=== PATIENT | male | born 1950 | race Caucasian/White ===

== ENCOUNTER 2023-02-19 17:15 | Inpatient (IN) | payer MEDICARE, SELFPAY ==
[2023-02-19] VITALS (22 sets, daily range): BP systolic 105–158; BP diastolic 64–80; PULSE 87–125; RESP 16–46; TEMP 36.9–37.1; O2SAT 89–94; BMI 23.9
--- NOTE | 2023-02-19 17:29 | XR_ITS ---
The [address] [address] Patient Name: VAHID CHOWDHURY MRN: [id number] date: 1950 Sex: M Assigned Patient Location: ER Current Patient Location: ER Accession/Order Number: [id number] Exam Date: 02/19/2023 17:35 Report Date: 02/19/2023 18:22 At the request of: PEARL MAURICIO Procedure: XR chest 1V EXAM: XR chest 1V HISTORY: sob COMPARISON: Chest CT 05/26/2011 TECHNIQUE: Portable chest FINDINGS: IMPRESSION: Dense consolidation within the right upper hemithorax. Poorly evaluated consolidation versus effusion within the left lower hemithorax. No visualized pneumothorax the cardiac, mediastinal and hilar contours are unremarkable. Stool is gross acute osseous abnormality. Chest CT imaging with contrast is necessary. Electronically authenticated by: CHARLIE MINOR Date: 02/19/2023 18:22
--- NOTE | 2023-02-19 17:29 | ECG_ITS ---
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
[2023-02-19] MEDS: IPRATROPIUM/ALBUTEROL SULFATE 3 ML AMPUL.NEB IH ×4 (17:36→22:59)
--- NOTE | 2023-02-19 17:40 | PC.NURSE ---
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
[2023-02-19 17:47] LABS: Hematocrit 46.1 % (42.0-54.0); Hemoglobin 15.8 g/dL (14.0-18.0); Mean Corpuscular HGB Conc 34.3 g/dL (29.9-35.2); Mean Corpuscular Hemoglobin 31.8 pg (25.9-34.0); Mean Corpuscular Volume 92.8 fL (80.0-94.0); Mean Platelet Volume 10.4 fL (9.5-13.5); Platelet Count 297 10^3/uL (150-450); Red Blood Count 4.97 10^6/uL (4.70-6.10); Red Cell Distribution Width 13.5 % (11.0-15.0); White Blood Count 27.5 10^3/uL (4.0-11.0)
[2023-02-19] MEDS: METHYLPREDNISOLONE SOD SUCC PF 125 MG/2 ML VIAL IVP (17:50)
--- NOTE | 2023-02-19 17:55 | ED_ITS ---
HPI - SOB/Dyspnea General Chief Complaint: Shortness of Breath/Dyspnea Stated Complaint: SHORTNESS OF BREATH/DIFFICULTY BREATHING/FEVER Time Seen by Provider: 02/19/23 17:22 Source: patient Mode of arrival: Wheelchair History of Present Illness HPI Narrative: 72-year-old male to the emergency department with chief complaint shortness of breath. Patient reports a history of chronic obstructive pulmonary disease not on oxygen. He reports that over the last three days he has had increasing shortness of breath with exertion. Last evening it began to affect him even at rest. Shortness of breath severe today limiting his ability to walk. He denies any chest pain. He does report fever, chills, cough. MD elicited complaint: shortness of breath and cough Pertinent past history: COPD Related Data Home oxygen amount: none Home Medications Medication Instructions Recorded Confirmed aspirin 81 mg tablet,delayed 81 mg PO DAILY 02/19/23 02/19/23 release (Adult Low Dose Aspirin) budesonide 160 mcg-glycopyr 9 2 inh inhalation BID 02/19/23 02/19/23 mcg-formot 4.8 mcg/actuation HFA inhaler (Breztri Aerosphere) simvastatin 40 mg tablet 40 mg PO QPM 02/19/23 02/19/23 Allergies Allergy/AdvReac Type Severity Reaction Status Date / Time No Known Drug Allergies Allergy Verified 02/19/23 17:23 Review of Systems ROS Status of ROS 10 or more systems reviewed and unremarkable except as noted in history and below [facility] Medical History (Updated 02/19/23 @ 18:39 by Red Jefferson MD) Exam Narrative Exam Narrative: VITALS: I have reviewed the triage vital signs. GENERAL: Well developed, well appearing adult in no acute distress. NEURO: Alert and oriented. Moves all extremities. Face is symmetric and expressive. EYES: PERRL. No scleral icterus or conjunctival injection. No discharge. HENT: Normocephalic, atraumatic. Hearing is grossly intact. Nares grossly patent and without discharge. Mucous membranes moist. NECK: No JVD. Patient moves neck without restriction. CARDIO: Rhythm regular. Normal rate. No murmur, rub, or gallop. Pulses equal bilaterally in the upper and lower extremity. No lower extremity edema. PULM: Diminished R>L. Trace wheezes. No rhonchi. Conversational dyspnea. Moderate increased work of breathing. GI/: Abdomen is soft and non-tender. Normoactive bowel sounds. EXTREMITIES: Symmetric muscle bulk. No joint swelling. No clubbing, cyanosis, or deformity. SKIN: Warm and dry. Normal turgor. No rash or lesions appreciated. PSYCH: Mood, affect, and interaction is appropriate to the setting. Constitutional Vital Signs, click to edit/add: Last Vital Signs Temp 98.7 F 02/19/23 17:24 Pulse 112 H 02/19/23 18:19 Resp 22 02/19/23 18:19 BP 118/79 02/19/23 18:15 Pulse Ox 91 L 02/19/23 18:19 O2 Del Method Nasal Cannula 02/19/23 18:19 O2 Flow Rate 2 02/19/23 18:19 Course Vital Signs Vital signs: Vital Signs Temperature 98.7 F 02/19/23 17:24 Pulse Rate 125 H 02/19/23 17:24 Respiratory Rate 26 H 02/19/23 17:24 Blood Pressure 158/78 H 02/19/23 17:24 Pulse Oximetry 89 L 02/19/23 17:24 Oxygen Delivery Method Room Air 02/19/23 17:24 Temperature 98.7 F 02/19/23 17:24 Pulse Rate 112 H 02/19/23 18:19 Respiratory Rate 22 02/19/23 18:19 Blood Pressure 118/79 02/19/23 18:15 Pulse Oximetry 91 L 02/19/23 18:19 Oxygen Delivery Method Nasal Cannula 02/19/23 18:19 Oxygen Delivery Flow Rate 2 02/19/23 18:19 MDM - SOB/Dyspnea MDM Narrative Medical decision making narrative: MDM Data External documents reviewed: Not applicable My EKG interpretation: As below My CT interpretation: Not applicable My X-ray interpretation: As below My Ultrasound interpretation: Not applicable Decision rules/scores evaluated: Not applicable Discussed with: Not applicable Treatment and Disposition ED Course: 72-year-old male with history of CVA to the emergency department she is complaining of increasing shortness of breath. He is hypoxic on room air upon arrival and placed on 2 L nasal cannula. Given nebulizers, salmeterol, magnesium ordered. Blood gas was ordered for the patient. He had modest improvement in his WoB with duoneb therapy. The patient has leukocytosis and bandemia. Chemistry without significant abnormality. CXR with Right upper lung consolidation. Rocephin and Azithromycin ordered. BCx and lactic ordered. Not in septic shock. Fluid bolus is not indicated. Remains improved after breathing treatments. Cased discussed with the hospitalist for admission. Shared decision making: As above Code status: Not addressed during this visit Lab Data Labs: Lab Results 02/19/23 02/19/23 02/19/23 Range/Units 17:30 17:40 17:46 WBC 27.5 H (4.0-11.0) 10^3/uL RBC 4.97 (4.70-6.10) 10^6/uL Hgb 15.8 (14.0-18.0) g/dL Hct 46.1 (42.0-54.0) % MCV 92.8 (80.0-94.0) fL MCH 31.8 (25.9-34.0) pg MCHC 34.3 (29.9-35.2) g/dL RDW 13.5 (11.0-15.0) % Plt Count 297 (150-450) 10^3/uL MPV 10.4 (9.5-13.5) fL Seg Neuts % (Manual) 75.0 Band Neutrophils % 7.0 H (0-5) % Lymphocytes % (Manual) 3.0 L (20.5-60.0) % Monocytes % (Manual) 14.0 H (1.7-12.0) % Eosinophils % (Manual) 1.0 (0.9-7.0) % Basophils % (Manual) 0.0 L (0.2-2.0) % Neutrophils # (Manual) 20.62 H (1.4-6.5) 10^3/uL Band Neutrophils # 1.9 H (0.0-0.3) 10^3/uL Lymphocytes # (Manual) 0.82 L (1.20-3.80) 10^3/uL Monocytes # (Manual) 3.85 H (0.30-0.80) 10^3/uL Eosinophils # (Manual) 0.27 (0.00-0.70) 10^3/uL Basophils # (Manual) 0.00 (0.00-0.10) 10^3/uL Anisocytosis 1+ PT 10.9 (9.0-11.6) sec INR 1.03 APTT 33.7 (22.3-36.2) sec Puncture Site Lr ABG pH 7.438 (7.350-7.450) ABG pCO2 36.6 (35.0-45.0) mmHg ABG pO2 55.7 L (80.0-100.0) mmHg ABG HCO3 24.7 (22.0-26.0) mmol/L ABG O2 Saturation 91.2 % ABG Base Excess 0.6 (-2.0-2.0) mmol/L Roney Test Positive (POSITIVE) O2 Liters/Min 2 Sodium 131 L (136-145) mmol/L Potassium 3.8 (3.5-5.1) mmol/L Chloride 96 L (98-107) mmol/L Carbon Dioxide 27.0 (21.0-32.0) mmol/L Anion Gap 11.8 BUN 11.0 (7.0-18.0) mg/dL Creatinine 0.99 (0.70-1.30) mg/dL Est GFR ( Amer) >60 (>=60) Est GFR (Non-Af Amer) >60 (>=60) BUN/Creatinine Ratio 11.1 Glucose 129 H (74-106) mg/dL Calcium 9.0 (8.5-10.1) mg/dL Troponin I High Sens 13.5 (4.0-76.1) pg/mL NT-Pro-B Natriuret Pep 679.0 (<=900.0) pg/mL SARS-CoV-2 Ag (CV2AG) Negative (NEGATIVE) Critical Care Time Critical Care Time Critical Care Time: Yes Total Critical Care Time: 35 Attestation: Critical Care Procedure Note Authorized and Performed by: Red Jefferson DO Total critical care time: 35 min Due to a high probability of clinically significant, life threatening deterioration, the patient required my highest level of preparedness to intervene emergently and I personally spent this critical care time directly and personally managing the patient. This critical care time included obtaining a history; examining the patient; pulse oximetry; ordering and review of studies; arranging urgent treatment with development of a management plan; evaluation of patient's response to treatment; frequent reassessment; and, discussions with other providers. This critical care time was performed to assess and manage the high probability of imminent, life-threatening deterioration that could result in multi-organ failure. It was exclusive of separately billable procedures and treating other patients and teaching time. Please see MDM section and the rest of the note for further information on patient assessment and treatment. Discharge Plan Discharge Chief Complaint: Shortness of Breath/Dyspnea Clinical Impression: Community acquired pneumonia, Asthma exacerbation in COPD, Acute hypoxemic respiratory failure Patient Disposition: Admitted As Inpatient Time of Disposition Decision: 18:38 Condition: Serious Prescriptions / Home Meds: No Action Jefei Aerosphere 160-9-4.8 mcg/actuation HFA aerosol inhaler 2 inh INHALATION BID simvastatin 40 mg tablet 40 mg PO QPM aspirin [Adult Low Dose Aspirin] 81 mg tablet,delayed release (DR/EC) 81 mg PO DAILY Referrals: Physician,Non-Staff, MD [Primary Care Provider] - 1 week
[2023-02-19 17:56] LABS: ABG PCO2 36.6 mmHg (35.0-45.0); Allen Test POSITIVE (POSITIVE); Base Excess ABG 0.6 mmol/L (-2.0-2.0); HCO3 ABG 24.7 mmol/L (22.0-26.0); Oxygen Saturation ABG 91.2 %; PO2 ABG 55.7 mmHg (80.0-100.0); pH ABG 7.438 (7.350-7.450)
[2023-02-19 17:57] LABS: Liters per Minute 2; O2 Mode ROOM AIR; Puncture Site LR
[2023-02-19] MEDS: MAGNESIUM SULFATE IN WATER 50 ML IV (18:05)
[2023-02-19 18:07] LABS: Anion Gap 11.8; BUN Creatinine Ratio 11.1; Chloride 96 mmol/L (98-107); Estimated GFR (African America >60 (>=60); Estimated GFR (Non-African Ame >60 (>=60); Glucose 129 mg/dL (74-106); Potassium 3.8 mmol/L (3.5-5.1); Sodium 131 mmol/L (136-145); Troponin I High Sensitivity 13.5 pg/mL (4.0-76.1)
[2023-02-19 18:08] LABS: Band Neutrophils Absolute 1.9 10^3/uL (0.0-0.3); Eosinophils Absolute Manual 0.27 10^3/uL (0.00-0.70); Lymphocytes Absolute Manual 0.82 10^3/uL (1.20-3.80); Monocytes Absolute Manual 3.85 10^3/uL (0.30-0.80); Segmented Neut Absolute Manual 20.62 10^3/uL (1.4-6.5)
[2023-02-19 18:09] LABS: Anisocytosis 1+
[2023-02-19 18:13] LABS: INR 1.03; Partial Thromboplastin Time 33.7 sec (22.3-36.2); Prothrombin Time 10.9 sec (9.0-11.6)
--- NOTE | 2023-02-19 18:17 | PC.NURSE ---
resp at bedside
[2023-02-19] MEDS: CEFTRIAXONE 1,000 MG in 0.9 % SODIUM CHLORIDE 50 ML 100 MG IV (18:38)
--- NOTE | 2023-02-19 18:43 | PC.NURSE ---
NC increased to 3L at this time. Pt states feeling a little better, will continue to monitor
--- NOTE | 2023-02-19 18:47 | CT_ITS ---
The [address] [place], [place] [address] Patient Name: VAHID CHOWDHURY MRN: [id number] date: 1950 Sex: M Assigned Patient Location: ED.MAIN Current Patient Location: ED.MAIN Accession/Order Number: [id number] Exam Date: 02/19/2023 19:14 Report Date: 02/19/2023 19:57 At the request of: PEARL MAURICIO Procedure: CT chest w con EXAM: CT scan of the chest using 99 mL of IV iodinated contrast. Dose reduction technique used: Automated exposure control and/or adjustment of the mA and/or kV according to patient size and/or use of iterative reconstruction technique. REASON FOR EXAM: Right upper lobe consolidation, dyspnea COMPARISON: Plain film from today FINDINGS: Moderate amount of consolidation in the right upper lobe, most prominent within the right apex. No pneumothorax. No pleural effusion. No acute fractures. No central or segmental pulmonary emboli. No aortic dissection. No lymphadenopathy in the chest. Small amount of opacities in the left upper lobe inferiorly are likely related to scarring. Emphysematous changes in both lungs. Remainder unremarkable. CT/CT chest w con IMPRESSION: Right upper lobe pneumonia. Recommend follow-up chest CT in 3 months to exclude underlying malignancy. Electronically authenticated by: AGATHA VILLANUEVA Date: 02/19/2023 19:57
[2023-02-19] MEDS: AZITHROMYCIN 500 MG in 0.9 % SODIUM CHLORIDE 250 ML 250 MG IV (19:23)
--- NOTE | 2023-02-19 22:14 | P.PN_ITS ---
Progress Note: Subjective Subjective Interval history: Pt is a 72M with PMH of COPD, AAA who presented to the ED with complaint of dyspnea on exertion which has been present for months but acutely worsened last night while he was walking to hisbathroom. He reports cough, dysphagia, and inability to clear secretions. Self-measured temp of 101-102 at home for the last two days associated with diaphoresis and chills. He denies sick contacts, recent hospitalizations, recent abx use, travel. Of note, pt is a daily beer drinker - 6/day. denies any tremors, no hx of seizures or DTs. Pt is an active tobacco smoker, 1PPD and cannot remember how long Exam Narrative Exam Narrative: Gen: NAD HEENT: NC/AT Neck: FROM CV: RRR Pulm: +soft wheezes, expiratory. +Rhonchi R-side anteriorly GI: Nondistended, no guarding Musculosk: PORTER, No edema Neuro: AAOx3 Psych: Calm, cooperative Constitutional Vital Signs, click to edit/add: Last Vital Signs Temp 98.5 F 02/19/23 21:07 Pulse 90 02/19/23 21:17 Resp 20 02/19/23 21:17 BP 117/66 02/19/23 21:07 Pulse Ox 93 L 02/19/23 21:17 O2 Del Method Nasal Cannula 02/19/23 21:17 O2 Flow Rate 3 02/19/23 21:17 Progress Note: Objective Labs Labs: Short CBC 02/19/23 Range/Units 17:30 WBC 27.5 H (4.0-11.0) 10^3/uL Hgb 15.8 (14.0-18.0) g/dL Hct 46.1 (42.0-54.0) % Plt Count 297 (150-450) 10^3/uL BMP 02/19/23 17:30 Sodium 131 L Potassium 3.8 Chloride 96 L Carbon Dioxide 27.0 BUN 11.0 Creatinine 0.99 Glucose 129 H Calcium 9.0 Progress Note: A&P Assessment and Plan (1) Community acquired pneumonia: (2) Acute hypoxemic respiratory failure: (3) COPD exacerbation: Plan Admit to medicine Rocephin/Azithromycin for CAP Obtain Ct scan given location of PNA (upper lobe) and extensive smokign history Place on solumedrol 40mg Q8 Mucinex 600mg BID Chest PT DuoNebs O2 support to goal 89-94% Monitor BP, as pt states that he has a AAA which has grown from 3.3cm to 4.2 in the last year Monitor for signs of withdrawal from EtOH. Pt states last drink was 48hrs ago. Telemedicine Attestation Telemedicine Attestation I conducted this encounter from [[place]] via secure live, [id number] video conference with the patient, located at [facility] with [nurse]. Prior to the interview, the risks and benefits of telemedicine were discussed with the patient and verbal consent was obtained.
[2023-02-19] MEDS: ENOXAPARIN SODIUM 40 MG/0.4 ML SYRINGE SUBQ (23:08)
[2023-02-19] MEDS: GUAIFENESIN 600 MG TAB.ER.12H PO (23:09)
[2023-02-20] VITALS (83 sets, daily range): BP systolic 114–137; BP diastolic 71–73; PULSE 65–98; RESP 12–40; TEMP 36.6–36.8; O2SAT 90–98
[2023-02-20] MEDS: IPRATROPIUM/ALBUTEROL SULFATE 3 ML AMPUL.NEB IH ×4 (04:32→22:00)
[2023-02-20 04:36] LABS: Mean Corpuscular HGB Conc 33.3 g/dL (29.9-35.2); Mean Corpuscular Hemoglobin 31.3 pg (25.9-34.0); Mean Platelet Volume 10.9 fL (9.5-13.5); Platelet Count 285 10^3/uL (150-450); Red Blood Count 4.47 10^6/uL (4.70-6.10); Red Cell Distribution Width 13.5 % (11.0-15.0); White Blood Count 24.4 10^3/uL (4.0-11.0)
[2023-02-20 04:50] LABS: Anion Gap 10.9; BUN Creatinine Ratio 13.8; Calcium 8.4 mg/dL (8.5-10.1); Carbon Dioxide 26.7 mmol/L (21.0-32.0); Chloride 97 mmol/L (98-107); Estimated GFR (African America >60 (>=60); Estimated GFR (Non-African Ame >60 (>=60); Glucose 178 mg/dL (74-106); Magnesium 2.7 mg/dL (1.8-2.4); Potassium 3.6 mmol/L (3.5-5.1); Sodium 131 mmol/L (136-145)
[2023-02-20 05:03] LABS: Band Neutrophils Absolute 2.7 10^3/uL (0.0-0.3); Lymphocytes Absolute Manual 0.73 10^3/uL (1.20-3.80); Monocytes Absolute Manual 0.73 10^3/uL (0.30-0.80); Segmented Neut Absolute Manual 20.25 10^3/uL (1.4-6.5)
[2023-02-20] MEDS: GUAIFENESIN 600 MG TAB.ER.12H PO ×2 (09:11→20:50)
[2023-02-20] MEDS: METHYLPREDNISOLONE SOD SUCC PF 125 MG/2 ML VIAL 60 MG IVP ×3 (09:11→20:50)
[2023-02-20] MEDS: ENOXAPARIN SODIUM 40 MG/0.4 ML SYRINGE SUBQ (09:11)
--- NOTE | 2023-02-20 10:25 | P.HP_ITS ---
H&P: HPI History of Present Illness Chief complaint: SOB Narrative: 72 y/o male with a history of COPD to ER with SOB. C/o SOB for several days and getting worse. Initially SOB with exertion but worsened. Day prior walking to bathroom and had to stop to catch breath. Chest tight and not able to take deep breath. Frequent dry cough. Developed fever 101-102 along with chills. Smokes 1 PPD and smoked for over 50 years. Increased symptoms and to ER. SpO2 low and placed on supplemental oxygen. ABG showed hypoxia with pO2 55.7 while on 2 LPM. Chest x-ray with consolidation and CT showed pneumonia. Admitted for treatment. Started zithromax and rocephin for pneumonia. Started solu-medrol and DuoNeb for COPD. Continues to feel SOB and chest tightness this am. Reports drinking at least 6 beer daily but denies every having withdrawal symptoms. Reports last drink was 3 days ago. Review of Systems ROS Constitutional Reports: fever, chills and fatigue Cardiovascular Denies: chest pain, palpitations or edema Respiratory Reports: shortness of breath, cough and wheezing Gastrointestinal Denies: abdominal pain, nausea, vomiting or diarrhea Genitourinary Denies: painful urination [facility] Medical History (Updated 02/20/23 @ 08:46 by Lenin Chavez MD) Surgical History (Updated 02/19/23 @ 20:31 by Deloris Tripp) Social History (Updated 02/19/23 @ 20:33 by Deloris Tripp) Within the past year, how often did you have a drink containing alcohol: 4 or more times a week Within the past year, how often did you have six or more drinks on one occasion: daily or almost daily Smoking status: Current every day smoker What tobacco products do you use: cigarettes Pack-years instructions: Please document either packs per day or cigarettes per day in order for pack years to calculate correctly. If using both packs per day and cigarettes per day, please make sure that they denote the same thing. If they differ, pack- years will calculate based on packs per day. Packs Per Day Cigarettes Per Day 1/4 of a pack 5 1/2 a pack 10 3/4 of a pack 15 1 pack 20 1.5 pack 30 2 packs 40 2.5 packs 50 3 packs 60 Packs per day: 1 Previous occupational history: [employer] Known occupational exposures/hazards: No Highest level of school completed/degree received: some college, no degree Are you now , , , , never or living with a partner: Feel stressed/tense/nervous/anxious/difficulty sleeping: not at all Meds Home Medications and Allergies Home Medications Medication Instructions Recorded Confirmed Type albuterol sulfate 2.5 mg/3 mL 2.5 mg inhalation Q4H PRN 02/19/23 02/19/23 History (0.083 %) solution for nebulization shortness of breath or wheezing aspirin 81 mg tablet,delayed 81 mg PO DAILY 02/19/23 02/19/23 History release (Adult Low Dose Aspirin) budesonide 160 mcg-glycopyr 9 2 inh inhalation BID 02/19/23 02/19/23 History mcg-formot 4.8 mcg/actuation HFA inhaler (Breztri Aerosphere) simvastatin 40 mg tablet 40 mg PO QPM 02/19/23 02/19/23 History Allergies Allergy/AdvReac Type Severity Reaction Status Date / Time No Known Drug Allergies Allergy Verified 02/19/23 17:23 Exam Constitutional Vital Signs, click to edit/add: Last Vital Signs Temp 97.8 F 02/20/23 08:00 Pulse 98 H 02/20/23 04:32 Resp 26 H 02/20/23 04:32 BP 117/66 02/19/23 21:07 Pulse Ox 91 L 02/20/23 04:32 O2 Del Method Nasal Cannula 02/20/23 08:00 O2 Flow Rate 3 02/20/23 08:00 Documenting provider has reviewed patient's vital signs: yes Common normals: no apparent distress, oriented x3 and alert HENMT Common normals: normocephalic Eye Common normals: PERRL and EOMs intact bilaterally Respiratory Auscultation: diminished lung sounds Cardio Common normals: regular rate, regular rhythm, no gallops, no murmurs and no rub GI Common normals: Normal to inspection, nondistended, normoactive bowel sounds present and non-tender Extremity Common normals: no pedal edema Results Labs Labs: Short CBC 02/19/23 02/20/23 Range/Units 17:30 04:07 WBC 27.5 H 24.4 H (4.0-11.0) 10^3/uL Hgb 15.8 14.0 (14.0-18.0) g/dL Hct 46.1 42.0 (42.0-54.0) % Plt Count 297 285 (150-450) 10^3/uL BMP 02/19/23 02/20/23 17:30 04:07 Sodium 131 L 131 L Potassium 3.8 3.6 Chloride 96 L 97 L Carbon Dioxide 27.0 26.7 BUN 11.0 12.0 Creatinine 0.99 0.87 Glucose 129 H 178 H Calcium 9.0 8.4 L ABG ABG results: 02/19/23 17:46 ABG pH 7.438 ABG pCO2 36.6 ABG pO2 55.7 L ABG HCO3 24.7 ABG O2 Saturation 91.2 ABG Base Excess 0.6 Attestation: I have reviewed the pertinent ABG results. Imaging CT scan - chest: Attestation: I have reviewed the pertinent imaging results. Assessment and Plan Assessment and Plan (1) Community acquired pneumonia: (2) COPD exacerbation: (3) Acute hypoxemic respiratory failure: (4) Tobacco user: (5) Alcohol abuse, continuous: Plan Continue antibiotics, steroids, and breathing treatments. Resumed home medication. Offered nicotine patch but declined. Wean O2 as tolerated and increase ambulation. Daily alcohol use and monitor for signs of withdrawal. Likely will need 2-3 days in the hospital.
--- NOTE | 2023-02-20 10:50 | CM.NOTE ---
Rounds made with Dr. Chavez, no discharge for pt today. Continue IV antibiotics.
--- NOTE | 2023-02-20 11:21 | CM.NOTE ---
Important Message From Medicare discussed with pt, pt verbalizes understanding and signs paper. Original given to pt and copy placed on pt's chart.
[2023-02-20] MEDS: ASPIRIN 81 MG TABLET.DR PO (12:11)
[2023-02-20 15:25] LABS: SARS-CoV-2 Ag NEGATIVE (NEGATIVE)
[2023-02-20] MEDS: ATORVASTATIN CALCIUM 20 MG TABLET 40 MG PO (20:50)
[2023-02-20] MEDS: CEFTRIAXONE 1,000 MG in 0.9 % SODIUM CHLORIDE 50 ML 100 MG IV (20:51)
[2023-02-20] MEDS: AZITHROMYCIN 500 MG in 0.9 % SODIUM CHLORIDE 250 ML 250 MG IV (22:47)
[2023-02-21] VITALS (19 sets, daily range): BP systolic 122–142; BP diastolic 65–76; PULSE 45–93; RESP 16–20; TEMP 36.3–37.1; O2SAT 74–96
[2023-02-21] MEDS: METHYLPREDNISOLONE SOD SUCC PF 125 MG/2 ML VIAL 60 MG IVP ×4 (02:58→20:14)
[2023-02-21] MEDS: IPRATROPIUM/ALBUTEROL SULFATE 3 ML AMPUL.NEB IH ×4 (04:37→22:28)
[2023-02-21 05:12] LABS: Basophils Absolute Auto 0.1 10^3/uL (0.0-0.1); Basophils Percent Auto 0.3 % (0.2-2.0); Eosinophils Absolute Auto 0.1 10^3/uL (0.0-0.7); Eosinophils Percent Auto 0.3 % (0.9-7.0); Hematocrit 38.3 % (42.0-54.0); Hemoglobin 12.7 g/dL (14.0-18.0); Immature Granulocytes Abs Auto 0.25 10^3/uL (0.00-0.03); Immature Granulocytes Pct Auto 1.2 % (0.0-0.5); Lymphocytes Absolute Auto 0.4 10^3/uL (1.2-3.8); Lymphocytes Percent Auto 2.1 % (20.5-60.0); Mean Corpuscular HGB Conc 33.2 g/dL (29.9-35.2); Mean Corpuscular Hemoglobin 31.2 pg (25.9-34.0); Mean Corpuscular Volume 94.1 fL (80.0-94.0); Mean Platelet Volume 11.2 fL (9.5-13.5); Monocytes Percent Auto 4.8 % (1.7-12.0); Neutrophils Absolute Auto 19.3 10^3/uL (1.4-6.5); Neutrophils Percent Auto 91.3 % (43.0-75.0); Platelet Count 303 10^3/uL (150-450); Red Blood Count 4.07 10^6/uL (4.70-6.10); Red Cell Distribution Width 13.5 % (11.0-15.0); White Blood Count 21.1 10^3/uL (4.0-11.0)
[2023-02-21 05:38] LABS: Anion Gap 11.5; BUN Creatinine Ratio 33.3; Calcium 8.7 mg/dL (8.5-10.1); Carbon Dioxide 29.3 mmol/L (21.0-32.0); Chloride 98 mmol/L (98-107); Estimated GFR (African America >60 (>=60); Estimated GFR (Non-African Ame >60 (>=60); Glucose 161 mg/dL (74-106); Potassium 3.8 mmol/L (3.5-5.1); Sodium 135 mmol/L (136-145)
[2023-02-21] MEDS: ENOXAPARIN SODIUM 40 MG/0.4 ML SYRINGE SUBQ (08:11)
[2023-02-21] MEDS: GUAIFENESIN 600 MG TAB.ER.12H PO ×2 (08:12→20:14)
[2023-02-21] MEDS: ASPIRIN 81 MG TABLET.DR PO (08:12)
--- NOTE | 2023-02-21 09:29 | PM.PN ---
Progress Note: Subjective Subjective Interval history: Patient improved this am. Still SOB with exertion but slowly improving. Remains on oxygen. Reports cough starting to become productive of thick phlegm. Afebrile. Normal appetite and no emesis or diarrhea. No chest pain or palpitations. Exam Constitutional Vital Signs, click to edit/add: Last Vital Signs Temp 98 F 02/21/23 04:00 Pulse 75 02/21/23 08:21 Resp 18 02/21/23 08:21 BP 131/76 02/21/23 08:26 Pulse Ox 96 02/21/23 08:21 O2 Del Method Nasal Cannula 02/21/23 08:21 O2 Flow Rate 2 02/21/23 08:21 Documenting provider has reviewed patient's vital signs: yes Common normals: no apparent distress, oriented x3 and alert HENMT Common normals: normocephalic Eye Common normals: PERRL and EOMs intact bilaterally Respiratory Auscultation: wheezes and diminished lung sounds Cardio Common normals: regular rate, regular rhythm, no gallops, no murmurs and no rub GI Common normals: Normal to inspection, nondistended, normoactive bowel sounds present and non-tender Extremity Common normals: no pedal edema Progress Note: Objective Labs Labs: Short CBC 02/21/23 Range/Units 04:16 WBC 21.1 H (4.0-11.0) 10^3/uL Hgb 12.7 L (14.0-18.0) g/dL Hct 38.3 L (42.0-54.0) % Plt Count 303 (150-450) 10^3/uL BMP 02/21/23 04:16 Sodium 135 L Potassium 3.8 Chloride 98 Carbon Dioxide 29.3 BUN 21.0 H Creatinine 0.63 L Glucose 161 H Calcium 8.7 Progress Note: A&P Assessment and Plan (1) Community acquired pneumonia: (2) COPD exacerbation: (3) Acute hypoxemic respiratory failure: (4) Tobacco user: (5) Alcohol abuse, continuous: Plan Patient slowly improved and continue antibiotics, steroids, and breathing treatments. Wean O2 as tolerated. Increase ambulation. Transfer to med/surg. Likely will be ready for discharge in am.
--- NOTE | 2023-02-21 09:34 | CM.NOTE ---
Rounds made with Dr. Chavez, no discharge today. Walk test to be done for possible home oxygen at discharge. Pt verbalizes understanding.
--- NOTE | 2023-02-21 11:23 | PC.NURSE ---
Pt ambulated in [place] with no o2, required frequent reminders to take slow breaths. Open mouth breathing at end of walk, [id number] feet. Once placed back on o2, required reminders to breath through nose, SPO2 raised to 92. After rest with o2 remaining between 96-94% at 2lpm. He stated at home he does get short of breath walking around, does not have o2. Requires breaks with ADL, prior to acute needs. Feels like he has needed o2 for months, hesitant to request it, per pt.
--- NOTE | 2023-02-21 13:50 | SWNOTE1 ---
SW met with pt to discuss dc needs. Pt lives at home with his . 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 Pt is on oxygen while at hospital and completed walk test with nursing test and will qualify for home 02. SW spoke with pt about the various DME companies, he is going to talk to his . He lives in [place] so it will likely be [employer] or [employer] company. Pt did inquire about the inogen and SW let him know he would have to follow up with his PCP in regards to that. VANI also addressed pt's drinking. Pt does admit to drinking daily and it is various amounts. He stated it is only beer. Pt does not want any resources for AA or counseling at this time. Pt also smokes. SW expressed the importance of not smoking with the oxygen. Pt voiced understanding. SW to check on pt tomorrow to get oxygen company.
[2023-02-21 15:28] LABS: SARS-CoV-2 NAA NOT DETECTED (NOT DETECTE)
[2023-02-21] MEDS: ATORVASTATIN CALCIUM 20 MG TABLET 40 MG PO (20:14)
[2023-02-21] MEDS: CEFTRIAXONE 1,000 MG in 0.9 % SODIUM CHLORIDE 50 ML 100 MG IV (20:15)
[2023-02-21] MEDS: AZITHROMYCIN 500 MG in 0.9 % SODIUM CHLORIDE 250 ML 250 MG IV (21:23)
[2023-02-22] MEDS: METHYLPREDNISOLONE SOD SUCC PF 125 MG/2 ML VIAL 60 MG IVP ×3 (02:06→13:00)
[2023-02-22 04:24] VITALS: PULSE 52; RESP 18; O2SAT 96
[2023-02-22] MEDS: IPRATROPIUM/ALBUTEROL SULFATE 3 ML AMPUL.NEB IH ×2 (04:24→10:52)
[2023-02-22 04:42] LABS: Basophils Absolute Auto 0.1 10^3/uL (0.0-0.1); Basophils Percent Auto 0.5 % (0.2-2.0); Hematocrit 37.8 % (42.0-54.0); Hemoglobin 12.5 g/dL (14.0-18.0); Immature Granulocytes Abs Auto 0.34 10^3/uL (0.00-0.03); Immature Granulocytes Pct Auto 1.8 % (0.0-0.5); Lymphocytes Absolute Auto 0.5 10^3/uL (1.2-3.8); Lymphocytes Percent Auto 2.7 % (20.5-60.0); Mean Corpuscular HGB Conc 33.1 g/dL (29.9-35.2); Mean Corpuscular Hemoglobin 31.5 pg (25.9-34.0); Mean Corpuscular Volume 95.2 fL (80.0-94.0); Mean Platelet Volume 10.7 fL (9.5-13.5); Monocytes Absolute Auto 0.9 10^3/uL (0.3-0.8); Monocytes Percent Auto 4.8 % (1.7-12.0); Neutrophils Absolute Auto 17.3 10^3/uL (1.4-6.5); Neutrophils Percent Auto 90.2 % (43.0-75.0); Platelet Count 306 10^3/uL (150-450); Red Blood Count 3.97 10^6/uL (4.70-6.10); Red Cell Distribution Width 13.6 % (11.0-15.0); White Blood Count 19.2 10^3/uL (4.0-11.0)
[2023-02-22 04:57] LABS: Calcium 8.6 mg/dL (8.5-10.1); Carbon Dioxide 27.3 mmol/L (21.0-32.0); Chloride 101 mmol/L (98-107); Estimated GFR (African America >60 (>=60); Estimated GFR (Non-African Ame >60 (>=60); Glucose 140 mg/dL (74-106); Potassium 4.3 mmol/L (3.5-5.1); Sodium 136 mmol/L (136-145)
--- NOTE | 2023-02-22 05:00 | XR_ITS ---
[place] [id number] Patient Name: VAHID CHOWDHURY MRN: [id number] date: 1950 Sex: M Assigned Patient Location: MS Current Patient Location: MS Accession/Order Number: [id number] Exam Date: 02/22/2023 05:50 Report Date: 02/22/2023 06:36 At the request of: CORRIE GUTIÉRREZ Procedure: XR chest 1V EXAMINATION: XR chest 1V HISTORY: Pneumonia COMPARISON: XR chest 02/19/2023 FINDINGS: LUNGS: Large dense opacity/consolidation within right lung apex. Mild stranding within right lung base. Opacities within lateral left lung base partially obscuring the costophrenic angle. VASCULATURE: No increased pulmonary vasculature. PLEURA: No pneumothorax, effusion, or pleural thickening. CARDIAC: No cardiomegaly or cardiac silhouette abnormality. MEDIASTINUM: No visible mass or adenopathy. BONES: No fracture or visible bone lesion. OTHER: Negative. XR/XR chest 1V IMPRESSION: 1. Slight decrease in large right apical pneumonia versus passive atelectasis from bronchial obstruction versus mass. Consider follow-up chest x-ray to document clearing versus CT imaging to exclude mass. 2. Slight improvement and mild-moderate left basilar infiltrates. Electronically authenticated by: KHLOE ROCK Date: 02/22/2023 06:36
[2023-02-22 05:21] VITALS: BP 116/65; PULSE 65; RESP 18; TEMP 36.4; O2SAT 92
[2023-02-22] MEDS: ENOXAPARIN SODIUM 40 MG/0.4 ML SYRINGE SUBQ (08:09)
[2023-02-22] MEDS: GUAIFENESIN 600 MG TAB.ER.12H PO (08:09)
[2023-02-22] MEDS: ASPIRIN 81 MG TABLET.DR PO (08:09)
--- NOTE | 2023-02-22 09:07 | SWNOTE1 ---
SW received message from case management and pt would like to use [facility] for his home oxygen. SW to send referral once face to face is completed by doctor.
--- NOTE | 2023-02-22 09:59 | CM.NOTE ---
Rounds made with nikhil Euceda for discharge to home today with home oxygen.
--- NOTE | 2023-02-22 10:03 | P.DS_ITS ---
DS: Providers Provider Date of admission: 02/19/23 20:30 Primary care physician: Non-Staff Physician, DS: Diagnosis Discharge Diagnosis (1) Community acquired pneumonia: (2) COPD exacerbation: (3) Acute hypoxemic respiratory failure: (4) Tobacco user: (5) Alcohol abuse, continuous: DS: Summary Hospital Course Hospital Course: Reason for admission: See H&P for details. 72 y/o male with a history of COPD to ER with SOB. C/o SOB for several days and getting worse. Initially SOB with exertion but worsened. Day prior walking to bathroom and had to stop to catch breath. Chest tight and not able to take deep breath. Frequent dry cough. Developed fever 101-102 along with chills. Smokes 1 PPD and smoked for over 50 years. Increased symptoms and to ER. SpO2 low and placed on supplemental oxygen. ABG showed hypoxia with pO2 55.7 while on 2 LPM. Chest x-ray with consolidation and CT showed pneumonia. Admitted for treatment. Hospital course: Started zithromax and rocephin for pneumonia. Started solu- medrol and DuoNeb for COPD. Continued to feel SOB and chest tightness. Attempted to wean oxygen but not able to get lower than 2 LPM. Symptoms improved. Less SOB and mild cough. Ambulating well. Nursing performed walk test and patient desaturated to 81% on room air which qualified for home O2. Arranged for home O2 with portability and discharged home in stable condition. Will take cefdinir and zithromax for pneumonia. Take prednisone tapered over 12 days. Resume home medication as directed. CT chest with large consolidation and repeat CT in 3 months is needed to document resolution and assess for underlying mass. Will follow up with PCP for repeat CT. Time Spent with Patient Time attestation: Total time spent providing and/or coordinating discharge services: Exam Constitutional Vital Signs, click to edit/add: Last Vital Signs Temp 97.5 F L 02/22/23 05:21 Pulse 65 02/22/23 05:21 Resp 18 02/22/23 05:21 BP 116/65 02/22/23 05:21 Pulse Ox 92 L 02/22/23 05:21 O2 Del Method Nasal Cannula 02/22/23 05:21 O2 Flow Rate 2 02/22/23 05:21 Documenting provider has reviewed patient's vital signs: yes Common normals: no apparent distress, oriented x3 and alert HENMT Common normals: normocephalic Eye Common normals: PERRL and EOMs intact bilaterally Respiratory Auscultation: diminished lung sounds Cardio Common normals: regular rate, regular rhythm, no gallops, no murmurs and no rub GI Common normals: Normal to inspection, nondistended, normoactive bowel sounds present and non-tender Extremity Common normals: no pedal edema DS: Data Data Completed and Pending Labs on day of discharge: Labs from last 24 hours 02/22/23 02/19/23 04:07 17:40 WBC 19.2 H RBC 3.97 L Hgb 12.5 L Hct 37.8 L MCV 95.2 H MCH 31.5 MCHC 33.1 RDW 13.6 Plt Count 306 MPV 10.7 Neut % (Auto) 90.2 H Lymph % (Auto) 2.7 L School[place] % (Auto) 4.8 Eos % (Auto) 0.0 L Baso % (Auto) 0.5 Neut # (Auto) 17.3 H Lymph # (Auto) 0.5 L [place] # (Auto) 0.9 H Eos # (Auto) 0.0 Baso # (Auto) 0.1 Abs Immat Gran (auto) 0.34 H Imm/Tot Granulo (auto) 1.8 H Sodium 136 Potassium 4.3 Chloride 101 Carbon Dioxide 27.3 Anion Gap 12.0 BUN 18.0 Creatinine 0.53 L Est GFR ( Amer) >60 Est GFR (Non-Af Amer) >60 BUN/Creatinine Ratio 34.0 Glucose 140 H Calcium 8.6 SARS-CoV-2 RNA (NORA) Not detected Preliminary micro results at discharge 02/19/23 17:40 Blood Culture Result 1 - Preliminary Blood NO GROWTH AT 36-48 HOURS. FINAL TO FOLLOW. 02/19/23 17:30 Blood Culture Result 1 - Preliminary Blood NO GROWTH AT 36-48 HOURS. FINAL TO FOLLOW. Discharge Plan Discharge Disposition: Home, Self-Care Condition: Serious Discharge Medications: New azithromycin [Zithromax] 250 mg tablet 250 mg PO DAILY 4 Days Qty: 4 0RF Rx Instructions: start on day 2 of therapy prednisone 10 mg tablets,dose pack 10 mg PO DAILY Qty: 39 0RF Rx Instructions: 6 PO daily x 3 days, then 4 PO daily x 3 days, then 2 PO daily x 3 days, then 1 PO daily x 3 days cefdinir 300 mg capsule 300 mg PO BID 10 Days Qty: 20 0RF Continued Breztri Aerosphere 160-9-4.8 mcg/actuation HFA aerosol inhaler 2 inh INHALATION BID simvastatin 40 mg tablet 40 mg PO QPM aspirin [Adult Low Dose Aspirin] 81 mg tablet,delayed release (DR/EC) 81 mg PO DAILY albuterol sulfate 2.5 mg /3 mL (0.083 %) solution for nebulization 2.5 mg inhalation Q4H PRN (Reason: shortness of breath or wheezing) Activity: resume usual activities as tolerated Diet: advance to your usual diet Forms: Portal Instructions
--- NOTE | 2023-02-22 10:21 | SWNOTE1 ---
Referral sent to [facility] for home oxygen
[2023-02-22 10:56] VITALS: O2SAT 94
--- NOTE | 2023-02-22 11:34 | SWNOTE1 ---
[facility] has received referral and will call once everything is ready.
--- NOTE | 2023-02-22 13:08 | SWNOTE1 ---
VANI called [facility] again and spoke to Yanira, she stated as far as she can see there are no issues and we can send pt home with oxygen tank. VANI provided pt and with the number for [facility] and let them know to call on way home or when home and they will deliver rest of supplies. Pt is discharging on 2 liters of oxygen.
--- NOTE | 2023-02-25 15:22 | CM.DCFOLLOWU ---
Person spoke with: patient How are you feeling?well How is your pain? no pain Did you understand your discharge instructions? yes Do you have any questions about your discharge instructions? no Were you given any prescriptions at discharge? yes Were you able to get your prescriptions filled? yes Do you understand how to take your medications as ordered? yes Do you have any questions about your follow up appointment and do you plan to keep your follow up appointment? no questions, yes keeping follow up Is there anything else that you would like to discuss? no Questions/Comments/Concerns/Other:
== END 2023-02-22 13:12 | disposition home or self-care (01) | DRG 193 ==
LOC: ER 19:18 → ICU 20:41 → MS 02-21 12:49
PROVIDERS: Internal Medicine; Student in an Organized Health Care Education/Training Program; Admitting Provider Family Medicine; Emergency Provider Internal Medicine; Visit Provider Family Medicine
DX: J18.9 Pneumonia, unspecified organism (principal); J96.01 Acute respiratory failure with hypoxia; J44.0 Chronic obstructive pulmonary disease with (acute) lower respiratory infection; J44.1 Chronic obstructive pulmonary disease with (acute) exacerbation; F17.210 Nicotine dependence, cigarettes, uncomplicated; F10.10 Alcohol abuse, uncomplicated; R91.8 Other nonspecific abnormal finding of lung field; Z20.822 Contact with and (suspected) exposure to COVID-19; Z79.82 Long term (current) use of aspirin; Z79.51 Long term (current) use of inhaled steroids; Z79.899 Other long term (current) drug therapy; Z86.73 Personal history of transient ischemic attack (TIA), and cerebral infarction without residual deficits
CPT/HCPCS: 36415; 36600; 71045; 71260; 80048; 82805; 83605; 83735; 83880; 84484; 85025; 85027; 85610; 85730; 87040; 87635; 93005; 94640; 94667; 94668; 94761; 96365; 96366; 96367; 96368; 96372; 96375; 96376; 99285; 99406; J0456; J2930; Q3014; Q9967

== ENCOUNTER 2023-05-29 08:47 | Outpatient (OUT) | payer MEDICARE, SELFPAY ==
--- NOTE | 2023-05-29 09:05 | CT_ITS ---
[address] [address] Patient Name: VAHID CHOWDHURY MRN: [id number] date: 1950 Sex: M Assigned Patient Location: CT Current Patient Location: Accession/Order Number: [id number] Exam Date: 05/29/2023 09:13 Report Date: 05/30/2023 07:12 At the request of: NON-STAFF PHYSICIAN Procedure: CT chest wo con EXAMINATION: CT chest wo con HISTORY: COPD J44.1, Community Acquired Pneumonia J18.9 ; follow-up COMPARISON: XR chest 02/19/2023 TECHNIQUE: Multi-planar CT images were obtained without and/or with IV contrast as indicated by examination type. Axial, Coronal, and Sagittal images. Dose reduction techniques were achieved by using automated exposure control and/or adjustment of mA and/or kV according to patient size and/or use of iterative reconstruction technique. FINDINGS: LUNGS: Thick dense curvilinear opacity within right lung apex at site of prior pneumonia; likely scarring. New 3.0 cm geographic shaped opacity within anterior lateral left lung base. Several tiny irregular infiltrates versus scarring within left lung. PLEURA: No mass, effusion, or pneumothorax. VASCULATURE: No abnormality. JESSI: Calcified lymph nodes suggestive chronic granulomatous disease. MEDIASTINUM: Calcified lymph nodes. CARDIAC: No enlargement, pericardial thickening, or significant calcification. AORTA: No aneurysm or dissection. CHEST WALL: No mass or axillary adenopathy. BONES: No bone lesion or fracture. LIMITED ABDOMEN: No suspicious findings Limited images of the upper abdomen. OTHER: Negative. CT/CT chest wo con IMPRESSION: 1. Right lung apex thick curvilinear opacity at site of prior pneumonia; likely scarring. 2. Lateral left lung base new 3.0 cm geographic shaped soft tissue structure; scarring versus infiltrate versus neoplasm. Several tiny irregular opacities scattered within left lung. Given the new development over the past 3 months this likely represents infiltrate or scarring. CT chest without contrast in 3 months is recommended to document stability versus clearing. If strong concern for neoplasm consider PET imaging at this time. Electronically authenticated by: KHLOE ROCK Date: 05/30/2023 07:12
== END 2023-05-29 08:48 | disposition home or self-care (01) ==
LOC: CT 08:48
DX: J44.1 Chronic obstructive pulmonary disease with (acute) exacerbation (principal); J18.9 Pneumonia, unspecified organism; Z99.81 Dependence on supplemental oxygen
CPT/HCPCS: 71250

== ENCOUNTER 2023-09-03 05:02 | Observation (INO) | payer MEDICARE, SELFPAY ==
[2023-09-03] VITALS (86 sets, daily range): BP systolic 101–126; BP diastolic 68–87; PULSE 60–108; RESP 8–42; TEMP 36.6–37.1; O2SAT 82–100; BMI 24.4
--- OUTSIDE RECORDS SUMMARY | 2023-09-03 05:15 | XMS_ITS | CCD ---
Author Name Unknown Address [address] [place] [address] Organization [facility] Care Team Providers Care Cnc Specialist Name Role Phone REQUEST, NONE LISTED Consulting Unavailable REQUEST, NONE LISTED Attending Unavailable REQUEST, NONE LISTED Admitting Unavailable Henrietta Spence DO Unavailable Henrietta Spence DO Primary Care Provider LYLY YUSUF Referring Unavailable LYLY YUSUF Primary Care Unavailable JEAN HDZ Attending Unavailable JEAN HDZ Referring Unavailable Medications Current Medications Medication Drug Class(es) Dates Sig (Normalized) Sig (Original) [id number] 200 actuat albuterol 0.09 mg/actuat metered dose inhaler (1 source) beta2-Adrenergic Agonist Start: 06-08-2022 take 2 puff(s) by inhalation every four hours for wheezing albuterol HFA 90 mcg/act inhaler Inhale 2 puffs every 4 (four) hours if needed for shortness of breath or wheezing. 0 06/08/2022 Active aspirin 81 mg delayed release oral tablet (1 source) Platelet Aggregation Inhibitor, Nonsteroidal Anti-inflammatory Drug take 1 tablet by mouth in the morning aspirin 81 MG EC tablet Take 81 mg by mouth in the morning. 0 Active 120 actuat budesonide 0.16 mg/actuat / formoterol fumarate 0.0048 mg/actuat / glycopyrrolate 0.009 mg/actuat metered dose inhaler (1 source) Corticosteroid, beta2-Adrenergic Agonist Start: 03-29-2023 take 2 puff(s) by inhalation in the morning Budeson-Glycopyrrol -Formoterol (Breztri Aerosphere) 160-9-4.8 MCG/ACT aerosol Indications: Chronic bronchitis, unspecified chronic bronchitis type (CMS/HCC) Inhale 2 puffs in the morning and 2 puffs before bedtime. 10.7 g 3 03/29/2023 Active cefdinir 300 mg oral capsule (1 source) Cephalosporin Antibacterial Start: 02-22-2023 take 1 capsule by mouth in the morning cefdinir (Omnicef) 300 MG capsule Take 300 mg by mouth in the morning and 300 mg before bedtime. 0 02/22/2023 Active predniSONE 10 mg oral tablet (1 source) Start: 02-22-2023 take 1 tablet by mouth in the morning predniSONE (Deltasone) 10 MG tablet Take 10 mg by mouth in the morning. 0 02/22/2023 Active simvastatin 40 mg oral tablet (1 source) HMG-CoA Reductase Inhibitor Start: 07-17-2023 take 1 tablet by mouth once daily simvastatin (Zocor) 40 MG tablet Indications: Mixed hyperlipidemia (CMS/HCC) Take 1 tablet by mouth once daily 90 tablet 0 07/17/2023 Active Problems Active Problems Problem Classification Problem Date Documented Da te Episodic/Chronic Aortic; peripheral; and visceral artery aneurysms (1 source) Abdominal aortic aneurysm 3.0 to 5.5 centimeters in male; Translations: [Abdominal aortic aneurysm (AAA) 3.0 cm to 5.5 cm in diameter in male] Onset: 02-07-2023 02-07-2023 Chronic Chronic obstructive pulmonary disease and bronchiectasis (1 source) Chronic obstructive lung disease; Translations: [Chronic obstructive pulmonary disease, unspecified] Onset: 02-07-2023 02-07-2023 Chronic Disorders of lipid metabolism (1 source) Mixed hyperlipidemia; Translations: [Mixed hyperlipidemia] Onset: 02-07-2023 02-07-2023 Chronic Diverticulosis and diverticulitis (1 source) Diverticulosis of large intestine; Translations: [Diverticulosis of large intestine without perforation or abscess without bleeding] Onset: 02-07-2023 02-07-2023 Chronic Peripheral and visceral atherosclerosis (2 sources) Peripheral vascular disease; Translations: [Peripheral vascular disease, unspecified] Onset: 02-07-2023 02-07-2023 Chronic Residual codes; unclassified (1 source) Pain, unspecified; Translations: [Pain, unspecified] Onset: 08-21-2023 Episodic Substance-related disorders (1 source) Moderate cigarette smoker; Translations: [Nicotine dependence, cigarettes, uncomplicated] Onset: 02-07-2023 02-07-2023 Chronic Past or Other Problems Problem Classification Problem Date Documented Da te Episodic/Chronic Diabetes mellitus without complication (1 source) Prediabetes; Translations: [Prediabetes] Onset: 02-15-2021 02-14-2023 Episodic Other and unspecified benign neoplasm (1 source) History of adenomatous polyp of colon; Translations: [Personal history of colonic polyps] Onset: 09-07-2016 02-14-2023 Episodic Residual codes; unclassified (1 source) Family history of asthma; Translations: [Family history of asthma and other chronic lower respiratory diseases] Onset: 09-03-2016 02-14-2023 Episodic Residual codes; unclassified (1 source) Family history of malignant neoplasm of lung; Translations: [Family history of malignant neoplasm of trachea, bronchus and lung] Onset: 09-03-2016 02-14-2023 Episodic Residual codes; unclassified (1 source) Family history of malignant neoplasm of pancreas; Translations: [Family history of malignant neoplasm of digestive organs] Onset: 09-03-2016 02-14-2023 Episodic Results Test Name Value Interpretation Reference Range Facil ity CT CHEST WO IV CONTRASTon CT CHEST WO IV CONTRAST ADDENDUM #1 ADDENDUM: IMPRESSION: There are chronic emphysematous changes throughout both lungs which increase the patient's risk factors for carcinoma. A low-dose chest CT screening program should be considered in 6 months depending on clinical history and presentation. There are linear scars in the right apex and left lung base unchanged since the prior study. ELECTRONICALLY SIGNED BY: Indra Castle MD EXAMINATION: CT CHEST WO IV CONTRAST, 08/13/2023 1:02 PM CLINICAL HISTORY: left lower lung nodule, smoker COMPARISON: Outside study from the 2022 TECHNIQUE: Multidetector CT was performed through the chest All CT scans at this facility use dose modulation, iterative reconstruction, and/or weight based dosing when appropriate to reduce radiation dose to as low as reasonably achievable. 3-D, sagittal and coronal reconstructions were performed. FINDINGS The thyroid gland is within normal limits. The axillary regions demonstrate no significant lymphadenopathy or solid or cystic lesions. There is no mediastinal lymphadenopathy. The heart and pericardium are within normal limits. There is no pericardial effusion. No coronary artery calcifications detected. The great vessels of the chest are normal in course and caliber. The lungs are free of focal consolidations or infiltrates. There are no pleural effusions. There are chronic emphysematous changes throughout both lungs with increase in the patient's risk for carcinoma. There are linear scars in the right apex and in the left lung base similar to the prior study. There are no suspicious pulmonary nodules. There are no acute bony abnormalities. The visualized portions of the upper abdomen are within normal limits. IMPRESSION: There are chronic vertebral changes throughout both lungs which increase the patient's risk factors for carcinoma. A low-dose chest CT screening program should be considered in 6 months depending on clinical history and presentation. There are linear scars in the right apex and left lung base unchanged since the prior study. ELECTRONICALLY SIGNED BY: Indra Castle MD Normal Not Available US Duplex Scan of Aorta, Com pleteon 01-31-2022 US Duplex Scan of Aorta, Complete FINDINGS: Proximal Aorta2.1 x 2.2 cm Mid Aorta2.4 x 2.4 cm Distal Aorta2.8 x 3.2 cm Right Common Iliac22 x 26 mm Left Common Iliac14 x 15 mm Comparison made with prior examination of August 09, 2021. Minimal change from August of this year, fusiform distal abdominal aorta, 3.2 cm maximum diameter. Peripheral mural thrombus, no lumen compromise. No neighboring fluid collections. Persistent common iliac aneurysmal dilatation, dense calcifications limit lumen assessment. IMPRESSION: 1. Minimal change, fusiform 3.2 cm distal abdominal aortic aneurysm. Report reported and signed by Thang Giles on 01/31/2022 1022 Normal [facility] Cigar Making Supervisor Encounters Encounter Date Encounter Type Care Provider Facility Start: 08-21-2023 ambulatory [facility] Start: 08-13-2023 End: 08-14-2023 ambulatory JEAN HDZ Not Available Start: 08-06-2023 Chart abstracting Jean hamm NP Work Phone: [facility] Start: 08-06-2023 End: 08-06-2023 ambulatory JEAN HDZ Not Available Start: 08-25-2020 End: 08-26-2020 Patient encounter procedure NONE LISTED REQUEST Facility:[facility] Procedures Date Procedure Procedure Detail Performing Clinician Start: 09-29-2018 Colonoscopy Jean hamm HYPERBARIC NURSE Work Phone: Plan of Treatment Date Care Activity Detail Author Start: 09-29-2028 Screening for malign ant neoplasm of colon [facility] Start: 02-15-2024 Medicare Annual Well ness (AWV) Medicare Annual Wellness (AWV) [facility] Start: 08-06-2023 End: 08-06-2023 Patient encounter procedure 08/06/2023 9:00 AM EST Office Visit [facility] [address] [place] [id number] Jean Hdz NP [address] [place] [address] [facility] Start: 1950 Screening for malign ant neoplasm of colon [facility] Immunizations Immunization Date Immunization Notes Care Provider Fa cility 04-20-2023 Influenza, High-dose Seasonal, Quadrivalent, Preservative Free eJan Hdz HYPERBARIC NURSE Work Phone: [facility] 04-20-2023 Pneumococcal Conjuga te PCV 20 Jean Hdz HYPERBARIC NURSE Work Phone: [facility] 04-11-2022 Influenza, High-dose Seasonal, Quadrivalent, Preservative Free Jean Hdz HYPERBARIC NURSE Work Phone: [facility] 04-23-2021 Influenza, High-dose Seasonal, Quadrivalent, Preservative Free Jean Hdz HYPERBARIC NURSE Work Phone: [facility] 03-18-2020 Influenza, High-dose Seasonal, Quadrivalent, Preservative Free Jean Hdz HYPERBARIC NURSE Work Phone: [facility] 04-25-2019 Influenza, High-dose Seasonal, Quadrivalent, Preservative Free Jean Hdz HYPERBARIC NURSE Work Phone: [facility] 05-30-2018 Influenza, High-dose Seasonal, Quadrivalent, Preservative Free Jean Hdz HYPERBARIC NURSE Work Phone: [facility] 08-20-2017 Influenza, High-dose Seasonal, Quadrivalent, Preservative Free Jean Hdz HYPERBARIC NURSE Work Phone: [facility] 06-28-2015 influenza, seasonal, injectable Jean Hdz HYPERBARIC NURSE Work Phone: [facility] 06-28-2015 pneumococcal conjuga te vaccine, 13 valent Jean Hdz HYPERBARIC NURSE Work Phone: [facility] 05-28-2015 pneumococcal conjuga te vaccine, 13 valent Jean Hdz HYPERBARIC NURSE Work Phone: [facility] 05-16-2014 pneumococcal polysaccharide vaccine, 23 valent Jean Hdz HYPERBARIC NURSE Work Phone: [facility] Payers Date Payer Category Payer Medicare ANTHEM MEDICARE ADVANTAGE ANTHEM MEDICARE ADVANTAGE [id number] 2021-Present [address] [place] [address] [id number] 2021 Medicare [id number] 2017 Unknown [id number] 2013 Medicare [id number] 1959 Self-pay 1950 Unknown [id number] 1950 Unknown [id number] 1950 Unknown [id number] Unknown [id number] Social History Date Type Detail Facility Start: 02-14-2023 Tobacco smoking status NYIS Smokes t obacco daily [facility] History of tobacco use Cigarette Smoker [facility] Start: 02-08-2023 End: 02-14-2023 Cigarettes smoked current (pack per day) - Reported 1 [facility] Start: 02-14-2023 Tobacco use and exposure Smoke less tobacco non-user [facility] Start: 02-26-2023 Alcohol intake Current drinke r of alcohol (finding) [facility] Start: 02-08-2023 End: 02-14-2023 Humiliation, Afraid, Rape, and Kick questionnaire [HARK] [facility] Within the last year , have you been afraid of your partner or ex-partner? No [facility] Do you belong to any clubs or organizations such as latter day groups, unions, fraternal or athletic groups, or school groups? Yes [facility] Are you now , , , , never or living with a partner? [facility] How often to you hav e a drink containing alcohol? Patient refused [facility] Do you feel stress - tense, restless, nervous, or anxious, or unable to sleep at night because your mind is troubled all the time - these days [OSQ] Not at all [facility] (I/We) worried wheth er (my/our) food would run out before (I/we) got money to buy more. Never true [facility] Start: 02-14-2023 Tobacco Comment Smokes 6-30 mi ns after waking up [facility] Start: 02-14-2023 Alcohol Comment caffeine: 2-3 cups per day [facility] Start: 1950 Sex Assigned At Not on file [facility] Summary Purpose Family History No Family History Records FoundNo Family History Records FoundNo Family History Records FoundNo Family History Records Found Advance Directives No Advanced Directives Records FoundDocuments on File Type Date Recorded Patient Childcare Center Director Expl anation Advance Directives and Living Will 02/25/2020 2019-01-09 Living Wi ll Additional Source Comments (unrecognized sect ion and content) No Status Records FoundNo Status Records FoundNo Status Records FoundNo Status Records Found INFORMATION SOURCE (unrecogn ized section and content) DATE CREATED AUTHOR 08/21/2020 [facility] DATE CREATED AUTHOR AUTHOR'S ORGANIZ ATION 02/01/2022 [facility] dical Specialist DATE CREATED AUTHOR AUTHOR'S ORGANIZ ATION 08/29/2023 [facility] DATE CREATED AUTHOR AUTHOR'S ORGANIZ ATION 08/30/2023 [facility] dical Specialists EPIC Care Teams (unrecognized sec tion and content) Cnc Specialist Relationship Specialty Start Date End Date Henrietta Spence DO [address] [place] [address] PCP - Jennifer FISHER 07/01/21 Henrietta Spence DO [address] [place] [address] PCP - General Family Medicine 11/06/22 FOR RECORDS PERTAINING TO PATIENTS WHO ARE OR HAVE BEEN ENROLLED IN A CHEMICAL DEPENDENCY/SUBSTANCEABUSE PROGRAM, SOME INFORMATION MAY BE OMITTED. This clinical summary was aggregated from multiple sources. Caution should be exercised in using it in the provision of clinical care. This summary normalizes information from multiple sources, and as a consequence, information in this document may materially change the coding, format and clinical context of patient data. In addition, data may be omitted in some cases. CLINICAL DECISIONS SHOULD BE BASED ON THE PRIMARY CLINICAL RECORDS. [email or web address] provides no warranty or guarantee of the accuracy or completeness of information in this document.
--- NOTE | 2023-09-03 05:28 | XR_ITS ---
The [address] [address] Patient Name: VAHID CHOWDHURY MRN: [id number] date: 1950 Sex: M Assigned Patient Location: ER Current Patient Location: Accession/Order Number: [id number] Exam Date: 09/03/2023 05:32 Report Date: 09/03/2023 06:51 At the request of: TAMRA MARKER Procedure: XR chest 1V EXAM: XR chest 1V HISTORY: Shortness of breath. COMPARISON: Chest radiograph dated 02/22/[address] chest dated 05/29/2023. TECHNIQUE: AP erect portable chest radiograph performed. FINDINGS: The trachea is midline. The cardiac silhouette is upper limits normal size, stable. Stable mild atheromatous calcification at the aortic arch. The hilar shadows are stable. There is elevation of the lateral aspect of the left hemidiaphragm and pleural reaction at the left lateral costophrenic angle, similar to the previous CT examination. The lingular opacity corresponds to epicardial fat on the previous CT examination. The lung barone are otherwise clear. There is no pneumothorax. The bony structures are osteopenic. XR/XR chest 1V IMPRESSION: There is no acute cardiopulmonary process. There is elevation of the lateral aspect of the left hemidiaphragm and pleural reaction at the left lateral costophrenic angle, similar to the previous CT examination. The lingular opacity corresponds to epicardial fat on the previous CT examination. Electronically authenticated by: SERGIO HASSAN Date: 09/03/2023 06:51
--- NOTE | 2023-09-03 05:30 | ED_ITS ---
Documented by User: Tamra Carcamo MD 09/06/23 00:53 HPI - SOB/Dyspnea General Chief Complaint: Shortness of Breath/Dyspnea Stated Complaint: SOB Time Seen by Provider: 09/03/23 05:28 Source: patient and family Limitations: no limitations History of Present Illness HPI Narrative: This 73-year-old male with a history of chronic obstructive pulmonary disease who uses home oxygen as needed and has been having to use it all week long is brought to the emergency department by his family for evaluation of shortness of breath. The patient states he woke up this morning and stood up to go to the bathroom and could not catch his breath. He states he felt like a tight band around his chest and could not get any air in. His states that he was pale and sweaty and too short of breath for her to get into the car so she called her son who is an RN in this ED. He states he felt like he was going to at that time. He denies any chest pain. He wears supplemental oxygen he only uses 2 L but has had to increase it to 3 and 4 L over the course of the past several days. He denies any chest pain. He denies any abdominal pain. He denies any fevers or chills. He has a dry cough. Related Data Home Medications Medication Instructions Recorded Confirmed albuterol sulfate 2.5 mg/3 mL 2.5 mg inhalation Q4H PRN 02/19/23 09/03/23 (0.083 %) solution for nebulization shortness of breath or wheezing aspirin 81 mg tablet,delayed 81 mg PO DAILY 02/19/23 09/03/23 release (Adult Low Dose Aspirin) simvastatin 40 mg tablet 40 mg PO QPM 02/19/23 09/03/23 Allergies Allergy/AdvReac Type Severity Reaction Status Date / Time No Known Drug Allergies Allergy Verified 09/03/23 05:16 Review of Systems ROS Status of ROS 10 or more systems reviewed and unremark able except as noted in history and below [facility] Medical History (Updated 09/03/23 @ 12:21 by TAMRA SORIA) Alcohol abuse, continuous ?F10.10 - Alcohol abuse, uncomplicated (ICD-10) Tobacco user ?Z72.0 - Tobacco use (ICD-10) Abdominal aortic aneurysm (AAA) ?I71.40 - Abdominal aortic aneurysm, without rupture, unspecified (ICD-10) COPD exacerbation ?J44.1 - Chronic obstructive pulmonary disease with (acute) exacerbation (ICD-10) Hypercholesteremia ?E78.00 - Pure hypercholesterolemia, unspecified (ICD-10) Acute hypoxemic respiratory failure ?J96.01 - Acute respiratory failure with hypoxia (ICD-10) Asthma exacerbation in COPD ?J44.1 - Chronic obstructive pulmonary disease with (acute) exacerbation (ICD-10) ?J45.901 - Unspecified asthma with (acute) exacerbation (ICD-10) Chronic obstructive pulmonary disease ?J44.9 - Chronic obstructive pulmonary disease, unspecified (ICD-10) Surgical History H/O hernia repair ?Z98.890 - Other specified postprocedural states (ICD-10) ?Z87.19 - Personal history of other diseases of the digestive system (ICD-10) Social History Within the past year, how often did you have a drink containing alcohol: 4 or more times a week Within the past year, how often did you have six or more drinks on one occasion: daily or almost daily Smoking status: Current every day smoker What tobacco products do you use: cigarettes Packs per day: 1 Previous occupational history: [employer] Known occupational exposures/hazards: No Highest level of school completed/degree received: high school graduate Are you now , , , , never or living with a partner: Feel stressed/tense/nervous/anxious/difficulty sleeping: not at all Exam Narrative Exam Narrative: Nurses note and vital signs reviewed; patient is tachycardic, mildly tachypnea and has a normal blood pressure, he is also hypoxic with pulse ox 92 percent on 2 L nasal cannula General: Thin elderly male, he is speaking in 3 to four word sentences with mild respiratory difficulty and audible expiratory wheezing Skin: Warm, dry, no pallor noted. There is no rash noted. Head: Normocephalic, atraumatic Eye: Normal conjunctiva, no drainage, EOMI. PERRL Ears, Nose, Mouth, and Throat: oral mucosa is slightly dry Cardiovascular: Regular Rate and Rhythm S1S2, pulses are brisk and equal bilaterally Respiratory: Mild respiratory difficulty with 3-4 word conversational dyspnea, lung sounds are diffusely diminished with expiratory wheezing, mild accessory muscle use noted Back: non-tender, no CVA tenderness bilaterally to percussion. GI: Normal bowel sounds, no tenderness to palpation, no masses appreciated. No rebound, guarding, or rigidity noted. Musculoskeletal: The patient has no evidence of calf tenderness, no pitting edema, symmetrical pulses noted bilaterally Neurological: A&O x4, normal speech Psychiatric: Cooperative Constitutional Vital Signs, click to edit/add: Last Vital Signs Temp 97.9 F 09/04/23 03:00 Pulse 86 09/04/23 16:14 Resp 18 09/04/23 08:50 BP 133/72 09/04/23 16:14 Pulse Ox 96 09/04/23 17:10 O2 Del Method Nasal Cannula 09/04/23 17:00 O2 Flow Rate 2 09/04/23 17:00 Course Course Hospital Course: Patient presented to the emergency room with increasing shortness of breath of the last 10 days. He normally just wears his oxygen at nighttime but has been wearing it more consistently in the last 10 days. 2 days prior to coming in he started having significant change in his breathing. Difficulty getting across the room. In ER felt to have acute exacerbation of COPD secondary to viral infection but further workup showed elevated high-sensitivity troponin and elevated BNP and findings consistent with acute systolic heart failure with reduced ejection fraction. Case was discussed with cardiology who agreed since this is new onset and warranted further workup. Patient be transferred for heart cath. Patient currently medically stable. Transfer to [facility]. Vital Signs Vital signs: Vital Signs Pulse Rate 105 H 09/03/23 05:07 Respiratory Rate 22 09/03/23 05:07 Blood Pressure 120/68 09/03/23 05:07 Pulse Oximetry 92 L 09/03/23 05:07 Oxygen Delivery Method Nasal Cannula 09/03/23 05:07 Oxygen Delivery Flow Rate 4 09/03/23 05:07 Temperature 97.9 F 09/04/23 03:00 Pulse Rate 86 09/04/23 16:14 Respiratory Rate 18 09/04/23 08:50 Blood Pressure 133/72 09/04/23 16:14 Pulse Oximetry 96 09/04/23 17:10 Oxygen Delivery Method Nasal Cannula 09/04/23 17:00 Oxygen Delivery Flow Rate 2 09/04/23 17:00 MDM - SOB/Dyspnea MDM Narrative Medical decision making narrative: 73-year-old male, smoker with history of chronic obstructive pulmonary disease is brought to the emergency department by his family for evaluation of shortness of breath. The patient has been having increasing shortness of breath for the past 8 days. 8 days ago had an episode where he could barely breathe and since that time he has been wearing his oxygen more frequently. This morning he got up to use the bathroom and states she could not take a breath at all. His states that he became pale and diaphoretic. She called her son who is an RN to bring him to the emergency department. Upon arrival he was seen and evaluated in room 7. He is dyspneic. He denies any chest pain. He was feeling somewhat better after arriving. His lungs are diffusely diminished with expiratory wheezing. An IV was placed and he was given IV Solu-Medrol, IV magnesium and a DuoNeb treatment. EKG done upon arrival is a sinus rhythm with an indeterminate access which is limited by patient movement but does not show any acute findings. Labs are reviewed. He has a normal white count and hemoglobin. He has an elevated troponin At 119 and elevated lactic acid of 2.2. Chest x-ray does not show any acute infiltrate that show a left lower lobe effusion which appears to be larger than the last time he had a chest x-ray at this facility. He will be signed out to the incoming physician at 7 AM. Due to the history of diaphoresis, pallor with shortness of breath and inability to take a breath with elevated troponin he was given 324 mg a baby aspirin in addition to his respiratory treatments. Sign-Out Note: Repeat troponin performed and essentially flat. Repeat ECG without findings. Remains stable Hemodynamically and from her history standpoint on [address] Discuss[address] case [address] Dr[address] Kim who accepts to the ICU for further treatment. Red Jefferson DO, FAAEM Differential Diagnosis Differential diagnosis: Likely acute exacerbation of chronic obstructive airways disease, congestive heart failure and community acquired pneumonia Lab Data Labs: Lab Results 09/03/23 09/03/23 09/03/23 Range/Units 05:18 05:58 07:26 WBC 9.9 (4.0-11.0) 10^3/uL RBC 5.19 (4.70-6.10) 10^6/uL Hgb 15.7 (14.0-18.0) g/dL Hct 48.1 (42.0-54.0) % MCV 92.7 (80.0-94.0) fL MCH 30.3 (25.9-34.0) pg MCHC 32.6 (29.9-35.2) g/dL RDW 13.4 (11.0-15.0) % Plt Count 397 (150-450) 10^3/uL MPV 10.5 (9.5-13.5) fL Neut % (Auto) 69.9 (43.0-75.0) % Lymph % (Auto) 15.8 L (20.5-60.0) % [place] % (Auto) 8.7 (1.7-12.0) % Eos % (Auto) 2.2 (0.9-7.0) % Baso % (Auto) 0.6 (0.2-2.0) % Neut # (Auto) 6.9 H (1.4-6.5) 10^3/uL Lymph # (Auto) 1.6 (1.2-3.8) 10^3/uL [place] # (Auto) 0.9 H (0.3-0.8) 10^3/uL Eos # (Auto) 0.2 (0.0-0.7) 10^3/uL Baso # (Auto) 0.1 (0.0-0.1) 10^3/uL Abs Immat Gran (auto) 0.28 H (0.00-0.03) 10^3/uL Imm/Tot Granulo (auto) 2.8 H (0.0-0.5) % Puncture Site L radial ABG pH 7.357 (7.350-7.450) ABG pCO2 46.8 H (35.0-45.0) mmHg ABG pO2 91.3 (80.0-100.0) mmHg ABG HCO3 26.2 H (22.0-26.0) mmol/L ABG O2 Saturation 96.2 % ABG Base Excess 0.7 (-2.0-2.0) mmol/L Roney Test Positive (POSITIVE) O2 Liters/Min 4 Sodium 136 (136-145) mmol/L Potassium 4.3 (3.5-5.1) mmol/L Chloride 102 (98-107) mmol/L Carbon Dioxide 26.8 (21.0-32.0) mmol/L Anion Gap 11.5 BUN 6.0 L (7.0-18.0) mg/dL Creatinine 0.83 (0.70-1.30) mg/dL Est GFR ( Amer) >60 (>=60) Est GFR (Non-Af Amer) >60 (>=60) BUN/Creatinine Ratio 7.2 Glucose 172 H (74-106) mg/dL Lactate 2.2 H* 1.0 (0.4-2.0) mmol/L Calcium 8.9 (8.5-10.1) mg/dL Total Bilirubin 0.4 (0.2-1.0) mg/dL AST 24 (15-37) U/L ALT 25 (16-63) U/L Alkaline Phosphatase 54 (46-116) U/L Troponin I High Sens 119.7 H* 143.9 H* (4.0-76.1) pg/mL NT-Pro-B Natriuret Pep (<=1800.0) pg/mL Total Protein 7.6 (6.4-8.2) g/dL Albumin 3.3 L (3.4-5.0) g/dL Globulin 4.3 g/dL Albumin/Globulin Ratio 0.8 09/03/23 Range/Units 08:47 WBC (4.0-11.0) 10^3/uL RBC (4.70-6.10) 10^6/uL Hgb (14.0-18.0) g/dL Hct (42.0-54.0) % MCV (80.0-94.0) fL MCH (25.9-34.0) pg MCHC (29.9-35.2) g/dL RDW (11.0-15.0) % Plt Count (150-450) 10^3/uL MPV (9.5-13.5) fL Neut % (Auto) (43.0-75.0) % Lymph % (Auto) (20.5-60.0) % [place] % (Auto) (1.7-12.0) % Eos % (Auto) (0.9-7.0) % Baso % (Auto) (0.2-2.0) % Neut # (Auto) (1.4-6.5) 10^3/uL Lymph # (Auto) (1.2-3.8) 10^3/uL [place] # (Auto) (0.3-0.8) 10^3/uL Eos # (Auto) (0.0-0.7) 10^3/uL Baso # (Auto) (0.0-0.1) 10^3/uL Abs Immat Gran (auto) (0.00-0.03) 10^3/uL Imm/Tot Granulo (auto) (0.0-0.5) % Puncture Site ABG pH (7.350-7.450) ABG pCO2 (35.0-45.0) mmHg ABG pO2 (80.0-100.0) mmHg ABG HCO3 (22.0-26.0) mmol/L ABG O2 Saturation % ABG Base Excess (-2.0-2.0) mmol/L Roney Test (POSITIVE) O2 Liters/Min Sodium (136-145) mmol/L Potassium (3.5-5.1) mmol/L Chloride (98-107) mmol/L Carbon Dioxide (21.0-32.0) mmol/L Anion Gap BUN (7.0-18.0) mg/dL Creatinine (0.70-1.30) mg/dL Est GFR ( Amer) (>=60) Est GFR (Non-Af Amer) (>=60) BUN/Creatinine Ratio Glucose (74-106) mg/dL Lactate (0.4-2.0) mmol/L Calcium (8.5-10.1) mg/dL Total Bilirubin (0.2-1.0) mg/dL AST (15-37) U/L ALT (16-63) U/L Alkaline Phosphatase (46-116) U/L Troponin I High Sens 127.4 H* (4.0-76.1) pg/mL NT-Pro-B Natriuret Pep 3325.0 H* (<=1800.0) pg/mL Total Protein (6.4-8.2) g/dL Albumin (3.4-5.0) g/dL Globulin g/dL Albumin/Globulin Ratio ECG Data Attestation: I personally reviewed and interpreted this ECG as follows: (Sinus rhythm at 97 bpm, indeterminate axis, interpretation limited by patient movement, no acute ST segment elevation or T-wave inversion) Discharge Plan Discharge Chief Complaint: Shortness of Breath/Dyspnea Clinical Impression: Elevated troponin, COPD exacerbation Patient Disposition: Admitted As Inpatient Discharge Date/Time: 09/03/23 09:37 Documented by User: Red Jefferson MD 09/03/23 08:32 HPI - SOB/Dyspnea General Chief Complaint: Shortness of Breath/Dyspnea Stated Complaint: SOB Time Seen by Provider: 09/03/23 05:28 Related Data Home Medications Medication Instructions Recorded Confirmed albuterol sulfate 2.5 mg/3 mL 2.5 mg inhalation Q4H PRN 02/19/23 09/03/23 (0.083 %) solution for nebulization shortness of breath or wheezing aspirin 81 mg tablet,delayed 81 mg PO DAILY 02/19/23 09/03/23 release (Adult Low Dose Aspirin) simvastatin 40 mg tablet 40 mg PO QPM 02/19/23 09/03/23 Allergies Allergy/AdvReac Type Severity Reaction Status Date / Time No Known Drug Allergies Allergy Verified 09/03/23 05:16 [facility] Medical History (Updated 09/03/23 @ 12:21 by TAMRA SORIA) Alcohol abuse, continuous ?F10.10 - Alcohol abuse, uncomplicated (ICD-10) Tobacco user ?Z72.0 - Tobacco use (ICD-10) Abdominal aortic aneurysm (AAA) ?I71.40 - Abdominal aortic aneurysm, without rupture, unspecified (ICD-10) COPD exacerbation ?J44.1 - Chronic obstructive pulmonary disease with (acute) exacerbation (ICD-10) Hypercholesteremia ?E78.00 - Pure hypercholesterolemia, unspecified (ICD-10) Acute hypoxemic respiratory failure ?J96.01 - Acute respiratory failure with hypoxia (ICD-10) Asthma exacerbation in COPD ?J44.1 - Chronic obstructive pulmonary disease with (acute) exacerbation (ICD-10) ?J45.901 - Unspecified asthma with (acute) exacerbation (ICD-10) Chronic obstructive pulmonary disease ?J44.9 - Chronic obstructive pulmonary disease, unspecified (ICD-10) Surgical History H/O hernia repair ?Z98.890 - Other specified postprocedural states (ICD-10) ?Z87.19 - Personal history of other diseases of the digestive system (ICD-10) Social History Within the past year, how often did you have a drink containing alcohol: 4 or more times a week Within the past year, how often did you have six or more drinks on one occasion: daily or almost daily Smoking status: Current every day smoker What tobacco products do you use: cigarettes Packs per day: 1 Previous occupational history: [employer] Known occupational exposures/hazards: No Highest level of school completed/degree received: high school graduate Are you now , , , , never or living with a partner: Feel stressed/tense/nervous/anxious/difficulty sleeping: not at all Exam Constitutional Vital Signs, click to edit/add: Last Vital Signs Temp 97.9 F 09/04/23 03:00 Pulse 86 09/04/23 16:14 Resp 18 09/04/23 08:50 BP 133/72 09/04/23 16:14 Pulse Ox 96 09/04/23 17:10 O2 Del Method Nasal Cannula 09/04/23 17:00 O2 Flow Rate 2 09/04/23 17:00 Course Course Hospital Course: Patient presented to the emergency room with increasing shortness of breath of the last 10 days. He normally just wears his oxygen at nighttime but has been wearing it more consistently in the last 10 days. 2 days prior to coming in he started having significant change in his breathing. Difficulty getting across the room. In ER felt to have acute exacerbation of COPD secondary to viral infection but further workup showed elevated high-sensitivity troponin and elevated BNP and findings consistent with acute systolic heart failure with reduced ejection fraction. Case was discussed with cardiology who agreed since this is new onset and warranted further workup. Patient be transferred for heart cath. Patient currently medically stable. Transfer to [facility]. Vital Signs Vital signs: Vital Signs Pulse Rate 105 H 09/03/23 05:07 Respiratory Rate 22 09/03/23 05:07 Blood Pressure 120/68 09/03/23 05:07 Pulse Oximetry 92 L 09/03/23 05:07 Oxygen Delivery Method Nasal Cannula 09/03/23 05:07 Oxygen Delivery Flow Rate 4 09/03/23 05:07 Temperature 97.9 F 09/04/23 03:00 Pulse Rate 86 09/04/23 16:14 Respiratory Rate 18 09/04/23 08:50 Blood Pressure 133/72 09/04/23 16:14 Pulse Oximetry 96 09/04/23 17:10 Oxygen Delivery Method Nasal Cannula 09/04/23 17:00 Oxygen Delivery Flow Rate 2 09/04/23 17:00 MDM - SOB/Dyspnea MDM Narrative Medical decision making narrative: 3-year-old male, smoker with history of chronic obstructive pulmonary disease is brought to the emergency department by his family for evaluation of shortness of breath. The patient has been having increasing shortness of breath for the past 8 days. 8 days ago had an episode where he could barely breathe and since that time he has been wearing his oxygen more frequently. This morning he got up to use the bathroom and states she could not take a breath at all. His states that he became pale and diaphoretic. She called her son who is an RN to bring him to the emergency department. Upon arrival he was seen and evaluated in room 7. He is dyspneic. He denies any chest pain. He was feeling somewhat better after arriving. His lungs are diffusely diminished with expiratory wheezing. An IV was placed and he was given IV Solu-Medrol, IV magnesium and a DuoNeb treatment. EKG done upon arrival is a sinus rhythm with an indeterminate access which is limited by patient movement but does not show any acute findings. Labs are reviewed. He has a normal white count and hemoglobin. He has an elevated troponin At 119 and elevated lactic acid of 2.2. Chest x-ray does not show any acute infiltrate that show a left lower lobe effusion which appears to be larger than the last time he had a chest x-ray at this facility. He will be signed out to the incoming physician at 7 AM. Due to the history of diaphoresis, pallor with shortness of breath and inability to take a breath with elevated troponin he was given 324 mg a baby aspirin in addition to his respiratory treatments. Sign-Out Note: Repeat troponin performed and essentially flat. Repeat ECG without findings. Remains stable Hemodynamically and from her history standpoint on [address] L[address] Discussed case with Dr. Kim who accepts to the ICU for further treatment. Red Jefferson DO, [facility] Medical Records Attestation: I reviewed the patient's medical records. Lab Data Attestation: I reviewed the patient's lab results. Labs: Lab Results 09/03/23 09/03/23 09/03/23 Range/Units 05:18 05:58 07:26 WBC 9.9 (4.0-11.0) 10^3/uL RBC 5.19 (4.70-6.10) 10^6/uL Hgb 15.7 (14.0-18.0) g/dL Hct 48.1 (42.0-54.0) % MCV 92.7 (80.0-94.0) fL MCH 30.3 (25.9-34.0) pg MCHC 32.6 (29.9-35.2) g/dL RDW 13.4 (11.0-15.0) % Plt Count 397 (150-450) 10^3/uL MPV 10.5 (9.5-13.5) fL Neut % (Auto) 69.9 (43.0-75.0) % Lymph % (Auto) 15.8 L (20.5-60.0) % [place] % (Auto) 8.7 (1.7-12.0) % Eos % (Auto) 2.2 (0.9-7.0) % Baso % (Auto) 0.6 (0.2-2.0) % Neut # (Auto) 6.9 H (1.4-6.5) 10^3/uL Lymph # (Auto) 1.6 (1.2-3.8) 10^3/uL [place] # (Auto) 0.9 H (0.3-0.8) 10^3/uL Eos # (Auto) 0.2 (0.0-0.7) 10^3/uL Baso # (Auto) 0.1 (0.0-0.1) 10^3/uL Abs Immat Gran (auto) 0.28 H (0.00-0.03) 10^3/uL Imm/Tot Granulo (auto) 2.8 H (0.0-0.5) % Puncture Site L radial ABG pH 7.357 (7.350-7.450) ABG pCO2 46.8 H (35.0-45.0) mmHg ABG pO2 91.3 (80.0-100.0) mmHg ABG HCO3 26.2 H (22.0-26.0) mmol/L ABG O2 Saturation 96.2 % ABG Base Excess 0.7 (-2.0-2.0) mmol/L Roney Test Positive (POSITIVE) O2 Liters/Min 4 Sodium 136 (136-145) mmol/L Potassium 4.3 (3.5-5.1) mmol/L Chloride 102 (98-107) mmol/L Carbon Dioxide 26.8 (21.0-32.0) mmol/L Anion Gap 11.5 BUN 6.0 L (7.0-18.0) mg/dL Creatinine 0.83 (0.70-1.30) mg/dL Est GFR ( Amer) >60 (>=60) Est GFR (Non-Af Amer) >60 (>=60) BUN/Creatinine Ratio 7.2 Glucose 172 H (74-106) mg/dL Lactate 2.2 H* 1.0 (0.4-2.0) mmol/L Calcium 8.9 (8.5-10.1) mg/dL Total Bilirubin 0.4 (0.2-1.0) mg/dL AST 24 (15-37) U/L ALT 25 (16-63) U/L Alkaline Phosphatase 54 (46-116) U/L Troponin I High Sens 119.7 H* 143.9 H* (4.0-76.1) pg/mL NT-Pro-B Natriuret Pep (<=1800.0) pg/mL Total Protein 7.6 (6.4-8.2) g/dL Albumin 3.3 L (3.4-5.0) g/dL Globulin 4.3 g/dL Albumin/Globulin Ratio 0.8 /11/21 Range/Units 08:47 WBC (4.0-11.0) 10^3/uL RBC (4.70-6.10) 10^6/uL Hgb (14.0-18.0) g/dL Hct (42.0-54.0) % MCV (80.0-94.0) fL MCH (25.9-34.0) pg MCHC (29.9-35.2) g/dL RDW (11.0-15.0) % Plt Count (150-450) 10^3/uL MPV (9.5-13.5) fL Neut % (Auto) (43.0-75.0) % Lymph % (Auto) (20.5-60.0) % [place] % (Auto) (1.7-12.0) % Eos % (Auto) (0.9-7.0) % Baso % (Auto) (0.2-2.0) % Neut # (Auto) (1.4-6.5) 10^3/uL Lymph # (Auto) (1.2-3.8) 10^3/uL [place] # (Auto) (0.3-0.8) 10^3/uL Eos # (Auto) (0.0-0.7) 10^3/uL Baso # (Auto) (0.0-0.1) 10^3/uL Abs Immat Gran (auto) (0.00-0.03) 10^3/uL Imm/Tot Granulo (auto) (0.0-0.5) % Puncture Site ABG pH (7.350-7.450) ABG pCO2 (35.0-45.0) mmHg ABG pO2 (80.0-100.0) mmHg ABG HCO3 (22.0-26.0) mmol/L ABG O2 Saturation % ABG Base Excess (-2.0-2.0) mmol/L Roney Test (POSITIVE) O2 Liters/Min Sodium (136-145) mmol/L Potassium (3.5-5.1) mmol/L Chloride (98-107) mmol/L Carbon Dioxide (21.0-32.0) mmol/L Anion Gap BUN (7.0-18.0) mg/dL Creatinine (0.70-1.30) mg/dL Est GFR ( Amer) (>=60) Est GFR (Non-Af Amer) (>=60) BUN/Creatinine Ratio Glucose (74-106) mg/dL Lactate (0.4-2.0) mmol/L Calcium (8.5-10.1) mg/dL Total Bilirubin (0.2-1.0) mg/dL AST (15-37) U/L ALT (16-63) U/L Alkaline Phosphatase (46-116) U/L Troponin I High Sens 127.4 H* (4.0-76.1) pg/mL NT-Pro-B Natriuret Pep 3325.0 H* (<=1800.0) pg/mL Total Protein (6.4-8.2) g/dL Albumin (3.4-5.0) g/dL Globulin g/dL Albumin/Globulin Ratio Critical Care Time Critical Care Time Critical Care Time: Yes Total Critical Care Time: 32 Attestation: Critical Care Procedure Note Authorized and Performed by: Red Jefferson DO Total critical care time: 32 min Due to a high probability of clinically significant, life threatening deterioration, the patient required my highest level of preparedness to intervene emergently and I personally spent this critical care time directly and personally managing the patient. This critical care time included obtaining a history; examining the patient; pulse oximetry; ordering and review of studies; arranging urgent treatment with development of a management plan; evaluation of patient's response to treatment; frequent reassessment; and, discussions with other providers. This critical care time was performed to assess and manage the high probability of imminent, life-threatening deterioration that could result in multi-organ failure. It was exclusive of separately billable procedures and treating other patients and teaching time. Please see MDM section and the rest of the note for further information on patient assessment and treatment. Discharge Plan Discharge Chief Complaint: Shortness of Breath/Dyspnea Clinical Impression: Elevated troponin, COPD exacerbation Patient Disposition: Admitted As Inpatient Discharge Date/Time: 09/03/23 09:37
--- NOTE | 2023-09-03 05:35 | ECG_ITS ---
[facility] Test Date: 2023-09-03 Pat Name: VAHID CHOWDHURY Department: Room: - Gender: Male Director Clinical Research: : 1950 Requested By: [id number] Order Number: [id number] Reading MD: BETTY KAPADIA Measurements Intervals [place] Rate: 97 P: 70 IN: 180 QRS: -55 QRSD: 84 T: 100 QT: 326 QTc: 380 Interpretive Statements 1100 Sinus rhythm 7300 Indeterminate axis 7500 Abnormal QRS-T angle 9130 borderline ECG Compared to ECG 02/19/2023 17:27:19 Sinus tachycardia no longer present Left posterior fascicular block no longer present Electronically Signed On 09-03-2023 6:42:15 EST by BETTY KAPADIA
[2023-09-03 05:40] LABS: Basophils Absolute Auto 0.1 10^3/uL (0.0-0.1); Basophils Percent Auto 0.6 % (0.2-2.0); Eosinophils Absolute Auto 0.2 10^3/uL (0.0-0.7); Eosinophils Percent Auto 2.2 % (0.9-7.0); Hematocrit 48.1 % (42.0-54.0); Hemoglobin 15.7 g/dL (14.0-18.0); Immature Granulocytes Abs Auto 0.28 10^3/uL (0.00-0.03); Immature Granulocytes Pct Auto 2.8 % (0.0-0.5); Lymphocytes Absolute Auto 1.6 10^3/uL (1.2-3.8); Lymphocytes Percent Auto 15.8 % (20.5-60.0); Mean Corpuscular HGB Conc 32.6 g/dL (29.9-35.2); Mean Corpuscular Hemoglobin 30.3 pg (25.9-34.0); Mean Corpuscular Volume 92.7 fL (80.0-94.0); Mean Platelet Volume 10.5 fL (9.5-13.5); Monocytes Absolute Auto 0.9 10^3/uL (0.3-0.8); Monocytes Percent Auto 8.7 % (1.7-12.0); Neutrophils Absolute Auto 6.9 10^3/uL (1.4-6.5); Neutrophils Percent Auto 69.9 % (43.0-75.0); Platelet Count 397 10^3/uL (150-450); Red Blood Count 5.19 10^6/uL (4.70-6.10); Red Cell Distribution Width 13.4 % (11.0-15.0); White Blood Count 9.9 10^3/uL (4.0-11.0)
[2023-09-03] MEDS: METHYLPREDNISOLONE SOD SUCC PF 125 MG/2 ML VIAL IVP ×4 (05:41→23:13)
[2023-09-03] MEDS: IPRATROPIUM/ALBUTEROL SULFATE 3 ML AMPUL.NEB IH ×4 (05:44→23:14)
[2023-09-03 06:03] LABS: Alanine Aminotransferase 25 U/L (16-63); Albumin Globulin Ratio 0.8; Albumin Level 3.3 g/dL (3.4-5.0); Alkaline Phosphatase 54 U/L (46-116); Anion Gap 11.5; Aspartate Amino Transferase 24 U/L (15-37); BUN Creatinine Ratio 7.2; Bilirubin Total 0.4 mg/dL (0.2-1.0); Calcium 8.9 mg/dL (8.5-10.1); Carbon Dioxide 26.8 mmol/L (21.0-32.0); Chloride 102 mmol/L (98-107); Estimated GFR (African America >60 (>=60); Estimated GFR (Non-African Ame >60 (>=60); Globulin 4.3 g/dL; Glucose 172 mg/dL (74-106); Potassium 4.3 mmol/L (3.5-5.1); Sodium 136 mmol/L (136-145); Total Protein 7.6 g/dL (6.4-8.2)
[2023-09-03] MEDS: MAGNESIUM SULFATE IN WATER 2 GM/50 ML PREMIX IV (06:04)
[2023-09-03 06:07] LABS: ABG PCO2 46.8 mmHg (35.0-45.0); Allen Test POSITIVE (POSITIVE); Base Excess ABG 0.7 mmol/L (-2.0-2.0); HCO3 ABG 26.2 mmol/L (22.0-26.0); Liters per Minute 4; O2 Mode NASAL CANNULA; Oxygen Saturation ABG 96.2 %; PO2 ABG 91.3 mmHg (80.0-100.0); pH ABG 7.357 (7.350-7.450)
[2023-09-03 06:08] LABS: Puncture Site L RADIAL
[2023-09-03 06:14] LABS: Troponin I High Sensitivity 119.7 pg/mL (4.0-76.1)
[2023-09-03 06:15] LABS: Lactate/Lactic Acid 2.2 mmol/L (0.4-2.0)
[2023-09-03] MEDS: ASPIRIN 81 MG TAB.CHEW 324 MG PO (07:00)
[2023-09-03 08:02] LABS: Troponin I High Sensitivity 143.9 pg/mL (4.0-76.1)
--- NOTE | 2023-09-03 08:02 | ECG_ITS ---
[facility] Test Date: 2023-09-03 Pat Name: VAHID CHOWDHURY Department: Room: - Gender: Male C[employer] Quantitative Geneticist: : 1950 Requested By: [id number] Order Number: [id number] Reading MD: ABEBE GALLARDO Measurements Intervals [place] Rate: 69 P: 73 PA: 184 QRS: -66 QRSD: 86 T: 103 QT: 386 QTc: 404 Interpretive Statements 1100 Sinus rhythm 4068 Nonspecific [place] abnormality 7300 Indeterminate axis 9130 borderline ECG Compared to ECG 09/03/2023 05:12:33 No significant changes Electronically Signed On 09-05-2023 6:06:04 EST by ABEBE GALLARDO
--- NOTE | 2023-09-03 09:26 | CA_ITS ---
Patient Name: VAHID CHOWDHURY MR#: [id number] : 1950 Exam Date: 09/03/2023 Ordering Doctor: DR ABEBE GALLARDO . ECHOCARDIOGRAM REPORT PROCEDURE: CA ECHO DOPPLER COMPLETE INDICATIONS: Dyspnea - elevated troponin, COPD, alcohol abuse, smoker COMPARISON: None. DESCRIPTION: COMPLETE ECHOCARDIOGRAM Real-time transthoracic echocardiography with 2D, M-mode, spectral and color flow Doppler performed. QUALITY: Technical quality was good. 67 , 156#, BSA 1.82 m2 LEFT VENTRICLE: Normal chamber size. Mild concentric left ventricular hypertrophy. Left ventricular systolic function is difficult to assess but appears moderately reduced. There is evidence of hypokinesis of the mid and distal and apical segments of the ventricle. LV EF: Estimated left ventricular ejection fraction is 35 to 40%. DIASTOLIC: Normal diastolic function. ATRIAL SEPTUM: LEFT ATRIUM: Normal chamber size. RIGHT ATRIUM: Normal chamber size. RIGHT VENTRICLE: Normal chamber size. Normal right ventricular systolic function. TRICUSPID VALVE: Normal mobility and thickness. No stenosis with no regurgitation. Unable to assess right-sided pressures due to lack of measurable tricuspid regurgitation. MITRAL VALVE: Normal mobility and thickness. No evidence of mitral valve stenosis. There is no mitral annular calcification. Trivial mitral regurgitation. AORTIC VALVE: Normal trileaflet appearance. No visible sclerosis. Normal leaflet mobility. No evidence of aortic valve stenosis. No aortic regurgitation. AORTIC ROOT: Normal diameter and appearance. PULMONIC VALVE: Normal thickness and mobility. No stenosis. No regurgitation. PERICARDIUM: No evidence of pericardial effusion. IVC: Collapses with inspirations. IVC is normal in size. PLEURA: CONCLUSION: 1. Left ventricular systolic function is difficult to assess but appears moderately reduced. Estimated LVEF is 35 to 40%. There is hypokinesis of the mid and distal and apical segments of the ventricle. 2. Normal right ventricular size and systolic function. 3. No significant valvular dysfunction. 4. Unable to assess right-sided pressures due to lack of measurable tricuspid regurgitation. Adult Echocardiography Procedure Report Left Ventricle LVEDD (3.7 - 5.6 cm): 4.40 cm LVESD (2.2 - 4.0 cm): 2.76 cm LVIVS thickness (0.6 - 1.2 cm): 1.23 cm LVPW thickness (0.5 - 1.0 cm): 1.15 cm LVOT Max Gradient: 6 mm[Hg] Peak Velocity (LVOT): 124.00 cm/s Mean Velocity (LVOT): 70.10 cm/s LVOT Diameter 2.20 cm Left Ventricular Ejection Fraction: 35-40 % Left Atrium LA Volume Index (2D A2C): 75189 mm3 Left Atrium Systolic Dimension: 3.70 cm Mitral Valve MV E to A Ratio: 0.90 Mitral Valve A-Wave Peak Velocity: 89.80 cm/s Mitral Valve E-Wave Peak Velocity: 81.90 cm/s Cardiovascular Orifice Area: 4.49 cm2 Right Ventricle Aorta AO Root Diam: 3.90 cm Aortic Valve AoV Area (Peak Bennie): 2.89 cm2 AoV Area (VTI): 2.59 cm2 Peak Velocity(Antegrade Flow): 163.00 cm/s Peak Gradient(Antegrade Flow): 11 mm[Hg] Mean Velocity(Antegrade Flow): 106.00 cm/s Mean Gradient(Antegrade Flow): 5 mm[Hg] Velocity Time Integral: 29.00 cm Tricuspid Valve Peak Velocity: 69.60 cm/s Pulmonic Valve Peak Velocity: 115.00 cm/s, 93.00 cm/s Peak Gradient: 4 mm[Hg] Right Atrium Dictated by: Samir Jackson M.D. on 09/03/2023 at 16:08 Approved by: Samir Jackson M.D. on 09/03/2023 at 16:15
--- OUTSIDE RECORDS SUMMARY | 2023-09-03 09:32 | XMS_ITS | CCD ---
Author Name Unknown Address [address] [place] [address] Organization [facility] Care Team Providers Care Food Mixer Repairer Name Role Phone REQUEST, NONE LISTED Consulting Unavailable REQUEST, NONE LISTED Attending Unavailable REQUEST, NONE LISTED Admitting Unavailable Henrietta Spence DO Unavailable Henrietta Spence DO Primary Care Provider [phone] LYLY YUSUF Referring Unavailable LYLY YUSUF Primary Care Unavailable JEAN HDZ Attending Unavailable JEAN HDZ Referring Unavailable Medications Current Medications Medication Drug Class(es) Dates Sig (Normalized) Sig (Original) [id number] 200 actuat albuterol 0.09 mg/actuat metered dose [...] by Thang Giles on 01/31/2022 1022 Normal [facility] Tech Encounters Encounter Date Encounter Type Care Provider Facility Start: 08-21-2023 ambulatory [facility] Start: 08-13-2023 End: 08-14-2023 ambulatory JEAN HDZ Not Available Start: 08-06-2023 Chart abstracting Jean hamm NP Work Phone: [facility] Start: 08-06-2023 End: 08-06-2023 ambulatory EJAN HDZ Not Available Start: 08-25-2020 End: 08-26-2020 Patient encounter procedure NONE LISTED REQUEST Facility:[facility]1 Procedures Date Procedure Procedure Detail Performing Clinician Start: 09-29-2018 Colonoscopy Jean hamm [employer] Work Phone: Plan of Treatment Date Care Activity Detail Author Start: 09-29-2028 Screening for malign ant neoplasm of colon [facility] Start: 02-15-2024 Medicare Annual Well ness (AWV) Medicare Annual Wellness (AWV) [facility] Start: 08-06-2023 End: 08-06-2023 Patient encounter procedure 08/06/2023 9:00 AM EST Office Visit [facility] [address] [place] [id number] Jean Hdz NP [address] [place] [address] [facility] Start: 1950 Screening for malign ant neoplasm of colon [facility] Immunizations Immunization Date Immunization Notes Care Provider Fa cility 04-20-2023 Influenza, High-dose Seasonal, Quadrivalent, Preservative Free Jean Hdz [employer] Work Phone: [facility] 04-20-2023 Pneumococcal Conjuga te PCV 20 Jean Hdz [employer] Work Phone: [facility] 04-11-2022 Influenza, High-dose Seasonal, Quadrivalent, Preservative Free Jean Hdz [employer] Work Phone: [facility] 04-23-2021 Influenza, High-dose Seasonal, Quadrivalent, Preservative Free Jean Hdz [employer] Work Phone: [facility] 03-18-2020 Influenza, High-dose Seasonal, Quadrivalent, Preservative Free Jean Hdz [employer] Work Phone: [facility] 04-25-2019 Influenza, High-dose Seasonal, Quadrivalent, Preservative Free Jean Hdz [employer] Work Phone: [facility] 05-30-2018 Influenza, High-dose Seasonal, Quadrivalent, Preservative Free Jean Hdz [employer] Work Phone: [facility] 08-20-2017 Influenza, High-dose Seasonal, Quadrivalent, Preservative Free Jean Hdz [employer] Work Phone: [facility] 06-28-2015 influenza, seasonal, injectable Jean Hdz [employer] Work Phone: [facility] 06-28-2015 pneumococcal conjuga te vaccine, 13 valent Jean Hdz [employer] Work Phone: [facility] 05-28-2015 pneumococcal conjuga te vaccine, 13 valent Jean Hdz [employer] Work Phone: [facility] 05-16-2014 pneumococcal polysaccharide vaccine, 23 valent Jean Hdz [employer] Work Phone: [facility] Payers Date Payer Category Payer Medicare ANTHEM MEDICARE ADVANTAGE ANTHEM MEDICARE ADVANTAGE [id number] 2021-Present [address] [place] [address] [id number] 2021 Medicare [id number] 2017 Unknown [id number] 2013 Medicare [id number] 1959 Self-pay 1950 Unknown [id number] 1950 Unknown [id number] 1950 Unknown [id number] Unknown [id number] Social History Date Type Detail Facility Start: 02-14-2023 Tobacco smoking status NVIS Smokes t obacco daily [facility] History of tobacco use Cigarette Smoker [facility] Start: 02-08-2023 End: 02-14-2023 Cigarettes smoked current (pack per day) - Reported 1 [facility] Start: 02-14-2023 Tobacco use and exposure Smoke less tobacco non-user [facility] Start: 02-26-2023 Alcohol intake Current drinke r of alcohol (finding) [facility] Start: 02-08-2023 End: 02-14-2023 Humiliation, Afraid, Rape, and Kick questionnaire [HARK] [facility] Within the last year , have you been afraid of your partner or ex-partner? No [facility] Do you belong to any clubs or organizations such as caodaism groups, unions, fraternal or athletic groups, or [...] Alcohol Comment caffeine: 2-3 cups per day [facility] Start: 1950 Sex Assigned At Not on file [facility] Summary Purpose Family History No Family History Records FoundNo Family History Records FoundNo Family History Records FoundNo Family History Records Found Advance Directives No Advanced Directives Records FoundDocuments on File Type Date Recorded Patient Public Affairs Director Expl anation Advance Directives and Living Will 02/25/2020 2019-01-09 Living Wi ll Additional Source Comments (unrecognized sect ion and content) No Status Records FoundNo Status Records FoundNo Status Records FoundNo Status Records Found INFORMATION SOURCE (unrecogn ized section and content) DATE CREATED AUTHOR 08/21/2020 [facility] DATE CREATED AUTHOR AUTHOR'S ORGANIZ ATION 02/01/2022 [facility] DATE CREATED AUTHOR AUTHOR'S ORGANIZ ATION 08/29/2023 [facility] DATE CREATED AUTHOR AUTHOR'S ORGANIZ ATION 08/30/2023 [facility] Specialists EPIC Care Teams (unrecognized sec tion and content) Food Mixer Repairer Relationship Specialty Start Date End Date Henrietta Spence DO [address] [place] [address] PCP - Jennifer FISHER 07/01/21 Henrietta Spence DO [address] [place] [address] PCP - General Family Medicine 11/06/22 FOR [...] BE BASED ON THE PRIMARY CLINICAL RECORDS. [employer] provides no warranty or guarantee of the accuracy or completeness of information in this document.
--- NOTE | 2023-09-03 09:33 | P.HP_ITS ---
H&P: HPI History of Present Illness Chief complaint: COPD EXACERBATION/ELEVATED TROPONIN Narrative: Presented to the emergency room with about a weeklong history of increasing shortness of breath. In ER felt to be acute exacerbation of COPD. Had COVID test as an outpatient, not had any other flu testing here yet. With the persisting hypoxia patient will be admitted to the intensive care unit secondary to the elevated troponins as well. When I saw patient in the emergency room. He was resting comfortably, no conversational dyspnea. Review of Systems ROS Status of ROS 10 or more systems reviewed and unremark able except as noted in history and below [facility] Medical History (Updated 09/03/23 @ 12:21 by TAMRA SORIA) Alcohol abuse, continuous ?F10.10 - Alcohol abuse, uncomplicated (ICD-10) Tobacco user ?Z72.0 - Tobacco use (ICD-10) Abdominal aortic aneurysm (AAA) ?I71.40 - Abdominal aortic aneurysm, without rupture, unspecified (ICD-10) COPD exacerbation ?J44.1 - Chronic obstructive pulmonary disease with (acute) exacerbation (ICD-10) Hypercholesteremia ?E78.00 - Pure hypercholesterolemia, unspecified (ICD-10) Acute hypoxemic respiratory failure ?J96.01 - Acute respiratory failure with hypoxia (ICD-10) Asthma exacerbation in COPD ?J44.1 - Chronic obstructive pulmonary disease with (acute) exacerbation (ICD-10) ?J45.901 - Unspecified asthma with (acute) exacerbation (ICD-10) Chronic obstructive pulmonary disease ?J44.9 - Chronic obstructive pulmonary disease, unspecified (ICD-10) Surgical History H/O hernia repair ?Z98.890 - Other specified postprocedural states (ICD-10) ?Z87.19 - Personal history of other diseases of the digestive system (ICD-10) Social History Within the past year, how often did you have a drink containing alcohol: 4 or more times a week Within the past year, how often did you have six or more drinks on one occasion: daily or almost daily Smoking status: Current every day smoker What tobacco products do you use: cigarettes Packs per day: 1 Previous occupational history: [employer] Known occupational exposures/hazards: No Highest level of school completed/degree received: high school graduate Are you now , , , , never or living with a partner: Feel stressed/tense/nervous/anxious/difficulty sleeping: not at all Meds Home Medications and Allergies Home Medications Medication Instructions Recorded Confirmed Type albuterol sulfate 2.5 mg/3 mL 2.5 mg inhalation Q4H PRN 02/19/23 09/03/23 History (0.083 %) solution for nebulization shortness of breath or wheezing aspirin 81 mg tablet,delayed 81 mg PO DAILY 02/19/23 09/03/23 History release (Adult Low Dose Aspirin) simvastatin 40 mg tablet 40 mg PO QPM 02/19/23 09/03/23 History Allergies Allergy/AdvReac Type Severity Reaction Status Date / Time No Known Drug Allergies Allergy Verified 09/03/23 05:16 Exam Constitutional Vital Signs, click to edit/add: Last Vital Signs Pulse 64 09/03/23 09:18 Resp 22 09/03/23 09:18 BP 123/68 09/03/23 09:18 Pulse Ox 95 09/03/23 09:18 O2 Del Method Nasal Cannula 09/03/23 05:55 O2 Flow Rate 4 09/03/23 05:55 Documenting provider has reviewed patient's vital signs: yes Common normals: no apparent distress Chest Common normals: inspection of chest normal and palpation of chest normal Respiratory Common normals: normal respiratory effort and no retractions Auscultation: rhonchi Cardio Common normals: regular rate, regular rhythm and no murmurs Extremity Common normals: normal to inspection and full ROM Results Labs Labs: Short CBC 09/03/23 Range/Units 05:18 WBC 9.9 (4.0-11.0) 10^3/uL Hgb 15.7 (14.0-18.0) g/dL Hct 48.1 (42.0-54.0) % Plt Count 397 (150-450) 10^3/uL BMP 09/03/23 05:18 Sodium 136 Potassium 4.3 Chloride 102 Carbon Dioxide 26.8 BUN 6.0 L Creatinine 0.83 Glucose 172 H Calcium 8.9 Liver Function 09/03/23 Range/Units 05:18 Total Bilirubin 0.4 (0.2-1.0) mg/dL AST 24 (15-37) U/L ALT 25 (16-63) U/L Alkaline Phosphatase 54 (46-116) U/L Albumin 3.3 L (3.4-5.0) g/dL ABG ABG results: 09/03/23 05:58 ABG pH 7.357 ABG pCO2 46.8 H ABG pO2 91.3 ABG HCO3 26.2 H ABG O2 Saturation 96.2 ABG Base Excess 0.7 Assessment and Plan Assessment and Plan (1) Elevated brain natriuretic peptide (BNP) level: (2) COPD exacerbation: (3) Elevated troponin: Plan Acute shortness of breath and increasing hypoxia at home, normally does not wear oxygen but the last week he has been wearing it continuously-positive lactate in the ER also-to possible acute exacerbation of COPD. Will treat with IV antibiotics and aerosol treatments. And steroids. Acute elevation in high-sensitivity troponin and BNP-check echocardiogram, 1 dose of IV Bumex consult to cardiology Due to the intensity of the treatments with frequent aerosols, IV antibiotics, IV diuretics, patient unlikely to improve in the first 24 hours, high p robability he is medically necessary treatment will span [address] patient inpatient status
[2023-09-03 10:05] LABS: Adenovirus NOT DETECTED (NOT DETECTE); Bordetella parapertussis NOT DETECTED (NOT DETECTE); Coronavirus 229E NOT DETECTED (NOT DETECTE); Coronavirus HKU1 NOT DETECTED (NOT DETECTE); Coronavirus NL63 NOT DETECTED (NOT DETECTE); Human Metapneumovirus NOT DETECTED (NOT DETECTE); Human Rhinovirus/Enterovirus NOT DETECTED (NOT DETECTE); Influenza A NOT DETECTED (NOT DETECTE); Influenza B NOT DETECTED (NOT DETECTE); Mycoplasma pneumoniae NOT DETECTED (NOT DETECTE); Parainfluenza Virus 1 NOT DETECTED (NOT DETECTE); Parainfluenza Virus 2 NOT DETECTED (NOT DETECTE); Parainfluenza Virus 3 NOT DETECTED (NOT DETECTE); Parainfluenza Virus 4 NOT DETECTED (NOT DETECTE); Respiratory Syncytial Virus NOT DETECTED (NOT DETECTE); SARS-CoV-2 NOT DETECTED (NOT DETECTE)
[2023-09-03 10:26] LABS: Magnesium 2.7 mg/dL (1.8-2.4)
[2023-09-03] MEDS: CEFTRIAXONE 1,000 MG in 0.9 % SODIUM CHLORIDE 50 ML 100 MG IV (10:36)
[2023-09-03 10:56] LABS: Troponin I High Sensitivity 127.4 pg/mL (4.0-76.1)
[2023-09-03] MEDS: LEVOFLOXACIN IN DEXTROSE 5 % 750 MG/150 ML IV.SOLN 100 MG IV (11:10)
--- NOTE | 2023-09-03 11:10 | RESP.RT ---
titrated down to 3L
--- NOTE | 2023-09-03 11:13 | RESP.RT ---
titrated down to 3L
[2023-09-03 11:26] LABS: Coronavirus OC43 DETECTED (NOT DETECTE)
--- NOTE | 2023-09-03 11:41 | SWNOTE1 ---
VANI called [facility] and they do provide home oxygen to pt, 2 liters continuous.
--- NOTE | 2023-09-03 11:58 | P.CN_ITS ---
Consult Note: HPI Data of Consult Patient: new to practice Consult date: 09/03/23 Requesting Physician: Kendell Kim MD Primary Care Provider: Non-Staff Physician, Consult Narrative Reason for consult: Elevated Troponin Narrative: 73-year-old male with a history of chronic obstructive pulmonary disease who uses home oxygen as needed. States he has needed to use oxygen all week long and was brought to the emergency department by his family for worsening shortness of breath. The patient states he woke up, stood up to go to the bathroom and could not catch his breath. He states he felt like a tight band around his chest and could not get any air in. His states that he was pale and sweaty and too short of breath for her to get into the car so she called her son who is an RN in this ED. He states he felt like he was going to at that time. He denies any chest pain. He wears supplemental oxygen he only uses 2 L but has had to increase it to 3 and 4 L over the course of the past several days. Currently denied chest pain and denied having any chest pain over the last week. Admits SOB with exertion and + orthopnea- HOB raised about 30 degrees, but states SOB is much better than yesterday. Remains on oxygen via [place]. Awaiting echocardiogram. Denied any personal history of heart disease, or having heart cath or heart surgery in the past. Denied early [place]/sudden in his family. cc:: CC: Kendell Kim MD Review of Systems ROS Status of ROS 10 or more systems reviewed and unremark able except as noted in history and below Respiratory Reports: shortness of breath and wheezing [facility] Medical History (Updated 09/03/23 @ 12:21 by TAMRA SORIA) Alcohol abuse, continuous ?F10.10 - Alcohol abuse, uncomplicated (ICD-10) Tobacco user ?Z72.0 - Tobacco use (ICD-10) Abdominal aortic aneurysm (AAA) ?I71.40 - Abdominal aortic aneurysm, without rupture, unspecified (ICD-10) COPD exacerbation ?J44.1 - Chronic obstructive pulmonary disease with (acute) exacerbation (ICD-10) Hypercholesteremia ?E78.00 - Pure hypercholesterolemia, unspecified (ICD-10) Acute hypoxemic respiratory failure ?J96.01 - Acute respiratory failure with hypoxia (ICD-10) Asthma exacerbation in COPD ?J44.1 - Chronic obstructive pulmonary disease with (acute) exacerbation (ICD-10) ?J45.901 - Unspecified asthma with (acute) exacerbation (ICD-10) Chronic obstructive pulmonary disease ?J44.9 - Chronic obstructive pulmonary disease, unspecified (ICD-10) Surgical History H/O hernia repair ?Z98.890 - Other specified postprocedural states (ICD-10) ?Z87.19 - Personal history of other diseases of the digestive system (ICD-10) Social History Within the past year, how often did you have a drink containing alcohol: 4 or more times a week Within the past year, how often did you have six or more drinks on one occasion: daily or almost daily Smoking status: Current every day smoker What tobacco products do you use: cigarettes Packs per day: 1 Previous occupational history: [employer] Known occupational exposures/hazards: No Highest level of school completed/degree received: high school graduate Are you now , , , , never or living with a partner: Feel stressed/tense/nervous/anxious/difficulty sleeping: not at all Meds Home Medications and Allergies Home Medications Medication Instructions Recorded Confirmed Type albuterol sulfate 2.5 mg/3 mL 2.5 mg inhalation Q4H PRN 02/19/23 09/03/23 History (0.083 %) solution for nebulization shortness of breath or wheezing aspirin 81 mg tablet,delayed 81 mg PO DAILY 02/19/23 09/03/23 History release (Adult Low Dose Aspirin) simvastatin 40 mg tablet 40 mg PO QPM 02/19/23 09/03/23 History Allergies Allergy/AdvReac Type Severity Reaction Status Date / Time No Known Drug Allergies Allergy Verified 09/03/23 05:16 Exam Constitutional Vital Signs, click to edit/add: Last Vital Signs Temp 97.8 F 09/03/23 09:24 Pulse 60 09/03/23 11:11 Resp 16 09/03/23 11:11 BP 123/68 09/03/23 09:24 Pulse Ox 99 09/03/23 11:11 O2 Del Method Nasal Cannula 09/03/23 11:11 O2 Flow Rate 4 09/03/23 11:11 Common normals: oriented x3, alert and well nourished General appearance: cooperative and comfortable Nutritional appearance: obese Respiratory Effort & inspection: able to speak in complete sentences Auscultation: wheezes (scattered wheezes and coarse lung sounds throughout) scattered wheezes Cardio Common normals: no JVD, regular rate, regular rhythm, S1 normal heart sound, S2 normal heart sound, no gallops, no clicks, no murmurs and no rub Peripheral pulses: radial pulses present, posterior tibial pulses present and dorsalis pedis pulses present Extremity Common normals: normal capillary refill and no clubbing, cyanosis or edema Neuro Common normals: oriented x3, CN's II-XII intact bilaterally and moves all extremities Psych Common normals: thought process normal and cooperative Results Labs Labs: Short CBC 09/03/23 Range/Units 05:18 WBC 9.9 (4.0-11.0) 10^3/uL Hgb 15.7 (14.0-18.0) g/dL Hct 48.1 (42.0-54.0) % Plt Count 397 (150-450) 10^3/uL BMP 09/03/23 05:18 Sodium 136 Potassium 4.3 Chloride 102 Carbon Dioxide 26.8 BUN 6.0 L Creatinine 0.83 Glucose 172 H Calcium 8.9 Liver Function 09/03/23 Range/Units 05:18 Total Bilirubin 0.4 (0.2-1.0) mg/dL AST 24 (15-37) U/L ALT 25 (16-63) U/L Alkaline Phosphatase 54 (46-116) U/L Albumin 3.3 L (3.4-5.0) g/dL Collected Result ? Units Range Specimen 09/03/23 08:47- troponin decreasing 127.4?H* 09/03/23 07:26 143.9?H* 09/03/23 05:18 119.7?H* 02/19/23 17:30 13.5 BNP- 09/03/23 08:47 3325.0?H* ABG ABG results: 09/03/23 05:58 ABG pH 7.357 ABG pCO2 46.8 H ABG pO2 91.3 ABG HCO3 26.2 H ABG O2 Saturation 96.2 ABG Base Excess 0.7 ECG Attestation: ?I have reviewed the pertinent ECG results. ECG interpretation date: 09/03/23 Interpretation: Sinus rhythm, indeterminate axis- borderline ECG Imaging Chest x-ray: Attestation: I have reviewed the pertinent imaging results. Radiologist's impression: FINDINGS: The trachea is midline. The cardiac silhouette is upper limits normal size, stable. Stable mild atheromatous calcification at the aortic arch. The hilar shadows are stable. There is elevation of the lateral aspect of the left hemidiaphragm and pleural reaction at the left lateral costophrenic angle, similar to the previous CT examination. The lingular opacity corresponds to epicardial fat on the previous CT examination. The lung barone are otherwise clear. There is no pneumothorax. The bony structures are osteopenic. XR/XR chest 1V IMPRESSION: There is no acute cardiopulmonary process. There is elevation of the lateral aspect of the left hemidiaphragm and pleural reaction at the left lateral costophrenic angle, similar to the previous CT examination. The lingular opacity corresponds to epicardial fat on the previous CT examination. Electronically authenticated by: SERGIO HASSAN Date: 09/03/2023 06:51 echocardiogram: My impression: Awaiting echocardiogram Assessment and Plan Assessment and Plan (1) COPD exacerbation: Assessment and Plan: Managed by primary service (2) Elevated troponin: Assessment and Plan: Troponin is trending down, denied any chest pain, and elevated 2/2 demand ischemia from exacerbation of COPD and respiratory failure. EKG without acute changes Treat acute respiratory process, awaiting echocardiogram to assess cardiac function and valvular function (3) Tobacco user: Assessment and Plan: Recommended smoking cessation (4) Hypercholesteremia: Assessment and Plan: Continue statin (5) Alcohol abuse, continuous: Assessment and Plan: managed by primary service (6) Elevated brain natriuretic peptide (BNP) level: Assessment and Plan: Elevated BNP on labs, currently on assessment pt is euvolemic without fluid overload. Renal function normal, awaiting echocardiogram today to assess right sided pressures, RV size and function, LV function Plan As above
[2023-09-03] MEDS: BUMETANIDE 1 MG/4 ML VIAL 2 MG IVP (13:07)
[2023-09-03 13:16] LABS: Troponin I High Sensitivity 97.5 pg/mL (4.0-76.1)
--- NOTE | 2023-09-03 14:53 | SWNOTE1 ---
SW met with pt to discuss dc needs. Pt lives at home with his . He has home oxygen from [facility]. Pt does not use any DME at home. He voices he is still active and goes to the grocery store with his . Pt voices his only complaint right now is his shortness of breath. He has not been feeling well for about a week. Pt voices he does not have any discharge needs at this time. SW to follow as needed.
--- NOTE | 2023-09-03 17:32 | RESP.RT ---
titrated down to 2L. Pt wears 2L at home
--- NOTE | 2023-09-03 21:09 | PC.NURSE ---
placed on 3 lts d/t pt flushed and SOB
[2023-09-03] MEDS: ATORVASTATIN CALCIUM 20 MG TABLET PO (22:22)
[2023-09-04] VITALS (72 sets, daily range): BP systolic 127–146; BP diastolic 70–81; PULSE 73–104; RESP 18–28; TEMP 36.6; O2SAT 74–98
[2023-09-04] MEDS: NICOTINE 21 MG PATCH.TD24 TD (00:09)
[2023-09-04 03:32] LABS: Basophils Percent Auto 0.1 % (0.2-2.0); Hemoglobin 13.9 g/dL (14.0-18.0); Immature Granulocytes Abs Auto 0.14 10^3/uL (0.00-0.03); Immature Granulocytes Pct Auto 1.2 % (0.0-0.5); Lymphocytes Absolute Auto 0.6 10^3/uL (1.2-3.8); Lymphocytes Percent Auto 5.4 % (20.5-60.0); Mean Corpuscular HGB Conc 33.1 g/dL (29.9-35.2); Mean Corpuscular Hemoglobin 30.4 pg (25.9-34.0); Mean Corpuscular Volume 91.9 fL (80.0-94.0); Mean Platelet Volume 10.1 fL (9.5-13.5); Monocytes Absolute Auto 0.3 10^3/uL (0.3-0.8); Monocytes Percent Auto 2.2 % (1.7-12.0); Neutrophils Absolute Auto 10.4 10^3/uL (1.4-6.5); Neutrophils Percent Auto 91.1 % (43.0-75.0); Platelet Count 370 10^3/uL (150-450); Red Blood Count 4.57 10^6/uL (4.70-6.10); Red Cell Distribution Width 13.4 % (11.0-15.0); White Blood Count 11.4 10^3/uL (4.0-11.0)
[2023-09-04 03:57] LABS: Alanine Aminotransferase 25 U/L (16-63); Albumin Globulin Ratio 0.8; Albumin Level 3.2 g/dL (3.4-5.0); Alkaline Phosphatase 49 U/L (46-116); Aspartate Amino Transferase 24 U/L (15-37); BUN Creatinine Ratio 15.2; Bilirubin Total 0.2 mg/dL (0.2-1.0); Calcium 8.8 mg/dL (8.5-10.1); Carbon Dioxide 29.6 mmol/L (21.0-32.0); Chloride 99 mmol/L (98-107); Estimated GFR (African America >60 (>=60); Estimated GFR (Non-African Ame >60 (>=60); Globulin 3.9 g/dL; Glucose 167 mg/dL (74-106); Magnesium 2.3 mg/dL (1.8-2.4); Potassium 4.6 mmol/L (3.5-5.1); Sodium 132 mmol/L (136-145); Total Protein 7.1 g/dL (6.4-8.2); Troponin I High Sensitivity 53.7 pg/mL (4.0-76.1)
[2023-09-04] MEDS: IPRATROPIUM/ALBUTEROL SULFATE 3 ML AMPUL.NEB IH ×2 (05:09→10:40)
[2023-09-04] MEDS: METHYLPREDNISOLONE SOD SUCC PF 125 MG/2 ML VIAL IVP (06:30)
[2023-09-04] MEDS: ASPIRIN 81 MG TABLET.DR PO (08:20)
--- NOTE | 2023-09-04 08:55 | PM.PN ---
Exam Constitutional Vital Signs, click to edit/add: Last Vital Signs Temp 97.9 F 09/04/23 03:00 Pulse 88 09/04/23 08:00 Resp 28 H 09/04/23 07:40 BP 140/81 09/04/23 07:16 Pulse Ox 96 09/04/23 07:50 O2 Del Method Nasal Cannula 09/04/23 07:54 O2 Flow Rate 2 09/04/23 07:54 Progress Note: Objective Labs Labs: Short CBC 09/04/23 Range/Units 03:18 WBC 11.4 H (4.0-11.0) 10^3/uL Hgb 13.9 L (14.0-18.0) g/dL Hct 42.0 (42.0-54.0) % Plt Count 370 (150-450) 10^3/uL BMP 09/04/23 03:18 Sodium 132 L Potassium 4.6 Chloride 99 Carbon Dioxide 29.6 BUN 12.0 Creatinine 0.79 Glucose 167 H Calcium 8.8 Liver Function 09/04/23 Range/Units 03:18 Total Bilirubin 0.2 (0.2-1.0) mg/dL AST 24 (15-37) U/L ALT 25 (16-63) U/L Alkaline Phosphatase 49 (46-116) U/L Albumin 3.2 L (3.4-5.0) g/dL Progress Note: A&P Assessment and Plan (1) Elevated brain natriuretic peptide (BNP) level: (2) COPD exacerbation: (3) Elevated troponin:
--- OUTSIDE RECORDS SUMMARY | 2023-09-04 09:00 | XMS_ITS | CCD ---
Author Name Unknown Address [address] [place] [address] Organization [facility] Care Team Providers Care Cafe Attendant Name Role Phone REQUEST, NONE LISTED Consulting Unavailable REQUEST, NONE LISTED Attending Unavailable REQUEST, NONE LISTED Admitting Unavailable Henrietta Spence DO Unavailable Henrietta Spence DO Primary Care Provider LYLY YUSUF Referring Unavailable LYLY YUSUF Primary Care Unavailable JEAN HDZ Attending Unavailable JEAN HDZ Referring Unavailable Medications Current Medications Medication Drug Class(es) Dates Sig (Normalized) Sig (Original) [id number] 200 actuat albuterol 0.09 mg/actuat metered dose [...] by Thang Giles on 01/31/2022 1022 Normal [facility] 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 Encounters Encounter Date Encounter Type Care Provider Facility Start: 08-21-2023 ambulatory [facility] Start: 08-13-2023 End: 08-14-2023 ambulatory JEAN HDZ Not Available Start: 08-06-2023 Chart abstracting Jean hamm NP Work Phone: [facility] Start: 08-06-2023 End: 08-06-2023 ambulatory JEAN HDZ Not Available Start: 08-25-2020 End: 08-26-2020 Patient encounter procedure NONE LISTED REQUEST Facility:H1 Procedures Date Procedure Procedure Detail Performing Clinician Start: 09-29-2018 Colonoscopy Jean hamm LABORER YARD Work Phone: Plan of Treatment Date Care Activity Detail Author Start: 09-29-2028 Screening for malign ant neoplasm of colon [facility] Start: 02-15-2024 Medicare Annual Well ness (AWV) Medicare Annual Wellness (AWV) [facility] Start: 08-06-2023 End: 08-06-2023 Patient encounter procedure 08/06/2023 9:00 AM EST Office Visit [facility] [address] [place] [id number] Jean Hdz NP [address] [place] [address] [facility] Start: 1950 Screening for malign ant neoplasm of colon [facility] Immunizations Immunization Date Immunization Notes Care Provider Fa cility 04-20-2023 Influenza, High-dose Seasonal, Quadrivalent, Preservative Free Jean Hdz LABORER YARD Work Phone: [facility] 04-20-2023 Pneumococcal Conjuga te PCV 20 Jean Hdz LABORER YARD Work Phone: [facility] 04-11-2022 Influenza, High-dose Seasonal, Quadrivalent, Preservative Free Jean Hdz LABORER YARD Work Phone: [facility] 04-23-2021 Influenza, High-dose Seasonal, Quadrivalent, Preservative Free Jean Hdz LABORER YARD Work Phone: [facility] 03-18-2020 Influenza, High-dose Seasonal, Quadrivalent, Preservative Free Jean Hdz LABORER YARD Work Phone: [facility] 04-25-2019 Influenza, High-dose Seasonal, Quadrivalent, Preservative Free Jean Hdz LABORER YARD Work Phone: [facility] 05-30-2018 Influenza, High-dose Seasonal, Quadrivalent, Preservative Free Jean Hdz LABORER YARD Work Phone: [facility] 08-20-2017 Influenza, High-dose Seasonal, Quadrivalent, Preservative Free Jean Hdz LABORER YARD Work Phone: [facility] 06-28-2015 influenza, seasonal, injectable Jean Hdz LABORER YARD Work Phone: [facility] 06-28-2015 pneumococcal conjuga te vaccine, 13 valent Jean Hdz LABORER YARD Work Phone: [facility] 05-28-2015 pneumococcal conjuga te vaccine, 13 valent Jean Hdz LABORER YARD Work Phone: [facility] 05-16-2014 pneumococcal polysaccharide vaccine, 23 valent Jean Hdz LABORER YARD Work Phone: [facility] Healthcare Payers Date Payer Category Payer Medicare ANTHEM MEDICARE ADVANTAGE ANTHEM MEDICARE ADVANTAGE [id number] 2021-Present [address] [place] [address] [id number] 2021 Medicare [id number] 2017 Unknown [id number] 2013 Medicare [id number] 1959 Self-pay 1950 Unknown [id number] 1948 Unknown [id number] 1948 Unknown [id number] Unknown [id number] Social History Date Type Detail Facility Start: 02-14-2023 Tobacco smoking status NYIS Smokes t obacco daily [facility] History of tobacco use Cigarette Smoker [facility] Start: 02-08-2023 End: 02-14-2023 Cigarettes smoked current (pack per day) - Reported 1 [facility] Start: 02-14-2023 Tobacco use and exposure Smoke less tobacco non-user [facility] Start: 02-26-2023 Alcohol intake Current drinke r of alcohol (finding) [facility] Start: 02-08-2023 End: 02-14-2023 Humiliation, Afraid, Rape, and Kick questionnaire [HARK] [facility] Within the last year , have you been afraid of your partner or ex-partner? 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 Advance Directives and Living Will 02/25/2020 2019-01-09 Living Wi ll Additional Source Comments (unrecognized sect ion and content) No Status Records FoundNo Status Records FoundNo Status Records FoundNo Status Records Found INFORMATION SOURCE (unrecogn ized section and content) DATE CREATED AUTHOR 08/21/2020 [facility] DATE CREATED AUTHOR AUTHOR'S ORGANIZ ATION 02/01/2022 [facility] dical Specialist DATE CREATED AUTHOR AUTHOR'S ORGANIZ ATION 08/29/2023 [facility] DATE CREATED AUTHOR AUTHOR'S ORGANIZ ATION 08/30/2023 [facility] dical Specialists [employer] Care Teams (unrecognized sec tion and content) Cafe Attendant Relationship Specialty Start Date End Date Henrietta Spence DO [address] [place] [address] PCP - Jennifer FISHER 07/01/21 Henrietta Spence DO [address] [place] [address] PCP - General Family Medicine 11/06/22 FOR [...] BE BASED ON THE PRIMARY CLINICAL RECORDS. [employer] provides no warranty or guarantee of the accuracy or completeness of information in this document.
--- NOTE | 2023-09-04 10:07 | CM.NOTE ---
Important Message from Medicare reviewed and signed with Mr. Smith. Verbalizes understanding.
--- NOTE | 2023-09-04 10:08 | CM.NOTE ---
Rounds made with Dr. Kim. Dr. Kim reviewed plan of care and medication adjustments. No plan for discharge today.
[2023-09-04] MEDS: ALPRAZOLAM 0.25 MG TABLET PO (10:25)
[2023-09-04] MEDS: CEFTRIAXONE 1,000 MG in 0.9 % SODIUM CHLORIDE 50 ML 100 MG IV (10:25)
[2023-09-04] MEDS: LEVOFLOXACIN IN DEXTROSE 5 % 750 MG/150 ML IV.SOLN 100 MG IV (11:01)
[2023-09-04] MEDS: METHYLPREDNISOLONE SOD SUCC PF 125 MG/2 ML VIAL 60 MG IVP (11:01)
--- NOTE | 2023-09-04 17:28 | PC.NURSE ---
bedside report given to superior transportation staff. Called report to vanda at [facility] [phone].
--- NOTE | 2023-09-04 18:00 | P.DS_ITS ---
DS: Providers Provider Date of admission: 09/03/23 09:12 Primary care physician: Non-Staff Physician, Consults: 09/03/23 09:27 Consult to Cardiology Routine Reason for consultation: elevated trop Has provider been notified: No DS: Diagnosis Discharge Diagnosis (1) Elevated brain natriuretic peptide (BNP) level: (2) COPD exacerbation: (3) Elevated troponin: Plan Leukocytosis, acute shortness of breath and increasing hypoxia at home, normally does not wear oxygen but the last week he has been wearing it continuously- positive lactate in the ER also-to possible acute exacerbation of COPD. Acute elevation in high-sensitivity troponin and BNP with acute systolic heart failure with reduced ejection fraction Hypermagnesemia-monitor daily Hyponatremia? DS: Summary Hospital Course Hospital Course: Patient presented to the emergency room with increasing shortness of breath of the last 10 days. He normally just wears his oxygen at nighttime but has been wearing it more consistently in the last 10 days. 2 days prior to coming in he started having significant change in his breathing. Difficulty getting across the room. In ER felt to have acute exacerbation of COPD secondary to viral infection but further workup showed elevated high-sensitivity troponin and elevated BNP and findings consistent with acute systolic heart failure with reduced ejection fraction. Case was discussed with cardiology who agreed since this is new onset and warranted further workup. Patient be transferred for heart cath. Patient currently medically stable. Transfer to [facility]. Time Spent with Patient Time attestation: Total time spent providing and/or coordinating discharge services: Exam Constitutional Vital Signs, click to edit/add: Last Vital Signs Temp 97.9 F 09/04/23 03:00 Pulse 86 09/04/23 16:14 Resp 18 09/04/23 08:50 BP 133/72 09/04/23 16:14 Pulse Ox 96 09/04/23 17:10 O2 Del Method Nasal Cannula 09/04/23 17:00 O2 Flow Rate 2 09/04/23 17:00 Documenting provider has reviewed patient's vital signs: yes Common normals: no apparent distress Chest Common normals: inspection of chest normal and palpation of chest normal Respiratory Common normals: normal respiratory effort and no retractions Auscultation: rhonchi Cardio Common normals: regular rate, regular rhythm and no murmurs Extremity Common normals: normal to inspection and full ROM DS: Data Data Completed and Pending Labs on day of discharge: Labs from last 24 hours 09/04/23 03:18 WBC 11.4 H RBC 4.57 L Hgb 13.9 L Hct 42.0 MCV 91.9 MCH 30.4 MCHC 33.1 RDW 13.4 Plt Count 370 MPV 10.1 Neut % (Auto) 91.1 H Lymph % (Auto) 5.4 L Bradford % (Auto) 2.2 Eos % (Auto) 0.0 L Baso % (Auto) 0.1 L Neut # (Auto) 10.4 H Lymph # (Auto) 0.6 L Bradford # (Auto) 0.3 Eos # (Auto) 0.0 Baso # (Auto) 0.0 Abs Immat Gran (auto) 0.14 H Imm/Tot Granulo (auto) 1.2 H Sodium 132 L Potassium 4.6 Chloride 99 Carbon Dioxide 29.6 Anion Gap 8.0 BUN 12.0 Creatinine 0.79 Est GFR ( Amer) >60 Est GFR (Non-Af Amer) >60 BUN/Creatinine Ratio 15.2 Glucose 167 H Calcium 8.8 Magnesium 2.3 Total Bilirubin 0.2 AST 24 ALT 25 Alkaline Phosphatase 49 Troponin I High Sens 53.7 NT-Pro-B Natriuret Pep 2075.0 H* Total Protein 7.1 Albumin 3.2 L Globulin 3.9 Albumin/Globulin Ratio 0.8 Discharge Plan Discharge Disposition: [facility] Discharge Date/Time: 09/04/23 17:25 Discharge location: [facility]
--- OUTSIDE RECORDS SUMMARY | 2023-09-05 10:55 | XMS_ITS | CCD ---
Author Name Unknown Address [address] [place] [address] Organization [facility] Care Team Providers Care Greaser Helper Name Role Phone REQUEST, NONE LISTED Consulting Unavailable REQUEST, NONE LISTED Attending Unavailable REQUEST, NONE LISTED Admitting Unavailable Henrietta Spence DO Unavailable Henrietta Spence DO Primary Care Provider LYLY YUSUF Referring Unavailable LYLY YUSUF Primary Care Unavailable JEAN HDZ Attending Unavailable JEAN HDZ Referring Unavailable Medications Current Medications Medication Drug Class(es) Dates Sig (Normalized) Sig (Original) [id number] 200 actuat albuterol 0.09 mg/actuat metered dose [...] by Thang Giles on 01/31/2022 1022 Normal [facility] Gate Manager Encounters Encounter Date Encounter Type Care Provider Facility Start: 08-21-2023 ambulatory [facility] Start: 08-13-2023 End: 08-14-2023 ambulatory JEAN HDZ Not Available Start: 08-06-2023 Chart abstracting Jean hamm NP Work Phone: [facility] Start: 08-06-2023 End: 08-06-2023 ambulatory JEAN HDZ Not Available Start: 08-25-2020 End: 08-26-2020 Patient encounter procedure NONE LISTED REQUEST Facility:H1 Procedures Date Procedure Procedure Detail Performing Clinician Start: 09-29-2018 Colonoscopy Jean hamm BRICKMASON Work Phone: Plan of Treatment Date Care Activity Detail Author Start: 09-29-2028 Screening for malign ant neoplasm of colon [facility] Healthcare Start: 02-15-2024 Medicare Annual Well ness (AWV) Medicare Annual Wellness (AWV) [facility] Start: 08-06-2023 End: 08-06-2023 Patient encounter procedure 08/06/2023 9:00 AM EST Office Visit [facility] [address] [place] [id number] Jean Hdz NP [address] [place] [address] [facility] Start: 1950 Screening for malign ant neoplasm of colon [facility] Immunizations Immunization Date Immunization Notes Care Provider Fa cility 04-20-2023 Influenza, High-dose Seasonal, Quadrivalent, Preservative Free Jean Hdz BRICKMASON Work Phone: [facility] 04-20-2023 Pneumococcal Conjuga te PCV 20 Jean Hdz BRICKMASON Work Phone: [facility] 04-11-2022 Influenza, High-dose Seasonal, Quadrivalent, Preservative Free Jean Hdz BRICKMASON Work Phone: [facility] 04-23-2021 Influenza, High-dose Seasonal, Quadrivalent, Preservative Free Jean Hdz BRICKMASON Work Phone: [facility] 03-18-2020 Influenza, High-dose Seasonal, Quadrivalent, Preservative Free Jean Hdz BRICKMASON Work Phone: [facility] 04-25-2019 Influenza, High-dose Seasonal, Quadrivalent, Preservative Free Jean Hdz BRICKMASON Work Phone: [facility] 05-30-2018 Influenza, High-dose Seasonal, Quadrivalent, Preservative Free Jean Hdz BRICKMASON Work Phone: [facility] 08-20-2017 Influenza, High-dose Seasonal, Quadrivalent, Preservative Free Jean Hdz BRICKMASON Work Phone: [facility] 06-28-2015 influenza, seasonal, injectable Jean Hdz BRICKMASON Work Phone: [facility] 06-28-2015 pneumococcal conjuga te vaccine, 13 valent Jean Hdz BRICKMASON Work Phone: [facility] 05-28-2015 pneumococcal conjuga te vaccine, 13 valent Jean Hdz BRICKMASON Work Phone: [facility] 05-16-2014 pneumococcal polysaccharide vaccine, 23 valent Jean Hdz BRICKMASON Work Phone: [facility] Healthcare Payers Date Payer Category Payer Medicare ANTHEM MEDICARE ADVANTAGE ANTHEM MEDICARE ADVANTAGE [id number] 2021-Present [address] [place] [address] [id number] 2021 Medicare [id number] 2017 Unknown [id number] 2013 Medicare [id number] 1959 Self-pay 1950 Unknown [id number] 1948 Unknown [id number] 1948 Unknown [id number] Unknown [id number] Social History Date Type Detail Facility Start: 02-14-2023 Tobacco smoking status KYIS Smokes t obacco daily [facility] History of tobacco use Cigarette Smoker [facility] Start: 02-08-2023 End: 02-14-2023 Cigarettes smoked current (pack per day) - Reported 1 [facility] Start: 02-14-2023 Tobacco use and exposure Smoke less tobacco non-user [facility] Start: 02-26-2023 Alcohol intake Current drinke r of alcohol (finding) [facility] Start: 02-08-2023 End: 02-14-2023 Humiliation, Afraid, Rape, and Kick questionnaire [HARK] [facility] Within the last year , have you been afraid of your partner or ex-partner? No [facility] Do you belong to any clubs or organizations such as druze groups, unions, fraternal or athletic groups, or [...] Alcohol Comment caffeine: 2-[address] 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 Advance Directives and Living Will 02/25/2020 2019-01-09 Living Wi ll Additional Source Comments (unrecognized sect ion and content) No Status Records FoundNo Status Records FoundNo Status Records FoundNo Status Records Found INFORMATION SOURCE (unrecogn ized section and content) DATE CREATED AUTHOR 08/21/2020 [facility] DATE CREATED AUTHOR AUTHOR'S ORGANIZ ATION 02/01/2022 [facility] dical Specialist DATE CREATED AUTHOR AUTHOR'S ORGANIZ ATION 08/29/2023 [facility] DATE CREATED AUTHOR AUTHOR'S ORGANIZ ATION 08/30/2023 [facility] dical Specialists EP[employer] Care Teams (unrecognized sec tion and content) Greaser Helper Relationship Specialty Start Date End Date Henrietta Spence DO [address] [place] [address] PCP - Jennifer FISHER 07/01/21 Henrietta Spence DO [address] [place] [address] PCP - General Family Medicine 11/06/22 FOR [...] BE BASED ON THE PRIMARY CLINICAL RECORDS. [employer] provides no warranty or guarantee of the accuracy or completeness of information in this document.
--- OUTSIDE RECORDS SUMMARY | 2023-09-05 10:56 | XMS_ITS | CCD ---
Author Name Unknown Address [address] [place] [address] Organization [facility] Care Team Providers Care Fire Management Specialist Name Role Phone REQUEST, NONE LISTED Consulting Unavailable REQUEST, NONE LISTED Attending Unavailable REQUEST, NONE LISTED Admitting Unavailable Henrietta Spence DO Unavailable Henrietta Spence DO Primary Care Provider [phone] LYLY YUSUF Referring Unavailable LYLY YUSUF Primary Care Unavailable JEAN HDZ Attending Unavailable JEAN HDZ Referring Unavailable Medications Current Medications Medication Drug Class(es) Dates Sig (Normalized) Sig (Original) [id number] 200 actuat albuterol 0.09 mg/actuat metered dose [...] by Thang Giles on 01/31/2022 1022 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 Encounters Encounter Date Encounter Type Care Provider Facility Start: 08-21-2023 ambulatory [facility] Start: 08-13-2023 End: 08-14-2023 ambulatory JEAN HDZ Not Available Start: 08-06-2023 Chart abstracting Jean hamm NP Work Phone: [facility] Start: 08-06-2023 End: 08-06-2023 ambulatory JEAN HDZ Not Available Start: 08-25-2020 End: 08-26-2020 Patient encounter procedure NONE LISTED REQUEST Facility:H1 Procedures Date Procedure Procedure Detail Performing Clinician Start: 09-29-2018 Colonoscopy Jean hamm VASCULAR SONOGRAPHER Work Phone: Plan of Treatment Date Care Activity Detail Author Start: 09-29-2028 Screening for malign ant neoplasm of colon [facility] Start: 02-15-2024 Medicare Annual Well ness (AWV) Medicare Annual Wellness (AWV) [facility] Start: 08-06-2023 End: 08-06-2023 Patient encounter procedure 08/06/2023 9:00 AM EST Office Visit [facility] [address] [place] [phone] Jean Hdz NP [address] [place] [address] [facility] Start: 1950 Screening for malign ant neoplasm of colon [facility] Immunizations Immunization Date Immunization Notes Care Provider Fa cility 04-20-2023 Influenza, High-dose Seasonal, Quadrivalent, Preservative Free Jean Hdz VASCULAR SONOGRAPHER Work Phone: [facility] 04-20-2023 Pneumococcal Conjuga te PCV 20 Jean Hdz VASCULAR SONOGRAPHER Work Phone: [facility] 04-11-2022 Influenza, High-dose Seasonal, Quadrivalent, Preservative Free Jean Hdz VASCULAR SONOGRAPHER Work Phone: [facility] 04-23-2021 Influenza, High-dose Seasonal, Quadrivalent, Preservative Free Jean Hdz VASCULAR SONOGRAPHER Work Phone: [facility] 03-18-2020 Influenza, High-dose Seasonal, Quadrivalent, Preservative Free Jean Hdz VASCULAR SONOGRAPHER Work Phone: [facility] 04-25-2019 Influenza, High-dose Seasonal, Quadrivalent, Preservative Free Jean Hdz VASCULAR SONOGRAPHER Work Phone: [facility] 05-30-2018 Influenza, High-dose Seasonal, Quadrivalent, Preservative Free Jean Hdz VASCULAR SONOGRAPHER Work Phone: [facility] 08-20-2017 Influenza, High-dose Seasonal, Quadrivalent, Preservative Free Jean Hdz VASCULAR SONOGRAPHER Work Phone: [facility] 06-28-2015 influenza, seasonal, injectable Jean Hdz VASCULAR SONOGRAPHER Work Phone: [facility] 06-28-2015 pneumococcal conjuga te vaccine, 13 valent Jean Hdz VASCULAR SONOGRAPHER Work Phone: [facility] 05-28-2015 pneumococcal conjuga te vaccine, 13 valent Jean Hdz VASCULAR SONOGRAPHER Work Phone: [facility] 05-16-2014 pneumococcal polysaccharide vaccine, 23 valent Jean Hdz VASCULAR SONOGRAPHER Work Phone: [facility] Healthcare Payers Date Payer Category Payer Medicare ANTHEM MEDICARE ADVANTAGE ANTHEM MEDICARE ADVANTAGE [id number] 2021-Present [address] [place] [address] [id number] 2021 Medicare [id number] 2017 Unknown [id number] 2013 Medicare [id number] 1961 Self-pay 1950 Unknown [id number] 1948 Unknown [id number] 1948 Unknown [id number] Unknown [id number] Social History Date Type Detail Facility Start: 02-14-2023 Tobacco smoking status NDIS Smokes t obacco daily [facility] History of tobacco use Cigarette Smoker [facility] Start: 02-08-2023 End: 02-14-2023 Cigarettes smoked current (pack per day) - Reported 1 [facility] Start: 02-14-2023 Tobacco use and exposure Smoke less tobacco non-user [facility] Start: 02-26-2023 Alcohol intake Current drinke r of alcohol (finding) [facility] Start: 02-08-2023 End: 02-14-2023 Humiliation, Afraid, Rape, and Kick questionnaire [HARK] [facility] Within the last year , have you been afraid of your partner or ex-partner? No [facility] Do you belong to any clubs or organizations such as restoration groups, unions, fraternal or athletic groups, or [...] Alcohol Comment caffeine: 2-3 cups per day [facility] Start: 1950 Sex Assigned At Not on file [facility] Summary Purpose Family History No Family History Records FoundNo Family History Records FoundNo Family History Records FoundNo Family History Records Found Advance Directives No Advanced Directives Records FoundDocuments on File Type Date Recorded Patient Studio Assistant Expl anation Advance Directives and Living Will 02/25/2020 2019-01-09 Living Wi ll Additional Source Comments (unrecognized sect ion and content) No Status Records FoundNo Status Records FoundNo Status Records FoundNo Status Records Found INFORMATION SOURCE (unrecogn ized section and content) DATE CREATED AUTHOR 08/21/2020 [facility] DATE CREATED AUTHOR AUTHOR'S ORGANIZ ATION 02/01/2022 [facility] dical Specialist DATE CREATED AUTHOR AUTHOR'S ORGANIZ ATION 08/29/2023 [facility] DATE CREATED AUTHOR AUTHOR'S ORGANIZ ATION 08/30/2023 [facility] dical Specialists [employer] Care Teams (unrecognized sec tion and content) Fire Management Specialist Relationship Specialty Start Date End Date Henrietta Spence DO [address] [place] [address] PCP - Jennifer FISHER 07/01/21 Henrietta Spence DO [address] [place] [address] PCP - General Family Medicine 11/06/22 FOR [...] BE BASED ON THE PRIMARY CLINICAL RECORDS. [employer] provides no warranty or guarantee of the accuracy or completeness of information in this document.
== END 2023-09-04 17:25 | disposition short-term general hospital (02) | DRG 292 ==
LOC: ER 08:32 → ICU 09-12 16:33
PROVIDERS: Emergency Medicine; Admitting Provider Family Medicine; Emergency Provider Student in an Organized Health Care Education/Training Program; Visit Provider Family Medicine
DX: I50.21 Acute systolic (congestive) heart failure (principal); J44.1 Chronic obstructive pulmonary disease with (acute) exacerbation; E87.1 Hypo-osmolality and hyponatremia; F10.10 Alcohol abuse, uncomplicated; F17.210 Nicotine dependence, cigarettes, uncomplicated; E78.00 Pure hypercholesterolemia, unspecified; I71.40 Abdominal aortic aneurysm, without rupture, unspecified; Z99.81 Dependence on supplemental oxygen; Z79.82 Long term (current) use of aspirin; R09.02 Hypoxemia; E83.41 Hypermagnesemia; R06.02 Shortness of breath
CPT/HCPCS: 0202U; 36415; 36600; 71045; 80053; 81001; 82805; 83605; 83735; 83880; 84484; 85025; 87070; 87086; 93005; 93306; 94640; 94667; 94668; 94761; 96365; 96366; 96368; 96375; 99285; G0378; J2930

== ENCOUNTER 2023-10-03 09:25 | Outpatient (OUT) | payer MEDICARE, SELFPAY ==
--- OUTSIDE RECORDS SUMMARY | 2023-10-03 09:45 | XMS_ITS | CCD ---
Author Organization [facility] Care Team Providers Care Drop Wire Hanger Name Role Phone REQUEST, NONE LISTED Consulting Unavailable REQUEST, NONE LISTED Attending Unavailable REQUEST, NONE LISTED Admitting Unavailable Henrietta Spence DO Unavailable Henrietta Spence DO Primary Care Provider LYLY YUSUF Referring Unavailable LYLY YUSUF Primary Care Unavailable JEAN HDZ Attending Unavailable JEAN HDZ Referring Unavailable MARK JAY Attending Unavailable MARIO ALBERTO LAN Referring Unavailable HORMARIO ALBERTO PANDEY Referring Unavailable DOUG, TAB Admitting Unavailable ELTABOBBY, EHAB Referring Unavailable HORANITANKAR Attending Unavailable TAMRA SORIA Attending Unavailable HORANI, MARIO ALBERTO Referring Unavailable MAEGAN BRYANT Attending Unavailable MAEGAN BRYANT Referring Unavailable LYLY YUSUF Primary Care Unavailable Allergies Allergy Classification Reported Allergen(s) Allergy Type Date of Onset Reaction(s) Facility (1 source) ALLERGIES NOT ON FILE; Translations: [ALLERGIES NOT ON FILE] Propensity to adverse reactions (disorder) [facility] Repository Medications Current Medications Medication Drug Class(es) Dates Sig (Normalized) Sig (Original) [id number] 200 actuat albuterol 0.09 mg/actuat metered dose [...] pulmonary disease, unspecified] Onset: 02-07-2023 02-07-2023 Chronic Congestive heart failure; nonhypertensive (4 sources) Chronic systolic (congestive) heart failure; Translations: [Heart failure, unspecified] Onset: 09-04-2023 Chronic Disorders of lipid metabolism (1 source) Mixed hyperlipidemia; Translations: [Mixed hyperlipidemia] Onset: 02-07-2023 02-07-2023 Chronic Diverticulosis and diverticulitis (1 source) Diverticulosis of large intestine; Translations: [Diverticulosis of large intestine without perforation or abscess without bleeding] Onset: 02-07-2023 02-07-2023 Chronic Other lower respiratory disease (1 source) Shortness of breath; Translations: [Shortness of breath] Onset: 09-18-2023 Episodic Peripheral and visceral atherosclerosis (2 sources) Peripheral vascular disease; Translations: [Peripheral vascular disease, unspecified] Onset: 02-07-2023 02-07-2023 Chronic Residual codes; unclassified (1 source) Pain, unspecified; Translations: [Pain, unspecified] Onset: 08-21-2023 Episodic Respiratory failure; insufficiency; arrest (adult) (2 sources) Acute and chronic respiratory failure with hypoxia; Translations: [Acute and chronic respiratory failure with hypoxia] Onset: 09-04-2023 Chronic Substance-related disorders (3 sources) Moderate cigarette smoker; Translations: [Nicotine dependence, cigarettes, [...] Results Test Name Value Interpretation Reference Range Facility 37on 09-13-2023 37 Stop valsartan when you get entresto- Entresto is 1 tab twice a day Have labs drawn in about 1 week after starting entresto. *Continue heart healthy diet and low sodium diet. *Monitor daily weights, fluid restriction 1.5-2Liters/day, lab work to check kidney/renal function and electrolytes *Call office for weight gain of 2 pounds in 1 day or 5 pounds in 1 week, increased leg swelling, shortness of breath or shortness of breath at night and having to sleep sitting up taller/more pillows than normal or in recliner. Normal [facility] Follow-Upon 09-13-2023 Follow-Up [id number] Naren Chowdhury 1950 M Date Provider Department Center 09/13/2023 120-TAMRA SORIA [facility] No family history on file Level of Service:73465 OR OFFICE/OUTPATIENT ESTABLISHED MOD MDM 30 MIN Reason for Visit and Comments: Follow-up [595471] - Congestive Heart failure/COPD No cardio symptoms per pt Has hard time breathing but is on oxygen States fatigued [facility] Orders Onlyon 09-13-2023 Orders Only [id number] Naren Chowdhury 1950 M Date Provider Department Center 09/13/2023 Iban5GLORIA AQUINO [facility]ICA [facility] No family history on file [facility] 36on 09-09-2023 36 Discharge date: Call date: 09/09/23 Spoke with: patient and spouse HF Follow-up date: 09/13/23 Med reconciliation completed: yes Questions/Concerns: Home meds reviewed with pt's . Follow up switched to Cardiology clinic on the same day for pt and family's convenience. Pt stated he is doing well. Per , pt is monitoring daily weights and BP as well as limiting fluid and sodium intake. [facility] Documentationon 09-09-2023 Documentation [id number] Naren Chowdhury 1950 M Date Provider Department Center 09/09/2023 [id number] WRIGHT [facility] VASC [facility] No family history on file Reason for Visit and Comments: HF inpatient satisfaction survey sent. [Other] [facility] Telephoneon 09-09-2023 Telephone [id number] Naren Chowdhury 1950 M Date Provider Department [place] 09/09/2023 [id number], MANDY [facility] CARD IN [facility] No family history on file Reason for Visit and Comments: HF post discharge call. [Other] Normal [facility] 30on 09-06-2023 30 The patient is Moderately Stable - Low risk of patient condition declining or worsening The patient's goals for the shift include comfort, rest The clinical goals for the shift include stable vs, comfort Over the shift, the patient did make progress toward the following goals. Problem: Pain - Adult Goal: Verbalizes/displays adequate comfort level or baseline comfort level Outcome: Progressing Problem: Safety - Adult Goal: Free from fall injury Outcome: Progressing Flowsheets (Taken 09/06/2023799) Free from fall injury: Assess patient frequently for physical needs Identify cognitive and physical deficits and behaviors that affect risk of falls [place] fall precautions as indicated by assessment Educate patient/family on patient safety, including physical limitations Instruct patient to call for assistance with activity based on assessment Problem: Discharge Planning Goal: Discharge to home or other facility with appropriate resources Outcome: Progressing Flowsheets (Taken 09/06/2023 08) Discharge to home or other facility with appropriate resources: Identify barriers to discharge with patient and caregiver Arrange for needed discharge resources and transportation as appropriate Identify discharge learning needs (meds, wound care, etc) Arrange for interpreters to assist at discharge as needed Refer to discharge planning if patient needs post-hospital services based on physician order or complex needs related to functional status, cognitive ability or social support system Normal [facility] 30 The patient is Moderately Stable - Low risk of patient condition declining or worsening The patient's goals for the shift include comfort, rest The clinical goals for the shift include Stable VS, comfort Normal [facility] BASIC METABOLIC PANELon Anion gap [Moles/Vol] 10 mmol/L Normal 7-20 [facility] Comment on above: Performed By: #### L [id number] #### [facility] ([facility]) [address] [place] [address] Calcium [Mass/Vol] 8.7 mg/dL Normal 8.6-10.3 [facility] Comment on above: Performed By: #### L [id number] #### [facility] ([facility]) [address] [place] [address] Chloride [Moles/Vol] 99 mmol/L Normal 98-107 [facility] Comment on above: Performed By: #### L [id number] #### [facility] ([facility] [address] [place] [address] CO2 [Moles/Vol] 30 mmol/L Normal 21-31 [facility] Comment on above: Performed By: #### L [id number] #### [facility] ([facility] [address] [place] [address] Creatinine [Mass/Vol] 0.74 mg/dL Normal 0.70-1.30 [facility] Comment on above: Performed By: #### L [id number] #### [facility] ([facility]) [address] [place] [address] GLOMERULAR FILTRATION RATE ML/MIN/1.73 SQ M.PREDICTED 94.5 mL/min/1.73m*2 Normal >60.0 [facility] Comment on above: Result Comment: The [facility]???s estimated glomerular filtration rate (eGFR) will no longer include consideration of race in its calculation. The National Kidney Foundation???s eGFR Task Force developed new recommendations for the estimation of the glomerular filtration rate in the [place] They recommend immediate implementation of the new equation refit without the race variable in all laboratories because the calculation does not include race. In addition to not including race in the calculation and reporting, it included diversity in its development, and has acceptable performance characteristics and potential consequences that do not disproportionately affect any one group of individuals. Performed By: #### L [id number] #### [facility] ([facility] [address] [place] [address] Glucose [Mass/Vol] 88 mg/dL Normal 70-100 [facility] Comment on above: Performed By: #### L [id number] #### [facility] ([facility] [address] [place] [address] Potassium [Moles/Vol] 4.0 mmol/L Normal 3.5-5.1 [facility] Comment on above: Performed By: #### L [id number] #### [facility] ([facility] [address] [place] [address] Sodium [Moles/Vol] 135 mmol/L Low 136-145 [facility] Comment on above: Performed By: #### L [id number] #### [facility] ([facility] [address] [place] [address] Urea nitrogen [Mass/Vol] 31 mg/dL High 7-25 [facility] Comment on above: Performed By: #### L [id number] #### [facility] ([facility]) [address] [place] [address] UREA NITROGEN/CREATININE (MASS RATIO) IN SER/PLAS 41.9 Normal [facility] Comment on above: Performed By: #### L [id number] #### [facility] ([facility]) [address] [place] [address] CBCon 09-06-2023 Erythrocyte distribution width (RBC) [Ratio] 14.1 % Normal 11.5-15.0 [facility] Comment on above: Performed By: #### L [id number] #### [facility] ([facility] [address] [place] [address] ERYTHROCYTE MEAN CORPUSCULAR HEMOGLOBIN CONCENTRATION (G/DL) BY AUTOMATED 33.3 g/dL Normal 32.0-35.0 [facility] Comment on above: Performed By: #### L [id number] #### [facility] [address] [place] [address] Hematocrit (Bld) [Volume fraction] 45.4 % Normal 39.0-55.0 [facility] Comment on above: Performed By: #### L [id number] #### [facility] [address] [place] [address] Hemoglobin (Bld) [Mass/Vol] 15.1 g/dL Normal 13.0-17.0 [facility] Comment on above: Performed By: #### L [id number] #### [facility] ([facility]) [address] [place] [address] MCH (RBC) [Entitic mass] 30.7 pg Normal 27.0-33.0 [facility] Comment on above: Performed By: #### L [id number] #### [facility] ([facility]) [address] [place] [address] MCV (RBC) [Entitic vol] 92.3 fL Normal 82.0-98.0 [facility] Comment on above: Performed By: #### L [id number] #### [facility] ([facility]) [address] [place] [address] PLATELETS (10*3/UL) IN BLOOD AUTOMATED COUNT 405 10*3/uL High 150-400 [facility] Comment on above: Performed By: #### L [id number] #### [facility] ([facility]) [address] [place] [address] RBC (Bld) [#/Vol] 4.92 10*6/uL Normal 4.20-5.70 [facility] Comment on above: Performed By: #### L [id number] #### [facility] ([facility]) [address] [place] [address] WBC (Bld) [#/Vol] 14.91 10*3/uL High 4.00-10.60 [facility] Comment on above: Performed By: #### L [id number] #### [facility] ([facility]) [address] [place] [address] CONSULTon 09-06-2023 CONSULT Clinical Nutrition Assessment Name: Vahid Chowdhury Date: 1950 Date of Visit: 09/06/23 Reason for assessment: MD referral HF Information obtained from: patient, medical record, and nursing Medical History No chief complaint on file. History reviewed. No pertinent past medical history. History reviewed. No pertinent surgical history. Current Outpatient Medications Medication Instructions albuterol 90 mcg/actuation inhaler 2 puffs, inhalation, Every 6 hours PRN albuterol 2.5 mg, nebulization, Every 6 hours PRN aspirin 81 mg, oral, Daily yzdmydftdy-gwzlvaxm-xtw moterol (Breztri Aerosphere) 160-9-4.8 mcg/actuation HFA aerosol inhaler inhalation simvastatin (ZOCOR) 40 mg, oral, Nightly Not on File Nutrition Problems: Mouth: missing teeth Appetite: good states was poor on admission, but has since improved. Geriatric feeding skills: Ability to feed oneself Skin Integrity: intact Results from last 7 days Lab Units 09/06/23 0349 09/05/23 0756 09/04/23 1955 GLUCOSE mg/dL 88 123* 117* BUN mg/dL 31* 20 17 CREATININE mg/dL 0.74 0.71 0.74 SODIUM mmol/L 135* 134* 129* POTASSIUM mmol/L 4.0 4.9 4.6 MAGNESIUM mg/dL 2.6 -- 2.3 HEMOGLOBIN g/dL 15.1 -- 14.5 WBC AUTO 10*3/uL 14.91* -- 19.92* I/O: Intake/Output Summary (Last 24 hours) at 09/06/2023 1134 Last data filed at 09/06/2023 0500 Gross per 24 hour Intake 1225 ml Output 1775 ml Net -550 ml Current Medications: aspirin, 81 mg, oral, Daily atorvastatin, 40 mg, oral, Nightly cefTRIAXone, 1 g, intravenous, q24h dapagliflozin propanediol, 10 mg, oral, Daily enoxaparin, 40 mg, subcutaneous, q24h MARTINA ipratropium-albuteroL, 3 mL, nebulization, q6h metoprolol succinate XL, 12.5 mg, oral, Daily nicotine, 1 patch, transdermal, Daily predniSONE, 40 mg, oral, Daily spironolactone, 12.5 mg, oral, Daily valsartan, 80 mg, oral, Daily Anthropometrics: Height: 165.1 cm (5' 5 ) Weight: 66.4 kg (146 lb 6.2 oz) Body mass index is 24.36 kg/m???. Wt Readings from Last 7 Encounters: 09/06/23 66.4 kg (146 lb 6.2 oz) IBW: 61.8 kg Nutrition Assessment: Diet History: Lives at home with . Reports little take out or fast [place]. Does add salt to most foods while cooking. Also reports eating a lot of processed meats like deli meats, dove, sausage, etc. Reports drinking 4-6 diet sodas per day Dietary Orders (From admission, onward) Start Ordered 09/06/23 0757 Special Kitchen Request Once Comments: Omlette with brazilian cheese, peppers, onions, mushrooms Wheat toast (butter and jelly) Blueberry muffin Coffee (2 cream 2 sugar) 09/06/23 0758 09/05/23 1623 Special Kitchen Request Once Comments: Roast beef sandwich 09/05/23 1623 09/05/23 1139 Regular Diet Heart Healthy/HTN, CABG,Stroke, (2gNA, low fat, low cholesterol) Diet effective now Question Answer Comment Room Service? Yes Fat restriction: Heart Healthy/HTN, CABG,Stroke, (2gNA, low fat, low cholesterol) 09/05/23 1138 Percent Meals Eaten (%): 100 (09/05/23 1700 : Lilia Aceves RN) Meal Intakes: pt states had omelette, wheat toast, blueberry muffin and coffee for breakfast 100% Nutrition Risk: Low Nutrition Recommendations: Continue HH diet Reviewed HF diet education Good intakes at this time Monitor nutritional status. Goals: Nutrition Goals: intake > 75% meals and compliance w/ MNT Mikhail Birch RD (Please reach out with questions and contact the dietitian via [employer] chat 8A-4P Saturday-Saturday. Or call the dietitian's office at extension [phone]. For weekends/holidays, the dietitian's can be reached by paging [phone] from 9A-3P. Unable to be reached via [employer] chat on Saturday & s.) Normal [facility] MAGNESIUMon 09-06-2023 Magnesium [Mass/Vol] 2.6 mg/dL Normal 1.9-2.7 [facility] Comment on above: Performed By: #### L [id number] #### [facility] (BEAKER) [address] [place] [address] TROPONIN Ion 09-06-2023 Troponin I.cardiac [Mass/Vol] 0.04 ng/mL Normal 0.00-0.04 [facility] Comment on above: Performed By: #### L [id number] #### [facility] (BEAKER) [address] [place] [address] Troponin I.cardiac [Mass/Vol] 0.04 ng/mL Normal 0.00-0.04 [facility] Comment on above: Performed By: #### L [id number] #### [facility] (BEAKER) [address] [place] [address] Troponin I.cardiac [Mass/Vol] 0.05 ng/mL High 0.00-0.04 [facility] Comment on above: Performed By: #### L [id number] #### [facility] ([facility]) [address] [place] [address] 30on 09-05-2023 30 Daily Case Managemen t Update Multidisciplinary rounds have been completed. Barriers to Discharge: Pending clinical course and improvement in clinical condition. Patient underwent cardiac catheterization today; await final recommendations. Diet: Dietary Orders (From admission, onward) Start Ordered 09/05/23 1139 Regular Diet Heart Healthy/HTN, CABG,Stroke, (2gNA, low fat, low cholesterol) Diet effective now Question Answer Comment Room Service? Yes Fat restriction: Heart Healthy/HTN, CABG,Stroke, (2gNA, low fat, low cholesterol) 09/05/23 1138 Physician Expected Discharge Date: 09/09/2023 Discharge Delays: PT Six Click Score: 24 OT Six Click Score: PT Recommendations: OT Recommendations: New Consults: Ancillary Consults (From admission, onward) Start Ordered 09/05/23 0830 Inpatient consult to Social Work Once Provider: (Not yet assigned) Question Answer Comment Select all services needed for the patient [facility] (30 day convalescent stay) Select all services needed for the patient Home Health Types of Home Health Service needed Physical Therapy Types of Home Health Service needed Occupational Therapy Please indicate your approval for this care by adding your name here: MARIO ALBERTO BERNABE 09/05/23 0829 09/05/23 0830 Consult to Nutrition Services Once Provider: (Not yet assigned) Question: Reason for Consult? Answer: CHF 09/05/23 0829 Normal [facility] 30 The patient is Moderately Stable - Low risk of patient condition declining or worsening The patient's goals for the shift include breathe easier The clinical goals for the shift include stable vs Over the shift, the patient did make progress toward the following goals. Problem: Pain - Adult Goal: Verbalizes/displays adequate comfort level or baseline comfort level Outcome: Progressing Problem: Safety - Adult Goal: Free from fall injury Outcome: Progressing Flowsheets (Taken 09/05/2023899) Free from fall injury: Assess patient frequently for physical needs Identify cognitive and physical deficits and behaviors that affect risk of falls Instruct patient to call for assistance with activity based on assessment [place] fall precautions as indicated by assessment Educate patient/family on patient safety, including physical limitations Modify environment to reduce risk of injury Consider OT/PT consult to assist with strengthening/mobility Problem: Discharge Planning Goal: Discharge to home or other facility with appropriate resources Outcome: Progressing Problem: Chronic Conditions and Co-morbidities Goal: Patient's chronic conditions and co-morbidity symptoms are monitored and maintained or improved Outcome: Progressing Flowsheets (Taken 09/05/2023799) Care Plan - Patient's Chronic Conditions and Co-Morbidity Symptoms are Monitored and Maintained or Improved: Monitor and assess patient's chronic conditions and comorbid symptoms for stability, deterioration, or improvement Collaborate with multidisciplinary team to address chronic and comorbid conditions and prevent exacerbation or deterioration Update acute care plan with appropriate goals if chronic or comorbid symptoms are exacerbated and prevent overall improvement and discharge Problem: Respiratory - Adult Goal: Achieves optimal ventilation and oxygenation Outcome: Progressing Problem: Cardiovascular - Adult Goal: Maintains optimal cardiac output and hemodynamic stability Outcome: Progressing Flowsheets (Taken 09/05/2023799) Maintains optimal cardiac output and hemodynamic stability: Monitor blood pressure and heart rate Monitor urine output and notify Licensed Independent Practitioner for values outside of normal range Assess for signs of decreased cardiac output Administer fluid and/or volume expanders as ordered Administer vasoactive medications as ordered Goal: Absence of cardiac dysrhythmias or at baseline Outcome: Progressing Flowsheets (Taken 09/05/2023799) Absence of cardiac dysrhythmias or at baseline: Assess for signs of decreased cardiac output Administer antiarrhythmia medication and electrolyte replacement as ordered Monitor cardiac rate and rhythm Problem: Skin/Tissue Integrity - Adult Goal: Skin integrity remains intact Outcome: Progressing Flowsheets (Taken 09/05/2023799) Skin integrity remains intact: Monitor for areas of redness and/or skin breakdown Assess vascular access sites hourly Change oxygen saturation probe site as needed If on nasal continuous positive airway pressure, respiratory therapy assesses nares and determine need for appliance change or resting period as needed Goal: Incisions, wounds, or drain sites healing without S/S of infection Outcome: Progressing Flowsheets (Taken 09/05/2023799) Incisions, wounds, or drain sites healing without sign and symptoms of infection: TWICE DAILY: Assess and document skin integrity ADMISSION and DAILY: Assess and document risk factors for pressure ulcer development TWICE DAILY: Assess and document dressing/incision, wound bed, drain sites and surrounding tissue Goal: Oral mucous membranes remain intact Outcome: Progressing Flowsheets (Taken 09/05/2023799) Oral mucous membranes remain intact: Assess oral mucosa and hygiene practices Implement preventative oral hygiene regimen Implement oral medicated treatments as ordered Problem: Hematologic - Adult Goal: Maintains hematologic stability Outcome: Progressing Flowsheets (Taken 09/05/2023799) Maintains hematologic stability: Assess for signs and symptoms of bleeding or hemorrhage Monitor labs for bleeding or clotting disorders Administer blood products/factors as ordered Normal [facility] 30 The patient is Moderately Unstable - Medium risk of patient condition declining or worsening The patient's goals for the shift include The clinical goals for the shift include stable vs Over the shift, the patient did not make progress toward the following goals. Problem: Respiratory - Adult Goal: Achieves optimal ventilation and oxygenation Outcome: Not Progressing Normal [facility] BASIC METABOLIC PANELon 03-0 Anion gap [Moles/Vol] 11 mmol/L Normal -20 [facility] Comment on above: Performed By: #### L [id number] ####[facility] (BEAKER)[address] [place] [address] Calcium [Mass/Vol] 9.0 mg/dL Normal 8.6-10.3 [facility] Comment on above: Performed By: #### L [id number] ####[facility] (BEAKER)[address] [place] [address] Chloride [Moles/Vol] 97 mmol/L Low 98-107 [facility] Comment on above: Performed By: #### L [id number] ####[facility] (BEAKER)[address] [place] [address] CO2 [Moles/Vol] 31 mmol/L Normal 21-31 [facility] Comment on above: Performed By: #### L [id number] ####[facility] [place] [address] Creatinine [Mass/Vol] 0.71 mg/dL Normal 0.70-1.30 [facility] [facility] Comment on above: Performed By: #### L [id number] ####[facility] ([facility] [place] [address] GLOMERULAR FILTRATION RATE ML/MIN/1.73 SQ M.PREDICTED 95.7 mL/min/1.73m*2 Normal >60.0 [facility] Comment on above: Result Comment: The [facility]???s estimated glomerular filtration rate (eGFR) will no longer include consideration of race in its calculation. The National Kidney Foundation???s eGFR Task Force developed new recommendations for the estimation of the glomerular filtration rate in the [place] They recommend immediate implementation of the new equation refit without the race variable in all laboratories because the calculation does not include race. In addition to not including race in the calculation and reporting, it included diversity in its development, and has acceptable performance characteristics and potential consequences that do not disproportionately affect any one group of individuals. Performed By: #### L [id number] ####[facility] ([facility] [place] [address] Glucose [Mass/Vol] 123 mg/dL High 70-100 [facility] Comment on above: Performed By: #### L [id number] ####[facility] ([facility] [place] [address] Potassium [Moles/Vol] 4.9 mmol/L Normal 3.5-5.1 [facility] Comment on above: Performed By: #### L [id number] ####[facility] ([facility] [place] [address] Sodium [Moles/Vol] 134 mmol/L Low 136-145 [facility] Comment on above: Performed By: #### L [id number] ####[facility] (BEAKER)[address] [place] [address] Urea nitrogen [Mass/Vol] 20 mg/dL Normal 7-25 [facility] Comment on above: Performed By: #### L [id number] ####[facility] ([facility])[address] [place] [address] UREA NITROGEN/CREATININE (MASS RATIO) IN SER/PLAS 28.2 Normal [facility] Comment on above: Performed By: #### L [id number] ####[facility] ([facility])[address] [place] [address] CONSULTon 09-05-2023 CONSULT --- Attestation signed by Warren Alex MD at 09/06/2023 8:42 PM By using the attestations below, the signing clinician agrees that I have read and verify that the documentation has been personally reviewed by me and ensure that the documentation accurately reflects the encounter. GC: I personally saw this patient on the day of the encounter, performed the morgan portion(s) of the service and participated in the management and confirm the resident's documentation. Please note there may be an additional personal documentation from me. Cardiology Consult Note Reason for Consult: Low ejection fraction, positive high-sensitivity troponin HPI: Vahid Chowdhury is a 73 y.o. male with past medical history of heavy smoking, suspected COPD with a plan to do PFT, chronic hypoxic respiratory failure on 2 L nasal cannula, dyslipidemia presented to the outside hospital with worsening shortness of breath, and was treated and received extubation, BNP and high sensitive troponin were elevated, echo was done and showed 35 to 40% which is a new drop, so Dr. Parker was contacted and accepted the patient to be transferred for cardiac cath to evaluate the new onset heart failure with elevated troponin. Cardiology ROS: GENERAL: Denies fever, chills, night sweats, weight loss. CARDIOVASCULAR: Denies chest pain, exertional dyspnea, orthopnea/PND, lower extremity edema, palpitations, lightheadedness/dizzine ss, syncope. RESPIRATORY: SOB, coughing, wheezing GI: Denies abdominal pain, nausea/vomiting. PSYCH: Denies anxiety. Past Medical History He has no past medical history on file. Surgical History He has no past surgical history on file. Social History He reports that he has been smoking cigarettes. He has been smoking an average of 1 pack per day. He has never used smokeless tobacco. No history on file for alcohol use and drug use. Family History No family history on file. Allergies Patient has no allergy information on record. Medications Medications Prior to Admission Medication Sig Dispense Refill Last Dose albuterol 2.5 mg /3 mL (0.083 %) nebulizer solution Take 2.5 mg by nebulization every 6 (six) hours if needed for wheezing. albuterol 90 mcg/actuation inhaler Inhale 2 puffs every 6 (six) hours if needed for wheezing. aspirin 81 mg EC tablet Take 81 mg by mouth in the morning. cpwqjutphq-tfzemkbf-akg moterol (Breztri Aerosphere) 160-9-4.8 mcg/actuation HFA aerosol inhaler Inhale. simvastatin (Zocor) 40 mg tablet Take 40 mg by mouth at bedtime. Last Recorded Vitals Patient Vitals for the past 24 hrs: BP Temp Temp src Pulse Resp SpO2 Height Weight 09/05/23 1116 126/70 -- -- 63 23 91 % -- -- 09/05/23 1100 133/62 -- -- 65 21 -- -- -- 09/05/23 1019 117/72 -- -- 71 20 96 % -- -- 09/05/23 0906 -- -- -- -- -- 96 % -- -- 09/05/23 0905 148/73 -- -- 63 20 96 % -- -- 09/05/23 0800 141/68 -- -- 66 25 98 % -- -- 09/05/23 0758 -- -- -- 67 20 97 % -- -- 09/05/23 0519 -- -- -- -- -- -- -- 68.4 kg (150 lb 12.8 oz) 09/05/23 0400 110/60 36.8 ???C (98.2 ???F) Temporal 71 21 94 % -- -- 09/05/23 0308 -- -- -- 80 24 95 % -- -- 09/05/23 0000 123/74 36.8 ???C (98.2 ???F) Temporal 77 25 98 % -- -- 09/04/239 -- -- -- -- -- -- 1.651 m (5' 5 ) 67.5 kg (148 lb 13 oz) 09/04/232133 -- -- -- 66 22 99 % -- -- 09/04/232006 117/85 36.8 ???C (98.2 ???F) Temporal 73 26 97 % -- -- Physical Examination: GENERAL: AOx3, in no acute distress. HEAD: Atraumatic, normocephalic. EYES: PREM, EOMI. NECK: No JVD present. CARDIAC: RRR. No murmur, rubs, or gallops. RESPIRATORY: CTAB, no increased effort of breathing. ABDOMEN: Soft, nontender, nondistended. EXTREMITIES: No lower extremity edema, peripheral pulses are 2+ bilaterally. NEURO: No focal deficits Relevant Lab Results @LABRESULTS@ Encounter Date: 09/04/23 ECG 12 lead Result Value Ventricular Rate 62 Atrial Rate 62 OR Interval 168 QRS DURATION 86 QT Interval 426 QTC CALCULATION(BAZETT) 432 P [place] 79 R-[place] -62 T Wave [place] 31 Impression Normal sinus rhythm Left axis deviation Abnormal ECG No previous ECGs available Lab Results Component Value Date TROPONINI 0.05 (H) 09/05/2023 No echocardiogram results found for the past 12 months No nuclear medicine results found for the past 12 months Relevant Imaging Results XR chest 1 view Narrative: XR CHEST 1 VIEW 09/04/2023 8:10 PM CLINICAL INDICATIONS: Pulmonary edema COMPARISON: None FINDINGS: Portable AP upright view of the chest was performed. Cardiac silhouette is within normal limits. Left basilar airspace disease consistent with atelectasis versus car. Tenting of the left hemidiaphragm favors scar. No significant pleural effusion or pneumothorax. No overt vascular congestion. Impression: Likely left bas (more content not included)... Normal [facility] HPon 09-05-2023 --- Attestation signed by Sylvie Avitia MD at 09/05/2023 9:34 AM H and P reviewed. No significant changes. Patient presenting with heart failure. Plan to proceed with cath. Procedure was explained to patient at length and in detail. Risks, benefits, and alternatives were discussed. Patient is informed that risks of this invasive procedure include, but are not limited to, bleeding, hematoma, kidney injury, CVA, arrythmia requiring defibrillation, need for emergent open heart surgery, and . Patient understands these risks and wishes to proceed. Sylvie Avitia MD H&P reviewed. The patient was examined and there are no changes to the H&P. 73 year old male who presented with worsening shortness of breathe, was transferred from [facility]. On 09/02 night woke up around 4 AM to go to the bathroom, on his way start having worsening shortness of breath, chest tightness, his his saw him pale and diaphoretic, was brought to [facility]. It seems that he has dropped in EF and his troponin has been mildly elevated and hence plan is to do RHC/LHC to evaluate filling pressures and look for coronary anatomy and any CAD. I explained the risks and benefits of the procedure. He would like to proceed. Normal [facility] TROPONIN Ion 09-05-2023 Troponin I.cardiac [Mass/Vol] 0.04 ng/mL Normal 0.00-0.04 [facility] Comment on above: Performed By: #### L [id number] #### [facility] ([facility]) [address] [place] [address] Troponin I.cardiac [Mass/Vol] 0.05 ng/mL High 0.00-0.04 [facility] Comment on above: Performed By: #### L [id number] #### [facility] ([facility]) [address] [place] [address] Troponin I.cardiac [Mass/Vol] 0.05 ng/mL High 0.00-0.04 [facility] Comment on above: Performed By: #### L [id number] ####[facility] ([facility])[address] [facility] [place] [address] Troponin I.cardiac [Mass/Vol] 0.05 ng/mL High 0.00-0.04 [facility] Comment on above: Performed By: #### L [id number] #### [facility] ([facility]) [address] [place] [address] Troponin I.cardiac [Mass/Vol] 0.05 ng/mL High 0.00-0.04 [facility] Comment on above: Performed By: #### L [id number] ####[facility] ([facility])[address] [facility] [place] [address] Troponin I.cardiac [Mass/Vol] 0.06 ng/mL High 0.00-0.04 [facility] Comment on above: Performed By: #### L [id number] #### [facility] ([facility]) [address] [place] [address] B-TYPE NATRIURETIC PEPTIDEon 09-04-2023 Natriuretic peptide B (Bld) [Mass/Vol] 136 pg/mL High 0-100 [facility] Comment on above: Performed By: #### L [id number] #### [facility] ([facility]) [address] [place] [address] CBC WITH AUTO DIFFERENTIALon 09-04-2023 Basophils (Bld) [#/Vol] 0.04 10*3/uL Normal 0.00-0.20 [facility] Comment on above: Performed By: #### L [id number] ####[facility] ([facility])[address] [place] [address] Basophils/100 WBC (Bld) 0.2 % Normal 0.0-1.0 [facility] Comment on above: Performed By: #### L [id number] ####[facility] ([facility])[address] [place] [address] Eosinophils (Bld) [#/Vol] 0.09 10*3/uL Normal 0.00-0.50 [facility] Comment on above: Performed By: #### L [id number] ####[facility] ([facility] [place] [address] Eosinophils/100 WBC (Bld) 0.5 % Normal 0.0-6.0 [facility] Comment on above: Performed By: #### L [id number] ####[facility] ([facility])[address] [place] [address] Erythrocyte distribution width (RBC) [Ratio] 13.9 % Normal 11.5-15.0 [facility] Comment on above: Performed By: #### L [id number] ####[facility] ([facility])[address] [place] [address] ERYTHROCYTE MEAN CORPUSCULAR HEMOGLOBIN CONCENTRATION (G/DL) BY AUTOMATED 34.6 g/dL Normal 32.0-35.0 [facility] Comment on above: Performed By: #### L [id number] ####[facility] (BEAKER)[address] [place] [address] Hematocrit (Bld) [Volume fraction] 41.9 % Normal 39.0-55.0 [facility] Comment on above: Performed By: #### L [id number] ####[facility] ([facility]ER)[address] [place] [address] Hemoglobin (Bld) [Mass/Vol] 14.5 g/dL Normal 13.0-17.0 [facility] Comment on above: Performed By: #### L [id number] ####[facility] ([facility]ER)[address] [place] [address] Immature granulocytes (Bld) [#/Vol] 0.35 10*3/uL High 0.00-0.20 [facility] Comment on above: Performed By: #### L [id number] ####[facility] ([facility])[address] [place] [address] Immature granulocytes/100 WBC (Bld) 1.8 % High 0.0-1.0 [facility] Comment on above: Performed By: #### L [id number] ####[facility] ([facility])[address] [place] [address] Lymphocytes (Bld) [#/Vol] 0.56 10*3/uL Low 1.20-4.00 [facility] Comment on above: Performed By: #### L [id number] ####[facility] ([facility])[address] [place] [address] Lymphocytes/100 WBC (Bld) 2.8 % Low 20.0-45.0 [facility] Comment on above: Performed By: #### L [id number] ####[facility] ([facility])[address] [place] [address] MCH (RBC) [Entitic mass] 31.0 pg Normal 27.0-33.0 [facility] Comment on above: Performed By: #### L [id number] ####[facility] ([facility])[address] [place] [address] MCV (RBC) [Entitic vol] 89.7 fL Normal 82.0-98.0 [facility] Comment on above: Performed By: #### L [id number] ####[facility] ([facility])[address] [place] [address] Monocytes (Bld) [#/Vol] 1.35 10*3/uL High 0.10-1.00 [facility] Comment on above: Performed By: #### L [id number] ####[facility] ([facility])[address] [place], [place] [address] Monocytes/100 WBC (Bld) 6.8 % Normal 5.0-12.0 [facility] Comment on above: Performed By: #### L [id number] ####[facility] ([facility]ER)[address] [place], [place] [address] Neutrophils (Bld) [#/Vol] 17.53 10*3/uL High 1.60-7.60 [facility] Comment on above: Performed By: #### L [id number] ####[facility] ([facility]ER)[address] [place], [place] [address] Neutrophils/100 WBC (Bld) 87.9 % High 40.0-72.0 [facility] Comment on above: Performed By: #### L [id number] ####[facility] ([facility]ER)[address] [place] [address] NRBC (PER 100 WBCS) BY AUTOMATED COUNT 0.0 % Normal 0 [facility] Comment on above: Performed By: #### L [id number] ####[facility] ([facility]ER)[address] [place] [address] PLATELETS (10*3/UL) IN BLOOD AUTOMATED COUNT 424 10*3/uL High 150-400 [facility] Comment on above: Performed By: #### L [id number] ####[facility] ([facility]ER)[address] [place], [place] [address] RBC (Bld) [#/Vol] 4.67 10*6/uL Normal 4.20-5.70 [facility] Comment on above: Performed By: #### L [id number] ####[facility] (BE[facility]ER)[address] [place] [address] WBC (Bld) [#/Vol] 19.92 10*3/uL High 4.00-10.60 [facility] Comment on above: Performed By: #### L [id number] ####[facility] ([facility])[address] [place] [address] COMPREHENSIVE METABOLIC PANE Jesús 09-04-2023 Albumin [Mass/Vol] 4.3 g/dL Normal 3.5-5.7 [facility] Comment on above: Performed By: #### L [id number] #### [facility] ([facility]) [address] [place] [address] ALP [Catalytic activity/Vol] 43 U/L Normal 34-104 [facility] Comment on above: Performed By: #### L [id number] #### [facility] ([facility]) [address] [place] [address] ALT [Catalytic activity/Vol] 23 U/L Normal 7-52 [facility] Comment on above: Performed By: #### L [id number] #### [facility] ([facility]) [address] [place] [address] Anion gap [Moles/Vol] 14 mmol/L Normal 7-20 [facility] Comment on above: Performed By: #### L [id number] #### [facility] ([facility]) [address] [place] [address] AST [Catalytic activity/Vol] 31 U/L Normal 13-39 [facility] Comment on above: Performed By: #### L [id number] #### [facility] ([facility]) [address] [place] [address] Bilirubin [Mass/Vol] 0.3 mg/dL Normal 0.3-1.0 [facility] Comment on above: Performed By: #### L [id number] #### [facility] ([facility]) [address] [place] [address] Calcium [Mass/Vol] 9.0 mg/dL Normal 8.6-10.3 [facility] Comment on above: Performed By: #### L [id number] #### [facility] ([facility]) [address] [place] [address] Chloride [Moles/Vol] 94 mmol/L Low 98-107 [facility] Comment on above: Performed By: #### L [id number] #### [facility] ([facility]) [address] [place] [address] CO2 [Moles/Vol] 26 mmol/L Normal 21-31 [facility] Comment on above: Performed By: #### L [id number] #### [facility] ([facility]) [address] [place] [address] Creatinine [Mass/Vol] 0.74 mg/dL Normal 0.70-1.30 [facility] Comment on above: Performed By: #### L [id number] #### [facility] ([facility]) [address] [place] [address] GLOMERULAR FILTRATION RATE ML/MIN/1.73 SQ M.PREDICTED 94.5 mL/min/1.73m*2 Normal >60.0 [facility] Comment on above: Result Comment: The [facility]???s estimated glomerular filtration rate (eGFR) will no longer include consideration of race in its calculation. The National Kidney Foundation???s eGFR Task Force developed new recommendations for the estimation of the glomerular filtration rate in the [place] They recommend immediate implementation of the new equation refit without the race variable in all laboratories because the calculation does not include race. In addition to not including race in the calculation and reporting, it included diversity in its development, and has acceptable performance characteristics and potential consequences that do not disproportionately affect any one group of individuals. Performed By: #### L [id number] #### [facility] ([facility]) [address] [place] [address] Glucose [Mass/Vol] 117 mg/dL High 70-100 [facility] Comment on above: Performed By: #### L [id number] #### [facility] ([facility]) [address] [place] [address] Potassium [Moles/Vol] 4.6 mmol/L Normal 3.5-5.1 [facility] Comment on above: Performed By: #### L [id number] #### [facility] [address] [place] [address] Protein [Mass/Vol] 7.2 g/dL Normal 6.0-8.3 [facility] Comment on above: Performed By: #### L [id number] #### [facility] ([facility]) [address] [place] [address] Sodium [Moles/Vol] 129 mmol/L Low 136-145 [facility] Comment on above: Performed By: #### L [id number] #### [facility] ([facility]) [address] [place] [address] Urea nitrogen [Mass/Vol] 17 mg/dL Normal 7-25 [facility] Comment on above: Performed By: #### L [id number] #### [facility] ([facility]) [address] [place] [address] UREA NITROGEN/CREATININE (MASS RATIO) IN SER/PLAS 23.0 Normal [facility] Comment on above: Performed By: #### L [id number] #### [facility] ([facility]) [address] [place] [address] LACTIC ACID WITH 4 HOUR REFL EXon 09-04-2023 LACTATE (MMOL/L) IN SER/PLAS 1.0 mmol/L Normal 0.5-2.2 [facility] Comment on above: Performed By: #### L [id number] #### [facility] ([facility]) [address] [place] [address] MAGNESIUMon 09-04-2023 Magnesium [Mass/Vol] 2.3 mg/dL Normal 1.9-2.7 [facility] Comment on above: Performed By: #### L [id number] #### [facility] ([facility] [address] [place] [address] PHOSPHORUSon 09-04-2023 Magnesium [Mass/Vol] 3.1 mg/dL Normal 2.5-5.0 [facility] Comment on above: Performed By: #### L [id number] #### [facility] ([facility]ER) [address] [place] [address] TROPONIN Ion 09-04-2023 Troponin I.cardiac [Mass/Vol] 0.05 ng/mL High 0.00-0.04 [facility] Comment on above: Performed By: #### L [id number] #### [facility] ([facility]) [address] [place] [address] CT CHEST WO IV CONTRASTon CT CHEST [...] Available US Duplex Scan of Aorta, Com liyateon 01-31-2022 US Duplex Scan of Aorta, Complete [...] by Thang Giles on 01/31/2022 1022 Normal [facility] Encounters Encounter Date Encounter Type Care Provider Facility Start: 09-18-2023 End: 09-19-2023 ambulatory MAEGAN M [facility] Start: 09-13-2023 End: 09-13-2023 ambulatory TAMRA [facility] Start: 09-12-2023 End: 09-12-2023 ambulatory MARK JAY Not Available Start: 09-05-2023 Evaluation and management of inpatient [facility] Start: 09-04-2023 Evaluation and management of inpatient [facility] Start: 09-04-2023 End: 09-06-2023 Evaluation and management of inpatient [facility] Start: 08-21-2023 ambulatory LYLY YUSUF [facility] Start: 08-13-2023 End: 08-14-2023 ambulatory JEAN HDZ Not Available Start: 08-06-2023 Chart abstracting Jean hamm NP Work Phone: [facility] Start: 08-06-2023 End: 08-06-2023 ambulatory JEAN HDZ Not Available Start: 08-25-2020 End: 08-26-2020 Patient encounter procedure NONE LISTED REQUEST Facility: Procedures Date Procedure Procedure Detail Performing Clinician Start: 09-29-2018 Colonoscopy Jean hamm NP Work Phone: Plan of Treatment Date Care Activity Detail Author Start: 09-29-2028 Screening for malign ant neoplasm of colon [facility] Start: 02-15-2024 Medicare Annual Well ness (AWV) Medicare Annual Wellness (AWV) [facility] Start: 08-06-2023 End: 08-06-2023 Patient encounter procedure 08/06/2023 9:00 AM EST Office Visit [facility] [address] [place] [address] Jean Hdz NP [address] [place] [address] [facility] Start: 1950 Screening for malign ant neoplasm of colon [facility] Immunizations Immunization Date Immunization Notes Care Provider Fa cility 04-20-2023 Influenza, High-dose Seasonal, Quadrivalent, Preservative Free Jean Hdz LEGAL TRANSCRIPTIONIST Work Phone: [facility] 04-20-2023 Pneumococcal Conjuga te PCV 20 Jean Hdz NP Work Phone: [facility] 04-11-2022 Influenza, High-dose Seasonal, Quadrivalent, Preservative Free Jean Hdz LEGAL TRANSCRIPTIONIST Work Phone: [facility] 04-23-2021 Influenza, High-dose Seasonal, Quadrivalent, Preservative Free Jean Hdz LEGAL TRANSCRIPTIONIST Work Phone: [facility] 03-18-2020 Influenza, High-dose Seasonal, Quadrivalent, Preservative Free Jean Hdz LEGAL TRANSCRIPTIONIST Work Phone: [facility] 04-25-2019 Influenza, High-dose Seasonal, Quadrivalent, Preservative Free Jean Hdz LEGAL TRANSCRIPTIONIST Work Phone: [facility] 05-30-2018 Influenza, High-dose Seasonal, Quadrivalent, Preservative Free Jean Hassanman LEGAL TRANSCRIPTIONIST Work Phone: [facility] 08-20-2017 Influenza, High-dose Seasonal, Quadrivalent, Preservative Free Jean Hdz LEGAL TRANSCRIPTIONIST Work Phone: [facility] 06-28-2015 influenza, seasonal, injectable Jean Hdz LEGAL TRANSCRIPTIONIST Work Phone: [facility] 06-28-2015 pneumococcal conjuga te vaccine, 13 valent Jean Hdz LEGAL TRANSCRIPTIONIST Work Phone: [facility] 05-28-2015 pneumococcal conjuga te vaccine, 13 valent Jean Hdz LEGAL TRANSCRIPTIONIST Work Phone: [facility] 05-16-2014 pneumococcal polysaccharide vaccine, 23 valent Jeangonzález Hdz LEGAL TRANSCRIPTIONIST Work Phone: [facility] Payers Date Payer Category Payer Medicare ANTHEM MEDICARE ADVANTAGE ANTHEM MEDICARE ADVANTAGE [id number] 2021-Present [address] [place] [address] [id number] 2021 Medicare [id number] 2017 Unknown [id number] 2013 Medicare [id number] 1959 Self-pay 1950 Unknown [id number] 1948 Unknown [id number] 1948 Unknown [id number] 1948 Unknown [id number] 1948 Unknown [id number] Unknown [id number] Social History Date Type Detail Facility Start: 02-14-2023 Tobacco smoking status NHIS Smokes t obacco daily [facility] History of tobacco use Cigarette Smoker [facility] Start: 02-08-2023 End: 02-14-2023 Cigarettes smoked current (pack per day) - Reported 1 [facility] Start: 02-14-2023 Tobacco use and exposure Smoke less tobacco non-user [facility] Start: 02-26-2023 Alcohol intake Current drinke r of alcohol (finding) [facility] Start: 02-08-2023 End: 02-14-2023 Humiliation, Afraid, Rape, and Kick questionnaire [HARK] [facility] Within the last year , have you been afraid of your partner or ex-partner? No [facility] Do you belong to any clubs or organizations such as christianity groups, unions, fraternal or athletic groups, or [...] Alcohol Comment caffeine: 2-3 cups per day [facility] Start: 1950 Sex Assigned At Not on file [facility] Clinical Notes 09-04-2023 to 09-13-2023 Note Date & Type Note Facility 09-13-2023 [facility] Currently using tyrone peter patches and has remained non smoking since DC from [facility] 09-13-2023 Note Coronary artery dise ase is stable Continue GDMT- ASA lipitor and toprol continue risk factor modifications- heart healthy diet, regular exercise as tolerated and continue all medications. [facility] 09-13-2023 Note Will send pt for PFT and referral to pulmonary [facility] 09-13-2023 Note Continue lipitor LFT and lipid in 2-3 months [facility] 09-13-2023 Note [facility] CARDIOLOGY PROGR ESS NOTE HPI: Vahid Chowdhury is a 73 y.o. male here for ED F/U HPI 73 yo male presents to clinic for known HFrEF 35%, resp failure- COPD, HTN, HPL, smoker Currently states that since DC from hospital he remains fatigued and SOB that limits his activity- states he is able to walk to the bathroom and back- can't go any farther. Denied chest pain, orthopnea, but is needing oxygen 24/ since being in the hospital. States weight has remained stable at home without any weight gain. Has not resumed smoking and is wearing nicotine patch. Has also not drank any beer so far. 09/06/23 [facility] DC summary Discharge Summary Final Discharge Diagnosis: COPD exacerbation Admission Diagnosis: Decompensated heart failure (CMS/[facility]) [I50.9] Hospital course: 73 y.o. male who came from home with worsening shortness of breath. Patient is heavy smoker, never officially diagnosed with COPD or had a PFT, was scheduled to get a PFT this week, and see Dr. Bryant (road grader operator) on September,January 2023 had severe pneumonia and he was discharged home on 2 L nasal cannula, the past few weeks has been having worsening cough, and shortness of breath, on 09/02 night woke up around 4 AM to go to the bathroom, on his way start having worsening shortness of breath, chest tightness, his his saw him pale and diaphoretic, was brought to [facility]. Over there patient was treated for presumably COPD exacerbation, troponin was high and thought to be demand ischemia per the notes never started on heparin drip, BNP was elevated patient was treated with Bumex. Ejection fraction 35 to 40%, reportedly no EKG changes, due to drop in ejection fraction case was discussed with Dr. Parker who accepted the transfer for heart cath. Workup from [facility] revealed chest x-ray showed no acute cardiopulmonary process, troponin elevated to 127.4 (normal range 4-76), BNP elevated to 3325 (normal reference less than 1800), lactic 2.2. At time of my evaluation, patient was sitting in the chair, and son in the room, reporting that his breathing is getting better but still short walk to bathroom get him winded. On 4 L nasal cannula. DC summary [facility] ED Review of Systems Constitutional: Positive for fatigue. Respiratory: Positive for shortness of breath. Cardiovascular: Negative for chest pain, palpitations and leg swelling. Neurological: Negative. Visit Vitals BP 102/66 (BP Location: Right arm, Patient Position: Sitting, BP Cuff Size: Adult) Pulse 62 Resp 14 Ht 1.702 m (5' 7 ) Wt 72.2 kg (159 lb 3.2 oz) SpO2 97% BMI 24.93 kg/m??? Smoking Status Former BSA 1.85 m??? No Known Allergies Medications: Current Outpatient Medications on File Prior to Visit Medication Sig Dispense Refill albuterol 2.5 mg /3 mL (0.083 %) nebulizer solution Take 2.5 mg by nebulization every 6 (six) hours if needed for wheezing. albuterol 90 mcg/actuation inhaler Inhale 2 puffs every 6 (six) hours if needed for wheezing. atorvastatin (Lipitor) 40 mg tablet Take 1 tablet (40 mg) by mouth at bedtime for 30 doses. 30 tablet 0 bwxuxbsbwe-wradmjmu-nalahqjxgz (Breztri Aerosphere) 160-9-4.8 mcg/actuation HFA aerosol inhaler Inhale. dapagliflozin propanediol (Farxiga) 10 mg Take 1 tablet (10 mg) by mouth in the morning for 30 doses. Do not start before September 07, 2023. 30 tablet 0 metoprolol succinate XL (Toprol-XL) 25 mg 24 hr tablet Take 0.5 tablets (12.5 mg) by mouth in the morning. Do not crush or chew. Do not start before September 07, 2023. 15 tablet 0 nicotine (Nicoderm CQ) 21 mg/[address] 1 patch on the skin in the morning. Do not start before September 07, 2023. 30 patch 0 spironolactone (Aldactone) 25 mg tablet Take 0.5 tablets (12.5 mg) by mouth in the morning for 30 doses. Do not start before September 07, 2023. 15 tablet 0 [DISCONTINUED] aspirin 81 mg EC tablet Take 81 mg by mouth in the morning. [DISCONTINUED] azithromycin (Zithromax) 250 mg tablet Take 2 tabs (500 mg) by mouth today, than 1 daily for 4 days. 6 tablet 0 [DISCONTINUED] predniSONE (Deltasone) 20 mg tablet Take 2 tablets (40 mg) by mouth in the morning for 4 doses. Do not start before September 07, 2023. 8 tablet 0 [DISCONTINUED] valsartan (Diovan) 80 mg tablet Take 1 tablet (80 mg) by mouth in the morning. Do not start before September 07, 2023. 30 tablet 0 No current facility-administered medications on file prior to visit. Physical Exam: Constitutional: Appearance: Normal appearance. Without apparent distress, chronically ill HENT: Head: Normocephalic and atraumatic. Nose: Nose normal. Mouth/Throat: Mouth: Mucous membranes are moist. Eyes: Extraocular Movements: Extraocular movements intact. Conjunctiva/sclera: Conjunctivae normal. Neck: Vascular: No JVD. Cardiovascular: Rate and Rhythm: Normal rate and regular rhythm. Pulses: Dorsalis pedis pulses are 3 on the right side and 3on the left side. Posterior tib (more content not included)... [facility] 09-13-2023 Note ROS No cardio symptoms per pt Has hard time breathing but is on oxygen States fatigued [facility] 09-13-2023 Note [facility] III Remains euv olemic without exacerbation Continue GDMT- AsA, lipitor, toprol, aldactone and DC valsartan and start entresto. Diuretic therapy- [facility] Monitor daily weights, I&O, fluid restriction 1.5-2L/day, renal function and electrolytes- [facility] 09-11-2023 Note Pt's left at Cardiac Rehab (CR) to schedule an appointment for initial evaluation per AVS instructions following his recent hospitalization. Pt's was informed he does not qualify for CR therapy with HF diagnosis per CMS eligibility criteria and verbalized understanding. JOSUE WashingtonN beer runner Outpatient Coordinator Cardiopulmonary Rehab [facility] 09-06-2023 Note Occupational Therapy Name: Vahid Chowdhury Date of : 1950 Today's Date: 09/06/23 Pt is unable to be seen for therapy at this time secondary to d/c home per nsg . Check No Charge Time attempted: 1337 [facility] 09-06-2023 Note Hospital Medicine Discharge Summary Final Discharge Diagnosis: COPD exacerbation Admission Diagnosis: Decompensated heart failure (CMS/[facility]) [I50.9] Hospital course: 73 y.o. male who came from home with worsening shortness of breath. Patient is heavy smoker, never officially diagnosed with COPD or had a PFT, was scheduled to get a PFT this week, and see Dr. Bryant (road grader operator) on September,January 2023 had severe pneumonia and he was discharged home on 2 L nasal cannula, the past few weeks has been having worsening cough, and shortness of breath, on 09/02 night woke up around 4 AM to go to the bathroom, on his way start having worsening shortness of breath, chest tightness, his his saw him pale and diaphoretic, was brought to [facility]. Over there patient was treated for presumably COPD exacerbation, troponin was high and thought to be demand ischemia per the notes never started on heparin drip, BNP was elevated patient was treated with Bumex. Ejection fraction 35 to 40%, reportedly no EKG changes, due to drop in ejection fraction case was discussed with Dr. Parker who accepted the transfer [facility] showed no acute cardiopulmonary process, troponin elevated to 127.4 (normal range 4-76), BNP elevated to 3325 (normal reference less than 1800), lactic 2.2. At time of my evaluation, patient was sitting in the chair, and son in the room, reporting that his breathing is getting better but still short walk to bathroom get him winded. On 4 L nasal cannula. # Acute on chronic hypoxic respiratory failure, improved: # COPD exacerbation, on 2 liters home oxygen: - Dioscharged on oral prednisone for 5 days and Zpak. # New onset heart failure with reduced ejection fraction, NYHA II-III, ejection fraction 35 to 40% on echo 09/04/2023 outside hospital: - Left heart cath this admission showed mild obstruction disease. Right heart cath showed wedge of 15. - Discharged on aspirin, Lipitor, Toprol, valsartan, spironolactone and Farxiga. # Tobacco use: - Counseled. Dear Dr. Ollie MD, Vahid is advised to follow up with you within 1-2 weeks. Follow-up with: Cardiology Scheduled appointments: Future Appointments Date Time Provider Department Center 09/13/2023 9:30 AM Jeannie Thao NP [facility] Your medication list START taking these medications Instructions Last Dose Given Next Dose Due atorvastatin 40 mg tablet Commonly known as: Lipitor Take 1 tablet (40 mg) by mouth at bedtime for 30 doses. azithromycin 250 mg tablet Commonly known as: Zithromax Take 2 tabs (500 mg) by mouth today, than 1 daily for 4 days. dapagliflozin propanediol 10 mg Commonly known as: Farxiga Start taking on: September 07, 2023 Take 1 tablet (10 mg) by mouth in the morning for 30 doses. Do not start before September 07, 2023. metoprolol succinate XL 25 mg 24 hr tablet Commonly known as: Toprol-XL Start taking on: September 07, 2023 Take 0.5 tablets (12.5 mg) by mouth in the morning. Do not crush or chew. Do not start before September 07, 2023. nicotine 21 mg/24 hr patch Commonly known as: Nicoderm CQ Start taking on: September 07, 2023 Place 1 patch on the skin in the morning. Do not start before September 07, 2023. predniSONE 20 mg tablet Commonly known as: Deltasone Start taking on: September 07, 2023 Take 2 tablets (40 mg) by mouth in the morning for 4 doses. Do not start before September 07, 2023. spironolactone 25 mg tablet Commonly known as: Aldactone Start taking on: September 07, 2023 Take 0.5 tablets (12.5 mg) by mouth in the morning for 30 doses. Do not start before September 07, 2023. valsartan 80 mg tablet Commonly known as: Diovan Start taking on: September 07, 2023 Take 1 tablet (80 mg) by mouth in the morning. Do not start before September 07, 2023. CONTINUE taking these medications Instructions Last Dose Given Next Dose Due albuterol 90 mcg/actuation inhaler albuterol 2.5 mg /3 mL (0.083 %) nebulizer solution aspirin 81 mg EC tablet Breztri Aerosphere 160-9-4.8 mcg/actuation HFA aerosol inhaler Generic drug: imglgoidgz-zdksvpvp-zwglcimeue STOP taking these medications simvastatin 40 mg tablet Commonly known as: Zocor Where to Get Your Medications These medications were sent to [facility] [address] [place] [address] [address] [place] [address] [address] atorvastatin 40 mg tablet azithromycin 250 mg tablet dapagliflozin propanediol 10 mg metoprolol succinate XL 25 mg 24 hr tablet nicotine 21 mg/24 hr patch predniSONE 20 mg tablet spironolactone 25 mg tablet valsartan 80 mg tablet Vahid has no allergies on file. Disposition: Home or Self Care () Discharge Condition: Stable Code Status: Full Code Diagnostic Results Hematology: Results from last 7 days Lab Units 09/06/23 0349 09/04/231954 WBC AUTO 10*3/uL 14.91* 19.92* HEMOGLOBIN g/dL 15.1 14 (more content not included)... [facility] 09-06-2023 Note Physical Therapy Physical Therapy Evaluation Patient Name: Vahid Chowdhury : 1950 Today's Date: 09/06/2023 Patient is a 73 y/o male who presents 09/04/2023 from OSH with new onset HF. Presented to OSH with chest tightness/SOB. Admitted here for planned heart cath as well as management of acute hypoxia and COPD exacerbation Patient reports breathing feels better today. Families primary concern about discharge to home is that they do not have enough O2 tubing to reach the bathroom at home. 94% saturation on 2L O2 at rest, dropped to 86% upon return from 85 ft ambulatory distance on 2L O2, recovered to 92% following 3 minute seated rest. Discharge: Home PT to sign off at this time General Subjective: RN approved PT session and OOB activity this date PT Diagnosis: Impaired activity tolerance Patient Active Problem List Diagnosis Acute on chronic hypoxic respiratory failure (CMS/HCC) Current smoker Decompensated heart failure (CMS/HCC) History reviewed. No pertinent past medical history. History reviewed. No pertinent surgical history. Precautions Precautions Medical Precautions: telemetry, oxygen (2L O2) Pain Pain Assessment Pain Assessment: No/denies pain Pain Score: 0 - No pain Cognition Cognition Overall Cognitive Status: Within Functional Limits Arousal/Alertness: Appropriate responses to stimuli Orientation Level: Oriented X4 Following Commands: Follows all commands and directions without difficulty Safety Judgment: Good awareness of safety precautions General Assessment General Assessment Hearing: Intact Hand Dominance: Right Home Living Home Living Type of Home: House Lives With: Spouse Home Adaptive Equipment: Walker rolling Home Layout: One level Home Access: Stairs to enter with rails Entrance Stairs-Rails: Both Entrance Stairs-Number of Steps: 3 Bathroom Shower/Tub: Walk-in shower Bathroom Equipment: Grab bars in shower, Grab bars around toilet Prior Level of Function Prior Function Level of Meyers Chuck: Independent with ADLs and functional transfers, Independent with homemaking with ambulation Prior Functional Mobility: Independent without device ADL Assistance: Independent Homemaking Assistance: Independent Vision Basic Assessment Activity Tolerance Activity Tolerance Endurance: Stage III Activity Tolerance Comments: 2L O2 - SOB with mild activity. General Assessments Activity Tolerance Endurance: Stage III Activity Tolerance Comments: 2L O2 - SOB with mild activity. Sensation Light Touch: No apparent deficits Coordination Movements are Fluid and Coordinated: Yes Postural Control Postural Control: Within Functional Limits Static Sitting Balance Static Sitting-Balance Support: Feet supported Static Sitting-Level of Assistance: Independent Dynamic Sitting Balance Dynamic Sitting-Balance Support: Right upper extremity supported, Left upper extremity supported, Feet supported Dynamic Sitting-Balance: Forward lean Dynamic Sitting Balance-Level of Assistance: Independent Static Standing Balance Static Standing-Balance Support: Right upper extremity supported (IV pole management) Static Standing-Level of Assistance: Independent Dynamic Standing Balance Dynamic Standing-Balance Support: Right upper extremity supported (Management of IV pole) Dynamic Standing Balance-Level of Assistance: Independent Functional Assessments Bed Mobility Bed Mobility: No (Patient reports as independent) Transfers Transfer: Yes Transfer 1 Technique 1: Sit to stand, Stand to sit Transfer Device 1: none Transfer Level of Assistance 1: Independent Ambulation Ambulation: Yes Ambulation 1 Surface 1: Level tile Device 1: No device Assistance 1: Independent Quality of Gait 1: Short step length with slow pace though steady without instability or LOB Comments/Distance (ft) 1: 85 ft Extremity Assessments RUE Assessment RUE Assessment: Within Functional Limits LUE Assessment LUE Assessment: Within Functional Limits RLE Assessment RLE Assessment: Within Functional Limits LLE Assessment LLE Assessment: Within Functional Limits Therapeutic Exercise Outcome Assessments 6 Clicks (Mobility) Help from another person turning from your back to your side while in a flat bed without using bedrails: None Help from another person moving from lying on your back to sitting on the side of a flat bed without using bedrails: None Help from another person moving to and from a bed to a chair (including a wheelchair): None Help from another person standing up from a chair using your arms (e.g. wheelchair or bedside chair): None Help from another person to walk in hospital room: None Help from another person climbing 3-5 steps with a railing: None Mobility 6 Clicks T-Score: 24 Assessment/Plan PT Assessment PT Assessment: Patient is a 73 y/o male who presents with i (more content not included)... [facility] 09-06-2023 Note -------- Attestation signed by Warren Alex MD at 09/06/2023 8:45 PM By using the attestations below, the signing clinician agrees that I have read and verify that the documentation has been personally reviewed by me and ensure that the documentation accurately reflects the encounter. GC: I personally saw this patient on the day of the encounter, performed the morgan portion(s) of the service and participated in the management and confirm the resident's documentation. Please note there may be an additional personal documentation from me. -------- Cardiology Progress Note Subjective Subjective: Vahid Chowdhury is a 73 y.o. male with past medical history significant for heavy smoking, suspected COPD admitted to hospital due to acute on chronic hypoxic respiratory failure. Echo was done and showed new reduced ejection fraction 35 to 40% and BNP was high, so cardiology was consulted for newly heart failure and suspected cardiac ischemia workup. The patient was seen and examined at bedside, he is tolerating GDMT, he denied any lightheadedness/dizziness, palpitation, shortness of breath, or chest pain. No acute event overnight. Objective Objective: Patient Vitals for the past 24 hrs: BP Temp Temp src Pulse Resp SpO2 Weight 09/06/23 0800 109/86 36.7 ???C (98.1 ???F) Temporal 53 16 95 % -- 09/06/23 0742 -- -- -- -- -- 98 % -- 09/06/23 0400 113/66 36.6 ???C (97.9 ???F) Temporal (!) 49 20 99 % 66.4 kg (146 lb 6.2 oz) 09/06/23 0318 -- -- -- 58 21 94 % -- 09/06/23 0000 102/58 36.2 ???C (97.2 ???F) Temporal (!) 42 17 95 % -- 09/05/231 -- -- -- 57 26 93 % -- 09/05/23 1936 124/76 36.5 ???C (97.7 ???F) Temporal 59 22 92 % -- 09/05/23 1700 100/79 -- -- 56 20 93 % -- 09/05/23 1600 114/62 36.6 ???C (97.9 ???F) Temporal 53 26 92 % -- 09/05/23 1542 152/68 -- -- 60 20 92 % -- 09/05/23 1400 113/64 -- -- 57 22 96 % -- 09/05/23 1330 118/67 -- -- 53 24 91 % -- 09/05/23 1230 114/75 -- -- 54 14 96 % -- 09/05/23 1217 122/73 -- -- 61 17 94 % -- 09/05/23 1116 126/70 -- -- 63 23 91 % -- 09/05/23 1100 133/62 -- -- 65 21 -- -- Physical Examination: GENERAL: AOx3, in no acute distress. HEAD: Atraumatic, normocephalic. EYES: PREM, EOMI. NECK: No JVD present. CARDIAC: RRR. No murmur, rubs, or gallops. RESPIRATORY: Decreased breath sounds bilaterally, no increased effort of breathing. ABDOMEN: Soft, nontender, nondistended. EXTREMITIES: No lower extremity edema, peripheral pulses are 2+ bilaterally. NEURO: No focal deficits Relevant Lab Results Encounter Date: 09/04/23 ECG 12 lead Result Value Ventricular Rate 62 Atrial Rate 62 OR Interval 168 QRS DURATION 86 QT Interval 426 QTC CALCULATION(BAZETT) 432 P [place] 79 R-[place] -62 T Wave [place] 31 Impression Normal sinus rhythm Left axis deviation Abnormal ECG No previous ECGs available Confirmed by Светлана MARCOS, L.S. (2) on 09/05/2023 3:56:36 PM Lab Results Component Value Date TROPONINI 0.04 09/06/2023 Complete Echo (TTE) w/wo Imaging Agent, Strain, 3D, Bubble Study Result Date: 09/05/2023 1 1 [facility] Heart Station [address] [place] [address] [phone] (fax) Echocardiogram-[facility] Name: VAHID CHOWDHURY Study Date: 09/05/2023 02:37 PM B/P: 118 mmHg/67 mmHg HR: 50 bpm Date of : 1950 Location: [facility] Height: 65 in. Age: 73 year(s) Patient Room: 3133 Weight: 150 lb. Gender: Male Patient Status: InPt BSA: 1.75 m2 Indication: Congestive Heart Failure Examination: Echocardiogram (Complete), Lumason Contrast Image Quality: Fair Patient Consent: Procedure explained to patient Exam Details Contrast: I.V. dose of Lumason Conclusions Left Ventricle: The left ventricle is normal size. Global left ventricular systolic function is moderately reduced. EF range is estimated at 35 % -40 %. Left ventricular wall thickness is normal. Diffuse global hypokinesis. Grade 1, mild diastolic dysfunction (abnormal relaxation). Right Ventricle: The right ventricle is normal in size. Right ventricular systolic function appears normal. Left Atrium: The left atrium is normal in size. Overall Conclusions: Due to suboptimal imaging Lumason contrast was administered for opacification and better delineation of endocardial borders. No significant valvular abnormalities Measurements Left Ventricle Label Value Normal Value LVOTd 2 cm (19cm - 21cm) LVOT VTI 21.7 cm (18cm - 22cm) LVOT PGmax 4 mmHg LVDd, 2D 5.34 cm (4.2cm - 5.9cm) LVDs, 2D 3.99 cm (2.1cm - 4cm) IVSd, 2D 0.95 cm (0.6cm - 1.1cm) LVPWd, 2D 0.87 cm (0.6cm - 1cm) LV Mass, 2D ASE 179.3 g LV Mass Index, 2D ASE 102.5 g/m?? (50g/m?? - 102.4g/m??) RWT, MM 0.33 (0 - 0.42) LVSVI, 2D 38.9 ml/m2 LVOT PGmean 2 mmHg LVSV_LVOT 68 ml Right Ventricle Label Value Normal Value R (more content not included)... [facility] 09-05-2023 Note Hospital Medicine Daily Progress Note - 09/05/2023 2:43 PM; Room: [address] [place] [address] Admission: 09/04/2023 6:56 PM; Length of stay: 1 days THE HOSPITALIST TEAM PREFERS TO USE [employer] CHAT FOR COMMUNICATION 7AM-7PM. IF I DO NOT RESPOND WITHIN 15 MINUTES, PLEASE PAGE ME/CALL THROUGH THE [employer]. FROM 7PM-7AM, PLEASE PAGE [phone](COVR) Code Status: Full Code Barriers to Discharge: Pending clinical improvement Expected Discharge Date: 09/05 Discharge Destination: home Overview Patient is seen for evaluation and management of acute hypoxia and COPD exac. Subjective Patient reports improvement in his SOB. He is saturating well on his baseline oxygen at 2 liters. Physical Exam Visit Vitals BP 118/67 Pulse 53 Temp 36.8 ???C (98.2 ???F) (Temporal) Resp 24 Intake/Output Summary (Last 24 hours) at 09/05/2023 1443 Last data filed at 09/05/2023 1330 Gross per 24 hour Intake 675.78 ml Output 2360 ml Net -1684.22 ml Physical Exam Constitutional: Appearance: Normal appearance. Cardiovascular: Rate and Rhythm: Normal rate and regular rhythm. Pulmonary: Effort: Pulmonary effort is normal. Breath sounds: Normal breath sounds. Comments: Diminished breath sounds Abdominal: General: Abdomen is flat. Palpations: Abdomen is soft. Neurological: General: No focal deficit present. Mental Status: He is alert and oriented to person, place, and time. Estimated body mass index is 25.09 kg/m??? as calculated from the following: Height as of this encounter: 1.651 m (5' 5 ). Weight as of this encounter: 68.4 kg (150 lb 12.8 oz). Active Inpatient Problems Active Problems: Acute on chronic hypoxic respiratory failure (CMS/HCC) Current smoker Assessment and Plan # Acute on chronic hypoxic respiratory failure, improving: # COPD exacerbation, on 2 liters home oxygen: - Continue bronchodilators, ceftriaxone and prednisone. - Wean off oxygen. # New onset heart failure with reduced ejection fraction, NYHA II-III, ejection fraction 35 to 40% on echo 09/04/2023 outside hospital: - Left heart cath this admission showed mild obstruction disease. Right heart cath showed wedge of 15. - Started on aspirin, Lipitor, Toprol, valsartan, spironolactone and Farxiga. # Tobacco use: - Counseled. Nutrition Screen Malnutrition Attestation: I attest to the following: I have personally seen this patient. The patient has been assessed for malnutrition as documentation above, and based on the criteria set by the Academy of [employer] and Dietetics and the [place] [employer]al [employer] Parenteral [employer], meets the diagnosis for malnutrition. A care plan has been established for this patient. VTE Prophylaxis: Lovenox Scheduled Meds aspirin, 81 mg, oral, Daily atorvastatin, 40 mg, oral, Nightly cefTRIAXone, 1 g, intravenous, q24h [START ON 09/06/2023] dapagliflozin propanediol, 10 mg, oral, Daily enoxaparin, 40 mg, subcutaneous, q24h MARTINA ipratropium-albuteroL, 3 mL, nebulization, q6h methylPREDNISolone sod suc (PF), 40 mg, intravenous, q8h metoprolol succinate XL, 25 mg, oral, Daily spironolactone, 12.5 mg, oral, Daily valsartan, 80 mg, oral, Daily Oxygen Therapy, Pertinent Investigations Hematology: Results from last 7 days Lab Units 09/04/231954 WBC AUTO 10*3/uL 19.92* HEMOGLOBIN g/dL 14.5 HEMATOCRIT % 41.9 MCV fL 89.7 PLATELETS AUTO 10*3/uL 424* Chemistry: Results from last 7 days Lab Units 09/05/236 09/04/231954 SODIUM mmol/L 134* 129* POTASSIUM mmol/L 4.9 4.6 CHLORIDE mmol/L 97* 94* CO2 mmol/L 31 26 BUN mg/dL 20 17 CREATININE mg/dL 0.71 0.74 GLUCOSE mg/dL 123* 117* MAGNESIUM mg/dL -- 2.3 CALCIUM mg/dL 9.0 9.0 PHOSPHORUS mg/dL -- 3.1 Results from last 7 days Lab Units 09/04/231954 AST U/L 31 ALT U/L 23 ALK PHOS U/L 43 BILIRUBIN TOTAL mg/dL 0.3 Historical Values: (Includes values prior to this admission) No results found for: PREALBUMIN , TSH , T3FREE , FREET4 , CORTISOL , FEV1 , LPJ1AMO , DLCO , RVSP , HDL , LDL No results found for: HGTNJWQW09 , IRON , TIBC , C3 , C4 , MALINDA , CANCA , ASO , PSA , CEA , CA125 , CA199 , AFP , CA153 Imaging XR chest 1 view Narrative: XR CHEST 1 VIEW 09/04/2023 8:10 PM CLINICAL INDICATIONS: Pulmonary edema COMPARISON: None FINDINGS: Portable AP upright view of the chest was performed. Cardiac silhouette is within normal limits. Left basilar airspace disease consistent with atelectasis versus car. Tenting of the left hemidiaphragm favors scar. No significant pleural effusion or pneumothorax. No overt vascular congestion. Impression: Likely left basilar scarring with no acute abnormality. Electronically signed: Prasad Christianson. Discharge Planning Signed Mario Alberto Lan MD Hospital Medicine 09/05/2023 2:43 PM [facility] 09-05-2023 Note Patient: Vahid Chowdhury Procedure Information Date/Time: 09/05/23 1230 Procedures: Coronary angiography Right heart cath Location: [facility] TOBACCO ROLLER 3 / [facility] HV VASCULAR LAB (Cath) Providers: Sylvie Avitia MD Clinical information reviewed: Tobacco Allergies Meds Problems Med Hx Surg Hx Fam Hx Soc Hx Physical Exam Airway Mallampati: III Cardiovascular Rhythm: regular Rate: normal Dental Pulmonary - normal exam Abdominal - normal exam Anesthesia Plan ASA 3 other (Conscious sedation) intravenous induction Anesthetic plan and risks discussed with patient. Use of blood products discussed with patient who consented to blood products. Plan discussed with attending. Additional Equipment Requests [facility] 09-04-2023 Note Hospital Medicine History and Physical 09/04/2023 8:17 PM THE HOSPITALIST TEAM PREFERS TO USE [employer] CHAT FOR COMMUNICATION 7AM-7PM. IF I DO NOT RESPOND WITHIN 15 MINUTES, PLEASE PAGE ME/CALL THROUGH THE ICE GR[employer]. FROM 7PM-7AM, PLEASE PAGE [phone](COVR) Chief Complaint Worsening shortness of breath History of Present Illness Vahid Chowdhury is an 73 y.o. male who came from home with worsening shortness of breath. Patient is heavy smoker, never officially diagnosed with COPD or had a PFT, was scheduled to get a PFT this week, and see Dr. Bryant (road grader operator) on September,January 2023 had severe pneumonia and he was discharged home on 2 L nasal cannula, the past few weeks has been having worsening cough, and shortness of breath, on 09/02 night woke up around 4 AM to go to the bathroom, on his way start having worsening shortness of breath, chest tightness, his his saw him pale and diaphoretic, was brought to [facility]. Over there patient was treated for presumably COPD exacerbation, troponin was high and thought to be demand ischemia per the notes never started on heparin drip, BNP was elevated patient was treated with Bumex. Ejection fraction 35 to 40%, reportedly no EKG changes, due to drop in ejection fraction case was discussed with Dr. Parker who accepted the transfer [facility] showed no acute cardiopulmonary process, troponin elevated to 127.4 (normal range 4-76), BNP elevated to 3325 (normal reference less than 1800), lactic 2.2. At time of my evaluation, patient was sitting in the chair, and son in the room, reporting that his breathing is getting better but still short walk to bathroom get him winded. On 4 L nasal cannula. Review of System and Physical Exam Temp: [36.8 ???C (98.2 ???F)] 36.8 ???C (98.2 ???F) Heart Rate: [73] 73 Resp: [26] 26 BP: (117)/(85) 117/85 Physical Exam Vitals and nursing note reviewed. Cardiovascular: Rate and Rhythm: Normal rate and regular rhythm. Pulses: Normal pulses. Pulmonary: Effort: Pulmonary effort is normal. Comments: Severely diminished breath sounds bilaterally Abdominal: General: Abdomen is flat. Bowel sounds are normal. There is no distension. Palpations: Abdomen is soft. There is no mass. Musculoskeletal: General: Normal range of motion. Right lower leg: No edema. Left lower leg: No edema. Skin: General: Skin is warm and dry. Neurological: General: No focal deficit present. Mental Status: He is oriented to person, place, and time. Review of Systems All other systems reviewed and are negative. Problem List Patient Active Problem List Diagnosis Date Noted Acute on chronic hypoxic respiratory failure ([facility]) 09/04/2023 Current smoker 09/04/2023 Assessment and Plan # Acute on chronic hypoxic respiratory failure -Clinical suspicion for COPD exacerbation -Currently on 4 L nasal cannula - Check sputum culture, respiratory panel -Will order chest x-ray -Will continue with Solu-Medrol, ceftriaxone azithromycin -Continue with scheduled DuoNebs -Titrate oxygen for pulse ox 88 to 92%, baseline at 2 L nasal cannula # Low ejection fraction on echo - Reportedly no EKG changes at [facility] - Consult cardiology for possible left heart cath, will keep the patient n.p.o. after midnight -Order troponin, BNP. VTE Prophylaxis: Heparin subcutaneous ----- Focus of this inpatient stay will remain on problems that need acute care setting for care. We will review available studies and will order additional labs, imaging and other studies as appropriate. As needed medicines are ordered as appropriate. VTE Prophylaxis will be ordered as appropriate. Please see above for management plan for individual hospital problems. Home medications are reviewed and will be continued as appropriate. Patient will be continued to be followed during this hospital stay by a member of [facility]. Past Medical History No past medical history on file. Past Surgical History No past surgical history on file. Social History Social History Socioeconomic History Marital status: Not on file Spouse name: Not on file Number of children: Not on file Years of education: Not on file Highest education level: Not on file Occupational History Not on file Tobacco Use Smoking status: Not on file Smokeless tobacco: Not on file Substance and Sexual Activity Alcohol use: Not on file Drug use: Not on file Sexual activity: Not on file Other Topics Concern Not on file Social History Narrative Not on file Social Determinants of Health Financial Resource Strain: Not on file Food Insecurity: Not on file Transportation Needs: Not on file Physical Activity: Not on file Stress: Not on file Social Connections: Not on file Intimate Partner Violence: Unknown (09/04/2023) [place] Safety & Environment Fear of Current (more content not included)... [facility] Summary Purpose Family History No Family History Records FoundNo Family History Records FoundNo Family History Records FoundNo Family History Records FoundNo Family History Records FoundNo Family History Records Found Advance Directives No Advanced Directives Records FoundDocuments on File Type Date Recorded Patient Fingerer Expl anation Advance Directives and Living Will 02/25/2020 2019-01-09 Living Wi ll Additional Source Comments (unrecognized sect ion and content) No Status Records FoundNo Status Records FoundNo Status Records FoundNo Status Records FoundNo Status Records FoundNo Status Records Found INFORMATION SOURCE (unrecogn ized section and content) DATE CREATED AUTHOR 08/21/2020 [facility] DATE CREATED AUTHOR AUTHOR'S ORGANIZ ATION 02/01/2022 [facility] dical Specialist DATE CREATED AUTHOR AUTHOR'S ORGANIZ ATION 08/29/2023 [facility] DATE CREATED AUTHOR AUTHOR'S ORGANIZ ATION 09/13/2023 [facility] dical Specialists EPIC DATE CREATED AUTHOR AUTHOR'S ORGANIZ ATION 09/15/2023 [facility] DATE CREATED AUTHOR AUTHOR'S ORGANIZ ATION 09/19/2023 [facility] Care Teams (unrecognized sec tion and content) 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 [employer] [facility]. provides no warranty or guarantee of the accuracy or completeness of information in this document.
[2023-10-03 10:33] LABS: Anion Gap 12.4; BUN Creatinine Ratio 14.1; Calcium 9.3 mg/dL (8.5-10.1); Carbon Dioxide 29.9 mmol/L (21.0-32.0); Chloride 103 mmol/L (98-107); Estimated GFR (African America >60 (>=60); Estimated GFR (Non-African Ame >60 (>=60); Glucose 100 mg/dL (74-106); Potassium 4.3 mmol/L (3.5-5.1); Sodium 141 mmol/L (136-145)
== END 2023-10-03 09:26 | disposition home or self-care (01) ==
LOC: LAB 09:26
PROVIDERS: Visit Provider Nurse Practitioner
DX: I50.22 Chronic systolic (congestive) heart failure (principal)
CPT/HCPCS: 36415; 80048

== ENCOUNTER 2023-11-04 08:45 | Outpatient (OUT) | payer MEDICARE, SELFPAY ==
--- OUTSIDE RECORDS SUMMARY | 2023-11-04 09:10 | XMS_ITS | CCD ---
Author Organization [facility] Care Team Providers Care Electronic Intelligence Officer Name Role Phone REQUEST, NONE LISTED Consulting Unavailable REQUEST, NONE LISTED Attending Unavailable REQUEST, NONE LISTED Admitting Unavailable Henrietta Spence DO Unavailable Henrietta Spence DO Primary Care Provider [phone] MAEGAN BRYANT Attending Unavailable MAEGAN BRYANT Referring Unavailable PARAMJIT, LYLY F Primary Care Unavailable VEGA COLIN Attending Unavailable VEGA COLIN Referring Unavailable MARK JAY Primary Care Unavailable ELTAHAWLuz, EHAB Referring Unavailable HORANITANKAR Attending Unavailable DOUG, TAB Admitting Unavailable ESTELLA, TAMRA Attending Unavailable ESTELLATAMRA Attending Unavailable HORANI, MARIO ALBERTO Referring Unavailable HORANI, MARIO ALBERTO Referring Unavailable HORANI, MARIO ALBERTO Referring Unavailable JEAN HDZ Attending Unavailable JEAN HDZ Referring Unavailable WONDERLY, MARK B Attending Unavailable WONDERLY, MARK B Attending Unavailable MAEGAN BRYANT Attending Unavailable JEAN HDZ Referring Unavailable PARAMJIT, LYLY Karin Primary Care Unavailable OMAR FARFAN Attending Unavailable PARAMJIT, LYLY F Referring Unavailable PIERRE, MARK B Primary Care Unavailable PARAMJIT, LYLY F Referring Unavailable PARAMJIT, LYLY F Primary Care Unavailable Allergies Allergy Classification Reported Allergen(s) Allergy Type Date of Onset Reaction(s) Facility (1 source) ALLERGIES NOT ON FILE; Translations: [ALLERGIES NOT ON FILE] Propensity to adverse reactions (disorder) [facility] Repository Medications Current Medications Medication Drug Class(es) Dates Sig (Normalized) Sig (Original) [id number] 200 actuat albuterol 0.09 mg/actuat metered dose [...] Active Problems Problem Classification Problem Date Documented Date Episodic/Chronic Aortic; peripheral; and visceral artery aneurysms (3 sources) Abdominal aortic aneurysm 3.0 to 5.5 centimeters in male; Translations: [Abdominal aortic aneurysm (AAA) 3.0 cm to 5.5 cm in diameter in male] Onset: 02-07-2023 02-07-2023 Chronic Chronic obstructive pulmonary disease and bronchiectasis (2 sources) Chronic obstructive lung disease; Translations: [Chronic obstructive pulmonary disease, unspecified] Onset: 02-07-2023 02-07-2023 Chronic Congestive heart failure; nonhypertensive (4 sources) Chronic systolic (congestive) heart failure; Translations: [Heart failure, unspecified] Onset: 09-04-2023 Chronic Coronary atherosclerosis and other heart disease (2 sources) Atherosclerotic heart disease of [place] coronary artery without angina pectoris; Translations: [Atherosclerotic heart disease of [place] coronary artery without angina pectoris] Onset: 09-13-2023 Chronic Disorders of lipid metabolism (3 sources) Mixed hyperlipidemia; Translations: [Mixed hyperlipidemia] Onset: 02-07-2023 02-07-2023 Chronic Diverticulosis and diverticulitis (1 source) Diverticulosis of large intestine; Translations: [Diverticulosis of large intestine without perforation or abscess without bleeding] Onset: 02-07-2023 02-07-2023 Chronic Other lower respiratory disease (1 source) Shortness of breath; Translations: [Shortness of breath] Onset: 09-18-2023 Episodic Other lower respiratory disease (1 source) Solitary pulmonary nodule; Translations: [Solitary pulmonary nodule] Onset: 10-03-2023 Episodic Other lower respiratory disease (1 source) Cough Onset: 10-03-2023 Episodic Other lower respiratory disease (1 source) Wheezing Onset: 10-03-2023 Episodic Other lower respiratory disease (1 source) Shortness of breath Onset: 10-03-2023 Episodic Other screening for suspected conditions (not mental disorders or infectious disease) (1 source) Abnormal findings on diagnostic imaging of other specified body structures; Translations: [Abnormal findings on diagnostic imaging of other specified body structures] Onset: 10-03-2023 Chronic Peripheral and visceral atherosclerosis (6 sources) Peripheral vascular disease; Translations: [Peripheral vascular disease, unspecified] Onset: 02-07-2023 02-07-2023 Chronic Residual codes; unclassified (1 source) Family history of malignant neoplasm of trachea, bronchus and lung; Translations: [Family history of malignant neoplasm of trachea, bronchus and lung] Onset: 10-03-2023 Episodic Residual codes; unclassified (1 source) Pain, unspecified; Translations: [Pain, unspecified] Onset: 08-21-2023 Episodic Respiratory failure; insufficiency; arrest (adult) (3 sources) Acute and chronic respiratory failure with hypoxia; Translations: [Chronic respiratory failure with hypoxia] Onset: 09-04-2023 Chronic Screening and history of mental health and substance abuse codes (1 source) Personal history of nicotine dependence; Translations: [Personal history of nicotine dependence] Onset: 10-03-2023 Episodic Substance-related disorders (3 sources) Moderate cigarette smoker; Translations: [Nicotine dependence, cigarettes, uncomplicated] Onset: 02-07-2023 02-07-2023 Chronic Unclassified (2 sources) Abdominal aortic aneurysm, without rupture, unspecified; Translations: [Abdominal aortic aneurysm, without rupture, unspecified] Onset: 10-10-2023 Unclassified (2 sources) Infrarenal abdominal aortic aneurysm, without rupture; Translations: [Infrarenal abdominal aortic aneurysm, without rupture] Onset: 04-08-2023 Unclassified (1 source) New Patient Onset: 10-03-2023 Unclassified (1 source) Oxygen Onset: 10-03-2023 Past or Other Problems Problem Classification Problem [...] Name Value Interpretation Reference Range Facility 37on 10-11-2023 37 Start lasix 20 mg 1 tab daily- if you start to feel too dry can hold this and resume with weight gain and fluid retention. Have labs drawn in about 2-4 weeks Normal [facility] Office Visiton 10-11-2023 Follow-up visit [id number] Naren Chowdhury 1950 M Date Provider Department Center 10/11/2023 TAMRA PATEL [facility] No family history on file Level of Service:22477 ND OFFICE/OUTPATIENT ESTABLISHED MOD MDM 30 MIN [facility] 37on 09-13-2023 37 Stop valsartan when you [...] taller/more pillows than normal or in recliner. [facility] Follow-Upon 09-13-2023 Follow-Up [id number] Naren Chowdhury 1950 M Date Provider Department Center 09/13/2023 TAMRA PATEL ANGELICA [facility] No family history on file Level of Service:01944 ND OFFICE/OUTPATIENT ESTABLISHED MOD MDM 30 MIN Reason for Visit and Comments: Follow-up [226080] - Congestive Heart failure/COPD No cardio symptoms per pt Has hard time breathing but is on oxygen States fatigued [facility] Orders Onlyon 09-13-2023 Orders Only [id number] Naren Chowdhury 1950 Date Provider Department Center 09/13/2023 GLORIA TANG ANGELICA [facility] No family history on file [facility] 36on 09-09-2023 36 Discharge date: Call [...] well as limiting fluid and sodium intake. Normal [facility] Documentationon 09-09-2023 Documentation [id number] Naren Chowdhury dilcia 1950 M Date Provider Department Center 09/09/202315548-OVYPKXBRANCHO PIERCE [facility] No family history on file Reason for Visit and Comments: HF inpatient satisfaction survey sent. [Other] Normal [facility] Telephoneon 09-09-2023 Telephone [id number] Naren Chowdhury dilcia 1950 M Date Provider Department Center 09/09/202305129-BTRDEHBRANCHO ANN [facility] No family history on file Reason for Visit and Comments: HF post discharge call. [Other] [facility] 30on 09-06-2023 30 The patient is [...] and behaviors that affect risk of falls [place] fall precautions as indicated by assessment Educate patient/family on patient safety, including physical limitations Instruct patient to call for assistance with activity based on assessment Problem: Discharge Planning Goal: Discharge to home or other facility with appropriate resources Outcome: Progressing Flowsheets (Taken 09/06/2023799) Discharge to home or other facility with [...] status, cognitive ability or social support system [facility] 30 The patient is Moderately Stable - Low risk of patient condition declining or worsening The patient's goals for the shift include comfort, rest The clinical goals for the shift include Stable VS, comfort [facility] BASIC METABOLIC PANELon 03-0 Anion gap [Moles/Vol] 10 mmol/L Normal 7-20 [facility] Comment on above: Performed By: #### L [id number] #### [facility] ([facility]) [address] [place] [address] Calcium [Mass/Vol] 8.7 mg/dL Normal 8.6-10.3 [facility] Comment on above: Performed By: #### L [id number] #### [facility] ([facility]) [address] [place] [address] Chloride [Moles/Vol] 99 mmol/L Normal 98-107 [facility] Comment on above: Performed By: #### L [id number] #### [facility] ([facility]) [address] [place] [address] CO2 [Moles/Vol] 30 mmol/L Normal 21-31 [facility] Comment on above: Performed By: #### L [id number] #### [facility] ([facility]) [address] [place] [address] Creatinine [Mass/Vol] 0.74 mg/dL Normal 0.70-1.30 [facility] Comment on above: Performed By: #### L [id number] #### [facility] ([facility]) [address] [place] [address] GLOMERULAR FILTRATION RATE ML/MIN/1.73 SQ M.PREDICTED 94.5 mL/min/1.73m*2 Normal >60.0 [facility] Comment on above: Result Comment: [facility]???s estimated glomerular filtration rate (eGFR) will [...] group of individuals. Performed By: #### L [id number] #### [facility] ([facility]) [address] [place] [address] Glucose [Mass/Vol] 88 mg/dL Normal 70-100 [facility] Comment on above: Performed By: #### L [id number] #### [facility] ([facility]) [address] [place] [address] Potassium [Moles/Vol] 4.0 mmol/L Normal 3.5-5.1 [facility] Comment on above: Performed By: #### L [id number] #### [facility] ([facility]) [address] [place] [address] Sodium [Moles/Vol] 135 mmol/L Low 136-145 [facility] Comment on above: Performed By: #### L [id number] #### [facility] ([facility]) [address] [place] [address] Urea nitrogen [Mass/Vol] 31 mg/dL High 7-25 [facility] Comment on above: Performed By: #### L [id number] #### [facility] ([facility]) [address] [place] [address] UREA NITROGEN/CREATININE (MASS RATIO) IN SER/PLAS 41.9 Normal [facility] Comment on above: Performed By: #### L [id number] #### [facility] ([facility]) [address] [place] [address] CBCon 09-06-2023 Erythrocyte distribution width (RBC) [Ratio] 14.1 % Normal 11.5-15.0 [facility] Comment on above: Performed By: #### L [id number] #### [facility] ([facility]) [address] [place] [address] ERYTHROCYTE MEAN CORPUSCULAR HEMOGLOBIN CONCENTRATION (G/DL) BY AUTOMATED 33.3 g/dL Normal 32.0-35.0 [facility] Comment on above: Performed By: #### L [id number] #### [facility] ([facility]) [address] [place] [address] Hematocrit (Bld) [Volume fraction] 45.4 % Normal 39.0-55.0 [facility] Comment on above: Performed By: #### L [id number] #### [facility] ([facility]) [address] [place] [address] Hemoglobin (Bld) [Mass/Vol] 15.1 g/dL Normal 13.0-17.0 [facility] Comment on above: Performed By: #### L [id number] #### [facility] ([facility]) [address] [place] [address] MCH (RBC) [Entitic mass] 30.7 pg Normal 27.0-33.0 [facility] Comment on above: Performed By: #### L [id number] #### [facility] ([facility]) [address] [place] [address] MCV (RBC) [Entitic vol] 92.3 fL Normal 82.0-98.0 [facility] Comment on above: Performed By: #### L [id number] #### [facility] ([facility]) [address] [place] [address] PLATELETS (10*3/UL) IN BLOOD AUTOMATED COUNT 405 10*3/uL High 150-400 [facility] Comment on above: Performed By: #### L [id number] #### [facility] ([facility]) [address] [place] [address] RBC (Bld) [#/Vol] 4.92 10*6/uL Normal 4.20-5.70 [facility] Comment on above: Performed By: #### L [id number] #### [facility] ([facility]) [address] [place] [address] WBC (Bld) [#/Vol] 14.91 10*3/uL High 4.00-10.60 [facility] Comment on above: Performed By: #### L [id number] #### [facility] ([facility]) [address] [place] [address] CONSULTon 09-06-2023 CONSULT Clinical Nutrition Assessment Name: [...] hours PRN aspirin 81 mg, oral, Daily bjdogvzazx-xxbokhtw-zox moterol (Breztri Aerosphere) 160-9-4.8 mcg/actuation HFA aerosol [...] Special Kitchen Request Once Comments: Omlette with afghan cheese, peppers, onions, mushrooms Wheat toast (butter [...] with questions and contact the dietitian via [employer] chat 8A-4P Saturday-Saturday. Or call the dietitian's office at extension [phone]. For weekends/holidays, the dietitian's can be reached by paging [phone] from 9A-3P. Unable to be reached via epic chat on Saturday & hol.) Normal [facility] MAGNESIUMon 09-06-2023 Magnesium [Mass/Vol] 2.6 mg/dL Normal 1.9-2.7 [facility] Comment on above: Performed By: #### L [id number] #### [facility] ([facility]) [address] [place] [address] TROPONIN Ion 09-06-2023 Troponin I.cardiac [Mass/Vol] 0.04 ng/mL Normal 0.00-0.04 [facility] Comment on above: Performed By: #### L [id number] #### [facility] ([facility]) [address] [place] [address] Troponin I.cardiac [Mass/Vol] 0.04 ng/mL Normal 0.00-0.04 [facility] Comment on above: Performed By: #### L [id number] #### [facility] ([facility]) [address] [place] [address] Troponin I.cardiac [Mass/Vol] 0.05 ng/mL High 0.00-0.04 [facility] Comment on above: Performed By: #### L [id number] ####[facility] ([facility])[address] [place] [address] 30on 09-05-2023 30 Daily Case Managemen t [...] Ancillary Consults (From admission, onward) Start Ordered 03/07/24 0830 Inpatient consult to Social Work Once Provider: (Not yet assigned) Question Answer Comment Select all services needed for the patient Residential Facility (30 day convalescent stay) Select all services needed for the patient Home Health Types of Home Health Service needed Physical Therapy Types of Home Health Service needed Occupational Therapy Please indicate your approval for this care by adding your name here: MARIO ALBERTO BERNABE 09/05/2382809/05/23829 Consult to Nutrition Services Once Provider: (Not yet assigned) Question: Reason for Consult? Answer: CHF 09/05/23828 Normal [facility] 30 The patient is Moderately Stable [...] for assistance with activity based on assessment [place] fall precautions as indicated by assessment Educate [...] disorders Administer blood products/factors as ordered Normal [facility] 30 The patient is Moderately Unstable - Medium risk of patient condition declining or worsening The patient's goals for the shift include The clinical goals for the shift include stable vs Over the shift, the patient did not make progress toward the following goals. Problem: Respiratory - Adult Goal: Achieves optimal ventilation and oxygenation Outcome: Not Progressing Normal [facility] BASIC METABOLIC PANELon 03-0 Anion gap [Moles/Vol] 11 mmol/L Normal 7-20 [facility] Comment on above: Performed By: #### L [id number] #### [facility] ([facility]) [address] [place] [address] Calcium [Mass/Vol] 9.0 mg/dL Normal 8.6-10.3 [facility] Comment on above: Performed By: #### L [id number] #### [facility] ([facility]) [address] [place] [address] Chloride [Moles/Vol] 97 mmol/L Low 98-107 [facility] Comment on above: Performed By: #### L [id number] #### [facility] ([facility]) [address] [place] [address] CO2 [Moles/Vol] 31 mmol/L Normal 21-31 [facility] Comment on above: Performed By: #### L [id number] #### [facility] ([facility]) [address] [place] [address] Creatinine [Mass/Vol] 0.71 mg/dL Normal 0.70-1.30 [facility] Comment on above: Performed By: #### L [id number] #### [facility] ([facility]) [address] [place] [address] GLOMERULAR FILTRATION RATE ML/MIN/1.73 SQ M.PREDICTED 95.7 mL/min/1.73m*2 Normal >60.0 [facility] Comment on above: Result Comment: [facility]???s estimated glomerular filtration rate (eGFR) will [...] of individuals. Performed By: #### L [id number] #### [facility] ([facility]) [address] [place] [address] Glucose [Mass/Vol] 123 mg/dL High 70-100 [facility] Comment on above: Performed By: #### L [id number] #### [facility] ([facility]) [address] [place] [address] Potassium [Moles/Vol] 4.9 mmol/L Normal 3.5-5.1 [facility] Comment on above: Performed By: #### L [id number] #### [facility] ([facility]) [address] [place] [address] Sodium [Moles/Vol] 134 mmol/L Low 136-145 [facility] Comment on above: Performed By: #### L [id number] #### [facility] ([facility]) [address] [place] [address] Urea nitrogen [Mass/Vol] 20 mg/dL Normal 7-25 [facility] Comment on above: Performed By: #### L [id number] #### [facility] ([facility]) [address] [place] [address] UREA NITROGEN/CREATININE (MASS RATIO) IN SER/PLAS 28.2 Normal [facility] Comment on above: Performed By: #### L [id number] #### [facility] ([facility]) [address] [place] [address] CONSULTon 09-05-2023 CONSULT --- Attestation signed by [...] 81 mg by mouth in the morning. rcnsamqnsr-kyxekxcp-exb moterol (Breztri Aerosphere) 160-9-4.8 mcg/actuation HFA aerosol [...] Temporal 77 25 98 % -- -- 09/04/23 2259 -- -- -- -- -- -- 1.651 m (5' 5 ) 67.5 kg (148 lb 13 oz) 09/04/23 2134 -- -- -- 66 22 99 % [...] Value Ventricular Rate 62 Atrial Rate 62 ND Interval 168 QRS DURATION 86 QT Interval 426 QTC CALCULATION(BAZETT) 432 P [place] 79 R-[place] -62 T Wave [place] 31 Impression Normal sinus rhythm Left axis [...] left bas (more content not included)... Normal [facility] HPon 09-05-2023 --- Attestation signed by [...] worsening shortness of breathe, was transferred from [facility]. On 09/02 night woke up around 4 AM to go to the bathroom, on his way start having worsening shortness of breath, chest tightness, his his saw him pale and diaphoretic, was brought to [facility]. It seems that he has dropped in EF and his troponin has been mildly elevated and hence plan is to do RHC/LHC to evaluate filling pressures and look for coronary anatomy and any CAD. I explained the risks and benefits of the procedure. He would like to proceed. Normal [facility] TROPONIN Ion 09-05-2023 Troponin I.cardiac [Mass/Vol] 0.04 ng/mL Normal 0.00-0.04 [facility] Comment on above: Performed By: #### L [id number] #### [facility] ([facility]) [address] [place] [address] Troponin I.cardiac [Mass/Vol] 0.05 ng/mL High 0.00-0.04 [facility] Comment on above: Performed By: #### L [id number] #### [facility] ([facility]) [address] [place] [address] Troponin I.cardiac [Mass/Vol] 0.05 ng/mL High 0.00-0.04 [facility] Comment on above: Performed By: #### L [id number] ####[facility] ([facility])[address] [place] [address] Troponin I.cardiac [Mass/Vol] 0.05 ng/mL High 0.00-0.04 [facility] Comment on above: Performed By: #### L [id number] #### [facility] ([facility]) [address] [place] [address] Troponin I.cardiac [Mass/Vol] 0.05 ng/mL High 0.00-0.04 [facility] Comment on above: Performed By: #### L [id number] ####[facility] ([facility])[address] [place] [address] Troponin I.cardiac [Mass/Vol] 0.06 ng/mL High 0.00-0.04 [facility] Comment on above: Performed By: #### L [id number] #### [facility] ([facility]) [address] [place] [address] B-TYPE NATRIURETIC PEPTIDEon 09-04-2023 Natriuretic peptide B (Bld) [Mass/Vol] 136 pg/mL High 0-100 [facility] Comment on above: Performed By: #### L [id number] #### [facility] ([facility]) [address] [place] [address] CBC WITH AUTO DIFFERENTIALon 09-04-2023 Basophils (Bld) [#/Vol] 0.04 10*3/uL Normal 0.00-0.20 [facility] Comment on above: Performed By: #### L [id number] #### [facility] ([facility]) [address] [place] [address] Basophils/100 WBC (Bld) 0.2 % Normal 0.0-1.0 [facility] Comment on above: Performed By: #### L [id number] #### [facility] ([facility]) [address] [place] [address] Eosinophils (Bld) [#/Vol] 0.09 10*3/uL Normal 0.00-0.50 [facility] Comment on above: Performed By: #### L [id number] #### [facility] ([facility]) [address] [place] [address] Eosinophils/100 WBC (Bld) 0.5 % Normal 0.0-6.0 [facility] Comment on above: Performed By: #### L [id number] #### [facility] ([facility]) [address] [place] [address] Erythrocyte distribution width (RBC) [Ratio] 13.9 % Normal 11.5-15.0 [facility] Comment on above: Performed By: #### L [id number] #### [facility] ([facility]) [address] [place] [address] ERYTHROCYTE MEAN CORPUSCULAR HEMOGLOBIN CONCENTRATION (G/DL) BY AUTOMATED 34.6 g/dL Normal 32.0-35.0 [facility] Comment on above: Performed By: #### L [id number] #### [facility] ([facility]) [address] [place] [address] Hematocrit (Bld) [Volume fraction] 41.9 % Normal 39.0-55.0 [facility] Comment on above: Performed By: #### L [id number] #### [facility] ([facility]) [address] [place] [address] Hemoglobin (Bld) [Mass/Vol] 14.5 g/dL Normal 13.0-17.0 [facility] Comment on above: Performed By: #### L [id number] #### [facility] ([facility]) [address] [place] [address] Immature granulocytes (Bld) [#/Vol] 0.35 10*3/uL High 0.00-0.20 [facility] Comment on above: Performed By: #### L [id number] #### [facility] ([facility]) [address] [place] [address] Immature granulocytes/100 WBC (Bld) 1.8 % High 0.0-1.0 [facility] Comment on above: Performed By: #### L [id number] #### [facility] ([facility]) [address] [place] [address] Lymphocytes (Bld) [#/Vol] 0.56 10*3/uL Low 1.20-4.00 [facility] Comment on above: Performed By: #### L [id number] #### [facility] ([facility]) [address] [place] [address] Lymphocytes/100 WBC (Bld) 2.8 % Low 20.0-45.0 [facility] Comment on above: Performed By: #### L [id number] #### [facility] ([facility]) [address] [place] [address] MCH (RBC) [Entitic mass] 31.0 pg Normal 27.0-33.0 [facility] Comment on above: Performed By: #### L [id number] #### [facility] ([facility]) [address] [place] [address] MCV (RBC) [Entitic vol] 89.7 fL Normal 82.0-98.0 [facility] Comment on above: Performed By: #### L [id number] #### [facility] ([facility]) [address] [place] [address] Monocytes (Bld) [#/Vol] 1.35 10*3/uL High 0.10-1.00 [facility] Comment on above: Performed By: #### L [id number] #### [facility] ([facility]) [address] [place] [address] Monocytes/100 WBC (Bld) 6.8 % Normal 5.0-12.0 [facility] Comment on above: Performed By: #### L [id number] #### [facility] ([facility]) [address] [place] [address] Neutrophils (Bld) [#/Vol] 17.53 10*3/uL High 1.60-7.60 [facility] Comment on above: Performed By: #### L [id number] #### [facility] ([facility]) [address] [place] [address] Neutrophils/100 WBC (Bld) 87.9 % High 40.0-72.0 [facility] Comment on above: Performed By: #### L [id number] #### [facility] ([facility]) [address] [place] [address] NRBC (PER 100 WBCS) BY AUTOMATED COUNT 0.0 % Normal 0 [facility] Comment on above: Performed By: #### L [id number] #### [facility] ([facility]) [address] [place] [address] PLATELETS (10*3/UL) IN BLOOD AUTOMATED COUNT 424 10*3/uL High 150-400 [facility] Comment on above: Performed By: #### L [id number] #### [facility] ([facility]) [address] [place] [address] RBC (Bld) [#/Vol] 4.67 10*6/uL Normal 4.20-5.70 [facility] Comment on above: Performed By: #### L [id number] #### [facility] ([facility]) [address] [place] [address] WBC (Bld) [#/Vol] 19.92 10*3/uL High 4.00-10.60 [facility] Comment on above: Performed By: #### L [id number] #### [facility] ([facility]) [address] [place] [address] COMPREHENSIVE METABOLIC PANE Jesús 09-04-2023 Albumin [Mass/Vol] 4.3 g/dL Normal 3.5-5.7 [facility] Comment on above: Performed By: #### L [id number] #### [facility] ([facility]) [address] [place] [address] ALP [Catalytic activity/Vol] 43 U/L Normal 34-104 [facility] Comment on above: Performed By: #### L [id number] #### [facility] ([facility]) [address] [place] [address] ALT [Catalytic activity/Vol] 23 U/L Normal 7-52 [facility] Comment on above: Performed By: #### L [id number] #### [facility] ([facility]) [address] [place] [address] Anion gap [Moles/Vol] 14 mmol/L Normal 7-20 [facility] Comment on above: Performed By: #### L [id number] #### [facility] ([facility]) [address] [place] [address] AST [Catalytic activity/Vol] 31 U/L Normal 13-39 [facility] Comment on above: Performed By: #### L [id number] #### [facility] ([facility]) [address] [place] [address] Bilirubin [Mass/Vol] 0.3 mg/dL Normal 0.3-1.0 [facility] Comment on above: Performed By: #### L [id number] #### [facility] ([facility]) [address] [place] [address] Calcium [Mass/Vol] 9.0 mg/dL Normal 8.6-10.3 [facility] Comment on above: Performed By: #### L [id number] #### [facility] ([facility]) [address] [place] [address] Chloride [Moles/Vol] 94 mmol/L Low 98-107 [facility] Comment on above: Performed By: #### L [id number] #### [facility] ([facility]) [address] [place] [address] CO2 [Moles/Vol] 26 mmol/L Normal 21-31 [facility] Comment on above: Performed By: #### L [id number] #### [facility] ([facility]) [address] [place] [address] Creatinine [Mass/Vol] 0.74 mg/dL Normal 0.70-1.30 [facility] Comment on above: Performed By: #### L [id number] #### [facility] ([facility]) [address] [place] [address] GLOMERULAR FILTRATION RATE ML/MIN/1.73 SQ M.PREDICTED 94.5 mL/min/1.73m*2 Normal >60.0 [facility] Comment on above: Result Comment: [facility]???s estimated glomerular filtration rate (eGFR) will [...] group of individuals. Performed By: #### L [id number] #### [facility] ([facility]) [address] [place] [address] Glucose [Mass/Vol] 117 mg/dL High 70-100 [facility] Comment on above: Performed By: #### L [id number] #### [facility] ([facility]) [address] [place] [address] Potassium [Moles/Vol] 4.6 mmol/L Normal 3.5-5.1 [facility] Comment on above: Performed By: #### L [id number] #### [facility] ([facility]) [address] [place] [address] Protein [Mass/Vol] 7.2 g/dL Normal 6.0-8.3 [facility] Comment on above: Performed By: #### L [id number] #### [facility] ([facility]) [address] [place] [address] Sodium [Moles/Vol] 129 mmol/L Low 136-145 [facility] Comment on above: Performed By: #### L [id number] #### [facility] ([facility]) [address] [place] [address] Urea nitrogen [Mass/Vol] 17 mg/dL Normal 7-25 [facility] Comment on above: Performed By: #### L [id number] #### [facility] ([facility]) [address] [place] [address] UREA NITROGEN/CREATININE (MASS RATIO) IN SER/PLAS 23.0 Normal [facility] Comment on above: Performed By: #### L [id number] #### [facility] ([facility]) [address] [place] [address] LACTIC ACID WITH 4 HOUR REFL EXon 09-04-2023 LACTATE (MMOL/L) IN SER/PLAS 1.0 mmol/L Normal 0.5-2.2 [facility] Comment on above: Performed By: #### L [id number] #### [facility] ([facility]) [address] [facility] [place] [place] [address] MAGNESIUMon 09-04-2023 Magnesium [Mass/Vol] 2.3 mg/dL Normal 1.9-2.7 [facility] Comment on above: Performed By: #### L [id number] ####[facility] ([facility])[address] [place] [address] PHOSPHORUSon 09-04-2023 Magnesium [Mass/Vol] 3.1 mg/dL Normal 2.5-5.0 [facility] Comment on above: Performed By: #### L [id number] #### [facility] ([facility]) [address] [place] [address] TROPONIN Ion 09-04-2023 Troponin I.cardiac [Mass/Vol] 0.05 ng/mL High 0.00-0.04 [facility] Comment on above: Performed By: #### L [id number] #### [facility] ([facility]) [address] [place] [address] CT CHEST WO IV CONTRASTon CT CHEST [...] Available [facility] Duplex Scan of Aorta, Complete [...] by Thang Giles on 01/31/2022 1022 Normal [facility] [employer] Specialist Encounters Encounter Date Encounter Type Care Provider Facility Start: 10-28-2023 End: 10-28-2023 ambulatory OMAR [facility] Start: 10-15-2023 End: 10-15-2023 ambulatory MARK Negron WONDERLY Not Available Start: 10-11-2023 End: 10-11-2023 ambulatory [facility] Start: 10-10-2023 End: 10-11-2023 ambulatory VEGA COLIN [facility] Start: 10-03-2023 End: 10-03-2023 ambulatory [facility] Start: 09-18-2023 End: 09-19-2023 ambulatory [facility] Start: 09-13-2023 End: 09-13-2023 ambulatory [facility] Start: 09-12-2023 End: 09-12-2023 ambulatory MARK JAY Not Available Start: 09-05-2023 Evaluation and management of inpatient [facility] Start: 09-04-2023 Evaluation and management of inpatient [facility] Start: 09-04-2023 End: 09-06-2023 Evaluation and management of inpatient [facility] Start: 08-21-2023 ambulatory LYLY YUSUF [facility] Start: 08-13-2023 End: 08-14-2023 ambulatory JEAN HDZ Not Available Start: 08-06-2023 Chart abstracting Jean hamm NP Work Phone: [facility] Start: 08-06-2023 End: 08-06-2023 ambulatory JEAN HDZ Not Available Start: 08-25-2020 End: 08-26-2020 Patient encounter procedure NONE LISTED REQUEST Facility: Procedures Date Procedure Procedure Detail Performing Clinician Start: 10-28-2023 Follow-up visit Follow-up OMAR FARFAN Start: 09-29-2018 Colonoscopy Jean hamm NP Work Phone: Plan of Treatment Date Care Activity Detail Author Start: 09-29-2028 Screening for malign ant neoplasm of colon [facility] Start: 02-15-2024 Medicare Annual Well ness (AWV) Medicare Annual Wellness (AWV) [facility] Start: 08-06-2023 End: 08-06-2023 Patient encounter procedure 08/06/2023 9:00 AM EST Office Visit [facility] [address] [place] [address] Jean Hdz [employer] [address] [place] [address] [facility] Start: 1950 Screening for malign ant neoplasm of colon [facility] Immunizations Immunization Date Immunization Notes Care Provider Fa cility 04-20-2023 Influenza, High-dose Seasonal, Quadrivalent, Preservative Free Jean Hdz [employer] Work Phone: [facility] 04-20-2023 Pneumococcal Conjuga te PCV 20 Jean Nancie [employer] Work Phone: [facility] 04-11-2022 Influenza, High-dose Seasonal, Quadrivalent, Preservative Free Jean Hdz [employer] Work Phone: [facility] 04-23-2021 Influenza, High-dose Seasonal, Quadrivalent, Preservative Free Jean Hdz [employer] Work Phone: [facility] 03-18-2020 Influenza, High-dose Seasonal, Quadrivalent, Preservative Free Jean Hdz [employer] Work Phone: [facility] 04-25-2019 Influenza, High-dose Seasonal, Quadrivalent, Preservative Free Jean Hdz [employer] Work Phone: [facility] 05-30-2018 Influenza, High-dose Seasonal, Quadrivalent, Preservative Free Jean Hdz [employer] Work Phone: [facility] 08-20-2017 Influenza, High-dose Seasonal, Quadrivalent, Preservative Free Jean Hdz [employer] Work Phone: [facility] 06-28-2015 influenza, seasonal, injectable Jean Nancie [employer] Work Phone: [facility] 06-28-2015 pneumococcal conjuga te vaccine, 13 valent Jean Nancie [employer] Work Phone: [facility] 05-28-2015 pneumococcal conjuga te vaccine, 13 valent Jean Nancie [employer] Work Phone: [facility] 05-16-2014 pneumococcal polysaccharide vaccine, 23 valent Jean Hdz NP Work Phone: [facility] Payers Date Payer Category Payer Medicare [employer] MEDICARE ADVANTAGE [facility] MEDICARE ADVANTAGE [id number] 2021-Present [address] [place] [address] [id number] 2021 Medicare [id number] 2017 Unknown [id number] 2013 Medicare [id number] 1959 Self-pay 1950 Unknown [id number] 1948 Unknown [id number] 1948 Unknown [id number] 1948 Unknown [id number] 1948 Unknown [id number] 1948 Unknown [id number] 1948 Unknown [id number] [id number] 1948 Unknown [id number] 1948 Unknown [id number] 1948 Unknown [id number] Unknown [id number] Social History Date Type Detail Facility Start: 02-14-2023 Tobacco smoking status NHIS Smokes t obacco daily [facility] History of tobacco use Cigarette Smoker N [facility] Start: 02-08-2023 End: 02-14-2023 Cigarettes smoked current (pack per day) - Reported 1 [facility] Start: 02-14-2023 Tobacco use and exposure Smoke less tobacco non-user [facility] Start: 02-26-2023 Alcohol intake Current drinke r of alcohol (finding) [facility] Start: 02-08-2023 End: 02-14-2023 Humiliation, Afraid, Rape, and Kick questionnaire [HARK] [facility] Within the last year , have you been afraid of your partner or ex-partner? No [facility] Do you belong to any clubs or organizations such as shinto groups, unions, fraternal or athletic groups, or school groups? Yes [facility] Are you now , , , , never or living with a partner? [facility] How often to you hav e a drink containing alcohol? Patient refused [facility] Do you feel stress - tense, restless, nervous, or anxious, or unable to sleep at night because your mind is troubled all the time - these days [OSQ] Not at all [facility] (I/We) worried wheth er (my/our) food would run out before (I/we) got money to buy more. Never true [facility] Start: 02-14-2023 Tobacco Comment Smokes 6-30 mi ns after waking up [facility] Start: 02-14-2023 Alcohol Comment caffeine: 2-3 cups per day [facility] Start: 1950 Sex Assigned At Not on file N [facility] Clinical Notes 09-04-2023 to 10-11-2023 Note Date & Type Note Facility 10-11-2023 Note [facility] II-III, current ly appear fluid overloaded therefore will start lasix 20 mg daily Continue GDMT- toprol, lipitor, farxiga, entresto and aldactone. Diuretic therapy- lasix 20 mg daily- may need to be titrated up- or down depending upon fluid status Currently renal function and K+ are normal since initiation of entresto- b/p stable although pt admits occasional lightheadedness/dizziness which may be r/t labile b/p or hypoxia with exertion. Repeat BMP 2-4 weeks to check renal function and electrolytes Monitor daily weights, I&O, fluid restriction 1.5-2L/day, renal function and electrolytes- [facility] 10-11-2023 Note Coronary artery dise ase is stable Continue GDMT- Lipitor, toprol and entresto continue risk factor modifications- heart healthy diet, regular exercise as tolerated and continue all medications. [facility] 10-11-2023 Note Lipid abnormalities are managed with lipitor 40 mg [facility] 10-11-2023 Note [facility] CARDIOLOGY PROGR ESS NOTE HPI: Vahid Chowdhury is a 73 y.o. male here for routine F/U HPI 73 yo male presents to clinic for known HFrEF 35%, resp failure- COPD, HTN, HPL, smoker Pt was started on entresto at last visit with repeat BMP- renal function and K+ are normal and stable Patient here for 1 mo follow up chronic systolic heart failure and CAD. He was switched from valsartan to Entresto last month. Says he feels the same since med change. Denies chest pain, palpitations, leg swelling- but admits weight gain of about 5 pounds since last month. Admits shortness of breath with exertion and + orthopnea. Remains on oxygen most all the time and recently f/U with pulmonary at [facility]. Admits occasional lightheadedness/dizziness without syncope Review of Systems Cardiovascular: Positive for dyspnea on exertion. Respiratory: Positive for shortness of breath. Neurological: Positive for light-headedness (1 episode since last visit). All other systems reviewed and are negative Visit Vitals BP 122/80 (BP Location: Right arm, Patient Position: Sitting) Pulse 60 Ht 1.702 m (5' 7 ) Wt 74.8 kg (165 lb) SpO2 97% Comment: on 2L O2 BMI 25.84 kg/m??? Smoking Status Former BSA 1.88 m??? No Known Allergies Medications: Current Outpatient [...] 1 tablet (40 mg) by mouth at bedtime. 90 tablet 3 rhqjjwtrnm-gkcftbiy-xszwaarmvc (Breztri Aerosphere) 160-9-4.8 mcg/actuation HFA aerosol inhaler Inhale. dapagliflozin propanediol (Farxiga) 10 mg Take 1 tablet (10 mg) by mouth in the morning. 90 tablet 3 metoprolol succinate XL (Toprol-XL) 25 mg 24 hr tablet Take 0.5 tablets (12.5 mg) by mouth in the morning. Do not crush or chew. 45 tablet 3 nicotine (Nicoderm CQ) 21 mg/[address] 1 patch on the skin in the morning. Do not start before September 07, 2023. 30 patch 0 sacubitril-valsartan (Entresto) 24-26 mg tablet Take 1 tablet by mouth in the morning and at bedtime. 180 tablet 3 spironolactone (Aldactone) 25 mg tablet Take 0.5 tablets (12.5 mg) by mouth in the morning. 45 tablet 3 No current facility-administered medications on file prior to visit. Physical Exam: Constitutional: Appearance: Normal appearance. Without apparent distress, chronically ill HENT: Head: Normocephalic and atraumatic. Nose: Nose normal. Mouth/Throat: Mouth: Mucous membranes are moist. Eyes: Extraocular Movements: Extraocular movements intact. Conjunctiva/sclera: Conjunctivae normal. Neck: Vascular: No JVD. Cardiovascular: Rate and Rhythm: Normal rate and regular rhythm. Pulses: Dorsalis pedis pulses are 2 on the right side and 2on the left side. Posterior tibial pulses are 2 on the right side and 2 on the left side. Heart sounds: Normal heart sounds, S1 normal and S2 normal. Pulmonary: Effort: Pulmonary effort is normal. Breath sounds: scattered wheezes throughout Abdominal: General: Bowel sounds are normal. Palpations: Abdomen is soft. Musculoskeletal: General: Normal range of motion. Cervical back: Normal range of motion. Right lower leg: No edema. Left lower leg: No edema. Skin: General: Skin is warm and dry. Capillary Refill: Capillary refill takes less than 2 seconds. Neurological: General: No focal deficit present. Mental Status: he is alert and oriented to person, place, and time. Psychiatric: Mood and Affect: Mood normal. Behavior: Behavior normal. Thought Content: Thought content normal. Judgment: Judgment normal. Labs: 10/03/23 Renal function normal K+ normal Last lab values have been reviewed CV Testin09/05/23 Cardiac cath Conclusion Cardiac Cath Report 09/05/2023 Performing Physicians: -Sylvie Avitia MD Assistants: Dr Dina Khan. Procedures Performed: -Bilateral selective coronary angiography -Right heart catheterization -Ultrasound guided vascular access -Conscious sedation Final Impressions: -Non obstructive CAD -Mildly elevated right sided pressures due to left sided heart disease Recommendations: -Aspirin 81 mg daily and high intensity statin therapy -Diuresis as per primary and cardiology consult teams -Optimization of medical management -Aggressive risk factor modification -Further recommendations as per inpatient cardiology consult service 09/05/23 ECHO Conclusions Left Ventricle: The left ventricle is normal size. Global left ventricular systolic function is moderately reduced. EF range is estimated at 35 % -40 %. Left ventricular wall thickness is normal. Diffuse global hypokinesis. Grade 1, mild diastolic dysfunction (abnormal relaxation). Right Ventricle: The ri (more content not included)... [facility] 10-11-2023 Note Patient here for 1 m o follow up chronic systolic heart failure and CAD. He was switched from valsartan to Entresto last month. Says he feels the same since med change. Denies chest pain. Review of Systems Cardiovascular: Positive for dyspnea on exertion. Respiratory: Positive for shortness of breath. Neurological: Positive for light-headedness (1 episode since last visit). All other systems reviewed and are negative. [facility] 09-13-2023 Note [facility] Currently using tyrone peter patches and has remained non smoking since DC from hospital [facility] 09-13-2023 Note Coronary artery dise ase is stable Continue GDMT- ASA lipitor and toprol continue risk factor modifications- heart healthy diet, regular exercise as tolerated and continue all medications. [facility] 09-13-2023 Note Will send pt for PFT and referral to pulmonary [facility] 09-13-2023 Note Continue lipitor LFT and lipid in 2-3 months [facility] 09-13-2023 Note [facility]TP CARDIOLOGY PROGR ESS [...] chest pain, orthopnea, but is needing oxygen / since being in the hospital. States weight has remained stable at home without any weight gain. Has not resumed smoking and is wearing nicotine patch. Has also not drank any beer so far. 09/06/23 [facility] DC summary Discharge Summary Final Discharge Diagnosis: COPD exacerbation Admission Diagnosis: Decompensated heart failure (CMS/[facility]) [I50.9] Hospital course: 73 y.o. male who came from home with worsening shortness of breath. Patient is heavy smoker, never officially diagnosed with COPD or had a PFT, was scheduled to get a PFT this week, and see Dr. Bryant (procurement cost coordinator) on September,January 2023 had severe pneumonia and he was discharged home on 2 L nasal cannula, the past few weeks has been having worsening cough, and shortness of breath, on 09/02 night woke up around 4 AM to go to the bathroom, on his way start having worsening shortness of breath, chest tightness, his his saw him pale and diaphoretic, was brought to [facility]. Over there patient was treated [...] the transfer for heart cath. Workup from [facility] revealed chest x-ray showed no acute cardiopulmonary [...] On 4 L nasal cannula. DC summary [facility] ED Review of Systems Constitutional: Positive [...] bedtime for 30 doses. 30 tablet 0 zxpebflkis-xoqsgawa-nawihqgvhh (Breztri Aerosphere) 160-9-4.8 mcg/actuation HFA aerosol inhaler [...] side. Posterior tib (more content not included)... [facility] 09-13-2023 Note ROS No cardio symptoms per pt Has hard time breathing but is on oxygen States fatigued [facility] 09-13-2023 Note [facility] Remains euv olemic without exacerbation Continue GDMT- AsA, lipitor, toprol, aldactone and DC valsartan and start entresto. Diuretic therapy- [facility] Monitor daily weights, I&O, fluid restriction 1.5-2L/day, renal function and electrolytes- [facility] 09-11-2023 Note Pt's left at [facility] ([facility]) to schedule an appointment for initial evaluation per AVS instructions following his recent hospitalization. Pt's was informed he does not qualify for [facility] therapy with HF diagnosis per CMS eligibility criteria and verbalized understanding. WIL[place] [employer] maker Outpatient Coordinator Cardiopulmonary Rehab [facility] 09-06-2023 Note Occupational Therapy Name: Vahid Chowdhury Date of : 1950 Today's Date: 09/06/23 Pt is unable to be seen for therapy at this time secondary to d/c home per nsg . Check No Charge Time attempted: 4477 [facility] 09-06-2023 Note Hospital Medicine Discharge Summary Final Discharge Diagnosis: COPD exacerbation Admission Diagnosis: Decompensated heart failure ([facility]) [I50.9] Hospital course: 73 y.o. male who came from home with worsening shortness of breath. Patient is heavy smoker, never officially diagnosed with COPD or had a PFT, was scheduled to get a PFT this week, and see Dr. Bryant (procurement cost coordinator) on September,January 2023 had severe pneumonia and he was discharged home on 2 L nasal cannula, the past few weeks has been having worsening cough, and shortness of breath, on 09/02 night woke up around 4 AM to go to the bathroom, on his way start having worsening shortness of breath, chest tightness, his his saw him pale and diaphoretic, was brought to [facility]. Over there patient was treated [...] [facility]. [facility] [...] # Tobacco use: - Counseled. Dear Dr. Pierre MD, Vahid is advised to follow up with you within 1-2 weeks. Follow-up with: Cardiology Scheduled appointments: Future Appointments Date Time Provider Department Center 09/13/2023 9:30 AM Jeannie Thao NP [facility] Your medication list [...] 160-9-4.8 mcg/actuation HFA aerosol inhaler Generic drug: gtvitkktcs-mmjaihov-mfoxequklh STOP taking these medications simvastatin 40 mg tablet Commonly known as: Zocor Where to Get Your Medications These medications were sent to [facility] [address] [place] [address] [address] [facility] [address] [address] atorvastatin 40 mg tablet azithromycin 250 mg [...] Results from last 7 days Lab Units 09/06/2334809/04/231954 WBC AUTO 10*3/uL 14.91* 19.92* HEMOGLOBIN g/dL 15.1 14 (more content not included)... [facility] 09-06-2023 Note Physical Therapy Physical Therapy [...] Level of Function Prior Function Level of [place]: Independent with ADLs and functional transfers, Independent [...] presents with i (more content not included)... [facility] 09-06-2023 Note ------ Attestation signed by Warren Alex MD at [...] be an additional personal documentation from me. ------ Cardiology Progress Note Subjective Subjective: Vahid Chowdhury [...] Value Ventricular Rate 62 Atrial Rate 62 ND Interval 168 QRS DURATION 86 QT Interval 426 QTC CALCULATION(BAZETT) 432 P [place] 79 R-[place] -62 T Wave [place] 31 Impression Normal sinus rhythm Left axis deviation Abnormal ECG No previous ECGs available Confirmed by Светлана MARCOS, L.S. (2) on 09/05/2023 3:56:36 PM Lab Results Component Value Date TROPONINI 0.04 09/06/2023 Complete Echo (TTE) w/wo Imaging Agent, Strain, 3D, Bubble Study Result Date: 09/05/2023 1 1 [facility] Heart Station [address] [place] [address] [phone] (fax) Echocardiogram-[facility] Name: VAHID CHOWDHURY Study Date: 09/05/2023 02:37 PM B/P: 118 mmHg/67 mmHg HR: 50 bpm Date of : 1950 Location: [facility] Height: 65 in. Age: [...] Normal Value R (more content not included)... [facility] 09-05-2023 Note Hospital Medicine Daily Progress Note - 09/05/2023 2:43 PM; Room: [address] [place] [address] Admission: 09/04/2023 6:56 PM; Length of stay: 1 days THE HOSPITALIST TEAM PREFERS TO USE [employer] CHAT FOR COMMUNICATION 7AM-7PM. IF I DO NOT RESPOND WITHIN 15 MINUTES, PLEASE PAGE ME/CALL THROUGH THE HOUSE MOVING SUPERVISOR. FROM 7PM-7AM, PLEASE PAGE [phone](COVR) Code Status: Full Code Barriers to Discharge: [...] Academy of Nutrition and Dietetics and the [employer] [place] Society of Enteral and Parenteral Nutrition, meets [...] Results from last 7 days Lab Units 09/05/23 0756 09/04/231954 SODIUM mmol/L 134* 129* POTASSIUM mmol/L [...] , FREET4 , CORTISOL , FEV1 , DBT6XQU , DLCO , RVSP , HDL , LDL No results found for: [id number] , IRON , TIBC , C3 , [...] Prasad Christianson. Discharge Planning Signed Mario Alberto Lim MD Hospital Medicine 09/05/2023 2:43 PM [facility] 09-05-2023 Note Patient: Vahid Chowdhury Procedure Information Date/Time: 09/05/23 1230 Procedures: Coronary angiography Right heart cath Location: [facility] LOOM MECHANIC 3 / [facility] (Cath) Providers: Sylvie Avitia MD [...] Plan discussed with attending. Additional Equipment Requests [facility] 09-04-2023 Note Hospital Medicine History and Physical 09/04/2023 8:17 PM THE HOSPITALIST TEAM PREFERS TO USE [employer] CHAT FOR COMMUNICATION 7AM-7PM. IF I DO NOT RESPOND WITHIN 15 MINUTES, PLEASE PAGE ME/CALL THROUGH THE HOUSE MOVING SUPERVISOR. FROM 7PM-7AM, PLEASE PAGE [phone](COVR) Chief Complaint Worsening shortness of breath History of Present Illness Vahid Chowdhury is an 73 y.o. male who came from home with worsening shortness of breath. Patient is heavy smoker, never officially diagnosed with COPD or had a PFT, was scheduled to get a PFT this week, and see Dr. Bryant (procurement cost coordinator) on September, January 2023 had severe pneumonia and he was discharged home on 2 L nasal cannula, the past few weeks has been having worsening cough, and shortness of breath, on 09/02 night woke up around 4 AM to go to the bathroom, on his way start having worsening shortness of breath, chest tightness, his his saw him pale and diaphoretic, was brought to [facility]. Over there patient was treated [...] [facility]. [facility] showed no acute cardiopulmonary [...] Noted Acute on chronic hypoxic respiratory failure ([facility]) 09/04/2023 Current smoker 09/04/2023 Assessment and Plan [...] echo - Reportedly no EKG changes at [facility] - Consult cardiology for possible left heart [...] this hospital stay by a member of [facility]. Past Medical History No [...] Fear of Current (more content not included)... 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 Advance Directives and Living Will 02/25/2020 2019-01-09 Living Wi ll Additional Source Comments (unrecognized sect ion and content) No Status Records FoundNo Status Records FoundNo Status Records FoundNo Status Records FoundNo Status Records FoundNo Status Records Found INFORMATION SOURCE (unrecogn ized section and content) DATE CREATED AUTHOR 08/21/2020 [facility] DATE CREATED AUTHOR AUTHOR'S ORGANIZ ATION 02/01/2022 [facility] dical Specialist DATE CREATED AUTHOR AUTHOR'S ORGANIZ ATION 10/11/2023 [facility] DATE CREATED AUTHOR AUTHOR'S ORGANIZ ATION 10/12/2023 [facility] DATE CREATED AUTHOR AUTHOR'S ORGANIZ ATION 10/16/2023 [facility] dical Specialists [facility] DATE CREATED AUTHOR AUTHOR'S ORGANIZ ATION 10/29/2023 [facility] Care Teams (unrecognized sec tion and content) Electronic Intelligence Officer Relationship Specialty Start Date End Date Henrietta Spence DO [address] [place] [address] PCP - Jennifer FISHER 07/01/21 Henrietta Spence DO [address] [place] [address] PCP - General Family Medicine 11/06/22 FOR [...] BE BASED ON THE PRIMARY CLINICAL RECORDS. [facility] [employer] [facility]. provides no warranty or guarantee of the accuracy or completeness of information in this document.
== END 2023-11-04 08:46 | disposition home or self-care (01) ==
LOC: LAB 08:46
PROVIDERS: PCP Family Medicine; Visit Provider Nurse Practitioner
DX: I50.22 Chronic systolic (congestive) heart failure (principal)
CPT/HCPCS: 80048

== ENCOUNTER 2023-11-04 08:48 | Outpatient (OUT) | payer MEDICARE, SELFPAY ==
[2023-11-04 09:41] LABS: Estimated Average Glucose 120 mg/dL; Glycohemoglobin A1C 5.8 % (4.5-6.2)
[2023-11-04 09:42] LABS: Alanine Aminotransferase 33 U/L (16-63); Albumin Level 3.6 g/dL (3.4-5.0); Alkaline Phosphatase 50 U/L (46-116); Anion Gap 11.3; Aspartate Amino Transferase 23 U/L (15-37); BUN Creatinine Ratio 16.7; Bilirubin Total 0.6 mg/dL (0.2-1.0); Calcium 9.3 mg/dL (8.5-10.1); Carbon Dioxide 30.2 mmol/L (21.0-32.0); Chloride 102 mmol/L (98-107); Chol HDL Ratio 2.9; Cholesterol 188 mg/dL (<=200); Estimated GFR (African America >60 (>=60); Estimated GFR (Non-African Ame >60 (>=60); Globulin 3.6 g/dL; Glucose 117 mg/dL (74-106); HDL Cholesterol 65 mg/dL (40-60); Potassium 4.5 mmol/L (3.5-5.1); Sodium 139 mmol/L (136-145); Total Protein 7.2 g/dL (6.4-8.2); Triglycerides 95 mg/dL (<=150)
== END 2023-11-04 08:49 | disposition home or self-care (01) ==
LOC: LAB 08:49
PROVIDERS: PCP Family Medicine; Visit Provider Family Medicine
DX: I50.9 Heart failure, unspecified (principal); E78.2 Mixed hyperlipidemia; R73.03 Prediabetes
CPT/HCPCS: 36415; 80053; 80061; 83036

== ENCOUNTER 2023-12-24 08:52 | Outpatient (OUT) | payer MEDICARE, SELFPAY ==
--- NOTE | 2023-12-24 09:00 | CA_ITS ---
Patient Name: VAHID CHOWDHURY MR#: [id number] : 1950 Exam Date: 12/24/2023 Ordering Doctor: TAMRA SORIA ECHOCARDIOGRAM REPORT PROCEDURE: CA ECHO DOPPLER COMPLETE INDICATIONS: Heart failure with reduced ejection fraction, COPD COMPARISON: None. DESCRIPTION: COMPLETE ECHOCARDIOGRAM Real-time transthoracic echocardiography with 2D, M-mode, spectral and color flow Doppler performed. QUALITY: Technical quality was good. LEFT VENTRICLE: Normal chamber size. Normal left ventricular wall thickness. Normal systolic function. LV EF: Normal left ventricular ejection fraction, (55%). DIASTOLIC: Diastolic function is indeterminate. ATRIAL SEPTUM: Visually appears intact. LEFT ATRIUM: Normal chamber size. RIGHT ATRIUM: Mild chamber dilatation. RIGHT VENTRICLE: Mild chamber dilatation. Normal right ventricular systolic function. TRICUSPID VALVE: Normal mobility and thickness. No stenosis with trivial regurgitation. Doppler studies reveal moderately (45-60) elevated right sided pressures. RVSP 46 mmHg MITRAL VALVE: Normal mobility and thickness. No evidence of mitral valve stenosis. There is no mitral annular calcification. Trivial mitral regurgitation. AORTIC VALVE: Normal trileaflet appearance. No visible sclerosis. Normal leaflet mobility. No evidence of aortic valve stenosis. No aortic regurgitation. AORTIC ROOT: Normal diameter and appearance. PULMONIC VALVE: Not well visualized. No regurgitation. PERICARDIUM: No evidence of pericardial effusion. IVC: Collapses with inspirations. IVC is normal in size. PLEURA: CONCLUSION: 1. Normal left ventricular size and systolic function. LVEF is 55%. 2. Mildly dilated right ventricle with normal systolic function. 3. Mild right atrial dilatation. 4. No significant valvular dysfunction. 5. Moderately elevated right-sided pressures. RVSP is 46 mmHg. Adult Echocardiography Procedure Report Left Ventricle LVEDD (3.7 - 5.6 cm): 4.15 cm LVESD (2.2 - 4.0 cm): 3.11 cm LVIVS thickness (0.6 - 1.2 cm): 0.92 cm LVPW thickness (0.5 - 1.0 cm): 0.92 cm e': 0.10 m/s E - e': 7.65 LVOT Max Gradient: 5.47 mm[Hg] LVOT Area (cm2): 1.17 m/s Peak Velocity (LVOT): 1.17 m/s Mean Velocity (LVOT): 0.67 m/s LVOT Diameter 2.18 cm Left Atrium LA Volume Index (2D A2C): 28.17 ml/m2 Left Atrium Systolic Dimension: 3.26 cm Mitral Valve MV E to A Ratio: 1.01 Mitral Valve A-Wave Peak Velocity: 0.78 m/s Mitral Valve E-Wave Peak Velocity: 0.79 m/s Right Ventricle Aorta AO Root Diam: 3.44 cm Aortic Valve AoV Area (Peak Bennie): 2.97 cm2, 2.97 cm2 AoV Area (VTI): 2.66 cm2, 2.66 cm2 Peak Velocity(Antegrade Flow): 1.47 m/s Peak Gradient(Antegrade Flow): 8.67 mm[Hg] Mean Velocity(Antegrade Flow): 0.95 m/s Mean Gradient(Antegrade Flow): 4.20 mm[Hg] Velocity Time Integral: 32.04 cm Tricuspid Valve Peak Velocity (Regurgitant Flow): 3.28 m/s Pulmonic Valve Peak Velocity: 0.90 m/s Peak Gradient: 3.22 mm[Hg] Right Atrium Right Atrium Systolic Pressure: 43.97 ml, 43.97 ml Dictated by: Samir Jackson M.D. on 12/24/2023 at 18:09 Approved by: Samir Jackson M.D. on 12/24/2023 at 18:12
--- OUTSIDE RECORDS SUMMARY | 2023-12-24 09:05 | XMS_ITS | CCD ---
Author Organization [facility] Care Team Providers Care Equipment Installation Professional Name Role Phone REQUEST, NONE LISTED Consulting Unavailable REQUEST, NONE LISTED Attending Unavailable REQUEST, NONE LISTED Admitting Unavailable Henrietta Spence DO Unavailable Henrietta Spence DO Primary Care Provider [phone] MAEGAN BRYANT Attending Unavailable MAEGAN BRYANT Referring Unavailable LYLY YUSUF Primary Care Unavailable VEGA COLIN Attending Unavailable VEGA COLIN Referring Unavailable MARK JAY Primary Care Unavailable ELTABOBBY, EHAB Referring Unavailable HORANITANKAR Attending Unavailable DOUG, TAB Admitting Unavailable ESTELLA, TAMRA Attending Unavailable ESTELLA, TAMRA Attending Unavailable HORANI, MARIO ALBERTO Referring Unavailable HORANI, MARIO ALBERTO Referring Unavailable HORANI, MARIO ALBERTO Referring Unavailable MAEGAN BRYANT Attending Unavailable JEAN HDZ Referring Unavailable PARAMJIT, LYLY F Primary Care Unavailable OMAR FARFAN Attending Unavailable PARAMJIT, LYLY F Referring Unavailable WONDERLY, MARK B Primary Care Unavailable PARAMJIT, LYLY F Referring Unavailable PARAMJIT, LYLY F Primary Care Unavailable JEAN HDZ Attending Unavailable JEAN HDZ Referring Unavailable WONDERLY, MARK B Attending Unavailable WONDERLY, MARK B Attending Unavailable WONDERLY, MARK B Attending Unavailable Allergies Allergy Classification Reported Allergen(s) Allergy Type Date of Onset Reaction(s) Facility (1 source) ALLERGIES NOT ON FILE; Translations: [ALLERGIES NOT ON FILE] Propensity to adverse reactions (disorder) [facility] Repository Medications Current Medications Medication Drug Class(es) Dates Sig (Normalized) Sig (Original) [id number] 200 actuat albuterol 0.09 mg/actuat metered dose [...] disease (2 sources) Atherosclerotic heart disease of [place] coronary artery without angina pectoris; Translations: [Atherosclerotic heart disease of [place] coronary artery without angina pectoris] Onset: 09-13-2023 [...] Have labs drawn in about 2-4 weeks [facility] Office Visiton 10-11-2023 Follow-up visit [id number] Naren Chowdhury 1950 M Date Provider Department Center 10/11/2023 TAMRA PATEL [facility]GEL[facility] No family history on file Level of Service:20345 NC OFFICE/OUTPATIENT ESTABLISHED MOD MDM 30 MIN [facility] 37on 09-13-2023 37 Stop valsartan when [...] taller/more pillows than normal or in recliner. [facility] Follow-Upon 09-13-2023 Follow-Up [id number] Naren Chowdhury 1950 M Date Provider Department Center 09/13/2023 TAMRA PATEL ANGELICA [facility] No family history on file Level of Service:88486 [place] OFFICE/OUTPATIENT ESTABLISHED MOD MDM 30 MIN Reason for Visit and Comments: Follow-up [189711] - Congestive Heart failure/COPD No cardio symptoms per pt Has hard time breathing but is on oxygen States fatigued [facility] Orders Onlyon 09-13-2023 Orders Only [id number] Naren Chowdhury 1950 M Date Provider Department Center 09/13/2023 GLORIA TANG ANGELICA [facility] No family history on file [facility] 36on 09-09-2023 36 Discharge date: Call [...] well as limiting fluid and sodium intake. [facility] Documentationon 09-09-2023 Documentation [id number] Naren Chowdhury dilcia 1950 M Date Provider Department Center 09/09/2023 26552-OQLMMAMRANCHO VORA VASC [facility] No family history on file Reason for Visit and Comments: HF inpatient satisfaction survey sent. [Other] Normal [facility] Telephoneon 09-09-2023 Telephone [id number] Naren Chowdhury dilcia 1950 M Date Provider Department Center 09/09/2023 [id number], MANDY HVC CARD [facility] No family history on file Reason for Visit and Comments: HF post discharge call. [Other] [facility] 30on 09-06-2023 30 The patient is [...] and behaviors that affect risk of falls Pioneer fall precautions as indicated by assessment Educate [...] status, cognitive ability or social support system [facility] 30 The patient is Moderately Stable - Low risk of patient condition declining or worsening The patient's goals for the shift include comfort, rest The clinical goals for the shift include Stable VS, comfort Normal [facility] BASIC METABOLIC PANELon 03-0 Anion gap [Moles/Vol] 10 mmol/L Normal 7-20 [facility] Comment on above: Performed By: #### L [id number] #### [facility] (BEAKER) [address] [place] [address] Calcium [Mass/Vol] 8.7 mg/dL Normal 8.6-10.3 [facility] Comment on above: Performed By: #### L [id number] #### [facility] ([facility] [address] [place] [address] Chloride [Moles/Vol] 99 mmol/L Normal 98-107 [facility] Comment on above: Performed By: #### L [id number] #### [facility] ([facility] [address] [place] [address] CO2 [Moles/Vol] 30 mmol/L Normal 21-31 [facility] Comment on above: Performed By: #### L [id number] #### [facility] (BEAKER) [address] [place] [address] Creatinine [Mass/Vol] 0.74 mg/dL Normal 0.70-1.30 [facility] Comment on above: Performed By: #### L [id number] #### [facility] ([facility] [address] [place] [address] GLOMERULAR FILTRATION RATE ML/MIN/1.73 SQ M.PREDICTED 94.5 mL/min/1.73m*2 Normal >60.0 [facility] Comment on above: Result Comment: The [facility]???s estimated glomerular filtration rate (eGFR) will no [...] individuals. Performed By: #### L [id number] #### [facility] ([facility]) [address] [place] [address] Glucose [Mass/Vol] 88 mg/dL Normal 70-100 [facility] Comment on above: Performed By: #### L [id number] #### [facility] ([facility]) [address] [place] [address] Potassium [Moles/Vol] 4.0 mmol/L Normal 3.5-5.1 [facility] Comment on above: Performed By: #### L [id number] #### [facility] ([facility]) [address] [place] [address] Sodium [Moles/Vol] 135 mmol/L Low 136-145 [facility] Comment on above: Performed By: #### L [id number] #### [facility] ([facility]) [address] [address] Urea nitrogen [Mass/Vol] 31 mg/dL High 7-25 [facility] Comment on above: Performed By: #### L [id number] #### [facility] ([facility]) [address] [place] [address] UREA NITROGEN/CREATININE (MASS RATIO) IN SER/PLAS 41.9 Normal [facility] Comment on above: Performed By: #### L [id number] #### [facility] ([facility]) [address] [place] [address] CBCon 09-06-2023 Erythrocyte distribution width (RBC) [Ratio] 14.1 % Normal 11.5-15.0 [facility] Comment on above: Performed By: #### L [id number] #### [facility] ([facility]) [address] [place] [address] ERYTHROCYTE MEAN CORPUSCULAR HEMOGLOBIN CONCENTRATION (G/DL) BY AUTOMATED 33.3 g/dL Normal 32.0-35.0 [facility] Comment on above: Performed By: #### L [id number] #### [facility] ([facility]) [address] [place] [address] Hematocrit (Bld) [Volume fraction] 45.4 % Normal 39.0-55.0 [facility] Comment on above: Performed By: #### L [id number] #### [facility] ([facility]) [address] [place] [address] Hemoglobin (Bld) [Mass/Vol] 15.1 g/dL Normal 13.0-17.0 [facility] Comment on above: Performed By: #### L [id number] #### [facility] ([facility]) [address] [place] [address] MCH (RBC) [Entitic mass] 30.7 pg Normal 27.0-33.0 [facility] Comment on above: Performed By: #### L [id number] #### [facility] ([facility]) [address] [place] [address] MCV (RBC) [Entitic vol] 92.3 fL Normal 82.0-98.0 [facility] Comment on above: Performed By: #### L [id number] #### [facility] ([facility]) [address] [place] [address] PLATELETS (10*3/UL) IN BLOOD AUTOMATED COUNT 405 10*3/uL High 150-400 [facility] Comment on above: Performed By: #### L [id number] #### [facility] ([facility]) [address] [place] [address] RBC (Bld) [#/Vol] 4.92 10*6/uL Normal 4.20-5.70 [facility] Comment on above: Performed By: #### L [id number] #### [facility] ([facility]) [address] [place] [address] WBC (Bld) [#/Vol] 14.91 10*3/uL High 4.00-10.60 [facility] Comment on above: Performed By: #### L [id number] #### [facility] (BEAKER) [address] [place] [address] CONSULTon 09-06-2023 CONSULT Clinical Nutrition Assessment Name: [...] hours PRN aspirin 81 mg, oral, Daily aflxhhqzvi-jrvsfeuz-cjo moterol (Breztri Aerosphere) 160-9-4.8 mcg/actuation HFA aerosol [...] Special Kitchen Request Once Comments: [place] with [place] cheese, peppers, onions, mushrooms Wheat toast (butter [...] with questions and contact the dietitian via [employer] chat 8A-4P Saturday-Saturday. Or call the dietitian's office at extension [phone]. For weekends/holidays, the dietitian's can be reached by paging [phone] from -. Unable to be reached via epic chat on Saturday & .) Normal [facility] MAGNESIUMon 09-06-2023 Magnesium [Mass/Vol] 2.6 mg/dL Normal 1.9-2.7 [facility] Comment on above: Performed By: #### L [id number] #### [facility] ([facility]) [address] [place] [address] TROPONIN Ion 09-06-2023 Troponin I.cardiac [Mass/Vol] 0.04 ng/mL Normal 0.00-0.04 [facility] Comment on above: Performed By: #### L [id number] #### [facility] ([facility]) [address] [place] [address] Troponin I.cardiac [Mass/Vol] 0.04 ng/mL Normal 0.00-0.04 [facility] Comment on above: Performed By: #### L [id number] #### [facility] ([facility]) [address] [place] [address] Troponin I.cardiac [Mass/Vol] 0.05 ng/mL High 0.00-0.04 [facility] Comment on above: Performed By: #### L [id number] ####[facility] ([facility])[address] [place] [address] 30on 09-05-2023 30 Daily Case Managemen t [...] Ancillary Consults (From admission, onward) Start Ordered 09/05/23829 Inpatient consult to Social Work Once Provider: [...] name here: MARIO ALBERTO BERNABE 09/05/23 0829 09/05/23829 Consult to Nutrition Services Once Provider: (Not yet assigned) Question: Reason for Consult? Answer: CHF 09/05/23828 Normal [facility] 30 The patient is Moderately Stable - [...] for assistance with activity based on assessment Pioneer fall precautions as indicated by assessment Educate [...] disorders Administer blood products/factors as ordered Normal [facility] 30 The patient is Moderately Unstable - Medium risk of patient condition declining or worsening The patient's goals for the shift include The clinical goals for the shift include stable vs Over the shift, the patient did not make progress toward the following goals. Problem: Respiratory - Adult Goal: Achieves optimal ventilation and oxygenation Outcome: Not Progressing Normal [facility] BASIC METABOLIC PANELon 03-0 Anion gap [Moles/Vol] 11 mmol/L Normal - [facility] Comment on above: Performed By: #### L [id number] #### [facility] (BEAKER) [address] [place] [address] Calcium [Mass/Vol] 9.0 mg/dL Normal 8.6-10.3 [facility] Comment on above: Performed By: #### L [id number] #### [facility] (BEAKER) [address] [place] [address] Chloride [Moles/Vol] 97 mmol/L Low 98-107 [facility] Comment on above: Performed By: #### L [id number] #### [facility] ([facility] [address] [place] [address] CO2 [Moles/Vol] 31 mmol/L Normal 21-31 [facility] Comment on above: Performed By: #### L [id number] #### [facility] ([facility] [address] [place] [address] Creatinine [Mass/Vol] 0.71 mg/dL Normal 0.70-1.30 [facility] Comment on above: Performed By: #### L [id number] #### [facility] ([facility]) [address] [place] [address] GLOMERULAR FILTRATION RATE ML/MIN/1.73 SQ M.PREDICTED 95.7 mL/min/1.73m*2 Normal >60.0 [facility] Comment on above: Result Comment: The [facility]???s estimated glomerular filtration rate (eGFR) will no [...] individuals. Performed By: #### L [id number] #### [facility] ([facility] [address] [place] [address] Glucose [Mass/Vol] 123 mg/dL High 70-100 [facility] Comment on above: Performed By: #### L [id number] #### [facility] ([facility]) [address] [place] [address] Potassium [Moles/Vol] 4.9 mmol/L Normal 3.5-5.1 [facility] Comment on above: Performed By: #### L [id number] #### [facility] ([facility]) [address] [place] [address] Sodium [Moles/Vol] 134 mmol/L Low 136-145 [facility] Comment on above: Performed By: #### L [id number] #### [facility] ([facility]) [address] [place] [address] Urea nitrogen [Mass/Vol] 20 mg/dL Normal 7-25 [facility] Comment on above: Performed By: #### L [id number] #### [facility] ([facility]) [address] [place] [address] UREA NITROGEN/CREATININE (MASS RATIO) IN SER/PLAS 28.2 Normal [facility] Comment on above: Performed By: #### L [id number] #### [facility] ([facility]) [address] [place] [address] CONSULTon 09-05-2023 CONSULT --- Attestation signed by [...] 81 mg by mouth in the morning. xlytbccazl-thwbiahf-xzs moterol (Breztri Aerosphere) 160-9-4.8 mcg/actuation HFA aerosol [...] ) 67.5 kg (148 lb 13 oz) 09/04/234 -- -- -- 66 22 99 % [...] Value Ventricular Rate 62 Atrial Rate 62 NC Interval 168 QRS DURATION 86 QT Interval 426 QTC CALCULATION(BAZETT) 432 P [place] 79 R-[place] -62 T Wave [place] 31 Impression Normal sinus rhythm Left axis [...] left bas (more content not included)... Normal [facility] HPon 09-05-2023 HP --- Attestation signed by Sylvie Avitia MD [...] understands these risks and wishes to proceed. Sylvei Avitia MD H&P reviewed. The patient was examined and there are no changes to the H&P. 73 year old male who presented with worsening shortness of breathe, was transferred from [facility]. On 09/02 night woke up around 4 AM to go to the bathroom, on his way start having worsening shortness of breath, chest tightness, his his saw him pale and diaphoretic, was brought to [facility]. It seems that he has dropped in EF and his troponin has been mildly elevated and hence plan is to do RHC/LHC to evaluate filling pressures and look for coronary anatomy and any CAD. I explained the risks and benefits of the procedure. He would like to proceed. Normal [facility] TROPONIN Ion 09-05-2023 Troponin I.cardiac [Mass/Vol] 0.04 ng/mL Normal 0.00-0.04 [facility] Comment on above: Performed By: #### L [id number] #### [facility] ([facility]) [address] [place] [address] Troponin I.cardiac [Mass/Vol] 0.05 ng/mL High 0.00-0.04 [facility] Comment on above: Performed By: #### L [id number] #### [facility] ([facility]) [address] [place] [address] Troponin I.cardiac [Mass/Vol] 0.05 ng/mL High 0.00-0.04 [facility] Comment on above: Performed By: #### L [id number] ####[facility] ([facility])[address] [place] [address] Troponin I.cardiac [Mass/Vol] 0.05 ng/mL High 0.00-0.04 [facility] Comment on above: Performed By: #### L [id number] #### [facility] ([facility]) [address] [place] [address] Troponin I.cardiac [Mass/Vol] 0.05 ng/mL High 0.00-0.04 [facility] Comment on above: Performed By: #### L [id number] ####[facility] ([facility])[address] [place] [address] Troponin I.cardiac [Mass/Vol] 0.06 ng/mL High 0.00-0.04 [facility] Comment on above: Performed By: #### L [id number] #### [facility] ([facility]) [address] [address] B-TYPE NATRIURETIC PEPTIDEon 09-04-2023 Natriuretic peptide B (Bld) [Mass/Vol] 136 pg/mL High 0-100 [facility] Comment on above: Performed By: #### L [id number] #### [facility] ([facility]) [address] [place] [address] CBC WITH AUTO DIFFERENTIALon 09-04-2023 Basophils (Bld) [#/Vol] 0.04 10*3/uL Normal 0.00-0.20 [facility] Comment on above: Performed By: #### L [id number] #### [facility] ([facility]) [address] [place] [address] Basophils/100 WBC (Bld) 0.2 % Normal 0.0-1.0 [facility] Comment on above: Performed By: #### L [id number] #### [facility] ([facility]) [address] [place] [address] Eosinophils (Bld) [#/Vol] 0.09 10*3/uL Normal 0.00-0.50 [facility] Comment on above: Performed By: #### L [id number] #### [facility] ([facility]) [address] [place] [address] Eosinophils/100 WBC (Bld) 0.5 % Normal 0.0-6.0 [facility] Comment on above: Performed By: #### L [id number] #### [facility] ([facility]) [address] [place] [address] Erythrocyte distribution width (RBC) [Ratio] 13.9 % Normal 11.5-15.0 [facility] Comment on above: Performed By: #### L [id number] #### [facility] ([facility] [address] [place] [address] ERYTHROCYTE MEAN CORPUSCULAR HEMOGLOBIN CONCENTRATION (G/DL) BY AUTOMATED 34.6 g/dL Normal 32.0-35.0 [facility] Comment on above: Performed By: #### L [id number] #### [facility] ([facility]) [address] [place] [address] Hematocrit (Bld) [Volume fraction] 41.9 % Normal 39.0-55.0 [facility] Comment on above: Performed By: #### L [id number] #### [facility] ([facility]) [address] [place] [address] Hemoglobin (Bld) [Mass/Vol] 14.5 g/dL Normal 13.0-17.0 [facility] Comment on above: Performed By: #### L [id number] #### [facility] (BEAKER) [address] [place] [address] Immature granulocytes (Bld) [#/Vol] 0.35 10*3/uL High 0.00-0.20 [facility] Comment on above: Performed By: #### L [id number] #### [facility] (BEAKER) [address] [place] [address] Immature granulocytes/100 WBC (Bld) 1.8 % High 0.0-1.0 [facility] Comment on above: Performed By: #### L [id number] #### [facility] ([facility]) [address] [place] [address] Lymphocytes (Bld) [#/Vol] 0.56 10*3/uL Low 1.20-4.00 [facility] Comment on above: Performed By: #### L [id number] #### [facility] ([facility]ER) [address] [place] [address] Lymphocytes/100 WBC (Bld) 2.8 % Low 20.0-45.0 [facility] Comment on above: Performed By: #### L [id number] #### [facility] ([facility]) [address] [place] [address] MCH (RBC) [Entitic mass] 31.0 pg Normal 27.0-33.0 [facility] Comment on above: Performed By: #### L [id number] #### [facility] ([facility]) [address] [place] [address] MCV (RBC) [Entitic vol] 89.7 fL Normal 82.0-98.0 [facility] Comment on above: Performed By: #### L [id number] #### [facility] ([facility]) [address] [place] [address] Monocytes (Bld) [#/Vol] 1.35 10*3/uL High 0.10-1.00 [facility] Comment on above: Performed By: #### L [id number] #### [facility] ([facility]) [address] [place] [address] Monocytes/100 WBC (Bld) 6.8 % Normal 5.0-12.0 [facility] Comment on above: Performed By: #### L [id number] #### [facility] ([facility]) [address] [place] [address] Neutrophils (Bld) [#/Vol] 17.53 10*3/uL High 1.60-7.60 [facility] Comment on above: Performed By: #### L [id number] #### [facility] ([facility]) [address] [place] [address] Neutrophils/100 WBC (Bld) 87.9 % High 40.0-72.0 [facility] Comment on above: Performed By: #### L [id number] #### [facility] ([facility] [address] [place] [address] NRBC (PER 100 WBCS) BY AUTOMATED COUNT 0.0 % Normal 0 [facility] Comment on above: Performed By: #### L [id number] #### [facility] ([facility]) [address] [place] [address] PLATELETS (10*3/UL) IN BLOOD AUTOMATED COUNT 424 10*3/uL High 150-400 [facility] Comment on above: Performed By: #### L [id number] #### [facility] ([facility]) [address] [place] [address] RBC (Bld) [#/Vol] 4.67 10*6/uL Normal 4.20-5.70 [facility] Comment on above: Performed By: #### L [id number] #### [facility] ([facility]) [address] [place] [address] WBC (Bld) [#/Vol] 19.92 10*3/uL High 4.00-10.60 [facility] Comment on above: Performed By: #### L [id number] #### [facility] ([facility]) [address] [place] [address] COMPREHENSIVE METABOLIC PANE Jesús 09-04-2023 Albumin [Mass/Vol] 4.3 g/dL Normal 3.5-5.7 [facility] Comment on above: Performed By: #### L [id number] #### [facility] ([facility]) [address] [place] [address] ALP [Catalytic activity/Vol] 43 U/L Normal 34-104 [facility] Comment on above: Performed By: #### L [id number] #### [facility] ([facility]) [address] [place] [address] ALT [Catalytic activity/Vol] 23 U/L Normal 7-52 [facility] Comment on above: Performed By: #### L [id number] #### [facility] ([facility] [address] [place] [address] Anion gap [Moles/Vol] 14 mmol/L Normal 7-20 [facility] Comment on above: Performed By: #### L [id number] #### [facility] (BEAKER) [address] [place] [address] AST [Catalytic activity/Vol] 31 U/L Normal 13-39 [facility] Comment on above: Performed By: #### L [id number] #### [facility] (BEAKER) [address] [place] [address] Bilirubin [Mass/Vol] 0.3 mg/dL Normal 0.3-1.0 [facility] Comment on above: Performed By: #### L [id number] #### [facility] [address] [place] [address] Calcium [Mass/Vol] 9.0 mg/dL Normal 8.6-10.3 [facility] Comment on above: Performed By: #### L [id number] #### [facility] [address] [place] [address] Chloride [Moles/Vol] 94 mmol/L Low 98-107 [facility] Comment on above: Performed By: #### L [id number] #### [facility] [address] [place] [address] CO2 [Moles/Vol] 26 mmol/L Normal 21-31 [facility] Comment on above: Performed By: #### L [id number] #### [facility] ([facility] [address] [place] [address] Creatinine [Mass/Vol] 0.74 mg/dL Normal 0.70-1.30 [facility] Comment on above: Performed By: #### L [id number] #### [facility] ([facility] [address] [place] [address] GLOMERULAR FILTRATION RATE ML/MIN/1.73 SQ M.PREDICTED 94.5 mL/min/1.73m*2 Normal >60.0 [facility] Comment on above: Result Comment: The [facility]???s estimated glomerular filtration rate (eGFR) will no [...] individuals. Performed By: #### L [id number] #### [facility] ([facility]) [address] [place] [address] Glucose [Mass/Vol] 117 mg/dL High 70-100 [facility] Comment on above: Performed By: #### L [id number] #### [facility] ([facility]) [address] [place] [address] Potassium [Moles/Vol] 4.6 mmol/L Normal 3.5-5.1 [facility] Comment on above: Performed By: #### L [id number] #### [facility] ([facility]) [address] [place] [address] Protein [Mass/Vol] 7.2 g/dL Normal 6.0-8.3 [facility] Comment on above: Performed By: #### L [id number] #### [facility] ([facility]) [address] [place] [address] Sodium [Moles/Vol] 129 mmol/L Low 136-145 [facility] Comment on above: Performed By: #### L [id number] #### [facility] ([facility]) [address] [place] [address] Urea nitrogen [Mass/Vol] 17 mg/dL Normal 7-25 [facility] Comment on above: Performed By: #### L [id number] #### [facility] ([facility]) [address] [place] [address] UREA NITROGEN/CREATININE (MASS RATIO) IN SER/PLAS 23.0 Normal [facility] Comment on above: Performed By: #### L [id number] #### [facility] ([facility]) [address] [place] [address] LACTIC ACID WITH 4 HOUR REFL EXon 09-04-2023 LACTATE (MMOL/L) IN SER/PLAS 1.0 mmol/L Normal 0.5-2.2 [facility] Comment on above: Performed By: #### L [id number] #### [facility] ([facility]) [address] [place] [address] MAGNESIUMon 09-04-2023 Magnesium [Mass/Vol] 2.3 mg/dL Normal 1.9-2.7 [facility] Comment on above: Performed By: #### L [id number] ####[facility] ([facility])[address] [place] [address] PHOSPHORUSon 09-04-2023 Magnesium [Mass/Vol] 3.1 mg/dL Normal 2.5-5.0 [facility] Comment on above: Performed By: #### L [id number] #### [facility] ([facility]) [address] [place] [address] TROPONIN Ion 09-04-2023 Troponin I.cardiac [Mass/Vol] 0.05 ng/mL High 0.00-0.04 [facility] Comment on above: Performed By: #### L [id number] #### [facility] ([facility]) [address] [place] [address] CT CHEST WO IV CONTRASTon CT CHEST [...] by Thang Giles on 01/31/2022 1022 Normal [facility] Target Worker Encounters Encounter Date Encounter Type Care Provider Facility Start: 11-12-2023 End: 11-12-2023 ambulatory MARK Negron WONDERLY Not Available Start: 10-28-2023 End: 10-28-2023 ambulatory OMAR [facility] Start: 10-15-2023 End: 10-15-2023 ambulatory MARK Negron WONDERLY Not Available Start: 10-11-2023 End: 10-11-2023 ambulatory [facility] Start: 10-10-2023 End: 10-11-2023 ambulatory VEGA CLOIN [facility] Start: 10-03-2023 End: 10-03-2023 ambulatory [facility] Start: 09-18-2023 End: 09-19-2023 ambulatory [facility] Start: 09-13-2023 End: 09-13-2023 ambulatory [facility] Start: 09-12-2023 End: 09-12-2023 ambulatory MARK Negron WONDERLY Not Available Start: 09-05-2023 Evaluation and management of inpatient [facility] Start: 09-04-2023 Evaluation and management of inpatient [facility] Start: 09-04-2023 End: 09-06-2023 Evaluation and management of inpatient [facility] Start: 08-21-2023 ambulatory LLYY F PARAMJIT [facility] Start: 08-13-2023 End: 08-14-2023 [...] procedure 08/06/2023 9:00 AM EST Office Visit [facility] [address] [facility] [place] [address] Jean Hdz NP [address] [place] [address] [facility] Start: 1950 Screening for malign ant neoplasm of colon [facility] Immunizations Immunization Date Immunization Notes Care Provider Fa cility 04-20-2023 Influenza, High-dose Seasonal, Quadrivalent, Preservative Free Jean Hdz OPHTHALMIC ASSISTANT Work Phone: [facility] 04-20-2023 Pneumococcal Conjuga te PCV 20 Jean Hdz OPHTHALMIC ASSISTANT Work Phone: [facility] 04-11-2022 Influenza, High-dose Seasonal, Quadrivalent, Preservative Free Jean Hdz OPHTHALMIC ASSISTANT Work Phone: [facility] 04-23-2021 Influenza, High-dose Seasonal, Quadrivalent, Preservative Free Jean Hdz OPHTHALMIC ASSISTANT Work Phone: [facility] 03-18-2020 Influenza, High-dose Seasonal, Quadrivalent, Preservative Free Jean Nancie OPHTHALMIC ASSISTANT Work Phone: [facility] 04-25-2019 Influenza, High-dose Seasonal, Quadrivalent, Preservative Free Jean Nancie OPHTHALMIC ASSISTANT Work Phone: [facility] 05-30-2018 Influenza, High-dose Seasonal, Quadrivalent, Preservative Free Jean Nancie OPHTHALMIC ASSISTANT Work Phone: [facility] 08-20-2017 Influenza, High-dose Seasonal, Quadrivalent, Preservative Free Jean Hdz OPHTHALMIC ASSISTANT Work Phone: [facility] 06-28-2015 influenza, seasonal, injectable Jean Hdz OPHTHALMIC ASSISTANT Work Phone: [facility] 06-28-2015 pneumococcal conjuga te vaccine, 13 valent Jean Hdz OPHTHALMIC ASSISTANT Work Phone: [facility] 05-28-2015 pneumococcal conjuga te vaccine, 13 valent Jean Hdz OPHTHALMIC ASSISTANT Work Phone: [facility] 05-16-2014 pneumococcal polysaccharide vaccine, 23 valent Jean Hdz OPHTHALMIC ASSISTANT Work Phone: [facility] Payers Date Payer Category Payer Medicare [employer] MEDICARE ADVANTAGE FORMERLY [facility] MEDICARE ADVANTAGE [id number] 2021-Present [address] [place] [address] [id number] 2021 Medicare [id number] 2017 Unknown [id number] 2013 Medicare [id number] 1959 Self-pay 1950 Unknown [id number] 1950 Unknown [id number] [id number] 1948 Unknown [id number] [id number] 1948 Unknown [id number] [id number] 1948 Unknown [id number] [id number] 1948 Unknown [id number] [id number] 1948 Unknown [id number] [id number] 1948 Unknown [id number] [id number] 1948 Unknown [id number] [id number] 1948 Unknown [id number] [id number] 1948 Unknown [id number] [id number] Unknown [id number] [id number] Social History Date Type Detail Facility Start: [...] to any clubs or organizations such as worship groups, unions, fraternal or athletic groups, or [...] At Not on file [facility] Clinical Notes 09-04-2023 to 10-11-2023 Note Date & Type Note Facility 10-11-2023 Note [facility] II-III, current ly appear fluid overloaded therefore [...] fluid restriction 1.5-2L/day, renal function and electrolytes- [facility] 10-11-2023 Note Coronary artery dise ase is stable Continue GDMT- Lipitor, toprol and entresto continue risk factor modifications- heart healthy diet, regular exercise as tolerated and continue all medications. [facility] 10-11-2023 Note Lipid abnormalities are managed with lipitor 40 mg [facility] 10-11-2023 Note UTP CARDIOLOGY PROGR ESS NOTE [...] time and recently f/U with pulmonary at [facility]. Admits occasional lightheadedness/dizziness without syncope [...] by mouth at bedtime. 90 tablet 3 bclishwpqs-ppfzbfbg-xrkxqrhduk (Breztri Aerosphere) 160-9-4.8 mcg/actuation HFA aerosol inhaler [...] Ventricle: The ri (more content not included)... [facility] 10-11-2023 Note Patient here for 1 m [...] All other systems reviewed and are negative. [facility] 09-13-2023 Note [facility] Currently using tyrone peter patches and has remained non smoking since DC from hospital [facility] 09-13-2023 Note Coronary artery dise ase is stable Continue GDMT- ASA lipitor and toprol continue risk factor modifications- heart healthy diet, regular exercise as tolerated and continue all medications. [facility] 09-13-2023 Note Will send pt for PFT and referral to pulmonary [facility] 09-13-2023 Note Continue lipitor LFT and lipid in 2-3 months [facility] 09-13-2023 Note UTP CARDIOLOGY PROGR ESS NOTE [...] chest pain, orthopnea, but is needing oxygen 24/7 since being in the hospital. States weight has remained stable at home without any weight gain. Has not resumed smoking and is wearing nicotine patch. Has also not drank any beer so far. 09/06/23 [facility] DC summary Discharge Summary Final Discharge Diagnosis: COPD exacerbation Admission Diagnosis: Decompensated heart failure (CMS/[facility]) [I50.9] Hospital course: 73 y.o. male who came from home with worsening shortness of breath. Patient is heavy smoker, never officially diagnosed with COPD or had a PFT, was scheduled to get a PFT this week, and see Dr. Bryant (elementary school registrar) on September,January 2023 had severe pneumonia and he was discharged home on 2 L nasal cannula, the past few weeks has been having worsening cough, and shortness of breath, on 09/02 night woke up around 4 AM to go to the bathroom, on his way start having worsening shortness of breath, chest tightness, his his saw him pale and diaphoretic, was brought to [facility]. Over there patient was treated for presumably [...] the transfer for heart cath. Workup from [facility] revealed chest x-ray showed no acute [...] On 4 L nasal cannula. DC summary [facility] ED Review of Systems Constitutional: Positive for [...] bedtime for 30 doses. 30 tablet 0 yxfdpmzyhn-cmloqxwr-wxoexvgfpk (Breztri Aerosphere) 160-9-4.8 mcg/actuation HFA aerosol inhaler [...] side. Posterior tib (more content not included)... [facility] 09-13-2023 Note ROS No cardio symptoms per pt Has hard time breathing but is on oxygen States fatigued [facility] 09-13-2023 Note [facility] III Remains euv olemic without exacerbation Continue GDMT- AsA, lipitor, toprol, aldactone and DC valsartan and start entresto. Diuretic therapy- [facility] Monitor daily weights, I&O, fluid restriction 1.5-2L/day, renal function and electrolytes- [facility] 09-11-2023 Note Pt's left at Cardiac Rehab ([facility]) to schedule an appointment for initial evaluation per AVS instructions following his recent hospitalization. Pt's was informed he does not qualify for [facility] therapy with HF diagnosis per CMS eligibility criteria and verbalized understanding. 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 Check No Charge Time attempted: 1337 [facility] 09-06-2023 Note Hospital Medicine Discharge Summary Final Discharge Diagnosis: COPD exacerbation Admission Diagnosis: Decompensated heart failure (CMS/HCC) [I50.9] Hospital course: 73 y.o. male who came from home with worsening shortness of breath. Patient is heavy smoker, never officially diagnosed with COPD or had a PFT, was scheduled to get a PFT this week, and see Dr. Bryant (elementary school registrar) on September,January 2023 had severe pneumonia and he was discharged home on 2 L nasal cannula, the past few weeks has been having worsening cough, and shortness of breath, on 09/02 night woke up around 4 AM to go to the bathroom, on his way start having worsening shortness of breath, chest tightness, his his saw him pale and diaphoretic, was brought to [facility]. Over there patient was treated for presumably COPD exacerbation, troponin was high and thought to be demand ischemia per the notes never started on heparin drip, BNP was elevated patient was treated with Bumex. Ejection fraction 35 to 40%, reportedly no EKG changes, due to drop in ejection fraction case was discussed with Dr. Parker who accepted the transfer [facility]. [facility] acute [...] Center 09/13/2023 9:30 AM Jeannie Thao NP [facility] Your medication list START [...] 160-9-4.8 mcg/actuation HFA aerosol inhaler Generic drug: eohswrwlyz-egsyagnc-bxghvkibrt STOP taking these medications simvastatin 40 mg tablet Commonly known as: Zocor Where to Get Your Medications These medications were sent to [facility] [address] [place] [address] [address] [address] atorvastatin 40 mg tablet azithromycin 250 mg [...] Results from last 7 days Lab Units 09/06/239 09/04/231954 WBC AUTO 10*3/uL 14.91* 19.92* HEMOGLOBIN g/dL 15.1 14 (more content not included)... [facility] 09-06-2023 Note Physical Therapy Physical Therapy Evaluation [...] Level of Function Prior Function Level of [place]: Independent with ADLs and functional transfers, Independent [...] presents with i (more content not included)... [facility] 09-06-2023 Note ------ Attestation signed by Warren [...] Value Ventricular Rate 62 Atrial Rate 62 NC Interval 168 QRS DURATION 86 QT Interval 426 QTC CALCULATION(BAZETT) 432 P [place] 79 R-[place] -62 T Wave [place] 31 Impression Normal sinus rhythm Left axis deviation Abnormal ECG No previous ECGs available Confirmed by Светлана MARCOS, L.S. (2) on 09/05/2023 3:56:36 PM Lab Results Component Value Date TROPONINI 0.04 09/06/2023 Complete Echo (TTE) w/wo Imaging Agent, Strain, 3D, Bubble Study Result Date: 09/05/2023 1 1 [facility] [address] [id number] [phone] (fax) Echocardiogram-[facility] Name: VAHID CHOWDHURY Study Date: 09/05/2023 02:37 PM B/P: 118 mmHg/67 mmHg HR: 50 bpm Date of : 1950 Location: [facility] Height: 65 in. Age: 73 year(s) Patient [...] Normal Value R (more content not included)... [facility] 09-05-2023 Note Hospital Medicine Daily Progress Note - 09/05/2023 2:43 PM; Room: [address] [place] [address] Admission: 09/04/2023 6:56 PM; Length of stay: 1 days THE HOSPITALIST TEAM PREFERS TO USE [employer] CHAT FOR COMMUNICATION 7AM-7PM. IF I DO NOT RESPOND WITHIN 15 MINUTES, PLEASE PAGE ME/CALL THROUGH THE DIRECTOR OF LOGISTICS. 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 Additional Equipment Requests [facility] 09-04-2023 Note Hospital Medicine History and Physical 09/04/2023 8:17 PM THE HOSPITALIST TEAM PREFERS TO USE [employer] FOR COMMUNICATION 7AM-7PM. IF I DO NOT RESPOND WITHIN 15 MINUTES, PLEASE PAGE ME/CALL THROUGH THE DIRECTOR OF LOGISTICS. FROM 7PM-7AM, PLEASE PAGE [phone](COVR) Chief Complaint Worsening shortness of breath History of Present Illness Vahid Chowdhury is an 73 y.o. male who came from home with worsening shortness of breath. Patient is heavy smoker, never officially diagnosed with COPD or had a PFT, was scheduled to get a PFT this week, and see Dr. Bryant (elementary school registrar) on September,January 2023 had severe pneumonia and he was discharged home on 2 L nasal cannula, the past few weeks has been having worsening cough, and shortness of breath, on 09/02 night woke up around 4 AM to go to the bathroom, on his way start having worsening shortness of breath, chest tightness, his his saw him pale and diaphoretic, was brought to [facility]. Over there patient was treated for presumably COPD exacerbation, troponin was high and thought to be demand ischemia per the notes never started on heparin drip, BNP was elevated patient was treated with Bumex. Ejection fraction 35 to 40%, reportedly no EKG changes, due to drop in ejection fraction case was discussed with Dr. Parker who accepted the [facility]. [facility] acute [...] Noted Acute on chronic hypoxic respiratory failure ([facility]) 09/04/2023 Current smoker 09/04/2023 [...] echo - Reportedly no EKG changes at [facility] - Consult cardiology for possible left [...] this hospital stay by a member of [facility]. Past Medical History No past [...] Fear of Current (more content not included)... 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 Advance Directives and Living Will 02/25/2020 2019-01-09 Living Wi ll Additional Source Comments (unrecognized sect ion and content) No Status Records FoundNo Status Records FoundNo Status Records FoundNo Status Records FoundNo Status Records FoundNo Status Records Found INFORMATION SOURCE (unrecogn ized section and content) DATE CREATED AUTHOR 08/21/2020 [facility] DATE CREATED AUTHOR AUTHOR'S ORGANIZ ATION 02/01/2022 [facility] dical Specialist DATE CREATED AUTHOR AUTHOR'S ORGANIZ ATION 10/11/2023 [facility] DATE CREATED AUTHOR AUTHOR'S ORGANIZ ATION 10/12/2023 [place] DATE CREATED AUTHOR AUTHOR'S ORGANIZ ATION 10/29/2023 [facility] DATE CREATED AUTHOR AUTHOR'S ORGANIZ ATION 11/14/2023 [facility] dical Specialists EPIC Care Teams (unrecognized sec tion and content) Equipment Installation Professional Relationship Specialty Start Date End Date Henrietta Spence DO [address] [place] [address] PCP - Jennifer FIHSER 07/01/21 Henrietta Spence DO [address] [place] [address] PCP - General Family Medicine 11/06/22 FOR [...] BE BASED ON THE PRIMARY CLINICAL RECORDS. [employer] provides no warranty or guarantee of the accuracy or completeness of information in this document.
== END 2023-12-24 08:53 | disposition home or self-care (01) ==
LOC: CARD 08:53
PROVIDERS: PCP Family Medicine; Visit Provider Nurse Practitioner
DX: I25.10 Atherosclerotic heart disease of native coronary artery without angina pectoris (principal); I50.22 Chronic systolic (congestive) heart failure
CPT/HCPCS: 93306

== ENCOUNTER 2024-01-09 12:23 | Outpatient (OUT) | payer MEDICARE, SELFPAY ==
[2024-01-09 13:50] LABS: Anion Gap 12.7; BUN Creatinine Ratio 14.8; Calcium 8.8 mg/dL (8.5-10.1); Carbon Dioxide 29.5 mmol/L (21.0-32.0); Chloride 99 mmol/L (98-107); Estimated GFR (African America >60 (>=60); Estimated GFR (Non-African Ame >60 (>=60); Glucose 108 mg/dL (74-106); Potassium 4.2 mmol/L (3.5-5.1); Sodium 137 mmol/L (136-145)
== END 2024-01-09 12:24 | disposition home or self-care (01) ==
LOC: LAB 12:24
PROVIDERS: PCP Family Medicine; Visit Provider Nurse Practitioner
DX: I50.22 Chronic systolic (congestive) heart failure (principal)
CPT/HCPCS: 36415; 80048

== ENCOUNTER 2024-03-05 13:23 | Outpatient (OUT) | payer MEDICARE, SELFPAY ==
--- NOTE | 2024-03-05 13:31 | ECG_ITS ---
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
--- NOTE | 2024-03-05 13:31 | XR_ITS ---
The [address] [address] Patient Name: VAHID CHOWDHURY MRN: [id number] date: 1950 Sex: M [facility]igned [facility] Current Patient Location: [facility] Accession/Order Number: [id number] Exam Date: 03/05/2024 14:20 Report Date: 03/05/2024 14:50 At the request of: BEATRICE JUAREZ Procedure: XR chest 2V EXAM: XR chest 2V HISTORY: Preop exam COMPARISON: 09/03/2023 TECHNIQUE: Upright PA and lateral chest x-ray FINDINGS: Opacity is seen at the left lung base with blunting of the costophrenic angle. This appears to be primarily chronic in nature related to pleural and parenchymal scarring. No acute infiltrate, effusion or pneumothorax is readily identified. Flattening of the hemidiaphragms indicates COPD. The osseous structures are grossly intact. XR/XR chest 2V IMPRESSION: Chronic changes are present, without evidence of a definite acute infiltrate or cardiac decompensation. Electronically authenticated by: SERGIO RAMOS Date: 03/05/2024 14:50
[2024-03-05 14:28] LABS: Basophils Absolute Auto 0.1 10^3/uL (0.0-0.1); Basophils Percent Auto 0.7 % (0.2-2.0); Eosinophils Absolute Auto 0.3 10^3/uL (0.0-0.7); Eosinophils Percent Auto 2.8 % (0.9-7.0); Hematocrit 44.7 % (42.0-54.0); Hemoglobin 14.8 g/dL (14.0-18.0); Lymphocytes Absolute Auto 1.4 10^3/uL (1.2-3.8); Mean Corpuscular HGB Conc 33.1 g/dL (29.9-35.2); Mean Corpuscular Hemoglobin 31.4 pg (25.9-34.0); Mean Corpuscular Volume 94.7 fL (80.0-94.0); Monocytes Absolute Auto 0.8 10^3/uL (0.3-0.8); Monocytes Percent Auto 8.1 % (1.7-12.0); Neutrophils Absolute Auto 7.4 10^3/uL (1.4-6.5); Neutrophils Percent Auto 72.4 % (43.0-75.0); Platelet Count 330 10^3/uL (150-450); Red Blood Count 4.72 10^6/uL (4.70-6.10); Red Cell Distribution Width 13.6 % (11.0-15.0); White Blood Count 10.2 10^3/uL (4.0-11.0)
[2024-03-05 15:00] LABS: INR 0.94; Partial Thromboplastin Time 27.1 sec (22.3-36.2)
[2024-03-05 15:22] LABS: BUN Creatinine Ratio 20.6; Calcium 9.5 mg/dL (8.5-10.1); Chloride 100 mmol/L (98-107); Estimated GFR (African America >60 (>=60); Estimated GFR (Non-African Ame >60 (>=60); Glucose 112 mg/dL (74-106); Potassium 4.4 mmol/L (3.5-5.1); Sodium 140 mmol/L (136-145)
[2024-03-05 15:37] LABS: Anion Gap 12.7; Carbon Dioxide 31.7 mmol/L (21.0-32.0)
== END 2024-03-05 13:24 | disposition home or self-care (01) ==
LOC: PST 13:23
PROVIDERS: PCP Family Medicine; Visit Provider Otolaryngology
DX: Z01.810 Encounter for preprocedural cardiovascular examination (principal); Z01.812 Encounter for preprocedural laboratory examination; R49.9 Unspecified voice and resonance disorder; J38.3 Other diseases of vocal cords
CPT/HCPCS: 36415; 71046; 80048; 85025; 85610; 85730; 93005

== ENCOUNTER 2024-04-20 08:46 | Outpatient (OUT) | payer MEDICARE, SELFPAY ==
--- OUTSIDE RECORDS SUMMARY | 2024-04-20 08:53 | XMS_ITS | CCD ---
Author Organization [facility] Care Team Providers Care Insole Department Worker Name Role Phone REQUEST, NONE LISTED Consulting Unavailable REQUEST, NONE LISTED Attending Unavailable REQUEST, NONE LISTED Admitting Unavailable Henrietta Spence DO Unavailable Henrietta Spence DO Primary Care Provider MAEGAN BRYANT Attending Unavailable MAEGAN BRYANT Referring Unavailable PARAMJIT, LYLY F Primary Care Unavailable VEGA COLIN Attending Unavailable VEGA COLIN Referring Unavailable KARY JAY Primary Care Unavailable MAEGAN BRYANT Attending Unavailable JASMINE HDZ Referring Unavailable PARAMJIT, LYLY F Primary Care Unavailable OMAR FARFAN Attending Unavailable PARAMJIT, LYLY F Referring Unavailable KARY JAY Primary Care Unavailable MAEGAN BRYANT Attending Unavailable PARAMJIT, LYLY F Referring Unavailable KARY JAY Primary Care Unavailable PARAMJIT, LYLY F Referring Unavailable PARAMJIT, LYLY F Primary Care Unavailable KARY JAY Referring Unavailable PIERRE KARY Primary Care Unavailable KARY JAY BETH Primary Care Physician Timmis, Beatrice H Attending Unavailable Timmis, Beatrice H Referring Unavailable Timmis, Beatrice H Admitting Unavailable Timmis, Beatrice H Attending Unavailable Timmis, Beatrice H Referring Unavailable Timmis, Beatrice H Admitting Unavailable LISA CORTEZ Attending Unavailable HORANI, HIPOLITO Referring Unavailable HORANI, HIPOLITO Referring Unavailable HORANI, HIPOLITO Referring Unavailable ESTELLA, MARYCARMEN Attending Unavailable ESTELLA, MARYCARMEN Attending Unavailable ESTELLA, MARYCARMEN Attending Unavailable ELTAHAWY, EHAB Referring Unavailable HORANI, HIPOLITO Attending Unavailable DOUG, TAB Admitting Unavailable Kary Jay MD Primary Care Provider Nancie ANGELO, Jasmine Telles Unavailable Savanah Irwin LPN Unavailable Pierre BRIGGS Kary Jamil Unavailable [phone] Pierre BRIGGS [facility] Primary Care Provider [phone] Davion TOBIN Referring Unavailable PIERRE [facility] Primary Care Unavailable BEATRICE JUAREZ Referring Unavaila [facility] Davion TOBIN Attending Unavailable [facility] Primary Care Unavailable JASMINE HDZ Attending Unavailable JASMINE HDZ Referring Unavailable WONDERKRISTEN, KARY Jamil Attending Unavailable PIERRE, KARY Jamil Attending Unavailable PIERRE, KARY Jamil Attending Unavailable PIERRE, KARY Jamil Attending Unavailable BEATRICE JUAREZ Attending Unavailable PIERRE, KARY Jamil Referring Unavailable BEATRICE JUAREZ Attending Unavailable KINSEY LOWE Attending Unavailable Allergies Allergy Classification Reported Allergen(s) Allergy Type Date of Onset Reaction(s) Facility (1 source) ALLERGIES NOT ON FILE; Translations: [ALLERGIES NOT ON FILE] Propensity to adverse reactions (disorder) [facility] Repository Medications Current Medications Medication Drug Class(es) Dates Sig (Normalized) Sig (Original) albuterol 0.83 mg/ml inhalation solution (17 sources) beta2-Adrenergic Agonist Start: 03-11-2024 take 2.5 mg by inhalation every six hours as needed albuterol 0.083% Inh Cecilia 3 mL 2.5 mg, 3 mL, Inhalation, Shortness of breath or wheezing, Q6H and PRN Start Date: 03/11/24 Status: Ordered Start: 09-26-2023 End: 09-25-2024 albuterol (2.5 MG/3ML) 0.083 % nebulizer solution Indications: COPD mixed type (CMS/HCC) Take 3 mL (2.5 mg) by nebulization every 6 (six) hours if needed for wheezing or shortness of breath 75 mL 11 09/26/2023 09/25/2024 Active Start: 06-08-2022 take 2 puff(s) by in halation every four hours for wheezing albuterol HFA 90 mcg/act inhaler Inhale 2 puffs every 4 (four) hours if needed for shortness of breath or wheezing. 06/08/2022 Active albuterol HFA (P ROVENTIL HFA, VENTOLIN HFA) 90 mcg/actuation inhaler Inhale 2 Puffs as instructed. Active Albuterol (Eqv-ProAir HFA) 90 mcg/inh inhalation aerosol (2 sources) Start: 03-11-2024 Albuterol (Eqv-ProAir HFA) 90 mcg/inh inhalation aerosol 2 puff(s), Inhalation, Shortness of breath or wheezing, Refill(s) 0 Start Date: 03/11/24 Status: Ordered aspirin 81 mg oral capsule (10 sources) Platelet Aggregation Inhibitor, Nonsteroidal Anti-inflammatory Drug Start: 03-11-2024 take 1 capsule by mouth once daily aspirin 81 mg oral capsule 81 mg = 1 cap(s), Oral, Daily, Refills(s) 0, Prophylaxis Start Date: 03/11/24 Status: Ordered take 1 tablet by mouth in the mo rning aspirin 81 MG EC tablet Take 81 mg by mouth in the morning. Active atorvastatin 40 mg oral tablet (9 sources) HMG-CoA Reductase Inhibitor Start: 10-04-2023 End: 10-03-2024 atorvastatin (LIPITOR) 40 mg tablet Take 40 mg by mouth. 10/04/2023 10/03/2024 Active Breztri Aerosphere inhalation aerosol (2 sources) Start: 03-11-2024 Breztri Aerosphere inhalation aerosol Refill(s) 0, COPD Start Date: 03/11/24 Status: Ordered 120 actuat budesonide 0.16 mg/actuat / formoterol fumarate 0.0048 mg/actuat / glycopyrrolate 0.009 mg/actuat metered dose inhaler (8 sources) Corticosteroid, beta2-Adrenergi c Agonist Start: 03-29-2023 take 2 puff(s) by inhalation in the morning Budeson-Glycopyrro l-Formoterol (Breztri Aerosphere) 160-9-4.8 MCG/ACT aerosol Indications: Chronic bronchitis, unspecified chronic bronchitis type (CMS/HCC) Inhale 2 puffs in the morning and 2 puffs before bedtime. 10.7 g 3 03/29/2023 Active Start: 03-29-2023 budesonide-gly copyr-formoterol (BREZTRI AEROSPHERE) 160-9-4.8 mcg/actuation HFA aerosol inhaler Inhale as instructed. 03/29/2023 Active cefdinir 300 mg oral capsule (1 source) Cephalosporin Antibacterial Start: 02-22-2023 take 1 capsule by mouth in the morning cefdinir (Omnicef) 300 MG capsule Take 300 mg by mouth in the morning and 300 mg before bedtime. 0 02/22/2023 Active dapagliflozin 10 mg oral tablet (9 sources) Sodium-Glucose Cotransporter 2 Inhibitor Start: 09-26-2023 End: 04-07-2025 take 1 tablet by mouth once daily dapagliflozin (Farxiga) 10 MG Indications: Coronary artery disease involving eek coronary artery of eek heart without angina pectoris (CMS/HCC) , Prediabetes , Chronic systolic CHF (congestive heart failure), NYHA class 2 (CMS/HCC) Take 1 tablet (10 mg) by mouth Daily 90 tablet 3 04/07/2024 04/07/2025 Active furosemide 20 mg oral tablet (9 sources) Loop Diuretic Start: 03-11-2024 take 1 tablet by mouth once daily furosemide 20 mg Tab 20 mg = 1 tab(s), Oral, Daily, Refills(s) 0, diuretic/water pill Start Date: 03/11/24 Status: Ordered Start: 01-01-2024 End: 04-14-2025 furosemide (LASIX) 40 mg tab let Take 40 mg by mouth. 01/01/2024 04/14/2025 Active iv contrast (will be provided with radiology test) (4 sources) Start: 04-16-2024 End: 04-16-2024 inject 1 dose intravenously once, then inject 1 dose intravenously once iv contrast (will be provided with radiology test) Inject 1 Each intravenously one time only for [address] Neck W IVCON No IV access, insert saline lock prior to the sedation, infusion, injection for imaging exam. Discontinue saline lock post exam. If Pt. has a central line or IVAD, may access for administration according to line specific nursing protocol. Once exam is complete flush line and de-access according to line specific nursing protocol in the CT contrast administration guidelines link. 1 Each 04/16/2024 04/16/2024 Active Start: 04-16-2024 End: 04-17-2024 iv contrast (will be provide d with radiology test) CT Chest W -Inject, intravenously, once for 1 dose.No IV access, insert saline lock prior to the beginning of sedation, infusion, injection of imaging exam. Discontinue saline lock post exam. If Pt. has a central line or IVAD, may access for administration according to line specific nursing protocol. Once exam is complete flush line and de-access according to line specific nursing protocol in the CT contrast administration guidelines link. 1 Each 04/16/2024 04/17/2024 Active 24 hr metoprolol succinate 25 mg extended release oral tablet (9 sources) beta-Adrenergic Chloe Start: 03-11-2024 metopr olol succinate 25 mg ER Tab 12.5 mg = 0.5 tab(s), Oral, Daily, Refills(s) 0, Other (see comment) Start Date: 03/11/24 Status: Ordered Start: 09-26-2023 End: 09-25-2024 take 1 tablet by mouth every twenty-four hours metoprolol succinate ER (TOPROL XL) 25 mg 24 hr tablet Take 12.5 mg by mouth. 09/26/2023 09/25/2024 Active take 1 tablet by mouth once campbell y metoprolol succinate XL (Toprol-XL) 25 MG 24 hr tablet Take 12.5 mg by mouth Daily Do not crush or chew. Active Oxygen (5 sources) oxygen (O2) gas Inhale 2 L/min if needed via nasal canula Active potassium chloride 10 meq extended release oral capsule (4 sources) potassium chlori de ER (Micro-K) 10 MEQ ER capsule Take 10 mEq by mouth in the morning. Active predniSONE 10 mg oral tablet (1 source) Start: 3 take 1 tablet by mouth in the morning predniSONE (Deltasone) 10 MG tablet Take 10 mg by mouth in the morning. 0 02/22/2023 Active sacubitril 24 mg / valsartan 26 mg oral tablet (9 sources) Angiotensin 2 Receptor Chloe Start: 4 take 1 tablet by mouth twice daily Entresto 24 mg-26 mg oral tablet 1 tab(s), Oral, BID, Refill(s) 0, Other (see comment) Start Date: 03/11/24 Status: Ordered Start: 09-13-2023 End: 09-12-2024 take 1 tablet by mouth in the morning Entresto 24-26 MG tablet Take 1 tablet by mouth in the morning and 1 tablet in the evening. 09/13/2023 Active simvastatin 40 mg oral tablet (1 source) HMG-CoA Reductase Inhibitor Start: 07-17-2023 take 1 tablet by mouth once daily simvastatin (Zocor) 40 MG tablet Indications: Mixed hyperlipidemia (CMS/HCC) Take 1 tablet by mouth once daily 90 tablet 0 07/17/2023 Active spironolactone 25 mg oral tablet (9 sources) Aldosterone Antagonist Start: 03-11-2024 take 0.5 tablet by mouth once daily spironolactone 25 mg Tab 0.5 tab, Oral, Daily, Refills(s) 0, diuretic/water pill Start Date: 03/11/24 Status: Ordered Start: 09-26-2023 End: 09-25-2024 spironolactone (ALDACTONE) 2 5 mg tablet Take 12.5 mg by mouth. 09/26/2023 09/25/2024 Active Problems Active Problems Problem Classification Problem Date Documented Date Episodic/Chronic Aortic; peripheral; and visceral artery aneurysms (20 sources) Abdominal aortic aneurysm 3.0 to 5.5 centimeters in male; Translations: [Abdominal aortic aneurysm (AAA) 3.0 cm to 5.5 cm in diameter in male] Onset: 02-07-2023 02-07-2023 Chronic Asthma (4 sources) Asthma; Translations: [Unspecified asthma, uncomplicated] Onset: 04-16-2024 03-11-2024 Chronic Cancer of head and neck (9 sources) Malignant tumor of vocal cord; Translations: [Malignant neoplasm of glottis] Onset: 04-14-2024 04-14-2024 Chronic Chronic obstructive pulmonary disease and bronchiectasis (19 sources) Chronic obstructive lung disease; Translations: [Chronic obstructive pulmonary disease, unspecified] Onset: 02-07-2023 02-07-2023 Chronic Congestive heart failure; nonhypertensive (20 sources) Chronic diastolic heart failure; Translations: [Chronic combined systolic (congestive) and diastolic (congestive) heart failure] Onset: 09-04-2023 03-11-2024 Chronic Coronary atherosclerosis and other heart disease (7 sources) Atherosclerotic heart disease of eek coronary artery without angina pectoris; Translations: [Coronary arteriosclerosis] Onset: 09-13-2023 Chronic Diabetes mellitus without complication (8 sources) Prediabetes; Translations: [Prediabetes] Onset: 02-15-2021 02-14-2023 Episodic Disorders of lipid metabolism (12 sources) Mixed hyperlipidemia; Translations: [Mixed hyperlipidemia] Onset: 02-07-2023 02-07-2023 Chronic Diverticulosis and diverticulitis (6 sources) Diverticulosis of large intestine; Translations: [Diverticulosis of large intestine without perforation or abscess without bleeding] Onset: 02-07-2023 02-07-2023 Chronic Other lower respiratory disease (1 source) Shortness of breath; Translations: [Shortness of breath] Onset: 09-18-2023 Episodic Other lower respiratory disease (7 sources) Nodule of lung; Translations: [Solitary pulmonary nodule] Onset: 08-06-2023 08-06-2023 Episodic Other lower respiratory disease (7 sources) Dyspnea on exertion; Translations: [Other forms of dyspnea] Onset: 09-13-2023 11-08-2023 Episodic Other lower respiratory disease (2 sources) Dyspnea; Translations: [Shortness of breath] 04-19-2024 Episodic Other screening for suspected conditions (not mental disorders or infectious disease) (1 source) Abnormal findings on diagnostic imaging of other specified body structures; Translations: [Abnormal findings on diagnostic imaging of other specified body structures] Onset: 10-03-2023 Chronic Other upper respiratory disease (1 source) Disorder of vocal cord; Translations: [Other diseases of vocal cords] Onset: 04-02-2024 Episodic Peripheral and visceral atherosclerosis (16 sources) Peripheral vascular disease; Translations: [Peripheral vascular disease, unspecified] Onset: 02-07-2023 02-07-2023 Chronic Respiratory failure; insufficiency; arrest (adult) (18 sources) Chronic respiratory failure with hypoxia; Translations: [Acute and chronic respiratory failure with hypoxia] Onset: 09-04-2023 Chronic Screening and history of mental health and substance abuse codes (8 sources) Personal history of nicotine dependence; Translations: [Tobacco use and exposure - finding] Onset: 10-03-2023 10-15-2023 Episodic Substance-related disorders (5 sources) Moderate cigarette smoker; Translations: [Nicotine dependence, [...] Classification Problem Date Documented Da te Episodic/Chronic Other and unspecified benign neoplasm (6 sources) History of adenomatous polyp of colon; Translations: [Personal history of colonic polyps] Onset: 09-07-2016 02-14-2023 Episodic Other lower respiratory disease (1 source) Solitary pulmonary nodule; Translations: [Solitary pulmonary nodule] Onset: 10-03-2023 Episodic Other lower respiratory disease (1 source) Cough Onset: 10-03-2023 Episodic Other lower respiratory disease (1 source) Wheezing Onset: 10-03-2023 Episodic Other lower respiratory disease (1 source) Shortness of breath Onset: 10-03-2023 Episodic Residual codes; unclassified (6 sources) Family history of asthma; Translations: [Family history of asthma and other chronic lower respiratory diseases] Onset: 09-03-2016 02-14-2023 Episodic Residual codes; unclassified (6 sources) Family history of malignant neoplasm of lung; Translations: [Family history of malignant neoplasm of trachea, bronchus and lung] Onset: 09-03-2016 02-14-2023 Episodic Residual codes; unclassified (6 sources) Family history of malignant neoplasm of pancreas; Translations: [Family history of malignant neoplasm of digestive organs] Onset: 09-03-2016 02-14-2023 Episodic Residual codes; unclassified (1 source) Family history of malignant neoplasm of trachea, bronchus and lung; Translations: [Family history of malignant neoplasm of trachea, bronchus and lung] Onset: 10-03-2023 Episodic Residual codes; unclassified (1 source) Pain, unspecified; Translations: [Pain, unspecified] Onset: 08-21-2023 Episodic Results Test Name Value Interpretation Reference Range Facility CNOVon 04-16-2024 CNOV Office Visit (RADTSA ) VAHID CHOWDHURY ([id number]) 1950 Date Time Provider Department 04/16/24 9:00 AM Davion TOBIN During your visit today, we recorded the following information about you: Temperature Pulse Respiration Blood pressure 98.2 degrees 63/minute 16/minute 115/74 Weight Height 80.9 kg 1.683 m Thuy Rosas RN 04/16/2024 8:57 AM Signed Pacemaker/Defibrillator ? No Previous Cancer(s)? No Previous Radiation? No Lupus/Scleroderma? No On body monitoring device? No SHIELA Giles G Phillip, MD 04/16/2024 10:17 AM Signed Radiation Oncology - New Patient/Consult Note PATIENT NAME: Vahid Chowdhury PATIENT : 1950 REQUESTING PROVIDER: Dr. 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 Date of Diagnosis: April 02, 2024 Primary Site: Larynx Glottic Laterality: Left Histology: Squamous Cell Carcinoma, NOS HPI: 74 year old male who presents with above diagnosis, for an opinion regarding the role of radiation therapy in the management of the patient's disease. Final recommendations will be communicated back to the requesting physician by way of the shared medical record, or letter to requesting physician via US mail. Patient presented with hoarseness, intermittent and worsening. Initially starting in late August when he started supplemental oxygen. Noted that his voice seems to be worse in the morning. Denies pain or dysphagia. Denies any weight loss. Denies any otalgia. He was evaluated by Dr. Juarez. He underwent diagnostic flexible fiberoptic laryngoscopy which demonstrated and exophytic mass of the entire left true vocal cord. Extension to the anterior commissure was noted. Normal bilateral true vocal cord motion was present. No other suspicious areas within the larynx or posterior oropharynx. He underwent microlaryngoscopy with biopsy on 04/02/2024. 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 albuterol HFA (PROVENTIL HFA, VENTOLIN HFA) 90 mcg/actuation inhaler Inhale 2 Puffs as instructed. albuterol (PROVENTIL) 2.5 mg /3 mL (0.083 %) nebulizer solution Inhale 2.5 mg as instructed every 6 hours as needed. aspirin, enteric coated (ASPIRIN, ENTERIC COATED) 81 mg EC tablet Take 81 mg by mouth. atorvastatin (LIPITOR) 40 mg tablet Take 40 mg by mouth. yjdugeujlm-zcsshjsv-wth moterol (BREZTRI AEROSPHERE) 160-9-4.8 mcg/actuation HFA aerosol inhaler Inhale as instructed. dapagliflozin propanediol (FARXIGA) 10 mg tablet Take 10 mg by mouth. furosemide (LASIX) 40 mg tablet Take 40 mg by mouth. metoprolol succinate ER (TOPROL XL) 25 mg 24 hr tablet Take 12.5 mg by mouth. spironolactone (ALDACTONE) 25 mg tablet Take 12.5 mg by mouth. sacubitril-valsartan (ENTRESTO) 24-26 mg tablet Take 1 tablet by mouth. iv contrast (will be provided with radiology test) Inject 1 Each intravenously one time only for [address] Neck W IVCON No IV access, insert saline lock prior to the sedation, infusion, injection for imaging exam. Discontinue saline lock post exam. If Pt. has a central line or IVAD, may access for administration according to line specific nursing protocol. Once exam is complete flush line and de-access according to line specific nursing protocol in the CT contrast administration guidelines link. iv contrast (will be provided with radiology test) CT Chest W -Inject, intravenously, once for 1 dose.No IV access, insert saline lock prior to the beginning of sedation, infusion, injection of imaging exam. Discontinue saline lock post exam. If Pt. has a central line or IVAD, may access for administration according to line specific nursing protocol. Once exam is complete flush line and de-access according to line specific nursing protocol in the CT contrast administration guidelines link. PAST MEDICAL HISTORY Diagnosis Date AAA (abdominal aortic aneurysm) (HCC) CAD (coronary artery disease) Chronic CHF (congestive heart failure) (HCC) COPD (chronic obstructive pulmonary disease) (HCC) Decompensated heart failure (HCC) Diverticulitis Diverticulosis Left lower lobe pulmonary nodule Mixed hyperlipidemia Other emphysema (HCC) Oxygen dependent Peripheral vascular disease (HCC) Prior radiation therapy, collagen vascular disease, or inflammatory bowel disease: No Any implanted or external electric linda (more content not included)... Normal [facility] Surgical Pathology Reporton 04-09-2024 Surgical Pathology Report [facility] [address] [place] [address]- Surgical Pathology Report Collected Date/Time: 04/02/2024 11:03 EDT Pathologist: Himanshu BRIGGS PhD, Eamon Clinton Received Date/Time: 04/02/2024 11:38 EDT Chaya BRIGGS, Beatrice Juarez MD, Beatrice Caceres Surgical Pathology Report - 04/09/2024 11:04 EDT - Auth (Verified) Final Diagnosis LEFT TRUE VOCAL CORD, FOUR BIOPSIES: - WELL-DIFFERENTIATED KERATINIZING SQUAMOUS CELL CARCINOMA. Comment: This biopsy demonstrates superficially sampled well-differentiated keratinizing squamous cell carcinoma with superficial lamina propria invasion. No aberrant p16 expression is identified. (Electronic Signature) Eamon Downs MD PhD 04/09/2024 11:04 Clinical Information Vocal cord mass Pre-Op Diagnosis: Vocal cord mass Procedure: Microlaryngoscopy with biopsies X 4 left true vocal cord Post-Op Diagnosis: _ Specimen(s) Received Left true vocal cord biopsies x 4 Gross Description Received in formalin labeled with patient name, number, and left true vocal cord biopsies x4. Received partially on a nonadherent dressing pad are four philip/red/pink tissue segments measuring from 0.1 cm up to 1.1 cm. Specimen is entirely submitted in one cassette. (DC) DC:[facility] Microscopic Description Microscopic examination performed unless gross only specified. The use of one or more reagents in the above tests is regulated as an analyte specific reagent (ASR). The test or tests are ordered following initial H&E microscopic examination. The performance characteristics were determined by the Laboratory of [facility]. They have not been cleared or approved by the [place] Food and Drug Administration. The FDA has determined that such clearance or approval is not necessary. These tests are used for clinical purposes. They should not be regarded as investigational or for research. Appropriate positive and negative controls are performed and are acceptable. Normal [facility] Comment on above: Performed By: #### [id number] #### [facility] [address] [place] [address] Main OR Intraoperative Recor don 04-06-2024 Main OR Intraoperative Record Main OR Intraoperative Record IntraOp Document Type FT Summary Primary Physician: Beatrice Juarez MD Finalized Date/Time: 04/06/24 10:25:19 Pt. Name: VAHID CHOWDHURY/Sex: 1950 Male Med Rec #: [id number] Physician: Beatrice Juarez MD Financial #: [id number] Pt. Type: A Room/Bed: [place] [address] Admit/Disch: 04/02/24 07:11:48 - 04/02/24 13:25:00 Institution: Case Times FT Entry 1 Patient Times In Room 04/02/24 10:36:00 Out Room 04/02/24 11:15:00 Procedure Times Start 04/02/24 10:53:00 Stop 04/02/24 11:07:00 Anesthesia Times Start 04/02/24 10:36:00 Stop 04/02/24 11:15:00 Last Modified By: Charu Coates RN 04/02/24 11:15:20 General Comments: 04/06/24 Chart opened to review and send charges [facility]oth CSFA Case Attendance FT Entry 1 Entry 2 Entry 3 Case Attendee Beatrice Juarez MD DNP, SERVER MANAGER, Queen Jaxon KUO, Charu Bose. Role Performed Surgeon - Primary SERVER MANAGER Library Technical Assistant - Primary Time In 04/02/24 10:36:00 04/02/24 10:36:00 04/02/24 10:36:00 Time Out 04/02/24 11:15:00 04/02/24 11:15:00 04/02/24 11:15:00 Procedure LARYNGOSCOPY MICRO(.) LARYNGOSCOPY MICRO(.) LARYNGOSCOPY MICRO(.) Comments dr elkins supervising chayito espinoza lpn to rn student also in attendance Last Modified By: Charu Coates RN, RN, Chrau Joy RN 04/02/24 13:09:30 04/02/24 11:20:29 04/02/24 11:20:29 Entry 4 Case Attendee Hermila Gomez Role Performed Scrub - Primary Time In 04/02/24 10:36:00 Time Out 04/02/24 11:15:00 Procedure LARYNGOSCOPY MICRO(.) Comments Last Modified By: Charu Coates RN 04/02/24 11:20:29 Perioperative Protocols FT Pre-Care Text: Implements protective measures prior to operative or invasive procedure, confirms identity before the operative or invasive procedure, verifies operative procedure, surgical site, and laterality Entry 1 Procedure(s) LARYNGOSCOPY MICRO(.) Patient Identity Birthday, ID Band Verified (select at Check, Patient least 2): Participation Consents / H and P Anesthesia Consent, Operative Site N/A Verified H&P, Surgery/Procedure Marking Verified Consent Surgical Site Yes Laterality Verified n/a Verified Procedure Verified Yes Correct Patient Yes Position Verified Availability Equipment, Medication Prep Dry n/a Verified (If Applicable) PreOp Antibiotic No Time Out Beatrice Juarez MD, Given Participants Chintan KNOX CRNA, Queen N., Charu Coates RN, Miller, Laura C Time Out Complete 04/02/24 10:52:00 Outcomes Met? Yes Last Modified By: Charu Coates RN 04/02/24 13:09:21 Post-Care Text: The patient is free from signs and symptoms of injury caused by extraneous objects Allergy Information FT Pre-Care Text: Verifies allergies Entry 1 Allergies Reviewed? Yes Allergies Reviewed Self/Patient With Outcomes Met? Yes Last Modified By: Charu Coates RN 04/02/24 10:59:22 Post-Care Text: The patient received appropriate medication(s) safely administered during the perioperative period Surgical Procedures FT Entry 1 Procedure Description Procedure LARYNGOSCOPY MICRO Modifiers . Surgeon Description MIRCOLARYNGOSCOPY WITH BIOPSIES TRUE VOCAL CORD Primary Procedure Yes Primary Surgeon Beatrice Juarez MD Start 04/02/24 10:53:00 Stop 04/02/24 11:07:00 Anesthesia Type General Surgical Service ENT Wound Class 2 - Clean-Contaminated Last Modified By: Charu Coates RN 04/02/24 13:09:47 General Case Data FT Pre-Care Text: Classifies surgical wound, implements aseptic technique, initiates traffic control Entry 1 Case Information OR OR 2 FT Case Level Level 3 Wound Class 2 - Clean-Contaminated Specialty ENT ASA Class 4 Preop Diagnosis VOCAL CORD MASS Postop Same As Preop Yes Postop Diagnosis VOCAL CORD MASS Outcomes Met? Yes Last Modified By: Zadnra Junior CST 04/06/24 10:25:17 Post-Care Text: The patient is free from signs and symptoms of infection Skin Assessment (Pre Procedure) FT Pre-Care Text: Implements protective measures to prevent skin/ tissue injury due to thermal or mechanical sources Evaluates for signs and symptoms of physical injury to skin and tissue Entry 1 Skin Integrity Intact, [place], Warm, & Skin Abnormality No Dry Outcomes Met? Yes Last Modified By: Charu Coates RN 04/02/24 11:02:15 Post-Care Text: The patient is free from signs and symptoms of injury caused by extraneous objects Patient Positioning FT Pre-Care Text: Identifies physical alterations that require additional precautions for procedure-specific positioning, verifies presence of prosthetics or corrective devices, positions the patient, evaluates the patient for signs and symptoms of injury as a result of positioning Entry 1 Procedure LARYNGOSCOPY MICRO(.) Body Position Supine Feet Uncrossed? Yes Left Arm Position Extended on Padded Arm Board Right Arm Position Tucked and Padded at Left Leg Position Extended Side Right Leg Position Extended Positionin (more content not included)... 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 What to do next Instructions From Your Doctor Event Name Event Result Discharge Activity Expect mild pain, Expect minimal amount of drainage and/or bleeding, Activity as tolerated Discharge Diet(s) Regular Discharge Instructions Discharge Instructions New Follow Up Appointments after Discharge Follow Up with Beatrice Juarez When: Comments: Keep scheduled appointment Medications What How Much When Instructions Next Dose Unchanged albuterol (Albuterol (Eqv-ProAir HFA) 90 mcg/ inh inhalation aerosol) 2 Puffs Inhalation As needed for Shortness of breath or wheezing Unchanged albuterol (albuterol 0.083% Inh Cecilia 3 mL) 3 Milliliter Inhalation As needed for Shortness of breath or wheezing Q6H and PRN Unchanged aspirin (aspirin 81 mg oral capsule) 1 Capsules By Mouth Every day Unchanged atorvastatin (atorvastatin 40 mg Tab) 1 Tablets By Mouth At bedtime Unchanged budesonide/ formoterol/ glycopyrrolate (Breztri Aerosphere inhalation aerosol) Unchanged dapagliflozin (Farxiga 10 mg oral tablet) 1 Tablets By Mouth Every day Unchanged furosemide (furosemide 20 mg Tab) 1 Tablets By Mouth Every day Unchanged metoprolol (metoprolol succinate 25 mg ER Tab) 0.5 Tablets By Mouth Every day Unchanged sacubitril-valsartan (Entresto 24 mg-26 mg oral tablet) 1 Tablets By Mouth 2 times a day Unchanged spironolactone (spironolactone 25 mg Tab) 0.5 tab By Mouth Every day Allergies No Known Allergies Education Materials Common Emergency Awareness Tips IS IT A STROKE? Act FAST and Check for these signs: FACE Does the face look uneven? ARM Does one arm drift down? SPEECH Does their speech sound strange? TIME Call at any sign of stroke Heart Attack Signs Chest discomfort: Most heart attacks involve discomfort in the center of the chest and lasts more than a few minutes, or goes away and comes back. It can feel like uncomfortable pressure, squeezing, fullness or pain. Discomfort in upper body: Symptoms can include pain or discomfort in one or both arms, back, neck, jaw or stomach. Shortness of breath: With or without discomfort. Other signs: Breaking out in a cold sweat, nausea, or lightheaded. Remember, MINUTES DO MATTER. If you experience any of these heart attack warning signs, call 03-01- to get immediate medical attention! Patient Survey You may receive a survey in the mail asking you about your stay with us. We want to hear from you, please share your experience with us by completing your survey. Thank you for choosing [facility]. Neli Award Nomination The NELI (Diseases Attacking the Immune SYstem) Award is an international recognition program that honors and celebrates the skillful, compassionate care nurses provide every day. Anyone who experiences or observes amazing care being provided by a nurse is encouraged to submit a nomination. To nominate your nurse, use your smart phone to scan the QR code below. Patient Portal You may access all of your results and other medical record information on our secure patient portal. If you are not signed up for this yet, please contact [employer] at [phone] to get signed up today. Patient Name: VAHID CHOWDHURY I have received this information and my questions have been answered. Patient/Crew Leader Gluing Name: Patient/Crew Leader Gluing Signature: Relationship to Patient: Witness Name/Signature: Date: Normal [facility] Comment on above: Result Comment: Elec tronically Signed By: Tre KUO, Angelita Forrester.kojo\Date and Time Signed: 04/02/24 12:02 EDT Inpatient Patient Summaryon 04-02-2024 Inpatient Patient Summary Inpatient Patient Summary [place] [address] [facility] Clinical Discharge Instructions PERSON INFORMATION Name: VAHID CHOWDHURY PHYSICIANS Admitting Physician: Beatrice Juarez MD Attending Physician: Beatrice Juarez MD PCP: KARY JAY Discharge Diagnosis: Vocal cord mass Comment: PATIENT EDUCATION INFORMATION Instructions: Medication Leaflets: Follow up: With: Address: When: Beatrice Juarez Comments: Keep scheduled appointment MEDICATION LIST Medications to Continue with No Changes Other Medications albuterol (Albuterol (Eqv-ProAir HFA) 90 mcg/inh inhalation aerosol) 2 Puffs Inhalation as needed Shortness of breath or wheezing. albuterol (albuterol 0.083% Inh Cecilia 3 mL) 3 Milliliter Inhalation as needed Shortness of breath or wheezing. Q6H and PRN. aspirin (aspirin 81 mg oral capsule) 1 Capsules By Mouth every day. atorvastatin (atorvastatin 40 mg Tab) 1 Tablets By Mouth at bedtime. budesonide/formoterol/g lycopyrrolate (Breztri Aerosphere inhalation aerosol) dapagliflozin (Farxiga 10 mg oral tablet) 1 Tablets By Mouth every day., heart failure furosemide (furosemide 20 mg Tab) 1 Tablets By Mouth every day., heart failure metoprolol (metoprolol succinate 25 mg ER Tab) 0.5 Tablets By Mouth every day., heart failure sacubitril-valsartan (Entresto 24 mg-26 mg oral tablet) 1 Tablets By Mouth 2 times a day., heart failure spironolactone (spironolactone 25 mg Tab) 0.5 tab By Mouth every day. Comment: Normal [facility] Main OR PACU I Recordon Main OR PACU I Record Main OR PACU I Record PACU Phase I Document Type FT Summary Primary Physician: Beatrice Juarez MD Finalized Date/Time: 04/02/24 12:02:37 Pt. Name: VAHID CHOWDHURY/Sex: 1950 Male Med Rec #: [id number] Physician: Beatrice Juarez MD Financial #: [id number] Pt. Type: A Room/Bed: [facility] Admit/Disch: 04/02/24 07:11:48 - Institution: Case Times PACU I FT Pre-Care Text: Identifies barriers to communication and implements measures to provide psychological support Develops individualized plan of care, and ensures continuity of care Maintains patient's dignity and privacy, and maintains patient confidentiality Identifies and reports philosophical, cultural, and spiritual beliefs and values Identifies individual values and wishes concerning care Implements aseptic technique, and administers prescribed antibiotic therapy and immunizing agents as ordered Evaluates postoperative tissue perfusion Implements thermoregulation measures, and monitors body temperature Evaluates postoperative respiratory status Evaluates postoperative cardiac status Evaluates postoperative neurological status Assesses pain control, collaborated in initiating patient-controlled analgesia and implements alternative methods of pain control Verifies allergies, administers prescribed medications and solutions, evaluates response to medications Entry 1 In PACU I 04/02/24 11:16:00 Discharge from PACU 04/02/24 11:46:00 I Outcomes Met? Yes Last Modified By: Shy Perez RN 04/02/24 12:02:17 Post-Care Text: The patient demonstrates knowledge of the expected response to the operative or invasive procedure The patient's care is consistent with the individualized perioperative plan of care The patient's right to privacy is maintained The patient's value system, lifestyle, ethnicity, and culture are considered, respected, and incorporated into the perioperative plan of care The patient participates in decisions affecting his or her perioperative plan of care The patient is free from signs and symptoms of infection The patient has wound/tissue perfusion consistent with or improved from baseline levels established preoperatively The patient is at or returning to normothermia at the conclusion of the immediate postoperative period The patient's respiratory function is consistent with or improved from baseline levels established preoperatively The patient's cardiovascular status is consistent with or improved from baseline levels established preoperatively The patient's cardiovascular status is consistent with or improved from baseline levels established preoperatively The patient demonstrates and/or reports adequate pain control throughout the perioperative period The patient received appropriate medication(s), safely administered during the perioperative period Acuity Level PACU I FT Entry 1 Start Time 04/02/24 11:16:00 Stop Time 04/02/24 11:46:00 Acuity Level Acuity Level I Last Modified By: Shy Perez RN 04/02/24 12:02:33 Finalized By: Shy Perez RN Document Signatures Signed By: Shy Perez RN 04/02/24 12:02 Normal [facility] Main OR Preoperative Recordo n 04-02-2024 Main OR Preoperative Record Main OR Preoperative Record PreOp Document Type FT Summary Primary Physician: Beatrice Juarez MD Finalized Date/Time: 04/02/24 13:08:35 Pt. Name: VAHID CHOWDHURY/Sex: 1950 Male Med Rec #: [id number] Physician: Beatrice Juarez MD Financial #: [id number] Pt. Type: A Room/Bed: [place] [address] Admit/Disch: 04/02/24 07:11:48 - Institution: Case Times PreOp FT Pre-Care Text: Verifies consent for planned procedure, identifies individual values and wishes concerning care, includes family members in perioperative teaching Entry 1 Patient Times. In Pre Surgery 04/02/24 07:30:00 Out Pre Surgery 04/02/24 10:34:00 Outcomes Met? Yes Last Modified By: Charu Coates RN 04/02/24 13:08:34 Post-Care Text: The patient participates in decisions affecting his or her perioperative plan of care Finalized By: Charu Coates RN Document Signatures Signed By: Charu Coates RN 04/02/24 13:08 Normal [facility] Outpatient Surgery Discharge Instructionon 04-02-2024 Outpatient Surgery Discharge Instruction Outpatient Surgery Discharge Instruction [place] [id number] Patient Discharge Instructions PERSON INFORMATION Name: VAHID CHOWDHURY Date of : 1950 Current Date: 04/02/2024 11:27:52 PHYSICIANS Admitting Physician: Chaya BRIGGS, Beatrice Caceres Discharge Diagnosis: Vocal cord mass VAHID CHOWDHURY has been given the following list of follow-up instructions, prescriptions, and patient education materials: PATIENT FOLLOW-UP INFORMATION Diet: Regular Discharge Activity: Expect mild pain, Expect minimal amount of drainage and/or bleeding, Activity as tolerated IF UNABLE TO CONTACT YOUR PHYSICIAN AND YOU FEEL IT IS AN EMERGENCY, GO TO THE NEAREST EMERGENCY ROOM OR CALL 911 I, VAHID CHOWDHURY, have received the attached patient education materials/instructions and have verbalized understanding: May we do a follow up call? Yes No I was present when discharge instructions were given Patient Signature Date Clinican/Nurse Signature _ Date Follow up: With: Address: When: Beatrice Juarez Comments: Keep scheduled appointment Pharmacy Information: You may receive a survey from [employer] asking you to rate your care experience. Your feedback is important and will help us understand what we do well and how we can improve the quality of care we provide to you, your loved ones and our community. It?s an honor to serve you. Thank you for choosing [facility] HERE ARE THE MEDICATION CHANGES THAT OCCURRED DURING YOUR HOSPITAL STAY Medications to Continue with No Changes Other Medications albuterol (Albuterol (Eqv-ProAir HFA) 90 mcg/inh inhalation aerosol) 2 Puffs Inhalation as needed Shortness of breath or wheezing. albuterol (albuterol 0.083% Inh Cecilia 3 mL) 3 Milliliter Inhalation as needed Shortness of breath or wheezing. Q6H and PRN. aspirin (aspirin 81 mg oral capsule) 1 Capsules By Mouth every day. atorvastatin (atorvastatin 40 mg Tab) 1 Tablets By Mouth at bedtime. budesonide/formoterol/g lycopyrrolate (Breztri Aerosphere inhalation aerosol) dapagliflozin (Farxiga 10 mg oral tablet) 1 Tablets By Mouth every day., heart failure furosemide (furosemide 20 mg Tab) 1 Tablets By Mouth every day., heart failure metoprolol (metoprolol succinate 25 mg ER Tab) 0.5 Tablets By Mouth every day., heart failure sacubitril-valsartan (Entresto 24 mg-26 mg oral tablet) 1 Tablets By Mouth 2 times a day., heart failure spironolactone (spironolactone 25 mg Tab) 0.5 tab By Mouth every day. PATIENT EDUCATION INFORMATION Instructions: Medication Leaflets: Normal [facility] Documentationon 03-13-2024 Documentation [id number] Naren Chowdhury 1950 M Date Provider Department Center 03/13/2024 MARYCARMEN PATEL [facility]. No family history on file Normal [facility] 37on 01-01-2024 37 Increase lasix to 40 mg daily with potassium tablet. And for the next 3 days take lasix 40 mg twice a day. Have labs drawn next week to check kidney function and electrolytes *Continue heart healthy diet and low sodium [...] pillows than normal or in recliner. Normal [facility] Office Visiton 01-01-2024 Follow-up visit [id number] Naren Chowdhury 1950 M Date Provider Department Center 01/01/2024 [facility] No family history on file Level of Service:82986 AR OFFICE/OUTPATIENT ESTABLISHED MOD MDM 30 MIN [facility] 37on 10-11-2023 37 Start lasix 20 mg 1 tab daily- if you start to feel too dry can hold this and resume with weight gain and fluid retention. Have labs drawn in about 2-4 weeks [facility] Office Visiton 10-11-2023 Follow-up visit [id number] Naren Chowdhury 1950 M [facility] Provider Department Center 10/11/2023 MARYCARMEN PATEL [facility] No family history on file Level of Service:15959 AR OFFICE/OUTPATIENT ESTABLISHED MOD MDM 30 MIN [facility] 37on 09-13-2023 37 Stop valsartan when you [...] pillows than normal or in recliner. Normal [facility] Follow-Upon 09-13-2023 Follow-Up [id number] Naren Chowdhury 1950 M Date Provider Department Center 09/13/2023 MARYCARMEN PATEL No family history on file Level of Service:29033 AR OFFICE/OUTPATIENT ESTABLISHED MOD MDM 30 MIN Reason for Visit and Comments: Follow-up [338531] - Congestive Heart failure/COPD No cardio symptoms per pt Has hard time breathing but is on oxygen States fatigued Normal [facility] Orders Onlyon 09-13-2023 Orders Only [id number] Naren Chowdhury 1950 M Date Provider Department Center 09/13/2023 Marielos-GLORIA CAMARGO CARD [facility] No family history on file [facility] 36on 09-09-2023 36 Discharge date: Call date: [...] well as limiting fluid and sodium intake. [facility] Documentationon 09-09-2023 Documentation [id number] Naren Chowdhury 1950 M Date Provider Department Center 09/09/2023 59506-IFDXWDMRANCHO ANN [facility]ASC [facility] No family history on file Reason for Visit and Comments: HF inpatient satisfaction survey sent. [Other] [facility] Telephoneon 09-09-2023 Telephone [id number] Naren Chowdhury 1950 M Date Provider Department Center 09/09/2023 29202-QKGHOIZRANCHO ANN HVC [facility] No family history on file Reason for Visit and Comments: HF post discharge call. [Other] [facility] 30on 09-06-2023 30 The patient is Moderately [...] from fall injury Outcome: Progressing Flowsheets (Taken 09/06/2023 0800) Free from fall injury: Assess patient frequently for physical needs Identify cognitive and physical deficits and behaviors that affect risk of falls [place] fall precautions as indicated by assessment Educate patient/family on patient safety, including physical limitations Instruct patient to call for assistance with activity based on assessment Problem: Discharge Planning Goal: Discharge to home or other facility with appropriate resources Outcome: Progressing Flowsheets (Taken 09/06/2023 0800) Discharge to home or other facility with [...] cognitive ability or social support system Normal [facility] BASIC METABOLIC PANELon 03-0 Anion gap [Moles/Vol] 10 mmol/L Normal 7-20 [facility] Comment on above: Performed By: #### L [id number] #### [facility] ([facility]) [address] [place] [address] Calcium [Mass/Vol] 8.7 mg/dL Normal 8.6-10.3 [facility] Comment on above: Performed By: #### L [id number] #### [facility] ([facility]) [address] [place] [address] Chloride [Moles/Vol] 99 mmol/L Normal 98-107 [facility] Comment on above: Performed By: #### L [id number] #### [facility] ([facility]) [address] [place] [address] CO2 [Moles/Vol] 30 mmol/L Normal 21-31 [facility] Comment on above: Performed By: #### L [id number] #### [facility] ([facility]) [address] [place] [address] Creatinine [Mass/Vol] 0.74 mg/dL Normal 0.70-1.30 [facility] Comment on above: Performed By: #### L [id number] #### [facility] ([facility]) [address] [place] [address] GLOMERULAR FILTRATION RATE ML/MIN/1.73 SQ M.PREDICTED 94.5 mL/min/1.73m*2 Normal >60.0 [facility] Comment on above: Result Comment: [facility]???s estimated glomerular filtration rate (eGFR) will [...] individuals. Performed By: #### L [id number] #### [facility] ([facility]) [address] [place] [address] Glucose [Mass/Vol] 88 mg/dL Normal 70-100 [facility] Comment on above: Performed By: #### L [id number] #### [facility] ([facility]) [address] [place] [address] Potassium [Moles/Vol] 4.0 mmol/L Normal 3.5-5.1 [facility] Comment on above: Performed By: #### L [id number] #### [facility] ([facility]) [address] [place] [address] Sodium [Moles/Vol] 135 mmol/L Low 136-145 [facility] Comment on above: Performed By: #### L [id number] #### [facility] ([facility]) [address] [place] [address] Urea nitrogen [Mass/Vol] 31 mg/dL High 7-25 [facility] Comment on above: Performed By: #### L [id number] #### [facility] ([facility]) [address] [place] [address] UREA NITROGEN/CREATININE (MASS RATIO) IN SER/PLAS 41.9 Normal [facility] Comment on above: Performed By: #### L [id number] #### [facility] ([facility]) [address] [place] [address] CBCon 09-06-2023 Erythrocyte distribution width (RBC) [Ratio] 14.1 % Normal 11.5-15.0 [facility] Comment on above: Performed By: #### L [id number] #### [facility] ([facility]) [address] [place] [address] ERYTHROCYTE MEAN CORPUSCULAR HEMOGLOBIN CONCENTRATION (G/DL) BY AUTOMATED 33.3 g/dL Normal 32.0-35.0 [facility] Comment on above: Performed By: #### L [id number] #### [facility] ([facility]) [address] [place] [address] Hematocrit (Bld) [Volume fraction] 45.4 % Normal 39.0-55.0 [facility] Comment on above: Performed By: #### L [id number] #### [facility] ([facility]) [address] [place] [address] Hemoglobin (Bld) [Mass/Vol] 15.1 g/dL Normal 13.0-17.0 [facility] Comment on above: Performed By: #### L [id number] #### [facility] ([facility]) [address] [place] [address] MCH (RBC) [Entitic mass] 30.7 pg Normal 27.0-33.0 [facility] Comment on above: Performed By: #### L [id number] #### [facility] ([facility]) [address] [place] [address] MCV (RBC) [Entitic vol] 92.3 fL Normal 82.0-98.0 [facility] Comment on above: Performed By: #### L [id number] #### [facility] ([facility]) [address] [place] [address] PLATELETS (10*3/UL) IN BLOOD AUTOMATED COUNT 405 10*3/uL High 150-400 [facility] Comment on above: Performed By: #### L [id number] #### [facility] ([facility]) [address] [place] [address] RBC (Bld) [#/Vol] 4.92 10*6/uL Normal 4.20-5.70 [facility] Comment on above: Performed By: #### L [id number] #### [facility] ([facility]) [address] [place] [address] WBC (Bld) [#/Vol] 14.91 10*3/uL High 4.00-10.60 [facility] Comment on above: Performed By: #### L [id number] #### [facility] ([facility]) [address] [facility] [place] [address] CONSULTon 09-06-2023 CONSULT Clinical Nutrition Assessment Name: [...] hours PRN aspirin 81 mg, oral, Daily drwrifmebf-[id number] moterol (Breztri Aerosphere) 160-9-4.8 mcg/actuation HFA aerosol [...] Request Once Comments: [place] with [place] of [place] cheese, peppers, onions, mushrooms Wheat toast (butter [...] with questions and contact the dietitian via [employer] chat 8A-4P Saturday-Saturday. Or call the dietitian's office at extension [phone]. For s/holidays, the dietitian's can be reached by paging [phone] from [id number]-3P. Unable to be reached via AdRoll chat on Saturday & .) Normal [facility] MAGNESIUMon 09-06-2023 Magnesium [Mass/Vol] 2.6 mg/dL Normal 1.9-2.7 [facility] Comment on above: Performed By: #### L [id number] #### [facility] (AKER) [address] [place] [address] TROPONIN Ion 09-06-2023 Troponin I.cardiac [Mass/Vol] 0.04 ng/mL Normal 0.00-0.04 [facility] Comment on above: Performed By: #### L [id number] #### [facility] ([facility]) [address] [place] [address] Troponin I.cardiac [Mass/Vol] 0.04 ng/mL Normal 0.00-0.04 [facility] Comment on above: Performed By: #### L [id number] #### [facility] ([facility]) [address] [place] [address] 30on 09-05-2023 30 The patient is Moderately Stable - Low risk of patient condition declining or worsening The patient's goals for the shift include comfort, rest The clinical goals for the shift include Stable VS, comfort Normal [facility] 30 Daily Case Managemen t Update Multidisciplinary [...] Select all services needed for the patient Detention Facility (30 day convalescent stay) Select all services needed for the patient Home Health Types of Home Health Service needed Physical Therapy Types of Home Health Service needed Occupational Therapy Please indicate your approval for this care by adding your name here: HIPOLITO BERNABE 09/05/23 0829 09/05/23 0830 Consult to Nutrition Services Once Provider: (Not yet assigned) Question: Reason for Consult? Answer: CHF 09/05/23 0829 Normal [facility] 30 The patient is Moderately Stable [...] from fall injury Outcome: Progressing Flowsheets (Taken 09/05/2023 09) Free from fall injury: Assess patient frequently for physical needs Identify cognitive and physical deficits and behaviors that affect risk of falls Instruct patient to call for assistance with activity based on assessment [place] fall precautions as indicated by assessment Educate [...] maintained or improved Outcome: Progressing Flowsheets (Taken 09/05/2023 08) Care Plan - Patient's Chronic Conditions and [...] disorders Administer blood products/factors as ordered Normal [facility] 30 The patient is Moderately Unstable - Medium risk of patient condition declining or worsening The patient's goals for the shift include The clinical goals for the shift include stable vs Over the shift, the patient did not make progress toward the following goals. Problem: Respiratory - Adult Goal: Achieves optimal ventilation and oxygenation Outcome: Not Progressing Normal [facility] BASIC METABOLIC PANELon 03-0 Anion gap [Moles/Vol] 11 mmol/L Normal - [facility] Comment on above: Performed By: #### L [id number] #### [facility] ([facility]) [address] [place] [address] Calcium [Mass/Vol] 9.0 mg/dL Normal 8.6-10.3 [facility] Comment on above: Performed By: #### L [id number] #### [facility] (BEAKER) [address] [place] [address] Chloride [Moles/Vol] 97 mmol/L Low 98-107 [facility] Comment on above: Performed By: #### L [id number] #### [facility] (BEAKER) [address] [place] [address] CO2 [Moles/Vol] 31 mmol/L Normal 21- [facility] Comment on above: Performed By: #### L [id number] #### [facility] (BEAKER) [address] [place] [address] Creatinine [Mass/Vol] 0.71 mg/dL Normal 0.70-1.30 [facility] Comment on above: Performed By: #### L [id number] #### [facility] (BEAKER) [address] [place] [address] GLOMERULAR FILTRATION RATE ML/MIN/1.73 SQ M.PREDICTED 95.7 mL/min/1.73m*2 Normal >60.0 [facility] Comment on above: Result Comment: [facility]???s estimated glomerular filtration rate (eGFR) will [...] individuals. Performed By: #### L [id number] #### [facility] ([facility]) [address] [place] [address] Glucose [Mass/Vol] 123 mg/dL High 70-100 [facility] Comment on above: Performed By: #### L [id number] #### [facility] ([facility]) [address] [place] [address] Potassium [Moles/Vol] 4.9 mmol/L Normal 3.5-5.1 [facility] Comment on above: Performed By: #### L [id number] #### [facility] ([facility]) [address] [place] [address] Sodium [Moles/Vol] 134 mmol/L Low 136-145 [facility] Comment on above: Performed By: #### L [id number] #### [facility] ([facility]) [address] [place] [address] Urea nitrogen [Mass/Vol] 20 mg/dL Normal 7-25 [facility] Comment on above: Performed By: #### L [id number] #### [facility] ([facility]) [address] [place] [address] UREA NITROGEN/CREATININE (MASS RATIO) IN SER/PLAS 28.2 Normal [facility] Comment on above: Performed By: #### L [id number] #### [facility] ([facility]) [address] [address] CONSULTon 09-05-2023 CONSULT --- Attestation signed by [...] 81 mg by mouth in the morning. nainizivas-fkgjcyuf-mwb moterol (Breztri [employer]osphere) 160-9-4.8 mcg/actuation HFA aerosol [...] Value Ventricular Rate 62 Atrial Rate 62 AR Interval 168 QRS DURATION 86 QT Interval 426 QTC CALCULATION(BAZETT) 432 P [place] 79 R-[place] -62 T Wave [place] 31 Impression Normal sinus rhythm Left axis [...] left bas (more content not included)... Normal [facility] HPon 09-05-2023 --- Attestation signed by [...] worsening shortness of breathe, was transferred from [facility]. On 09/02 night woke up around 4 AM to go to the bathroom, on his way start having worsening shortness of breath, chest tightness, his his saw him pale and diaphoretic, was brought to [facility]. It seems that he has dropped in EF and his troponin has been mildly elevated and hence plan is to do RHC/LHC to evaluate filling pressures and look for coronary anatomy and any CAD. I explained the risks and benefits of the procedure. He would like to proceed. Normal [facility] TROPONIN Ion 09-05-2023 Troponin I.cardiac [Mass/Vol] 0.05 ng/mL High 0.00-0.04 [facility] Comment on above: Performed By: #### L [id number] #### [facility] (BEAKER) [address] [place] [address] Troponin I.cardiac [Mass/Vol] 0.04 ng/mL Normal 0.00-0.04 [facility] Comment on above: Performed By: #### L [id number] #### [facility] (BEAKER) [address] [place] [address] Troponin I.cardiac [Mass/Vol] 0.05 ng/mL High 0.00-0.04 [facility] Comment on above: Performed By: #### L [id number] #### [facility] ([facility]) [address] [place] [address] Troponin I.cardiac [Mass/Vol] 0.05 ng/mL High 0.00-0.04 [facility] Comment on above: Performed By: #### L [id number] ####[facility] ([facility])[address] [place] [address] Troponin I.cardiac [Mass/Vol] 0.05 ng/mL High 0.00-0.04 [facility] Comment on above: Performed By: #### L [id number] #### [facility] ([facility]) [address] [place] [address] Troponin I.cardiac [Mass/Vol] 0.05 ng/mL High 0.00-0.04 [facility] Comment on above: Performed By: #### L [id number] ####[facility] ([facility])[address] [place] [address] Troponin I.cardiac [Mass/Vol] 0.06 ng/mL High 0.00-0.04 [facility] Comment on above: Performed By: #### L [id number] #### [facility] ([facility]) [address] [place] [address] B-TYPE NATRIURETIC PEPTIDEon 09-04-2023 Natriuretic peptide B (Bld) [Mass/Vol] 136 pg/mL High 0-100 [facility] Comment on above: Performed By: #### L [id number] #### [facility] ([facility]) [address] [place] [address] CBC WITH AUTO DIFFERENTIALon 09-04-2023 Basophils (Bld) [#/Vol] 0.04 10*3/uL Normal 0.00-0.20 [facility] Comment on above: Performed By: #### L [id number] #### [facility] ([facility]) [address] [place] [address] Basophils/100 WBC (Bld) 0.2 % Normal 0.0-1.0 [facility] Comment on above: Performed By: #### L [id number] #### [facility] (BEAKER) [address] [place] [address] Eosinophils (Bld) [#/Vol] 0.09 10*3/uL Normal 0.00-0.50 [facility] Comment on above: Performed By: #### L [id number] #### [facility] ([facility]) [address] [place] [address] Eosinophils/100 WBC (Bld) 0.5 % Normal 0.0-6.0 [facility] Comment on above: Performed By: #### L [id number] #### [facility] ([facility]) [address] [place] [address] Erythrocyte distribution width (RBC) [Ratio] 13.9 % Normal 11.5-15.0 [facility] Comment on above: Performed By: #### L [id number] #### [facility] ([facility]) [address] [place] [address] ERYTHROCYTE MEAN CORPUSCULAR HEMOGLOBIN CONCENTRATION (G/DL) BY AUTOMATED 34.6 g/dL Normal 32.0-35.0 [facility] Comment on above: Performed By: #### L [id number] #### [facility] [address] [place] [address] Hematocrit (Bld) [Volume fraction] 41.9 % Normal 39.0-55.0 [facility] Comment on above: Performed By: #### L [id number] #### [facility] [address] [place] [address] Hemoglobin (Bld) [Mass/Vol] 14.5 g/dL Normal 13.0-17.0 [facility] Comment on above: Performed By: #### L [id number] #### [facility] (BEAKER) [address] [place] [address] Immature granulocytes (Bld) [#/Vol] 0.35 10*3/uL High 0.00-0.20 [facility] Comment on above: Performed By: #### L [id number] #### [facility] ([facility]) [address] [place] [address] Immature granulocytes/100 WBC (Bld) 1.8 % High 0.0-1.0 [facility] Comment on above: Performed By: #### L [id number] #### [facility] ([facility]) [address] [place] [address] Lymphocytes (Bld) [#/Vol] 0.56 10*3/uL Low 1.20-4.00 [facility] Comment on above: Performed By: #### L [id number] #### [facility] ([facility]) [address] [place] [address] Lymphocytes/100 WBC (Bld) 2.8 % Low 20.0-45.0 [facility] Comment on above: Performed By: #### L [id number] #### [facility] ([facility]) [address] [place] [address] MCH (RBC) [Entitic mass] 31.0 pg Normal 27.0-33.0 [facility] Comment on above: Performed By: #### L [id number] #### [facility] ([facility]) [address] [place] [address] MCV (RBC) [Entitic vol] 89.7 fL Normal 82.0-98.0 [facility] Comment on above: Performed By: #### L [id number] #### [facility] ([facility]) [address] [place] [address] Monocytes (Bld) [#/Vol] 1.35 10*3/uL High 0.10-1.00 [facility] Comment on above: Performed By: #### L [id number] #### [facility] ([facility]) [address] [place] [address] Monocytes/100 WBC (Bld) 6.8 % Normal 5.0-12.0 [facility] Comment on above: Performed By: #### L [id number] #### [facility] [address] [place] [address] Neutrophils (Bld) [#/Vol] 17.53 10*3/uL High 1.60-7.60 [facility] Comment on above: Performed By: #### L [id number] #### [facility] [address] [place] [address] Neutrophils/100 WBC (Bld) 87.9 % High 40.0-72.0 [facility] Comment on above: Performed By: #### L [id number] #### [facility] ([facility]) [address] [place] [address] NRBC (PER 100 WBCS) BY AUTOMATED COUNT 0.0 % Normal 0 [facility] Comment on above: Performed By: #### L [id number] #### [facility] ([facility]) [address] [place] [address] PLATELETS (10*3/UL) IN BLOOD AUTOMATED COUNT 424 10*3/uL High 150-400 [facility] Comment on above: Performed By: #### L [id number] #### [facility] ([facility]) [address] [place] [address] RBC (Bld) [#/Vol] 4.67 10*6/uL Normal 4.20-5.70 [facility] Comment on above: Performed By: #### L [id number] #### [facility] [address] [place] [address] WBC (Bld) [#/Vol] 19.92 10*3/uL High 4.00-10.60 [facility] Comment on above: Performed By: #### L [id number] #### [facility] [address] [place] [address] COMPREHENSIVE METABOLIC PANE Jesús 09-04-2023 Albumin [Mass/Vol] 4.3 g/dL Normal 3.5-5.7 [facility] Comment on above: Performed By: #### L [id number] #### [facility] (BEAKER) [address] [place] [address] ALP [Catalytic activity/Vol] 43 U/L Normal 34-104 [facility] Comment on above: Performed By: #### L [id number] #### [facility] (BEAKER) [address] [place] [address] ALT [Catalytic activity/Vol] 23 U/L Normal 7-52 [facility] Comment on above: Performed By: #### L [id number] #### [facility] (BEAKER) [address] [place] [address] Anion gap [Moles/Vol] 14 mmol/L Normal 7-20 [facility] Comment on above: Performed By: #### L [id number] #### [facility] (BEAKER) [address] [place] [address] AST [Catalytic activity/Vol] 31 U/L Normal 13-39 [facility] Comment on above: Performed By: #### L [id number] #### [facility] (BEAKER) [address] [place] [address] Bilirubin [Mass/Vol] 0.3 mg/dL Normal 0.3-1.0 [facility] Comment on above: Performed By: #### L [id number] #### [facility] (BEAKER) [address] [place] [address] Calcium [Mass/Vol] 9.0 mg/dL Normal 8.6-10.3 [facility] Comment on above: Performed By: #### L [id number] #### [facility] ([facility]) [address] [place] [address] Chloride [Moles/Vol] 94 mmol/L Low 98-107 [facility] Comment on above: Performed By: #### L [id number] #### [facility] ([facility]ER) [address] [place] [address] CO2 [Moles/Vol] 26 mmol/L Normal 21-31 [facility] Comment on above: Performed By: #### L [id number] #### [facility] ([facility]) [address] [place] [address] Creatinine [Mass/Vol] 0.74 mg/dL Normal 0.70-1.30 [facility] Comment on above: Performed By: #### L [id number] #### [facility] ([facility]) [address] [place] [address] GLOMERULAR FILTRATION RATE ML/MIN/1.73 SQ M.PREDICTED 94.5 mL/min/1.73m*2 Normal >60.0 [facility] Comment on above: Result Comment: [facility]???s estimated glomerular filtration rate (eGFR) will [...] individuals. Performed By: #### L [id number] #### [facility] ([facility]) [address] [place] [address] Glucose [Mass/Vol] 117 mg/dL High 70-100 [facility] Comment on above: Performed By: #### L [id number] #### [facility] ([facility]) [address] [place] [address] Potassium [Moles/Vol] 4.6 mmol/L Normal 3.5-5.1 [facility] Comment on above: Performed By: #### L [id number] #### [facility] ([facility]) [address] [place] [address] Protein [Mass/Vol] 7.2 g/dL Normal 6.0-8.3 [facility] Comment on above: Performed By: #### L [id number] #### [facility] ([facility]) [address] [place] [address] Sodium [Moles/Vol] 129 mmol/L Low 136-145 [facility] Comment on above: Performed By: #### L [id number] #### [facility] ([facility]) [address] [place] [address] Urea nitrogen [Mass/Vol] 17 mg/dL Normal 7-25 [facility] Comment on above: Performed By: #### L [id number] #### [facility] ([facility]) [address] [place] [address] UREA NITROGEN/CREATININE (MASS RATIO) IN SER/PLAS 23.0 Normal [facility] Comment on above: Performed By: #### L [id number] #### [facility] ([facility]) [address] [place] [address] LACTIC ACID WITH 4 HOUR REFL EXon 09-04-2023 LACTATE (MMOL/L) IN SER/PLAS 1.0 mmol/L Normal 0.5-2.2 [facility] Comment on above: Performed By: #### L [id number] #### [facility] ([facility]) [address] [place] [address] MAGNESIUMon 09-04-2023 Magnesium [Mass/Vol] 2.3 mg/dL Normal 1.9-2.7 [facility] Comment on above: Performed By: #### L [id number] ####[facility] ([facility])[address] [place] [address] PHOSPHORUSon 09-04-2023 Magnesium [Mass/Vol] 3.1 mg/dL Normal 2.5-5.0 [facility] Comment on above: Performed By: #### L [id number] ####[facility] ([facility])[address] [place] [address] TROPONIN Ion 09-04-2023 Troponin I.cardiac [Mass/Vol] 0.05 ng/mL High 0.00-0.04 [facility] Comment on above: Performed By: #### L [id number] #### [facility] (BEAKER) [address] [place] [address] CT CHEST WO IV CONTRASTon CT CHEST [...] by Thang Giles on 01/31/2022 1022 Normal [facility] Specialist Vital Signs Date Time Vital Sign Value Performing Clinician Facility 04-17-2024 11:06-0400 Body mass index (BMI) [Ratio] 29.12 kg/m2 Kinsey Lowe NP Work Phone: [facility] 04-17-2024 11:06-0400 Body weight 81.83 kg Kinsey Lowe NP Work Phone: [facility] 04-17-2024 11:06-0400 Diastolic blood pressure 60 mm[Hg] Kinsey Lowe NP Work Phone: [facility] 04-17-2024 11:06-0400 Heart rate 73 /min Kinsey Lowe NP Work Phone: [facility] 04-17-2024 11:06-0400 SaO2% (BldA) [Mass fraction] 97 % Kinsey Lowe NP Work Phone: [facility] Comment on above: 2L O2, resting 04-17-2024 11:06-0400 Systolic blood pressure 118 mm[Hg] Kinsey Lowe NP Work Phone: [facility] 04-16-2024 08:52-0400 Body height 168.3 cm YEN Tobin MD Work Phone: [facility] 04-16-2024 08:52-0400 Body mass index (BMI) [Ratio] 28.57 kg/m2 YEN Tobin MD Work Phone: [facility] 04-16-2024 08:52-0400 Body temperature 98.2 [degF] YEN Tobin MD Work Phone: [facility] 04-16-2024 08:52-0400 Body weight 80.9 kg YEN Tobin MD Work Phone: [facility] 04-16-2024 08:52-0400 Diastolic blood pressure 74 mm[Hg] YEN Tobin MD Work Phone: [facility] 04-16-2024 08:52-0400 Heart rate 63 /min YEN Tobin MD Work Phone: [facility] 04-16-2024 08:52-0400 Respiratory rate 16 /min YEN Tobin MD Work Phone: [facility] 04-16-2024 08:52-0400 SaO2% (BldA) [Mass fraction] 97 % YEN Tobin MD Work Phone: [facility] 04-16-2024 08:52-0400 Systolic blood pressure 115 mm[Hg] YEN Tobin MD Work Phone: [facility] 04-14-2024 10:18-0400 Body height 167.6 cm Beatrice Juarez MD Work Phone: [facility] 04-14-2024 10:18-0400 Body mass index (BMI) [Ratio] 29.05 kg/m2 Beatrice Juarez MD Work Phone: [facility] 04-14-2024 10:18-0400 Body weight 81.65 kg Beatrice Juarez MD Work Phone: [facility] 04-14-2024 10:18-0400 Diastolic blood pressure 66 mm[Hg] Beatrice Juarez MD Work Phone: [facility] 04-14-2024 10:18-0400 Systolic blood pressure 92 mm[Hg] Beatrice Juarez MD Work Phone: [facility] 04-02-2024 13:02-0400 Heart rate 54 /min Beatrice Juarez [facility] 04-02-2024 13:02-0400 SaO2% (BldA) [Mass fraction] 95 % Beatrice Timmis [facility] 04-02-2024 13:02-0400 Blood Pressure Location Beatrice Timmis [facility] 04-02-2024 13:02-0400 Diastolic blood pressure 62 mm[Hg] Beatrice Timmis [facility] 04-02-2024 13:02-0400 Mean blood pressure 80 mm[Hg] Beatrice Timmis [facility] 04-02-2024 13:02-0400 Systolic blood pressure 115 mm[Hg] Beatrice Timmis [facility] 04-02-2024 13:01-0400 Respiratory rate 18 /min Beatrice Timmis [facility] 04-02-2024 11:51-0400 Heart rate 54 /min Beatrice Timmis [facility] 04-02-2024 11:51-0400 SaO2% (BldA) [Mass fraction] 97 % Beatrice Timmis [facility] 04-02-2024 11:51-0400 Diastolic blood pressure 65 mm[Hg] Beatrice Timmis [facility] 04-02-2024 11:51-0400 Mean blood pressure 85 mm[Hg] Beatrice Timmis [facility] 04-02-2024 11:51-0400 Systolic blood pressure 124 mm[Hg] Beatrice Timmis [facility] 04-02-2024 11:50-0400 Respiratory rate 18 /min Beatrice Timmis [facility] 04-02-2024 11:45-0400 Body temperature 97.16 [degF] Beatrice Timmis [facility] 04-02-2024 11:45-0400 Diastolic blood pressure 67 mm[Hg] Beatrice Timmis [facility] 04-02-2024 11:45-0400 Heart rate 56 /min Beatrice Timmis [facility] 04-02-2024 11:45-0400 Respiratory rate 18 /min Beatrice Timmis [facility] 04-02-2024 11:45-0400 SaO2% (BldA) [Mass fraction] 97 % Beatrice Timmis [facility] 04-02-2024 11:45-0400 Systolic blood pressure 114 mm[Hg] Beatrice Timmis [facility] 04-02-2024 11:35-0400 Respiratory rate 18 /min Beatrice Timmis [facility] 04-02-2024 11:30-0400 Respiratory rate 6 /min Beatrice Timmis [facility] 04-02-2024 11:16-0400 Body temperature 96.8 [degF] Beatrice Timmis [facility] 04-02-2024 11:15-0400 FIO2 100 1 Beatrice Timmis [facility] 04-02-2024 11:15-0400 Respiratory rate 2 /min Beatrice Timmis [facility] 04-02-2024 11:10-0400 FIO2 100 1 Beatrice Timmis [facility] 04-02-2024 11:05-0400 FIO2 60 1 Beatrice Timmis [facility] 04-02-2024 07:37-0400 Blood Pressure Location Beatrice Timmis [facility] 04-02-2024 07:37-0400 Mean blood pressure 103 mm[Hg] Beatrice Timmis [facility] 04-02-2024 07:36-0400 Heart rate 56 /min Beatrice Timmis [facility] 04-02-2024 07:35-0400 Blood Pressure Location Beatrice Timmis [facility] 04-02-2024 07:35-0400 Body temperature 98.06 [degF] Beatrice Timmis [facility] 03-11-2024 10:35-0400 Blood Pressure Location Beatrice Timmis [facility] 03-11-2024 10:35-0400 Diastolic blood pressure 52 mm[Hg] Beatrice Timmis [facility] 03-11-2024 10:35-0400 Systolic blood pressure 91 mm[Hg] Beatrice Timmis [facility] 03-11-2024 10:34-0400 Blood Pressure Location Beatrice Timmis [facility] 03-11-2024 10:34-0400 Body temperature 97.7 [degF] Beatrice Timmis [facility] 03-11-2024 10:34-0400 Diastolic blood pressure 71 mm[Hg] Beatrice Timmis [facility] 03-11-2024 10:34-0400 Heart rate 63 /min Beatrice Timmis [facility] 03-11-2024 10:34-0400 Respiratory rate 20 /min Beatrice Timmis [facility] 03-11-2024 10:34-0400 SaO2% (BldA) [Mass fraction] 94 % Beatrice Juarez [facility] 03-11-2024 10:34-0400 Systolic blood pressure 107 mm[Hg] Beatrice Juarez [facility] Encounters Encounter Date Encounter Type Care Provider Facility Start: 04-17-2024 End: 04-17-2024 Office outpatient visit 25 minutes Kinsey Lowe NP Work Phone: [facility] Comment on above: 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); Mixed hyperlipidemia (CMS/HCC); Chronic systolic CHF (congestive heart failure), NYHA class 2 (CMS/HCC); Chronic respiratory failure with hypoxia (CMS/HCC); Pulmonary emphysema, unspecified emphysema type (CMS/HCC); COPD mixed type (CMS/HCC); Abdominal aortic aneurysm (AAA) 3.0 cm to 5.5 cm in diameter in male (CMS/HCC); HAYDEN (dyspnea on exertion); SOB (shortness of breath); Oxygen dependent; Left lower lobe pulmonary nodule; Prediabetes; H/O tobacco use, presenting hazards to health Start: 04-17-2024 End: 04-17-2024 ambulatory KINSEY LOWE Not Available Start: 04-16-2024 End: 04-16-2024 ambulatory Thuy Rosas RN Radiation Oncology Comment on above: Patient Education Start: 04-16-2024 End: 04-16-2024 Patient encounter procedure G Romel Tobin MD Work Phone: Radiation Oncology Comment on above: Head and neck cancer (HCC) (Primary Dx) Start: 04-14-2024 End: 04-14-2024 Bamjeferson Juarez MD Work Phone: [facility] Start: 04-14-2024 End: 04-14-2024 Sujey Juarez MD Work Phone: [facility] Start: 04-14-2024 End: 04-14-2024 ambulatory SAMAR [facility] Start: 04-14-2024 End: 04-14-2024 Office outpatient visit 25 minutes Beatrice Juarez MD Work Phone: [facility] Comment on above: 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) Start: 04-14-2024 End: 04-14-2024 ambulatory BEATRICE WALSHMIS Not Available Start: 04-02-2024 End: 04-02-2024 Admission to same day surgery center Beatrice Juarez [facility] Start: 04-02-2024 End: 04-02-2024 ambulatory Beatrice Juarez Facility[place] [place] Start: 03-11-2024 End: 03-11-2024 ambulatory Beatrice Juarez Facility:[facility] [place] Start: 03-11-2024 End: 03-11-2024 Patient encounter procedure Beatrice Juarez [facility] Start: 03-04-2024 [facility] Start: 03-03-2024 End: 03-03-2024 ambulatory BEATRICE JUAREZ Not Available Start: 02-19-2024 End: 02-19-2024 ambulatory KARY B WONDERLY Not Available Start: 01-30-2024 End: 01-30-2024 ambulatory MAEGAN BRYANT [facility] Start: 01-01-2024 End: 01-01-2024 ambulatory [facility] Start: 11-12-2023 End: 11-12-2023 ambulatory KARY B WONDERLY Not Available Start: 10-28-2023 End: 10-28-2023 [facility] Start: 10-15-2023 End: 10-15-2023 ambulatory KARY B WONDERLY Not Available Start: 10-11-2023 End: 10-11-2023 ambulatory [facility] Start: 10-10-2023 End: 10-11-2023 ambulatory VEGA COLIN [facility] Start: 10-03-2023 End: 10-03-2023 ambulatory [facility] Start: 09-18-2023 End: 09-19-2023 ambulatory [facility] Start: 09-13-2023 End: 09-13-2023 ambulatory MARYCARMEN SORIA [facility] Start: 09-12-2023 End: 09-12-2023 ambulatory KARY JAY Not Available Start: 09-05-2023 Evaluation and manag ement of inpatient [facility] Start: 09-04-2023 Evaluation and manag ement of inpatient [facility] Start: 09-04-2023 End: 09-06-2023 Evaluation and management of inpatient EHAB [facility] Start: 08-21-2023 ambulatory LYLY Karin PARAMJIT [facility] Start: 08-13-2023 End: 08-13-2023 ambulatory JASMINE HDZ Not Available Start: 08-06-2023 Chart abstracting Jasmine hamm NP Work Phone: [facility] Start: 08-06-2023 End: 08-06-2023 ambulatory JASMINE HDZ Not Available Start: 08-25-2020 End: 08-26-2020 Patient encounter procedure NONE LISTED REQUEST Facility: Procedures Date Procedure Procedure Detail Performing Clinician Start: 04-02-2024 Biopsy of vocal cord Hi asif Tariqlucas Start: 10-28-2023 Follow-up visit Follow-up OMAR FARFAN Start: 09-29-2018 Colonoscopy Jasmine hamm NP Work Phone: Colonoscopy Beatrice Timmis Open repair of ingui nal hernia Beatrice Timmis Plan of Treatment Date Care Activity Detail Author Start: 04-14-2034 Urine microalbumin profile DTaP,Tdap,Td Vaccine (2 - Td or Tdap) [facility] Start: 09-29-2028 Screening for malign ant neoplasm of colon [facility] Start: 09-05-2026 Diabetes Screening Diabetes Screenin g [facility] Start: 07-14-2024 End: 07-14-2024 Patient encounter procedure 07/14/2024 9:10 AM EST Office Visit [facility] [address] [facility] [address] [place] [address] Beatrice Juarez MD [address] [facility] [address] [place] [address] [facility] Start: 06-02-2024 End: 06-02-2024 Patient encounter procedure 06/02/2024 9:30 AM EST Office Visit [facility] [address] [facility] [place] [phone] Kary Jay MD [address] [facility] [address] [place], [place] [id number] [facility] Start: 04-28-2024 End: 04-28-2024 Patient encounter procedure Radiation Oncology Comment on above: PRE SIM - TREATING L ARNX - CONTRERAS SIM - TREATING LARNX - CONTRERAS Start: 04-23-2024 End: 04-23-2024 Patient encounter procedure 04/23/2024 7:45 AM EDT Appointment Radiology Pet CT [address] [place] [address] CT Chest and Neck soft tissue W IV CON and labs Radiology Pet CT Comment on above: CT Chest and Neck so ft tissue W IV CON and labs Start: 04-22-2024 End: 04-22-2024 Patient encounter procedure 04/22/2024 12:45 PM EDT Education Nutrition Therapy [address] [place] [place] [address] [place] [place] [address] Nutrition Referral Nutrition Therapy Comment on above: Nutrition Referral Start: 04-17-2024 End: 05-16-2025 CT Neck W contrast IV CT NECK SOFT TISSUE W IVCON Radiology Routine Head and neck cancer (HCC) Expected: 04/17/2024, Expires: 05/16/2025 [facility] Work Phone: Comment on above: Expected: 04/17/2024 , Expires: 05/16/2025 Start: 04-17-2024 End: 04-17-2024 Patient encounter procedure 04/17/2024 11:00 AM EDT Office Visit [facility] [address] [facility] [place] [phone] Kinsey Lowe NP [address] [facility] [place], [place] [id number] [facility] Start: 04-16-2024 End: 07-16-2024 CREATININE BLD CREATININE BLD Lab Routine Head and neck cancer (HCC) Expected: 04/16/2024, Expires: 07/16/2024 [facility] Comment on above: Expected: 04/16/2024 , Expires: 07/16/2024 Start: 04-14-2024 End: 04-14-2024 Patient encounter procedure 04/14/2024 10:20 AM EDT Office Visit [facility] [address] [facility] [address] [place] [phone] Beatrice Juarez MD [address] [facility] [address] [place] [address] Arrived [facility] Comment on above: Arrived Start: 03-01-2024 Covid-19 Vaccine ( season) Covid-19 Vaccine ( season) [facility] Start: 03-01-2024 Influenza vaccination Influenza Vacc ine (#1) [facility] Start: 02-15-2024 Medicare Annual Wellness (AWV) Medicare Annual Wellness (AWV) [facility] Start: 08-06-2023 End: 08-06-2023 Patient encounter procedure 08/06/2023 9:00 AM EST Office Visit [facility] [address] [place] [phone] Jasmine Hdz NP [address] [facility] [place], [place] [id number] [facility] Start: 07-01-2023 Advance Directive Discussion Advance Directive Discussion [facility] Start: 1966 Anxiety Screening Anxiety Screening [facility] Start: 1966 Depression Screening Depression Scre ening [facility] Start: 1966 Hepatitis C screening Hepatitis C Sc brit [facility] Start: 1948 Screening for malign ant neoplasm of colon [facility] End: 05-16-2025 CT Chest W contrast IV CT CHEST W IVCON Radiology Routine Head and neck cancer (HCC) 1 Occurrences starting 04/16/2024 until 05/16/2025 [facility] Comment on above: 1 Occurrences starti ng 04/16/2024 until 05/16/2025 Immunizations Immunization Date Immunization Notes Care Provider Noman wu 04-14-2024 influenza, seasonal, injectable Kinsey Lowe [employer]IOR [employer] ENGINEER Work Phone: [facility] 04-14-2024 tetanus toxoid, redu dewayne diphtheria toxoid, and acellular pertussis vaccine, adsorbed Kinsey Lowe [employer]ENIOR AUTOMATION ENGINEER Work Phone: [facility] 01-24-2024 zoster vaccine recombinant Beatrice Juarez MD Work Phone: [facility] 10-15-2023 RSV, recombinant, pr otein subunit RSVpreF, adjuvant reconstitu, 120mcg/0.5mL, PF (Arexvy) Beatrice Juarez MD Work Phone: [facility] 10-15-2023 zoster vaccine recombinant Beatrice Juarez MD Work Phone: [facility] 04-20-2023 Influenza, High-dose Seasonal, Quadrivalent, Preservative Free Jasmine Hdz SENIOR AUTOMATION ENGINEER Work Phone: [facility] 04-20-2023 Pneumococcal Conjuga te PCV 20 Jasmine Hdz [employer]ENIOR AUTOMATION ENGINEER Work Phone: [facility] 04-20-2023 influenza virus vacc ine, unspecified formulation Beatrice Juarez MD Work Phone: [facility] 04-11-2022 Influenza, High-dose Seasonal, Quadrivalent, Preservative Free Jasmine Hdz SENIOR AUTOMATION ENGINEER Work Phone: [facility] 04-23-2021 Influenza, High-dose Seasonal, Quadrivalent, Preservative Free Jasmine Hdz SENIOR AUTOMATION ENGINEER Work Phone: [facility] 03-18-2020 Influenza, High-dose Seasonal, Quadrivalent, Preservative Free Jasmine Hdz SENIOR AUTOMATION ENGINEER Work Phone: [facility] 04-25-2019 Influenza, High-dose Seasonal, Quadrivalent, Preservative Free Jasmine Hdz SENIOR AUTOMATION ENGINEER Work Phone: [facility] 05-30-2018 Influenza, High-dose Seasonal, Quadrivalent, Preservative Free Jasmine Hdz SENIOR AUTOMATION ENGINEER Work Phone: [facility] 08-20-2017 Influenza, High-dose Seasonal, Quadrivalent, Preservative Free Jasmine Hdz SENIOR AUTOMATION ENGINEER Work Phone: [facility] 06-28-2015 influenza, seasonal, injectable Jasmine Hdz SENIOR AUTOMATION ENGINEER Work Phone: [facility] 06-28-2015 pneumococcal conjuga te vaccine, 13 valent Jasmine Hdz SENIOR AUTOMATION ENGINEER Work Phone: [facility] 05-28-2015 pneumococcal conjuga te vaccine, 13 valent Jasmine Hdz SENIOR AUTOMATION ENGINEER Work Phone: [facility] 05-16-2014 pneumococcal polysaccharide vaccine, 23 valent Jasmine Hdz SENIOR AUTOMATION ENGINEER Work Phone: [facility] Healthcare Payers Date Payer Category Payer Unknown [facility] MEDICARE ADVANTAGE O [id number] 2023-Present [phone] [address] [place] [address] [facility] [place] [id number] 2021 Medicare ANTHEM MEDICARE ADVANTAGE ANTHEM MEDICARE ADVANTAGE [id number] 2021-Present [address] [place] [id number] 2021 Medicare (Managed Care) JENN[employer]ER [employer]ANTO ADVANTAGE [id number] 2021 Medicare [id number] 2017 Unknown [id number] 2013 Medicare [id number] 1959 Self-pay 1950 Unknown [id number] [id number] .1285 1948 Unknown [id number] 2.16.840.1.251967.3.579.2 .128 1948 Unknown [id number] 2.16.840.1.170086.3.579.2 .1285 1948 Unknown [id number] 2.16.840.1.796961.3.579.2 .128 1948 Unknown [id number] 2.16.840.1.954543.3.579.2 .1285 1948 Unknown [id number] 2.16.840.1.734651.3.579.2 .128 1948 Unknown [id number] 2.16.840.1.035008.3.579.2 .1285 1948 Unknown [id number] 2.16.840.1.829091.3.579.2 .1285 1948 Unknown [id number] 2.16.840.1.116609.3.579.2 .727 1948 Unknown [id number] 2.16.840.1.407829.3.579.2 .727 1948 Unknown [id number] 2.16.840.1.917852.3.579.2 .1259 1948 Unknown [id number] 2.16.840.1.449235.3.579.2 .1258 1948 Unknown [id number] 2.16.840.1.839749.3.579.2 .1259 1948 Unknown [id number] 2.16.840.1.692818.3.579.2 .1258 1948 Unknown [id number] 2.16.840.1.918283.3.579.2 .125 1948 Unknown [id number] 2.16.840.1.776616.3.579.2 .1258 1948 Unknown [id number] 2.16.840.1.573645.3.579.2 .125 1948 Unknown [id number] 2.16.840.1.708562.3.579.2 .1258 1948 Unknown [id number] 2.16.840.1.703343.3.579.2 .1259 Unknown [id number] 2.16.840.1.418037.3.579.2 .593 Social History Date Type Detail Facility Start: 02-14-2023 Tobacco smoking stat [facility] Smokes tobacco daily [facility] Start: 07-01-1965 End: 08-30-2023 History of tobacco use Cigarette Smoker [facility] Start: 02-14-2023 End: 04-11-2024 Cigarettes smoked current (pack per day) - Reported 1 [facility] Start: 02-14-2023 End: 03-03-2024 Tobacco use and exposure Smokeless tobacco non-user [facility] Start: 02-26-2023 End: 04-16-2024 Alcohol intake Current drinker of alcohol (finding) [facility] Start: 02-08-2023 End: 04-11-2024 Humiliation, Afraid, Rape, and Kick questionnaire [HARK] [facility] Within the last year , have you been afraid of your partner or ex-partner? No [facility] Do you belong to any clubs or organizations such as sabianist groups, unions, fraternal or athletic groups, or [...] Smokes 6-30 mi ns after waking up [facility] Start: 02-14-2023 Alcohol Comment caffeine: 2-3 cups per day [facility] Start: 1950 Sex Assigned At Not on file [facility] Tobacco [facility] Comment on above: quit smoking about 6 months ago Tobacco smoking status No Smokin g Status Entered [facility] Start: 03-03-2024 End: 04-16-2024 Tobacco smoking status NHIS Ex-smoker [facility] Work Phone: Start: 07-01-1965 End: 08-30-2023 History of tobacco use Current smoker [facility] History of tobacco use Passive smoker [facility] Start: 03-03-2024 End: 04-17-2024 Alcoholic beverage intake Ex-drinker (finding) [facility] NEGATED: Highlighted rowStart: MICHAELF History of tobacco use Passive smoker [facility] Functional Status Date Assessment Result Facility 03-11-2024 Functional Status No [facility] Clinical Notes 09-04-2023 to 04-17-2024 Kinsey Lowe NP - 04/17/2024 11:00 AM Thuy Subramanian RN - 04/16/2024 12:30 PM Thuy Subramanian RN - 04/16/2024 12:30 PM Davion Uriostegui MD - 04/16/2024 9:00 AM EDT Note Date & Type Note Facility 04-17-2024 History of Present illness Narrative Images from the original note were not included. Subjective Patient ID: Vahid Chowdhury is a 74 y.o. male who presents for Follow-up (Face to Face for walker.). HPI: Had recent vocal cord cancer. Saw Dr Perez Oncologist in [place]. Will do 28 days of radiation, 5 days a week. Uses 2 Liters of O2 (portable). Would like Rx for wheeled walker with a seat. Pt talked to MARY Perrin about this. Pt gets winded easily with lung Hx when out, and states he will be feeling weak with Tx per Oncology. Pt does not use a cane, r/t he does not feel a cane will be enough support for him. When he get winded, he needs to sit down. O2 level can dip into the 80's even with oxygen on, if he over exerts himself. Then has to sit down and after a few minutes levels come back up. He had to hold onto a pillar while pulled car up to get him at the store. Per pt/, the walker will keep him from being isolated at home. He enjoys getting out. Sees Pulmonology, and Cardiology also. Review of Systems Constitutional: Positive for appetite change and fatigue. Negative for chills and fever. Moderate fatigue, fair appetite- some difficulty swallowing so watching diet HENT: Negative. Respiratory: Positive for cough and shortness of breath. Occ SENIOR AUTOMATION ENGINEER cough Cardiovascular: Negative for chest pain and leg swelling. Gastrointestinal: Negative for abdominal pain, constipation, diarrhea and nausea. No change in bowels, No GERD Genitourinary: Negative for difficulty urinating and dysuria. Musculoskeletal: No joint pain Neurological: Negative for dizziness and headaches. Psychiatric/Behavioral: Per , sleeps like a piece of popcorn, moves around a lot at night . Mood is great Objective Physical Exam Vitals and nursing note reviewed. Constitutional: General: He is not in acute distress. Appearance: He is not ill-appearing, toxic-appearing or diaphoretic. Comments: is present. HENT: Head: Normocephalic and atraumatic. Nose: Nose normal. Eyes: Conjunctiva/sclera: Conjunctivae normal. Cardiovascular: Rate and Rhythm: Normal rate and regular rhythm. Heart sounds: No murmur heard. Pulmonary: Breath sounds: No wheezing, rhonchi or rales. Comments: Generally diminished, Occasional moist cough, Pox 97% with Oxygen on at 2L per N/C Abdominal: General: Bowel sounds are normal. There is no distension. Palpations: Abdomen is soft. Tenderness: There is no abdominal tenderness. There is no guarding. Musculoskeletal: General: No swelling. Cervical back: Neck supple. Skin: General: Skin is warm and dry. Coloration: Skin is not pale. Neurological: Mental Status: He is alert and oriented to person, place, and time. Psychiatric: Mood and Affect: Mood normal. Behavior: Behavior normal. Thought Content: Thought content normal. Judgment: Judgment normal. 09/12/2023 11:15 AM 10/15/2023 11:01 AM 11/12/2023 10:29 AM 02/19/2024 8:39 AM 03/03/2024 9:21 AM 04/14/2024 10:18 AM 04/17/2024 11:06 AM Vitals BMI 26.91 kg/m2 27.43 kg/m2 28.25 kg/m2 29.21 kg/m2 29.05 kg/m2 29.12 kg/m2 BSA (m2) 1.86 m2 1.87 m2 1.92 m2 1.96 m2 1.95 m2 1.95 m2 Systolic 112 124 108 98 98 92 118 Diastolic 66 60 54 58 54 66 60 Heart Rate 68 52 75 64 73 SpO2 96 % 99 % 97 % Height (in) 5' 5.5 5' 6 5' 6 5' 6 Weight (lb) 164.2 167.4 175 181 180 180.4 Visit Report Report Report Report Report Report Report Report I have reviewed and reconciled the history and medication list with the patient today. Assessment/Plan Diagnoses and all orders for this visit: Cancer of true vocal cord (CMS/HCC): Saw Dr Grove and now is seeing Oncology. Pt will be having radiation Tx's Mixed hyperlipidemia (CMS/HCC): Last LDL 104 in October 2023. On statin Chronic systolic CHF (congestive heart failure), NYHA class 2 (CMS/HCC): Sees Cardiology Chronic respiratory failure with hypoxia (CMS/HCC): Sees Pulmonology, has O2 Pulmonary emphysema, unspecified emphysema type (CMS/HCC) COPD mixed type (CMS/HCC): Sees Pulmonology Abdominal aortic aneurysm (AAA) 3.0 cm to 5.5 cm in diameter in male (CMS/HCC): Last U/S 10/22. Sees Vascular HAYDEN(dyspnea on exertion): Patient would benefit from the use of a rollator. Patient has limited mobility that impairs his ability to participate in mobility related activities of daily living. Patient's mobility limitation cannot be sufficiently and safely resolved by use of a cane. Patient can safely, self-propel rollator. Patient has proper residential space for use of a rollator, which will be utilized regularly inside and outside the home. Patient requires the use of the rollator seat due to his need for frequent breaks while ambulating, as well as locking breaks feature to ensure safety while sitting. Patient's functional mobility deficit cannot be resolved by use of cane. SOB (shortness of breath): See above Prediabetes: Last HGbA1c 5.8 in October Oxygen dependent: O2 2L per N/C Left lower lobe pulmonary nodule: CT of chest 08/24 H/O tobacco use, presenting hazards to health: Quit in August 2023 SOB (shortness of breath): Per Dr Jay's last note in January pt was to F/U in 3-4 months, sooner if concerns documented in this encounter [facility] 04-16-2024 Nurse Note Radiation Therapy - Patient Education Note PATIENT NAME: Vahid Chowdhury PATIENT April 16, 2024 [facility]LOCATION: [facility] READINESS TO LEARN Cognitive Ability: Alert and oriented Motivation to learn: Interested Family Support: High - Very involved in pt care Instruction provide to: Patient and family member Patient learns best by: Verbal Instruction Factors effecting learning: None Physical limitations effecting learning: None LEARNING RESPONSE Diagnosis: Pt educated today for radiation therapy to head and neck. Education Topic/Teaching Points: Radiation therapy, Side effects, and OTV: Method of instruction: Written instruction/Handouts Patient /Family response: Patient and family verbalized understanding of radiation treatments, side effects, OTV, and transportation. Follow-up plan: Recommend - Recommend continued instruction and follow up as directed Supplemental material: Informational handouts on Head and neck packet. Referral (recommendation): Dietitian Patient has an Onbody or Implanted device: No Signed by: Thuy Rosas RN [facility] 04-16-2024 Nurse Note Radiation Therapy - Patient Education Note PATIENT NAME: Vahid Chowdhury PATIENT April 16, 2024 [facility]AC[facility]LOCATION: [facility] READINESS TO LEARN Cognitive Ability: Alert and oriented Motivation to learn: Interested Family Support: High - Very involved in pt care Instruction provide to: Patient and family member Patient learns best by: Verbal Instruction Factors effecting learning: None Physical limitations effecting learning: None LEARNING RESPONSE Diagnosis: Pt educated today for radiation therapy to head and neck. Education Topic/Teaching Points: Radiation therapy, Side effects, and OTV: Method of instruction: Written instruction/Handouts Patient /Family response: Patient and family verbalized understanding of radiation treatments, side effects, OTV, and transportation. Follow-up plan: Recommend - Recommend continued instruction and follow up as directed Supplemental material: Informational handouts on Head and neck packet. Referral (recommendation): Dietitian Patient has an Onbody or Implanted device: No Signed by: Thuy Rosas RN documented in this encounter [facility] 04-16-2024 History of Present illness Narrative Radiation Oncology - New Patient/Consult Note PATIENT NAME: Vahid Chowdhury PATIENT : 1950 REQUESTING PROVIDER: Dr. 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 Date of Diagnosis: April 02, 2024 Primary Site: Larynx Glottic Laterality: Left Histology: Squamous Cell Carcinoma, NOS HPI: 74 year old male who presents with above diagnosis, for an opinion regarding the role of radiation therapy in the management of the patient's disease. Final recommendations will be communicated back to the requesting physician by way of the shared medical record, or letter to requesting physician via US mail. Patient presented with hoarseness, intermittent and worsening. Initially starting in late August when he started supplemental oxygen. Noted that his voice seems to be worse in the morning. Denies pain or dysphagia. Denies any weight loss. Denies any otalgia. He was evaluated by Dr. Juarez. He underwent diagnostic flexible fiberoptic laryngoscopy which demonstrated and exophytic mass of the entire left true vocal cord. Extension to the anterior commissure was noted. Normal bilateral true vocal cord motion was present. No other suspicious areas within the larynx or posterior oropharynx. He underwent microlaryngoscopy with biopsy on 04/02/2024. 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 albuterol HFA (PROVENTIL HFA, VENTOLIN HFA) 90 mcg/actuation inhaler Inhale 2 Puffs as instructed. albuterol (PROVENTIL) 2.5 mg /3 mL (0.083 %) nebulizer solution Inhale 2.5 mg as instructed every 6 hours as needed. aspirin, enteric coated (ASPIRIN, ENTERIC COATED) 81 mg EC tablet Take 81 mg by mouth. atorvastatin (LIPITOR) 40 mg tablet Take 40 mg by mouth. cwilsloxns-atlzaqcm-ltwmafynfk (BREZTRI AEROSPHERE) 160-9-4.8 mcg/actuation HFA aerosol inhaler Inhale as instructed. dapagliflozin propanediol (FARXIGA) 10 mg tablet Take 10 mg by mouth. furosemide (LASIX) 40 mg tablet Take 40 mg by mouth. metoprolol succinate ER (TOPROL XL) 25 mg 24 hr tablet Take 12.5 mg by mouth. spironolactone (ALDACTONE) 25 mg tablet Take 12.5 mg by mouth. sacubitril-valsartan (ENTRESTO) 24-26 mg tablet Take 1 tablet by mouth. iv contrast (will be provided with radiology test) Inject 1 Each intravenously one time only for [address] Neck W IVCON No IV access, insert saline lock prior to the sedation, infusion, injection for imaging exam. Discontinue saline lock post exam. If Pt. has a central line or IVAD, may access for administration according to line specific nursing protocol. Once exam is complete flush line and de-access according to line specific nursing protocol in the CT contrast administration guidelines link. iv contrast (will be provided with radiology test) CT Chest W -Inject, intravenously, once for 1 dose.No IV access, insert saline lock prior to the beginning of sedation, infusion, injection of imaging exam. Discontinue saline lock post exam. If Pt. has a central line or IVAD, may access for administration according to line specific nursing protocol. Once exam is complete flush line and de-access according to line specific nursing protocol in the CT contrast administration guidelines link. PAST MEDICAL HISTORY Diagnosis Date AAA (abdominal aortic aneurysm) (HCC) CAD (coronary artery disease) Chronic CHF (congestive heart failure) (HCC) COPD (chronic obstructive pulmonary disease) (HCC) Decompensated heart failure (HCC) Diverticulitis Diverticulosis Left lower lobe pulmonary nodule Mixed hyperlipidemia Other emphysema (HCC) Oxygen dependent Peripheral vascular disease (HCC) Prior radiation therapy, collagen vascular disease, or inflammatory bowel disease: No Any implanted or external electric devices? No PAST SURGICAL HISTORY Procedure Laterality Date HERNIA REPAIR HX LEFT HEART CATH,PERCUTANEOUS VASECTOMY FAMILY HISTORY Problem Relation Age of Onset Lung Cancer Father Pancreatic Cancer Sister Lung Cancer Sister Social History Tobacco Use Smoking status: Former Current packs/day: 1.00 Average packs/day: 1 pack/day for 54.8 years (54.8 ttl pk-yrs) Types: Cigarettes Start date: 07/01/1969 Passive exposure: Never Smokeless tobacco: Never Substance Use Topics Alcohol use: Yes Alcohol/week: 15.0 standard drinks of alcohol Types: 15 Cans of beer per week Drug use: Never Lives in: home Social Support: with Employment: retired COMPLETE REVIEW OF SYSTEMS: GENERAL: feeling well, admits to fatigue , no recent change in weight NECK: denies swelling or pain in neck RESPIRATORY: no cough, no wheezing has dyspnea on exertion on O2 2 L CARDIOVASCULAR: no chest pain, no palpitations MUSCULOSKELETAL: denies any painful or swollen joints, no muscle aches NEURO: no numbness or paresthesias and no weakness of the extremities As noted in HPI PHYSICAL EXAM: Synopsis [facility] 04/16/2024 08:52 Vitals Temp 36.8 C (98.2 F) Pulse 63 Resp 16 BP 115/74 SpO2 97 % KPS: 90 General Appearance: Alert and oriented. No acute distress. HEENT: NCAT. Sclera anicteric. PERRL. EOMI. Oral cavity & oropharnyx: lips and gums normal, oral and pharyngeal mucosa moist, palate elevates normally, tongue mobile and without palpable lesions, tonsils without masses indirect exam glimpse of cord only abnormal left cord Dentition: Dentures Neck: Normal ROM. No palpable cervical or supraclavicular adenopathy. Chest: No respiratory distress. Lungs clear to auscultation bilaterally. Heart: Regular rate and rhythm. Musculoskeletal: No edema. Normal ROM in extremities. No bone or spine tenderness. Neuro: Speech fluent. Gait normal. No focal deficits. Skin: No rashes noted Lymphatics: No palpable lymphadenopathy. Hematologic: No signs of active bleeding. RADIOLOGY/LABORATORY DATA: see HPI p16:N/A ENT consult: Complete Dental evaluation:N/A Biomarker ordered: N/A ASSESSMENT/PLAN: Laryngeal cancer, left true vocal cord, squamous cell carcinoma, stage I [id number]. Patient I do feel is a excellent candidate for definitive radiation treatment for his stage I glottic cancer. Options of treatment discussed at length. Potential acute and long-term effects of radiation discussed. Overall success rate expected to be very high. In the event of persistent or recurrent disease need for laryngectomy was discussed. Patient expressed an understanding and the information presented. He is with his today. Will plan to use IMRT to deliver 63 Herrera in 28 fractions to the laryngeal area. Plan to obtain CT neck and chest prior to initiating treatment planning. Signed by: Davion Tobin MD cc: No primary care provider on file. Beatrice Juarez MD [address] [facility] [address] [facility] [id number] Pacemaker/Defibrillator? No Previous Cancer(s)? No Previous Radiation? No Lupus/Scleroderma? No On body monitoring device? No Thuy Rosas RN documented in this encounter [facility] 04-16-2024 Note HNO ID: [id number] Author: Davion TOBIN MD Service: ? Author Type: Physician Type: Progress Notes Filed: 04/16/2024 10:17 Note Text: Radiation Oncology - New Patient/Consult Note PATIENT NAME: Vahid Chowdhury PATIENT : 1950 REQUESTING PROVIDER: Dr. 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 Date of Diagnosis: April 02, 2024 Primary Site: Larynx Glottic Laterality: Left Histology: Squamous Cell Carcinoma, NOS HPI: 74 year old male who presents with above diagnosis, for an opinion regarding the role of radiation therapy in the management of the patient's disease. Final recommendations will be communicated back to the requesting physician by way of the shared medical record, or letter to requesting physician via US mail. Patient presented with hoarseness, intermittent and worsening. Initially starting in late August when he started supplemental oxygen. Noted that his voice seems to be worse in the morning. Denies pain or dysphagia. Denies any weight loss. Denies any otalgia. He was evaluated by Dr. Juarez. He underwent diagnostic flexible fiberoptic laryngoscopy which demonstrated and exophytic mass of the entire left true vocal cord. Extension to the anterior commissure was noted. Normal bilateral true vocal cord motion was present. No other suspicious areas within the larynx or posterior oropharynx. He underwent microlaryngoscopy with biopsy on 04/02/2024. 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 albuterol HFA (PROVENTIL HFA, VENTOLIN HFA) 90 mcg/actuation inhaler Inhale 2 Puffs as instructed. albuterol (PROVENTIL) 2.5 mg /3 mL (0.083 %) nebulizer solution Inhale 2.5 mg as instructed every 6 hours as needed. aspirin, enteric coated (ASPIRIN, ENTERIC COATED) 81 mg EC tablet Take 81 mg by mouth. atorvastatin (LIPITOR) 40 mg tablet Take 40 mg by mouth. aknmtxaomk-oupvftcc-cmdmxqdzqu (BREZTRI AEROSPHERE) 160-9-4.8 mcg/actuation HFA aerosol inhaler Inhale as instructed. dapagliflozin propanediol (FARXIGA) 10 mg tablet Take 10 mg by mouth. furosemide (LASIX) 40 mg tablet Take 40 mg by mouth. metoprolol succinate ER (TOPROL XL) 25 mg 24 hr tablet Take 12.5 mg by mouth. spironolactone (ALDACTONE) 25 mg tablet Take 12.5 mg by mouth. sacubitril-valsartan (ENTRESTO) 24-26 mg tablet Take 1 tablet by mouth. iv contrast (will be provided with radiology test) Inject 1 Each intravenously one time only for [address] Neck W IVCON No IV access, insert saline lock prior to the sedation, infusion, injection for imaging exam. Discontinue saline lock post exam. If Pt. has a central line or IVAD, may access for administration according to line specific nursing protocol. Once exam is complete flush line and de-access according to line specific nursing protocol in the CT contrast administration guidelines link. iv contrast (will be provided with radiology test) CT Chest W -Inject, intravenously, once for 1 dose.No IV access, insert saline lock prior to the beginning of sedation, infusion, injection of imaging exam. Discontinue saline lock post exam. If Pt. has a central line or IVAD, may access for administration according to line specific nursing protocol. Once exam is complete flush line and de-access according to line specific nursing protocol in the CT contrast administration guidelines link. PAST MEDICAL HISTORY Diagnosis Date AAA (abdominal aortic aneurysm) (HCC) CAD (coronary artery disease) Chronic CHF (congestive heart failure) (HCC) COPD (chronic obstructive pulmonary disease) (HCC) Decompensated heart failure (HCC) Diverticulitis Diverticulosis Left lower lobe pulmonary nodule Mixed hyperlipidemia Other emphysema (HCC) Oxygen dependent Peripheral vascular disease (HCC) Prior radiation therapy, collagen vascular disease, or inflammatory bowel disease: No Any implanted or external electric devices? No PAST SURGICAL HISTORY Procedure Laterality Date HERNIA REPAIR HX LEFT HEART CATH,PERCUTANEOUS VASECTOMY FAMILY HISTORY Problem Relation Age of Onset Lung Cancer Father Pancreatic Cancer Sister Lung Cancer Sister Social History Tobacco Use Smoking status: Former Current packs/day: 1.00 Average packs/day: 1 pack/day for 54.8 years (54.8 ttl pk-yrs) Types: Cigarettes Start date: 07/01/1969 Passive exposure: Never Smokeless tobacco: Never Substance Use Topics Alcohol use: Yes (more content not included)... [facility] 04-16-2024 Note HNO ID: [id number] Author: THUY ROSAS RN Service: ? Author Type: Registered Nurse Type: Progress Notes Filed: 04/16/2024 08:57 Note Text: Pacemaker/Defibrillator? No Previous Cancer(s)? No Previous Radiation? No Lupus/Scleroderma? No On body monitoring device? No Thuy Rosas RN [facility] 04-16-2024 Note Education (DEEPALI) TRENTONVAHID ([id number]) 1950 M Date Time Provider Department 04/16/24 THUY ROSAS Reason for Visit: Patient Education [91] Visit Notes: >> Thuy Rosas, SHIELA [facility] Apr 16, 2024 12:30 PM Status: Signed Radiation Therapy - Patient Education Note PATIENT NAME: Vahid Chowdhury PATIENT April 16, 2024 [facility]LOC[facility]: [facility] READINESS TO LEARN Cognitive Ability: Alert and oriented Motivation to learn: Interested Family Support: High - Very involved in pt care Instruction provide to: Patient and family member Patient learns best by: Verbal Instruction Factors effecting learning: None Physical limitations effecting learning: None LEARNING RESPONSE Diagnosis: Pt educated today for radiation therapy to head and neck. Education Topic/Teaching Points: Radiation therapy, Side effects, and OTV: Method of instruction: Written instruction/Handouts Patient /Family response: Patient and family verbalized understanding of radiation treatments, side effects, OTV, and transportation. Follow-up plan: Recommend - Recommend continued instruction and follow up as directed Supplemental material: Informational handouts on Head and neck packet. Referral (recommendation): Dietitian Patient has an Onbody or Implanted device: No Signed by: Thuy Rosas RN During your visit today, we recorded the following information about you: Allergies As of Date: 04/16/2024 (No Known Allergies) Date Reviewed: 04/16/2024 Reviewed by: Thuy Rosas, RN - Fully Assessed Prescriptions as of 04/16/2024 - potassium chloride SR (MICRO-K) 10 mEq CR capsule Take 10 mEq by mouth once daily. - albuterol HFA (PROVENTIL HFA, VENTOLIN HFA) 90 mcg/actuation inhaler Inhale 2 Puffs as instructed. - iv contrast (will be provided with radiology test) Inject 1 Each intravenously one time only for [address] Neck W IVCON No IV access, insert saline lock prior to the sedation, infusion, injection for imaging exam. Discontinue saline lock post exam. If Pt. has a central line or IVAD, may access for administration according to line specific nursing protocol. Once exam is complete flush line and de-access according to line specific nursing protocol in the CT contrast administration guidelines link. - iv contrast (will be provided with radiology test) CT Chest W -Inject, intravenously, once for 1 dose.No IV access, insert saline lock prior to the beginning of sedation, infusion, injection of imaging exam. Discontinue saline lock post exam. If Pt. has a central line or IVAD, may access for administration according to line specific nursing protocol. Once exam is complete flush line and de-access according to line specific nursing protocol in the CT contrast administration guidelines link. - albuterol (PROVENTIL) 2.5 mg /3 mL (0.083 %) nebulizer solution Inhale 2.5 mg as instructed every 6 hours as needed. - aspirin, enteric coated (ASPIRIN, ENTERIC COATED) 81 mg EC tablet Take 81 mg by mouth. - atorvastatin (LIPITOR) 40 mg tablet Take 40 mg by mouth. - oylnwtvnus-ekgzpzcn-sglsvzzsuy (BREZTRI AEROSPHERE) 160-9-4.8 mcg/actuation HFA aerosol inhaler Inhale as instructed. - dapagliflozin propanediol (FARXIGA) 10 mg tablet Take 10 mg by mouth. - furosemide (LASIX) 40 mg tablet Take 40 mg by mouth. - metoprolol succinate ER (TOPROL XL) 25 mg 24 hr tablet Take 12.5 mg by mouth. - spironolactone (ALDACTONE) 25 mg tablet Take 12.5 mg by mouth. - sacubitril-valsartan (ENTRESTO) 24-26 mg tablet Take 1 tablet by mouth. Encounter Status:Closed by THUY ROSAS on 04/16/24 [facility] 04-14-2024 History of Present illness Narrative Subjective Patient ID: Vahid Chowdhury is a 74 y.o. male who presents for vocal cord mass (Sp [place] [facility] [place] S/P DL and bx. Path showed a well-differentiated SCCA Family History Problem Relation Name Age of Onset Other (bowel infection) Mother Lung cancer Father COPD Father Pancreatic cancer Sister Other (vulvara cancer) Sister Hypertension Sister COPD Sister Peripheral vascular disease Sister Other (heavy smoker) Sister Cirrhosis Sister Lung cancer Sister Nephrolithiasis Brother Heart failure Brother Active Ambulatory Problems Diagnosis Date Noted Abdominal aortic aneurysm (AAA) 3.0 cm to 5.5 cm in diameter in male (CMS/HCC) 02/07/2023 COPD mixed type (CMS/HCC) 02/07/2023 Diverticulosis of large intestine without perforation or abscess without bleeding 02/07/2023 Mixed hyperlipidemia (CMS/HCC) 02/07/2023 Peripheral vascular disease (CMS/HCC) 02/07/2023 Unspecified atherosclerosis of eek arteries of extremities, bilateral legs (CMS/HCC) 02/07/2023 Family history of asthma 09/03/2016 Family history of lung cancer 09/03/2016 Family history of pancreatic cancer 09/03/2016 History of adenomatous polyp of colon 09/07/2016 Prediabetes 02/15/2021 Left lower lobe pulmonary nodule 08/06/2023 Lung disease, emphysema (CMS/HCC) 08/20/2023 Common iliac aneurysm (CMS/HCC) 04/08/2023 Decompensated heart failure ([facility]) 09/04/2023 Chronic respiratory failure with hypoxia ([facility] 10/15/2023 Oxygen dependent 10/15/2023 H/O tobacco use, presenting hazards to health 10/15/2023 Chronic systolic CHF (congestive heart failure), NYHA class 2 ([facility]) 09/04/2023 Coronary artery disease involving eek coronary artery of eek heart without angina pectoris ([facility]) 09/13/2023 HAYDEN (dyspnea on exertion) 09/13/2023 Resolved Ambulatory Problems Diagnosis Date Noted No Resolved Ambulatory Problems Past Medical History: Diagnosis Date Abdominal aortic aneurysm (AAA) ([facility]) Atherosclerosis Atherosclerosis Atherosclerosis CHF (congestive heart failure) ([facility]) Cigarette nicotine dependence, uncomplicated COPD (chronic obstructive pulmonary disease) ([facility]) Diverticulosis Elevated blood pressure reading Elevated hemoglobin A1c level 6.4, 6.1 Emphysema of lung ([facility]) Fatigue History of colonic polyps Onychomycosis of toenail Pneumonia Pulmonary emphysema, unspecified emphysema type ([facility]) Speech impairment Swallowing problem Tubular adenoma Past Surgical History: Procedure Laterality Date CARDIAC CATHETERIZATION 08/2023 CIRCUMCISION 1984 COLONOSCOPY 04/27/2013 tubular adenoma and inflammatory polyp Dr. Michelle COLONOSCOPY 05/2014 sigmoid hyperplastic polyp, extensive diverticular disease/repeat 3 yr COLONOSCOPY 04/07/2012 inflammation, fibrosis/[facility] COLONOSCOPY 09/29/2018 [facility], repeat 3 years 3 tubular adenoma 1 hyperplastic, diverticula HERNIA REPAIR SIGMOIDOSCOPY* VASECTOMY 1978 No Known Allergies Current Outpatient Medications on File Prior to Visit Medication Sig Dispense Refill albuterol (2.5 MG/3ML) 0.083% nebulizer solution Take 3 mL (2.5 mg) by nebulization every 6 (six) hours if needed for wheezing or shortness of breath 75 mL 11 albuterol HFA 90 mcg/act inhaler Inhale 2 puffs every 4 (four) hours if needed for shortness of breath or wheezing. aspirin 81 MG EC tablet Take 81 mg by mouth in the morning. atorvastatin (Lipitor) 40 MG tablet Take 40 mg by mouth Daily Rmfjkrm-Mbmoagfnzek-Kxrctqtbkk (Breztri Aerosphere) 160-9-4.8 MCG/ACT aerosol Inhale 2 puffs in the morning and 2 puffs before bedtime. 10.7 g 3 dapagliflozin (Farxiga) 10 MG Take 1 tablet (10 mg) by mouth Daily 90 tablet 3 Entresto 24-26 MG tablet Take 1 tablet by mouth in the morning and 1 tablet in the evening. furosemide (Lasix) 20 MG tablet Take 20 mg by mouth Daily metoprolol succinate XL (Toprol-XL) 25 MG 24 hr tablet Take 12.5 mg by mouth Daily Do not crush or chew. oxygen (O2) gas Inhale 2 L/min if needed via nasal canula spironolactone (Aldactone) 25 MG tablet Take 12.5 mg by mouth Daily No current facility-administered medications on file prior to visit. 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 Tumor involves the entire TVC and extends to the anterior commisure. I will arrange for tx at [facility] with Dr Tobin. F/U with me in 3 mo after tx completed documented in this encounter [facility] 04-02-2024 Note Progress Note-Physic lucho Patient: VAHID CHOWDHURY Age: 74 years Sex: Male : 1950 Associated Diagnoses: None Author: Samir Elkins MD Postoperative Information Postoperative disposition: Postoperative disposition: To PACU. Optimetrix number: Optimetrix number [id number]. Anesthetic utilized: General. Health Status Allergies: Allergic Reactions (Selected) No Known Allergies Physical Examination Vital Signs 04/02/2024 13:02 EDT Heart Rate Monitored 54 bpm LOW SpO2 95 % 04/02/2024 13:02 EDT Systolic Blood Pressure 115 mmHg Diastolic Blood Pressure 62 mmHg Blood Pressure Location Right arm Mean Arterial Pressure, Monitered 80 mmHg 04/02/2024 13:01 EDT Respiratory Rate 18 br/min 04/02/2024 11:51 EDT Heart Rate Monitored 54 bpm LOW SpO2 97 % 04/02/2024 11:51 EDT Systolic Blood Pressure 124 mmHg Diastolic Blood Pressure 65 mmHg Mean Arterial Pressure, Monitered 85 mmHg 04/02/2024 11:50 EDT Respiratory Rate 18 br/min 04/02/2024 11:45 EDT Temperature Temporal Artery 36.2 DegC LOW Heart Rate Monitored 56 bpm LOW Respiratory Rate Monitored 18 br/min Systolic Blood Pressure 114 mmHg Diastolic Blood Pressure 67 mmHg SpO2 97 % Pain Assessment: Controlled. General: Awake, Appropriate. Respiratory: Adequate air exchange. Cardiovascular: Stable. Neurological Assessment Anesthetic outcome No anesthetic complications noted. Adequate pain relief. Review / Management Condition: Stable. Plan Transfer/Discharge: Transfer/Discharge Discharge when meets criteria ( To home ). [facility] Comment on above: Result Comment: Elec tronically Signed By: Samir Elkins MD\.br\Date and Time Signed: 04/02/24 14:09 EDT 04-02-2024 Note Progress Note-Physic lucho Patient: VAHID CHOWDHURY Age: 74 years Sex: Male : 1950 Associated Diagnoses: None Author: Samir Elkins MD Preoperative Information Anesthesia Preop Info: Time patient last ate or drank 04/02/2024 00:00:00. Anesthesia history: Patient history: None. Family history+: None. Informed consent: Signed by patient. Re-evaluation prior to induction: Initial evaluation reviewed: No significant change. Review of Systems Eye Ear/Nose/Mouth/Throat Respiratory: No shortness of breath, No cough. Cardiovascular: No chest pain, No palpitations, No syncope. Musculoskeletal Neurologic Health Status Allergies: Allergic Reactions (Selected) No Known Allergies, Allergies (1) Active Severity Reaction No Known Allergies None Documented Current medications: (Selected) Inpatient Medications Ordered Lactated Ringers IV Cecilia 1000 mL 1,000 mL: 1,000 mL, IV, 150 mL/hr, Routine, Start date 04/02/24 7:30:00 EDT, 6.7 hour(s), Total volume (mL): 1,000, 80.2 kg, 1.94, m2 Tylenol 325 mg Tab: 650 mg = 2 tab(s), Tab, Oral, q4hr PRN Pain/Fever, Routine, Start date 04/02/24 11:26:00 EDT, 04/02/24 11:26:00 EDT Documented Medications Documented Albuterol (Eqv-ProAir HFA) 90 mcg/inh inhalation aerosol: 2 puff(s), Inhalation, Shortness of breath or wheezing, Refill(s) 0 Breztri Aerosphere inhalation aerosol: Refill(s) 0, COPD Entresto 24 mg-26 mg oral tablet: 1 tab(s), Oral, BID, Refill(s) 0, Other (see comment) Farxiga 10 mg oral tablet: 10 mg = 1 tab(s), Oral, Daily, Refills(s) 0, Other (see comment) albuterol 0.083% Inh Cecilia 3 mL: 2.5 mg, 3 mL, Inhalation, Shortness of breath or wheezing, Q6H and PRN aspirin 81 mg oral capsule: 81 mg = 1 cap(s), Oral, Daily, Refills(s) 0, Prophylaxis atorvastatin 40 mg Tab: 40 mg = 1 tab(s), Oral, Bedtime, Refills(s) 0, High cholesterol furosemide 20 mg Tab: 20 mg = 1 tab(s), Oral, Daily, Refills(s) 0, diuretic/water pill metoprolol succinate 25 mg ER Tab: 12.5 mg = 0.5 tab(s), Oral, Daily, Refills(s) 0, Other (see comment) spironolactone 25 mg Tab: 0.5 tab, Oral, Daily, Refills(s) 0, diuretic/water pill, Home Medications (10) Active Albuterol (Eqv-ProAir HFA) 90 mcg/inh inhalation aerosol 2 puff(s), PRN, Inhalation albuterol 0.083% Inh Cecilia 3 mL 2.5 mg = 3 mL, PRN, Inhalation aspirin 81 mg oral capsule 81 mg = 1 cap(s), Oral, Daily atorvastatin 40 mg Tab 40 mg = 1 tab(s), Oral, Bedtime Breztri Aerosphere inhalation aerosol Entresto 24 mg-26 mg oral tablet 1 tab(s), Oral, BID Farxiga 10 mg oral tablet 10 mg = 1 tab(s), Oral, Daily furosemide 20 mg Tab 20 mg = 1 tab(s), Oral, Daily metoprolol succinate 25 mg ER Tab 12.5 mg = 0.5 tab(s), Oral, Daily spironolactone 25 mg Tab 0.5 tab, Oral, Daily , Medications (2) Active Scheduled: (0) Continuous: (1) Lactated Ringers 1,000 mL 1,000 mL, IV, 150 mL/hr PRN: (1) acetaminophen 325 mg Tab UD [F] 650 mg 2 tab(s), Oral, q4hr Problem list: All Problems AAA (abdominal aortic aneurysm) / SNOMED CT 067545674 / Confirmed Aneurysm leg / SNOMED CT 2833169787 / Confirmed Asthma / SNOMED CT 481193106 / Confirmed Congestive heart failure / SNOMED CT 3819955072 / Confirmed COPD / SNOMED CT 4933323319 / Confirmed Hyperlipidemia / SNOMED CT 21921740 / Confirmed, Active Problems (6) AAA (abdominal aortic aneurysm) Aneurysm leg Asthma Congestive heart failure COPD Hyperlipidemia Histories Past Medical History: No active or resolved past medical history items have been selected or recorded. Family History: No family history items have been selected or recorded. Procedure history: Colonoscopy (680579756). Hernia repair (7619746196). Social History Social & Psychosocial Habits Alcohol 03/11/2024 Use: Current Type: Beer Frequency: Daily Comment: 2-3 beers/day - 03/11/2024 10:53 Angelita Levine RN Substance Abuse 03/11/2024 Risk Assessment: Denies Substance Abuse Tobacco Comment: quit smoking about 6 months ago - 03/11/2024 10:53 Angelita Levine RN Physical Examination Vital Signs 04/02/2024 13:02 EDT Heart Rate Monitored 54 bpm LOW SpO2 95 % 04/02/2024 13:02 EDT Systolic Blood Pressure 115 mmHg Diastolic Blood Pressure 62 mmHg Blood Pressure Location Right arm Mean Arterial Pressure, Monitered 80 mmHg 04/02/2024 13:01 EDT Respiratory Rate 18 br/min 04/02/2024 11:51 EDT Heart Rate Monitored 54 bpm LOW SpO2 97 % 04/02/2024 11:51 EDT Systolic Blood Pressure 124 mmHg Diastolic Blood Pressure 65 mmHg Mean Arterial Pressure, Monitered 85 mmHg 04/02/2024 11:50 EDT Respiratory Rate 18 br/min 04/02/2024 11:45 EDT Temperature Temporal Artery 36.2 DegC LOW Heart Rate Monitored 56 bpm LOW Respiratory Rate Monitored 18 br/min Systolic Blood Pressure 114 mmHg Diastolic Blood Pressure 67 mmHg SpO2 97 % 04/02/2024 11:35 EDT Heart Rate Monitored 51 bpm LOW Respiratory Rate Monitored 18 br/min Systo (more content not included)... [facility] Comment on above: Result Comment: Elec tronically Signed By: Samir Elkins MD\.br\Date and Time Signed: 04/02/24 14:07 EDT 04-02-2024 Hospital Discharge instructions Patient Education 04/02/2024 12:01:03 Post Op Patient Instructions - FT (Custom) (CUSTOM) Follow Up Care 03/10/2024 14:52:20 With:Beatrice Juarez Address:Unknown When: Unknown Comments:Keep scheduled appointment [facility] 04-02-2024 Evaluation + Plan note Extrac gladis from: Title:ANES Post-operative Note---General Author: Samir Elkins MD Date:04/02/24 Plan Transfer/Discharge: Transfer/Discharge Discharge when meets criteria ( To home ). Extracted from: Title:ANES Pre-operative Note 2022 Author:Samir Swann Date:04/02/24 Plan [place] [employer] Anesthesiologists (ASA) physical status classification: Class IV. Anesthetic Preoperative Plan: Anesthesia General. [facility] [id number] NotePatient Education - Text [facility]09-13-2024 Note From a cardiac perspective pt may proceed with planned procedure/ surgery to vocal cord for possible cancer, he is a moderate to high risk for a low- moderate risk procedure. Please monitor hemodynamics carefully and prevent any major fluid shifts. Marycarmen Soria [facility] Cardiology Available 7a-5pm via [employer] Chat Pager [phone] Alliance Community Hospital07-03-2024 NoteOn current TTE EF has recovered to normal- 55% NYHC III- currently volume overloaded, worsening SOB and abd swelling with noted weight gain. Continue GDMT- lipitor, farxiga, toprol, entresto and aldactone Diuretic therapy- increase lasix to 40 mg bid for next 3 days and then decrease to 40 mg daily Start potassium 10 meq daily. Repeat BMP next week to check renal fx and electrolytes Monitor daily weights, I&O, fluid restriction 1.5-2L/day, renal function and electrolytesUnAultman Alliance Community Hospital07-03-2024 NoteCoronary artery disease is unchanged. Continue current medications. Cardiac status will be reassessed in 3 months.[facility]07-03-2024 NotePatient here for 3 mo follow up CAD, chronic systolic heart failure, and hyperlipidemia. Had echo last week, and lipid panel in October 2023. Lasix was started at last apt in September. He has gained 8# since last visit. says he burps a lot and never did before. Patient denies chest pain, palpitations, and lightheadedness/syncope. Review of Systems Constitutional: Positive for weight gain (8# since September 2023). Cardiovascular: Positive for dyspnea on exertion and leg swelling (intermittent). Respiratory: Positive for shortness of breath. Gastrointestinal: Frequent burping All other systems reviewed and are negative.[facility] 01-01-2024 NoteUTP CARDIOLOGY PROGRESS NOTE HPI: Vahid Chowdhury is a 73 y.o. male here for routine 3 month F/U HPI 73 yo male presents to clinic for known HFrEF 35%, resp failure- COPD, HTN, HPL, smoker Patient here for 3 mo follow up CAD, chronic systolic heart failure, and hyperlipidemia. Had echo last week, and lipid panel in October 2023. Lasix was started at last apt in September. He has gained 8# since last visit. says he burps a lot and never did before. Patient denies chest pain, palpitations, and lightheadedness/syncope. Admits increased SOB, + orthopnea and abd swelling- my cloths are tight. Review of Systems Constitutional: Positive for weight gain (8# since September 2023). Cardiovascular: Positive for dyspnea on exertion and leg swelling (intermittent). Respiratory: Positive for shortness of breath. Gastrointestinal: Frequent burping All other systems reviewed and are negative. 10/11/23 HPI 73 yo male presents to clinic [...] time and recently f/U with pulmonary at [facility]. Admits occasional lightheadedness/dizziness without syncope Visit Vitals BP 114/64 (BP Location: Right arm, Patient Position: Sitting) Pulse 51 Ht 1.702 m (5' 7 ) Wt 78.5 kg (173 lb) SpO2 96% BMI 27.10 kg/m??? Smoking Status Former BSA 1.93 m??? No Known Allergies Medications: Current Outpatient [...] by mouth at bedtime. 90 tablet 3 hcwjwvgovn-qpdwzhea-zdwserohah (Breztri Aerosphere) 160-9-4.8 mcg/actuation HFA aerosol inhaler Inhale. dapagliflozin propanediol (Farxiga) 10 mg Take 1 tablet (10 mg) by mouth in the morning. 90 tablet 3 metoprolol succinate XL (Toprol-XL) 25 mg 24 hr tablet Take 0.5 tablets (12.5 mg) by mouth in the morning. Do not crush or chew. 45 tablet 3 sacubitril-valsartan (Entresto) 24-26 mg tablet Take 1 tablet by mouth in the morning and at bedtime. 180 tablet 3 spironolactone (Aldactone) 25 mg tablet Take 0.5 tablets (12.5 mg) by mouth in the morning. 45 tablet 3 [DISCONTINUED] furosemide (Lasix) 20 mg tablet Take 1 tablet (20 mg) by mouth in the morning. 30 tablet 11 nicotine (Nicoderm CQ) 21 mg/[address] 1 patch on the skin in the morning. Do not start before September 07, 2023. 30 patch 0 No current facility-administered medications on file [...] side and 3on the left side. Posterior tibial pulses are 3 on the right side and 3 on the left side. Heart sounds: Normal heart sounds, S1 normal and S2 normal. Pulmonary: Effort: Pulmonary effort is normal. Breath sounds: Normal breath sounds. Abdominal: General: Bowel sounds are normal. Palpations: ABD softly distended - rounded Musculoskeletal: General: Normal range of motion. Cervical back: Normal range of motion. Right lower leg: No edema. Left lower leg: No edema. Skin: General: Skin is warm and dry. Capillary Refill: Capillary refill takes less than 2 seconds. Neurological: General: No focal deficit present. Mental Status: She is alert and oriented to person, place, and time. Psychiatric: Mood and Affect: Mood normal. Behavior: Behavior normal. Thought Content: Thought content normal. Judgment: Judgment normal. Labs: 10/03/23 Renal function normal K+ normal Last lab values have been reviewed CV Testin12/24/23 TTE- reviewed with pt- normal LVSF, elevated Rt sided pressures with normal RV size and function 09/05/23 Cardiac cath Conclusion Cardiac Cath Report 09/05/2023 Performing Physicians: -Sylvie Avitia MD Assistants: Dr Dina Khan. Procedures Performed: -Bilateral selective coronary angiography -Right heart catheterization (more content not included)...[facility]04-12-2024 Note PSYCHIATRIC II-III, currently appear fluid overloaded therefore will start lasix [...] I&O, fluid restriction 1.5-2L/day, renal function and electrolytes-[facility]04-12-2024 NoteCoronary artery disease is stable Continue GDMT- Lipitor, toprol and entresto continue risk factor modifications- heart healthy diet, regular exercise as tolerated and continue all medications.[facility] 10-11-2023 NoteLipid abnormalities are managed with lipitor 40 mgUnAultman Alliance Community Hospital04-12-2024 NoteUTP CARDIOLOGY PROGRESS NOTE HPI: Vahid Chowdhury is a 73 [...] time and recently f/U with pulmonary at [facility]. Admits occasional lightheadedness/dizziness without syncope Review of [...] by mouth at bedtime. 90 tablet 3 squybsuhko-yfrmrnov-ueapuphhos (Breztri Aerosphere) 160-9-4.8 mcg/actuation HFA aerosol inhaler [...] Right Ventricle: The ri (more content not included)...[facility] 10-11-2023 NotePatient here for 1 mo follow up chronic systolic heart failure and CAD. He was switched from valsartan to Entresto last month. Says he feels the same since med change. Denies chest pain. Review of Systems Cardiovascular: Positive for dyspnea on exertion. Respiratory: Positive for shortness of breath. Neurological: Positive for light-headedness (1 episode since last visit). All other systems reviewed and are negative.[facility] 09-13-2023 NoteReferral to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
[2024-04-20 11:39] LABS: Alanine Aminotransferase 30 U/L (16-63); Anion Gap 13.3; Aspartate Amino Transferase 20 U/L (15-37); BUN Creatinine Ratio 13.8; Calcium 9.5 mg/dL (8.5-10.1); Carbon Dioxide 29.1 mmol/L (21.0-32.0); Chloride 101 mmol/L (98-107); Chol HDL Ratio 2.7; Cholesterol 183 mg/dL (<=200); Estimated GFR (African America >60 (>=60 mL/min/1.73m^2); Estimated GFR (Non-African Ame >60 (>=60 mL/min/1.73m^2); Glucose 132 mg/dL (74-106); HDL Cholesterol 69 mg/dL (40-60); Potassium 4.4 mmol/L (3.5-5.1); Sodium 139 mmol/L (136-145); Triglycerides 168 mg/dL (<=150); VLDL CHOLESTEROL 33.6 mg/dL
== END 2024-04-20 08:47 | disposition home or self-care (01) ==
LOC: LAB 08:49
PROVIDERS: PCP Family Medicine; Visit Provider Internal Medicine Cardiovascular Disease
DX: I25.10 Atherosclerotic heart disease of native coronary artery without angina pectoris (principal); I50.42 Chronic combined systolic (congestive) and diastolic (congestive) heart failure
CPT/HCPCS: 36415; 80048; 80061; 84450; 84460